=== PATIENT | male | born 1945 | race Caucasian/White ===

== ENCOUNTER → 2016-07-23 | Outpatient (CLI) | payer MEDICARE, OTHER ==
[~2016-07-23] MED LIST: ALLO100T PO; ASPI81TA85 PO; BIMA1SOL OP; LOSA25TA8 PO; MAGN64TASA PO; PRED10PA2 PO; SPIR25TA2 PO; TORS5TAB2 PO
[2016-07-23 13:20] LABS: ALBUMIN 3.8 GM/DL (3.2-5.2); ALBUMIN/GLOBULIN RATIO 1.23 (1.00-1.93); BILIRUBIN,TOTAL 1.1 MG/DL (0.2-1.0); CALCIUM LEVEL 8.4 MG/DL (8.8-10.2); CREATININE FOR GFR 1.42 MG/DL (0.70-1.30); GLOMERULAR FILTRATION RATE 52.2 (>42); POTASSIUM SERUM 4.2 MEQ/L (3.5-5.1); TOTAL PROTEIN 6.9 GM/DL (6.4-8.2); URIC ACID 7.8 MG/DL (3.5-7.2)
== END ==
LOC: M SMT 10:52
PROVIDERS: ATTEND Family Medicine
DX: M10.9 Gout, unspecified (principal); R73.01 Impaired fasting glucose

== ENCOUNTER → 2016-09-23 | Outpatient (CLI) | payer MEDICARE, OTHER ==
[2016-09-23 14:21] LABS: BASO % 0.4 % (0.0-1.0); EOS % 0.6 % (0.0-3.0); LARGE UNSTAINED CELL # 0.1 K/mm3 (0.0-0.4); LARGE UNSTAINED CELL % 2.9 % (0.0-4.0); LYMPH # 0.9 K/mm3 (1.5-4.5); LYMPH % 18.4 % (24.0-44.0); MEAN CORPUSCULAR HEMOGLOBIN 34.9 pg (27.0-33.0); MEAN CORPUSCULAR HGB CONC 32.7 g/dl (32.0-36.5); MEAN CORPUSCULAR VOLUME 106.7 fl (80.0-96.0); MONO # 0.4 K/mm3 (0.0-0.8); MONO % 8.2 % (0.0-5.0); NEUTROPHILS # 3.3 K/mm3 (1.8-7.7); NEUTROPHILS % 69.4 % (36.0-66.0); PLATELET COUNT, AUTOMATED 129 k/mm3 (150-450); WHITE BLOOD COUNT 4.7 K/mm3 (4.0-10.0)
[2016-09-23 14:37] LABS: ALBUMIN 3.8 GM/DL (3.2-5.2); ALBUMIN/GLOBULIN RATIO 1.23 (1.00-1.93); ALKALINE PHOSPHATASE 83 U/L (45-117); ALT/SGPT 26 U/L (12-78); ANION GAP 11 MEQ/L (8-16); AST/SGOT 35 U/L (15-37); BILIRUBIN,TOTAL 0.9 MG/DL (0.2-1.0); BLOOD UREA NITROGEN 20 MG/DL (7-18); CARBON DIOXIDE LEVEL 24 MEQ/L (21-32); CHLORIDE LEVEL 107 MEQ/L (98-107); CREATININE FOR GFR 1.46 MG/DL (0.70-1.30); GLOMERULAR FILTRATION RATE 50.4 (>42); GLUCOSE, FASTING 112 MG/DL (83-110); SODIUM LEVEL 142 MEQ/L (136-145); TOTAL PROTEIN 6.9 GM/DL (6.4-8.2); URIC ACID 6.4 MG/DL (3.5-7.2)
[2016-09-23 14:52] LABS: ERYTHROCYTE SEDIMENTATION RATE 21 mm/hr (0-20)
== END ==
LOC: M SMT 10:04
PROVIDERS: ATTEND Internal Medicine Rheumatology
DX: R76.8 Other specified abnormal immunological findings in serum (principal); M19.90 Unspecified osteoarthritis, unspecified site; I10 Essential (primary) hypertension

== ENCOUNTER → 2016-09-23 | Outpatient (CLI) | payer MEDICARE, OTHER ==
[2016-09-23 14:03] LABS: CALCIUM LEVEL 8.9 MG/DL (8.8-10.2); CREATININE FOR GFR 1.45 MG/DL (0.70-1.30); GLOMERULAR FILTRATION RATE 50.8 (>42); POTASSIUM SERUM 3.9 MEQ/L (3.5-5.1)
== END ==
LOC: M SMT 10:01
PROVIDERS: ATTEND Family Medicine
DX: I10 Essential (primary) hypertension (principal)

== ENCOUNTER → 2016-12-21 | Outpatient (REF) | payer MEDICARE, OTHER ==
[2016-12-21 13:39] LABS: CALCIUM LEVEL 8.7 MG/DL (8.8-10.2); CREATININE FOR GFR 1.52 MG/DL (0.70-1.30); GLOMERULAR FILTRATION RATE 48.1 (>42); MAGNESIUM LEVEL 1.4 MG/DL (1.8-2.4); POTASSIUM SERUM 3.7 MEQ/L (3.5-5.1)
== END ==
LOC: M LABDRWAD 12:13
PROVIDERS: ATTEND Nurse Practitioner Family
DX: I50.32 Chronic diastolic (congestive) heart failure (principal)

== ENCOUNTER → 2017-01-21 | Outpatient (REF) | payer MEDICARE, OTHER ==
[2017-01-21 14:34] LABS: CALCIUM LEVEL 9.1 MG/DL (8.8-10.2); CREATININE FOR GFR 2.02 MG/DL (0.70-1.30); GLOMERULAR FILTRATION RATE 34.6 (>42); PHOSPHORUS LEVEL 3.6 MG/DL (2.5-4.9); POTASSIUM SERUM 3.6 MEQ/L (3.5-5.1)
== END ==
LOC: M LABDRWAD 13:59
PROVIDERS: ATTEND Nurse Practitioner Family
DX: I11.0 Hypertensive heart disease with heart failure (principal)

== ENCOUNTER → 2017-01-24 | Outpatient (REF) | payer MEDICARE, OTHER ==
[2017-01-24 13:43] LABS: ALT/SGPT 30 U/L (12-78); AST/SGOT 27 U/L (15-37)
== END ==
LOC: M LAB REF 12:50
PROVIDERS: ATTEND Internal Medicine Nephrology
DX: M10.9 Gout, unspecified (principal)

== ENCOUNTER → 2017-01-28 | Outpatient (REF) | payer MEDICARE, OTHER | LOC: M LABDRWAD 13:24 | PROVIDERS: ATTEND Nurse Practitioner Adult Health | DX: Z85.46 Personal history of malignant neoplasm of prostate (principal) ==

== ENCOUNTER → 2017-01-31 | Outpatient (CLI) | payer MEDICARE, OTHER ==
--- NOTE | 2017-01-31 11:26 | REP ---
RENAL AND BLADDER ULTRASOUND: Real-time sonographic evaluation of kidneys and bladder performed. Kidneys are normal in size and echotexture, right kidney measuring 12.3 x 6.5 x 5.7 cm and left kidney 11.9 x 6.4 x 6.6 cm. There is no hydronephrosis or renal mass. Vascular calcifications are seen bilaterally. Cyst in the lower pole of the left kidney measures 8 x 7 x 9 mm. Urinary bladder is mildly distended with no definite mass or calculus. IMPRESSION: No hydronephrosis. Small left renal cyst. Signed by Dick Avery MD 02/01/2017 08:38 A
== END ==
LOC: M RAD 09:42
PROVIDERS: ATTEND Internal Medicine Nephrology
DX: N18.3 Chronic kidney disease, stage 3 (moderate) (principal); M10.9 Gout, unspecified; N28.1 Cyst of kidney, acquired

== ENCOUNTER → 2017-03-01 | Outpatient (REF) | payer MEDICARE, OTHER ==
[2017-03-01 13:57] LABS: ALBUMIN 3.5 GM/DL (3.2-5.2); CALCIUM LEVEL 8.6 MG/DL (8.8-10.2); CREATININE FOR GFR 1.58 MG/DL (0.70-1.30); PHOSPHORUS LEVEL 3.5 MG/DL (2.5-4.9); POTASSIUM SERUM 3.9 MEQ/L (3.5-5.1)
== END ==
LOC: M LABDRWAD 13:31
PROVIDERS: ATTEND Nurse Practitioner Family
DX: I11.9 Hypertensive heart disease without heart failure (principal)

== ENCOUNTER → 2017-04-12 | Outpatient (REF) | payer MEDICARE, OTHER ==
[2017-04-12 14:21] LABS: FOLATE 3.3 NG/ML
== END ==
LOC: M LAB REF 13:43
PROVIDERS: ATTEND Internal Medicine Nephrology
DX: N18.3 Chronic kidney disease, stage 3 (moderate) (principal); D53.9 Nutritional anemia, unspecified; M10.9 Gout, unspecified

== ENCOUNTER → 2017-11-04 | Outpatient (CLI) | payer MEDICARE, OTHER ==
[2017-11-04 13:41] LABS: PROSTATIC SPECIFIC AG MONITOR < 0.01 NG/ML (< 4.0)
== END ==
LOC: M ADAMS 10:08
DX: Z85.46 Personal history of malignant neoplasm of prostate (principal)
CPT/HCPCS: 84153

== ENCOUNTER → 2017-11-29 | Outpatient (REF) | payer MEDICARE, OTHER ==
[2017-11-29 15:37] LABS: FERRITIN 112 NG/ML (26-388); IRON (FE) 58 UG/DL (65-175); PERCENT SATURATION 21.7 % (19.7-50.0); TOTAL IRON BINDING CAPACITY 267 UG/DL (250-450)
== END ==
LOC: M LAB REF 15:05
DX: N18.3 Chronic kidney disease, stage 3 (moderate) (principal); D53.9 Nutritional anemia, unspecified
CPT/HCPCS: 83550

== ENCOUNTER → 2018-01-05 | Outpatient (CLI) | payer MEDICARE, OTHER | LOC: M RAD 12:13 | DX: N63.11 Unspecified lump in the right breast, upper outer quadrant (principal) | CPT/HCPCS: 77066 ==

== ENCOUNTER → 2018-01-24 | Outpatient (REF) | payer MEDICARE, OTHER | LOC: M LAB REF 18:32 | DX: C50.421 Malignant neoplasm of upper-outer quadrant of right male breast (principal) | CPT/HCPCS: 88305 ==

== ENCOUNTER → 2018-02-02 | Outpatient (CLI) | payer MEDICARE, OTHER | LOC: M RAD 10:00 | DX: N60.32 Fibrosclerosis of left breast (principal) | CPT/HCPCS: 76642 ==

== ENCOUNTER → 2018-02-13 | Outpatient (CLI) | payer MEDICARE, OTHER ==
[2018-02-13 11:57] LABS: ESTIMATED AVERAGE GLUCOSE 97 MG/DL (60-110)
[2018-02-13 12:11] LABS: ANION GAP 14 MEQ/L (8-16); BLOOD UREA NITROGEN 45 MG/DL (7-18); CALCIUM LEVEL 9.2 MG/DL (8.8-10.2); CARBON DIOXIDE LEVEL 25 MEQ/L (21-32); CHLORIDE LEVEL 102 MEQ/L (98-107); CREATININE FOR GFR 2.34 MG/DL (0.70-1.30); GLOMERULAR FILTRATION RATE 29.2 (>42); GLUCOSE, FASTING 128 MG/DL (70-100); POTASSIUM SERUM 3.8 MEQ/L (3.5-5.1); SODIUM LEVEL 141 MEQ/L (136-145)
== END ==
LOC: M LAB 10:51
DX: E11.9 Type 2 diabetes mellitus without complications (principal)

== ENCOUNTER 2018-02-15 07:53 | Inpatient (IN) | payer MEDICARE, OTHER ==
[~2018-02-15 07:53] MED LIST changes: -ALLO100T PO; -ASPI81TA85 PO; -BIMA1SOL OP; +LIDOCAINE 1% MDV 20ML VIAL SQ; -LOSA25TA8 PO; -MAGN64TASA PO; -PRED10PA2 PO; -SPIR25TA2 PO; -TORS5TAB2 PO
[2018-02-15] MEDS: LIDOCAINE 5% (LIDODERM) PATCH TD (08:20)
[2018-02-15] MEDS: LR 1,000 ML IV (08:49)
[2018-02-15] MEDS: LevoFLOXacin IV 500 MG in APPROPRIATE DILUENT 1 EA IV (09:30)
[2018-02-15] MEDS ORDERED: LIDOCAINE 2% INJ 100 MG/5 ML SDV (FOR ANES.) As Ordered (12:34)
[2018-02-15] MEDS ORDERED: SUCCINYLCHOLINE 100 MG/5 ML SYRINGE (J0330) As Ordered (12:34)
[2018-02-15] MEDS ORDERED: PROPOFOL 200 MG/20 ML VIAL As Ordered (12:34)
[2018-02-15] MEDS ORDERED: ONDANSETRON 4MG/2ML VIAL (J2405) As Ordered (12:34)
[2018-02-15] MEDS ORDERED: fentaNYL 100 MCG/2 ML INJECTION (J3010) As Ordered (12:34)
[2018-02-15] MEDS ORDERED: MIDAZOLAM INJ 2 MG/2 ML VIAL (J2250) As Ordered (12:34)
[2018-02-15] MEDS ORDERED: ROCURONIUM BROMIDE 50 MG/5 ML VIAL As Ordered (12:34)
[2018-02-15] MEDS: METHYLENE BLUE 0.5% (5MG/ML) 10 ML AMP (PROVAYBLUE)(Q9968 PER 1MG) As Ordered (12:44)
[2018-02-15] MEDS ORDERED: ePHEDrine SULFATE 25 MG/5 ML(5MG/ML) SYRINGE As Ordered (13:04)
[2018-02-15] MEDS ORDERED: PHENYLephrine HCL 500 MCG/5 ML (100MCG/ML) SYRINGE (J2370) As Ordered (13:04)
[2018-02-15] MEDS ORDERED: SUGAMMADEX SODIUM 500 MG/5 ML VIAL (BRIDION) As Ordered (13:38)
[2018-02-15] MEDS ORDERED: BUPIVACAINE HCL 0.25% 30 ML VIAL As Ordered (13:54)
[2018-02-15] MEDS ORDERED: HYDROmorphone HCL 2 MG/ML 1ML VIAL (J1170) As Ordered (14:11)
[2018-02-15] MEDS: BUPIVACAINE HCL 0.25% 30 ML VIAL As Ordered (16:15)
[2018-02-15] MEDS: LIDOCAINE 1% SDV INJ 30 ML VIAL As Ordered ×2 (16:16→16:55)
[2018-02-15] MEDS: BUPIVACAINE LIPOSOME/PF 1.3% 20ML VIAL (13.3MG/ML)(EXPAREL)(C9290 PER1MG) As Ordered (16:16)
[2018-02-15] MEDS ORDERED: MORPHINE 4 MG/ML 1ML VIAL/SYRINGE (J2270) IV ×2 (17:00)
[2018-02-15] MEDS ORDERED: ONDANSETRON 4MG/2ML VIAL (J2405) IV ×2 (17:00→17:15)
[2018-02-15] MEDS ORDERED: PERCOCET 5MG/325MG TAB PO ×2 (17:00→17:15)
[2018-02-15] MEDS ORDERED: fentaNYL 100 MCG/2 ML INJECTION (J3010) IV (17:15)
[2018-02-15] MEDS ORDERED: LR 1,000 ML IV (17:15)
[2018-02-15] MEDS ORDERED: METOCLOPRAMIDE INJ 10MG/2ML VIAL (J2765) IV (17:15)
[2018-02-15] MEDS: PERCOCET 5MG/325MG TAB PO ×2 (17:40→23:23)
[2018-02-15] MEDS: KCL 20MEQ IN D5/0.45NS 1000ML 1,000 ML IV ×2 (18:16→23:22)
[2018-02-15] MEDS: SYMBICORT 160/4.5MCG INHALER 6GM INH (20:30)
[2018-02-15] MEDS: SENOKOT S TAB PO (20:42)
[2018-02-15] MEDS: OCUVITE 1 TAB PO (20:42)
[2018-02-15] MEDS: ALLOPURINOL 100 MG TAB PO (20:42)
[2018-02-15] MEDS: TORSEMIDE 10 MG TABLET PO (22:57)
[2018-02-16 06:39] LABS: BASO % 0.4 % (0.0-1.0); EOS % 0.2 % (0.0-3.0); HEMATOCRIT 29.7 % (42.0-52.0); HEMOGLOBIN 10.1 g/dl (13.5-17.5); IMMATURE GRANULOCYTE % 0.4 % (0-3.0); LYMPH # 0.8 10^3/uL (1.5-4.5); LYMPH % 15.1 % (24.0-44.0); MEAN CORPUSCULAR HEMOGLOBIN 35.1 pg (27.0-33.0); MEAN CORPUSCULAR VOLUME 103.1 fl (80.0-96.0); MONO # 0.6 10^3/uL (0.0-0.8); NEUTROPHILS # 4.1 10^3/uL (1.8-7.7); NEUTROPHILS % 72.9 % (36.0-66.0); RED BLOOD COUNT 2.88 10^6/uL (4.30-6.10); RED CELL DISTRIBUTION WIDTH 13.7 % (11.5-14.5); WHITE BLOOD COUNT 5.6 10^3/uL (4.0-10.0)
[2018-02-16 06:55] LABS: ALBUMIN 2.5 GM/DL (3.2-5.2); ALBUMIN/GLOBULIN RATIO 0.83 (1.00-1.93); ALKALINE PHOSPHATASE 73 U/L (45-117); ALT/SGPT 17 U/L (12-78); ANION GAP 9 MEQ/L (8-16); AST/SGOT 15 U/L (7-37); BILIRUBIN,TOTAL 0.9 MG/DL (0.2-1.0); BLOOD UREA NITROGEN 47 MG/DL (7-18); CARBON DIOXIDE LEVEL 25 MEQ/L (21-32); CHLORIDE LEVEL 107 MEQ/L (98-107); CREATININE FOR GFR 2.32 MG/DL (0.70-1.30); GLOMERULAR FILTRATION RATE 29.4 (>42); GLUCOSE, FASTING 160 MG/DL (70-100); POTASSIUM SERUM 3.8 MEQ/L (3.5-5.1); SODIUM LEVEL 141 MEQ/L (136-145); TOTAL PROTEIN 5.5 GM/DL (6.4-8.2)
[2018-02-16 06:58] LABS: PLATELET COUNT, AUTOMATED 95 10^3/uL (150-450)
[2018-02-16 06:59] LABS: IMMATURE PLATELET FRACTION % 5.2 % (0.0-10.9)
[2018-02-16 07:04] LABS: CALCIUM LEVEL 7.7 MG/DL (8.8-10.2)
[2018-02-16] MEDS: SYMBICORT 160/4.5MCG INHALER 6GM INH ×2 (07:57→20:12)
[2018-02-16] MEDS ORDERED: PILL CRUSHER/CUTTER 1 EACH XX (09:00)
[2018-02-16] MEDS: LOSARTAN 25 MG TAB PO (09:01)
[2018-02-16] MEDS: OCUVITE 1 TAB PO ×2 (09:01→20:11)
[2018-02-16] MEDS: SENOKOT S TAB PO ×2 (09:01→20:11)
[2018-02-16] MEDS: ALLOPURINOL 100 MG TAB PO ×2 (09:01→20:11)
[2018-02-16] MEDS: FOLIC ACID 1 MG TAB PO (09:01)
[2018-02-16] MEDS: TORSEMIDE 10 MG TABLET PO ×2 (09:01→20:13)
[2018-02-16] MEDS: SODIUM CHLORIDE 0.9% 1000ML IV (09:01)
[2018-02-16] MEDS: SPIRONOLACTONE 25 MG TAB PO (09:02)
[2018-02-16] MEDS: ENOXAPARIN 40 MG/0.4 ML SYRINGE (J1650) SC (09:02)
[2018-02-16] MEDS: KCL 20MEQ IN D5/0.45NS 1000ML 1,000 ML IV ×2 (11:14→18:38)
[2018-02-16] MEDS: NEBIVOLOL 5 MG TAB (BYSTOLIC) PO (13:50)
[2018-02-16] MEDS: predniSONE 1 MG TAB PO (13:50)
[2018-02-16] MEDS: MAGNESIUM CHLORIDE 64 MG TABCR (SLO MAG) PO (13:51)
[2018-02-16] MEDS: THIAMINE 100 MG TAB PO ×2 (15:10→20:11)
[2018-02-16] MEDS: zolPIDEM TARTRATE 5 MG TAB PO (22:50)
[2018-02-16] MEDS: LORazepam 2 MG TAB PO (22:59)
[2018-02-17] MEDS: KCL 20MEQ IN D5/0.45NS 1000ML 1,000 ML IV (01:44)
[2018-02-17] MEDS: SYMBICORT 160/4.5MCG INHALER 6GM INH ×2 (07:46→19:54)
[2018-02-17 08:57] LABS: BASO % 0.5 % (0.0-1.0); EOS # 0.1 10^3/uL (0.0-0.50); HEMATOCRIT 31.3 % (42.0-52.0); HEMOGLOBIN 10.6 g/dl (13.5-17.5); IMMATURE GRANULOCYTE % 0.5 % (0-3.0); LYMPH # 1.2 10^3/uL (1.5-4.5); MEAN CORPUSCULAR HEMOGLOBIN 35.3 pg (27.0-33.0); MEAN CORPUSCULAR HGB CONC 33.9 g/dl (32.0-36.5); MEAN CORPUSCULAR VOLUME 104.3 fl (80.0-96.0); MONO # 0.7 10^3/uL (0.0-0.8); MONO % 11.1 % (0.0-5.0); NEUTROPHILS # 4.1 10^3/uL (1.8-7.7); NEUTROPHILS % 66.9 % (36.0-66.0); PLATELET COUNT, AUTOMATED 113 10^3/uL (150-450); RED CELL DISTRIBUTION WIDTH 13.8 % (11.5-14.5); WHITE BLOOD COUNT 6.1 10^3/uL (4.0-10.0)
[2018-02-17 09:17] LABS: ANION GAP 12 MEQ/L (8-16); BLOOD UREA NITROGEN 35 MG/DL (7-18); CALCIUM LEVEL 7.8 MG/DL (8.8-10.2); CARBON DIOXIDE LEVEL 21 MEQ/L (21-32); CHLORIDE LEVEL 107 MEQ/L (98-107); GLOMERULAR FILTRATION RATE 37.1 (>42); GLUCOSE, FASTING 110 MG/DL (70-100); POTASSIUM SERUM 4.1 MEQ/L (3.5-5.1); SODIUM LEVEL 140 MEQ/L (136-145)
[2018-02-17] MEDS: MAGNESIUM CHLORIDE 64 MG TABCR (SLO MAG) PO (09:21)
[2018-02-17] MEDS: NEBIVOLOL 5 MG TAB (BYSTOLIC) PO (09:21)
[2018-02-17] MEDS: THIAMINE 100 MG TAB PO ×2 (09:22→20:22)
[2018-02-17] MEDS: TORSEMIDE 10 MG TABLET PO ×2 (09:22→20:22)
[2018-02-17] MEDS: FOLIC ACID 1 MG TAB PO (09:22)
[2018-02-17] MEDS: predniSONE 1 MG TAB PO (09:22)
[2018-02-17] MEDS: OCUVITE 1 TAB PO ×2 (09:22→20:22)
[2018-02-17] MEDS: ENOXAPARIN 40 MG/0.4 ML SYRINGE (J1650) SC (09:22)
[2018-02-17] MEDS: ALLOPURINOL 100 MG TAB PO ×2 (09:23→20:22)
[2018-02-17] MEDS: LOSARTAN 25 MG TAB PO (09:23)
[2018-02-17] MEDS: SENOKOT S TAB PO ×2 (09:23→20:22)
[2018-02-17] MEDS: SPIRONOLACTONE 25 MG TAB PO (09:23)
[2018-02-17] MEDS: LORazepam 2 MG TAB PO ×2 (17:27→22:15)
[2018-02-17] MEDS: zolPIDEM TARTRATE 5 MG TAB PO (20:30)
[2018-02-18] MEDS: LORazepam 2 MG TAB PO ×3 (03:43→14:18)
[2018-02-18 08:13] LABS: ANION GAP 9 MEQ/L (8-16); BLOOD UREA NITROGEN 26 MG/DL (7-18); CALCIUM LEVEL 7.8 MG/DL (8.8-10.2); CARBON DIOXIDE LEVEL 25 MEQ/L (21-32); CHLORIDE LEVEL 108 MEQ/L (98-107); GLOMERULAR FILTRATION RATE 45.2 (>42); GLUCOSE, FASTING 94 MG/DL (70-100); POTASSIUM SERUM 3.9 MEQ/L (3.5-5.1); SODIUM LEVEL 142 MEQ/L (136-145)
[2018-02-18] MEDS: SYMBICORT 160/4.5MCG INHALER 6GM INH ×2 (08:14→19:44)
[2018-02-18] MEDS: LOSARTAN 25 MG TAB PO (11:07)
[2018-02-18] MEDS: NEBIVOLOL 5 MG TAB (BYSTOLIC) PO (11:07)
[2018-02-18] MEDS: OCUVITE 1 TAB PO ×2 (11:08→22:06)
[2018-02-18] MEDS: TORSEMIDE 10 MG TABLET PO ×2 (11:09→22:05)
[2018-02-18] MEDS: THIAMINE 100 MG TAB PO ×2 (11:09→22:06)
[2018-02-18] MEDS: FOLIC ACID 1 MG TAB PO (11:09)
[2018-02-18] MEDS: SENOKOT S TAB PO ×2 (11:10→22:06)
[2018-02-18] MEDS: ALLOPURINOL 100 MG TAB PO ×2 (11:10→22:06)
[2018-02-18] MEDS: SPIRONOLACTONE 25 MG TAB PO (11:10)
[2018-02-18] MEDS: ENOXAPARIN 30 MG/0.3 ML SYR (J1650) SC (11:12)
[2018-02-18] MEDS: MAGNESIUM CHLORIDE 64 MG TABCR (SLO MAG) PO (11:13)
[2018-02-18] MEDS: predniSONE 1 MG TAB PO (11:29)
[2018-02-18] MEDS: NEOSPORIN TOP OINT 15GM TOP ×2 (14:18→22:07)
[2018-02-18] MEDS: zolPIDEM TARTRATE 5 MG TAB PO (22:06)
[2018-02-19] MEDS: SYMBICORT 160/4.5MCG INHALER 6GM INH ×2 (07:50→22:03)
[2018-02-19] MEDS: TORSEMIDE 10 MG TABLET PO ×2 (09:39→20:47)
[2018-02-19] MEDS: OCUVITE 1 TAB PO ×2 (09:39→20:15)
[2018-02-19] MEDS: LOSARTAN 25 MG TAB PO (09:40)
[2018-02-19] MEDS: FOLIC ACID 1 MG TAB PO (09:40)
[2018-02-19] MEDS: NEBIVOLOL 5 MG TAB (BYSTOLIC) PO (09:40)
[2018-02-19] MEDS: SPIRONOLACTONE 25 MG TAB PO (09:41)
[2018-02-19] MEDS: ALLOPURINOL 100 MG TAB PO ×2 (09:41→20:15)
[2018-02-19] MEDS: SENOKOT S TAB PO ×2 (09:41→20:15)
[2018-02-19] MEDS: predniSONE 1 MG TAB PO (09:41)
[2018-02-19] MEDS: MAGNESIUM CHLORIDE 64 MG TABCR (SLO MAG) PO (09:41)
[2018-02-19] MEDS: ENOXAPARIN 30 MG/0.3 ML SYR (J1650) SC (09:42)
[2018-02-19] MEDS: NEOSPORIN TOP OINT 15GM TOP ×2 (09:42→20:15)
[2018-02-19] MEDS: zolPIDEM TARTRATE 5 MG TAB PO (20:15)
[2018-02-20 05:58] LABS: BASO % 0.5 % (0.0-1.0); EOS # 0.1 10^3/uL (0.0-0.50); EOS % 1.4 % (0.0-3.0); HEMATOCRIT 29.8 % (42.0-52.0); HEMOGLOBIN 10.1 g/dl (13.5-17.5); IMMATURE GRANULOCYTE % 0.4 % (0-3.0); LYMPH # 1.4 10^3/uL (1.5-4.5); LYMPH % 24.9 % (24.0-44.0); MEAN CORPUSCULAR HEMOGLOBIN 35.3 pg (27.0-33.0); MEAN CORPUSCULAR HGB CONC 33.9 g/dl (32.0-36.5); MEAN CORPUSCULAR VOLUME 104.2 fl (80.0-96.0); MONO # 0.9 10^3/uL (0.0-0.8); MONO % 15.4 % (0.0-5.0); NEUTROPHILS # 3.3 10^3/uL (1.8-7.7); NEUTROPHILS % 57.4 % (36.0-66.0); PLATELET COUNT, AUTOMATED 107 10^3/uL (150-450); RED BLOOD COUNT 2.86 10^6/uL (4.30-6.10); RED CELL DISTRIBUTION WIDTH 13.4 % (11.5-14.5); WHITE BLOOD COUNT 5.7 10^3/uL (4.0-10.0)
[2018-02-20 06:22] LABS: ALBUMIN 2.6 GM/DL (3.2-5.2); ALBUMIN/GLOBULIN RATIO 0.74 (1.00-1.93); ALKALINE PHOSPHATASE 95 U/L (45-117); ALT/SGPT 17 U/L (12-78); ANION GAP 9 MEQ/L (8-16); AST/SGOT 16 U/L (7-37); BILIRUBIN,TOTAL 0.6 MG/DL (0.2-1.0); BLOOD UREA NITROGEN 27 MG/DL (7-18); CARBON DIOXIDE LEVEL 28 MEQ/L (21-32); CHLORIDE LEVEL 104 MEQ/L (98-107); CREATININE FOR GFR 1.61 MG/DL (0.70-1.30); GLOMERULAR FILTRATION RATE 44.9 (>42); GLUCOSE, FASTING 118 MG/DL (70-100); POTASSIUM SERUM 3.8 MEQ/L (3.5-5.1); SODIUM LEVEL 141 MEQ/L (136-145); TOTAL PROTEIN 6.1 GM/DL (6.4-8.2)
[2018-02-20] MEDS: SYMBICORT 160/4.5MCG INHALER 6GM INH ×2 (08:29→21:08)
[2018-02-20] MEDS: predniSONE 1 MG TAB PO (09:36)
[2018-02-20] MEDS: LOSARTAN 25 MG TAB PO (09:39)
[2018-02-20] MEDS: SPIRONOLACTONE 25 MG TAB PO (09:39)
[2018-02-20] MEDS: FOLIC ACID 1 MG TAB PO (09:39)
[2018-02-20] MEDS: SENOKOT S TAB PO ×2 (09:39→20:31)
[2018-02-20] MEDS: OCUVITE 1 TAB PO ×2 (09:40→20:31)
[2018-02-20] MEDS: NEBIVOLOL 5 MG TAB (BYSTOLIC) PO (09:40)
[2018-02-20] MEDS: ALLOPURINOL 100 MG TAB PO ×2 (09:41→20:35)
[2018-02-20] MEDS: MAGNESIUM CHLORIDE 64 MG TABCR (SLO MAG) PO (09:41)
[2018-02-20] MEDS: ENOXAPARIN 30 MG/0.3 ML SYR (J1650) SC (09:41)
[2018-02-20] MEDS: NEOSPORIN TOP OINT 15GM TOP ×2 (09:42→20:32)
[2018-02-20] MEDS: TORSEMIDE 10 MG TABLET PO ×2 (09:42→20:35)
[2018-02-20] MEDS: LORazepam 2 MG TAB PO (11:57)
[2018-02-20] MEDS: zolPIDEM TARTRATE 5 MG TAB PO (20:32)
[2018-02-21 08:26] LABS: BEDSIDE GLUCOSE 91 MG/DL (83-110)
[2018-02-21] MEDS: SYMBICORT 160/4.5MCG INHALER 6GM INH ×2 (08:36→20:13)
[2018-02-21] MEDS: MAGNESIUM CHLORIDE 64 MG TABCR (SLO MAG) PO (09:54)
[2018-02-21] MEDS: ENOXAPARIN 30 MG/0.3 ML SYR (J1650) SC (09:54)
[2018-02-21] MEDS: TORSEMIDE 10 MG TABLET PO ×2 (09:55→20:22)
[2018-02-21] MEDS: SPIRONOLACTONE 25 MG TAB PO (09:55)
[2018-02-21] MEDS: FOLIC ACID 1 MG TAB PO (09:55)
[2018-02-21] MEDS: SENOKOT S TAB PO ×2 (09:55→20:21)
[2018-02-21] MEDS: predniSONE 1 MG TAB PO (09:55)
[2018-02-21] MEDS: OCUVITE 1 TAB PO ×2 (09:55→20:21)
[2018-02-21] MEDS: ALLOPURINOL 100 MG TAB PO ×2 (09:56→20:22)
[2018-02-21] MEDS: LOSARTAN 25 MG TAB PO (09:57)
[2018-02-21] MEDS: NEBIVOLOL 5 MG TAB (BYSTOLIC) PO (09:58)
[2018-02-21] MEDS: NEOSPORIN TOP OINT 15GM TOP ×2 (09:59→20:22)
[2018-02-21] MEDS: zolPIDEM TARTRATE 5 MG TAB PO (20:22)
[2018-02-21] MEDS: LORazepam 1 MG TAB PO ×2 (21:50→23:48)
[2018-02-21 22:18] LABS: ABG BASE EXCESS -0.3 (-2.0-2.0); ABG HCO3 16.5 MEQ/L (22.0-26.0); ABG O2 SATURATION 99.3 % (95.0-99.0); ABG PARTIAL PRESSURE O2 145.1 mmHg (75.0-100.0); ABG STANDARD HCO3 24.3 MEQ/L (22.0-26.0); ABG TOTAL CO2 16.9 MEQ/L (23.0-31.0)
[2018-02-21 22:21] LABS: ABG PARTIAL PRESSURE CO2 12.4 mmHg (35.0-45.0); ABG pH (ARTERIAL) 7.742 UNITS (7.350-7.450)
[2018-02-22] MEDS: THIAMINE 100 MG TAB PO ×3 (00:44→21:45)
[2018-02-22] MEDS: HALOPERIDOL 5 MG/ML VIAL (J1630) IV ×2 (01:31→08:48)
[2018-02-22] MEDS: LORazepam 2 MG/ML VIAL (J2060) IV ×2 (05:59→20:12)
[2018-02-22] MEDS: ENOXAPARIN 30 MG/0.3 ML SYR (J1650) SC (08:36)
[2018-02-22] MEDS: TORSEMIDE 10 MG TABLET PO ×2 (08:36→20:12)
[2018-02-22] MEDS: SENOKOT S TAB PO ×2 (08:37→20:12)
[2018-02-22] MEDS: ALLOPURINOL 100 MG TAB PO ×2 (08:37→20:12)
[2018-02-22] MEDS: MAGNESIUM CHLORIDE 64 MG TABCR (SLO MAG) PO (08:45)
[2018-02-22] MEDS: predniSONE 1 MG TAB PO (08:45)
[2018-02-22] MEDS: NEOSPORIN TOP OINT 15GM TOP ×2 (08:45→20:13)
[2018-02-22] MEDS: OCUVITE 1 TAB PO ×2 (08:45→20:12)
[2018-02-22] MEDS: SPIRONOLACTONE 25 MG TAB PO (08:46)
[2018-02-22] MEDS: LOSARTAN 25 MG TAB PO (08:47)
[2018-02-22] MEDS: NEBIVOLOL 5 MG TAB (BYSTOLIC) PO (08:47)
[2018-02-22] MEDS: SYMBICORT 160/4.5MCG INHALER 6GM INH ×2 (08:59→20:00)
[2018-02-22] MEDS: MULTIVITAMIN -ADULT INJECTION 10 ML, THIAMINE INJection 100 MG, FOLIC ACID 1 MG in NS 1... IV (09:56)
[2018-02-22] MEDS: HALOPERIDOL 5 MG/ML VIAL (J1630) IM (13:20)
[2018-02-22] MEDS: diphenhydrAMINE INJ 50MG/ML VIAL (J1200) IM (15:40)
[2018-02-22 16:32] LABS: BEDSIDE GLUCOSE 138 MG/DL (83-110)
[2018-02-22] MEDS: OXAZEPAM 15 MG CAP PO (17:54)
[2018-02-23] MEDS: OXAZEPAM 15 MG CAP PO ×4 (00:21→17:52)
[2018-02-23] MEDS: LORazepam 2 MG/ML VIAL (J2060) IV ×3 (01:21→21:54)
[2018-02-23] MEDS: MOM 30ML SUSPENSION UDC PO (05:06)
[2018-02-23 06:26] LABS: HEMATOCRIT 27.6 % (42.0-52.0); MEAN CORPUSCULAR HEMOGLOBIN 33.8 pg (27.0-33.0); MEAN CORPUSCULAR HGB CONC 32.6 g/dl (32.0-36.5); MEAN CORPUSCULAR VOLUME 103.8 fl (80.0-96.0); PLATELET COUNT, AUTOMATED 110 10^3/uL (150-450); RED BLOOD COUNT 2.66 10^6/uL (4.30-6.10); RED CELL DISTRIBUTION WIDTH 13.5 % (11.5-14.5); WHITE BLOOD COUNT 6.4 10^3/uL (4.0-10.0)
[2018-02-23 06:40] LABS: ALBUMIN 2.6 GM/DL (3.2-5.2); ALBUMIN/GLOBULIN RATIO 0.79 (1.00-1.93); ALKALINE PHOSPHATASE 91 U/L (45-117); ALT/SGPT 19 U/L (12-78); ANION GAP 11 MEQ/L (8-16); AST/SGOT 20 U/L (7-37); BILIRUBIN,TOTAL 0.9 MG/DL (0.2-1.0); BLOOD UREA NITROGEN 35 MG/DL (7-18); CALCIUM LEVEL 8.7 MG/DL (8.8-10.2); CARBON DIOXIDE LEVEL 28 MEQ/L (21-32); CHLORIDE LEVEL 109 MEQ/L (98-107); CREATININE FOR GFR 2.07 MG/DL (0.70-1.30); GLOMERULAR FILTRATION RATE 33.6 (>42); GLUCOSE, FASTING 100 MG/DL (70-100); POTASSIUM SERUM 3.1 MEQ/L (3.5-5.1); SODIUM LEVEL 148 MEQ/L (136-145); TOTAL PROTEIN 5.9 GM/DL (6.4-8.2)
[2018-02-23 06:50] LABS: MAGNESIUM LEVEL 1.8 MG/DL (1.8-2.4)
[2018-02-23 06:50] LABS: FERRITIN 192 NG/ML (26-388); IRON (FE) 64 UG/DL (65-175); PERCENT SATURATION 23.8 % (19.7-50.0); TOTAL IRON BINDING CAPACITY 269 UG/DL (250-450)
[2018-02-23] MEDS: SYMBICORT 160/4.5MCG INHALER 6GM INH ×3 (08:02→20:00)
[2018-02-23] MEDS: OCUVITE 1 TAB PO ×2 (08:38→20:29)
[2018-02-23] MEDS: SPIRONOLACTONE 25 MG TAB PO (08:39)
[2018-02-23] MEDS: ALLOPURINOL 100 MG TAB PO ×2 (08:39→20:29)
[2018-02-23] MEDS: TORSEMIDE 10 MG TABLET PO ×2 (08:39→20:29)
[2018-02-23] MEDS: LOSARTAN 25 MG TAB PO (08:40)
[2018-02-23] MEDS: THIAMINE 100 MG TAB PO ×2 (08:41→20:29)
[2018-02-23] MEDS: MAGNESIUM CHLORIDE 64 MG TABCR (SLO MAG) PO (08:41)
[2018-02-23] MEDS: SENOKOT S TAB PO ×2 (08:41→20:29)
[2018-02-23] MEDS: NEBIVOLOL 5 MG TAB (BYSTOLIC) PO (08:41)
[2018-02-23] MEDS: ENOXAPARIN 30 MG/0.3 ML SYR (J1650) SC (08:42)
[2018-02-23] MEDS: NEOSPORIN TOP OINT 15GM TOP ×2 (08:42→20:30)
[2018-02-23] MEDS: MULTIVITAMINS/MINERALS THERAP 1 TAB PO (08:42)
[2018-02-23] MEDS: predniSONE 1 MG TAB PO (08:45)
[2018-02-23] MEDS: FOLIC ACID 1 MG TAB PO (13:00)
[2018-02-23 17:24] LABS: FOLATE 15.7 NG/ML (>5.4); VITAMIN B12 LEVEL 1684 PG/ML (247-911)
[2018-02-23] MEDS: diphenhydrAMINE INJ 50MG/ML VIAL (J1200) IM (22:09)
[2018-02-24] MEDS: OXAZEPAM 15 MG CAP PO ×5 (00:08→18:43)
[2018-02-24] MEDS: LORazepam 2 MG/ML VIAL (J2060) IV (02:32)
[2018-02-24] MEDS: diphenhydrAMINE INJ 50MG/ML VIAL (J1200) IM ×2 (04:11→18:53)
[2018-02-24] MEDS: OXAZEPAM 10 MG CAP PO (04:11)
[2018-02-24] MEDS: SYMBICORT 160/4.5MCG INHALER 6GM INH ×2 (08:05→20:00)
[2018-02-24] MEDS: MAGNESIUM CHLORIDE 64 MG TABCR (SLO MAG) PO (08:54)
[2018-02-24] MEDS: ENOXAPARIN 30 MG/0.3 ML SYR (J1650) SC (08:54)
[2018-02-24] MEDS: THIAMINE 100 MG TAB PO ×2 (08:54→20:51)
[2018-02-24] MEDS: ALLOPURINOL 100 MG TAB PO ×2 (08:55→20:51)
[2018-02-24] MEDS: OCUVITE 1 TAB PO ×2 (08:55→20:52)
[2018-02-24] MEDS: SPIRONOLACTONE 25 MG TAB PO (08:55)
[2018-02-24] MEDS: predniSONE 1 MG TAB PO (08:55)
[2018-02-24] MEDS: MULTIVITAMINS/MINERALS THERAP 1 TAB PO (08:55)
[2018-02-24] MEDS: FOLIC ACID 1 MG TAB PO (08:55)
[2018-02-24] MEDS: SENOKOT S TAB PO ×2 (08:55→20:51)
[2018-02-24] MEDS: TORSEMIDE 10 MG TABLET PO (08:55)
[2018-02-24] MEDS: LOSARTAN 25 MG TAB PO (08:56)
[2018-02-24] MEDS: NEBIVOLOL 5 MG TAB (BYSTOLIC) PO (08:56)
[2018-02-24] MEDS: NEOSPORIN TOP OINT 15GM TOP ×2 (08:57→20:52)
[2018-02-24 10:53] LABS: HEMATOCRIT 28.2 % (42.0-52.0); HEMOGLOBIN 9.4 g/dl (13.5-17.5); MEAN CORPUSCULAR HEMOGLOBIN 34.7 pg (27.0-33.0); MEAN CORPUSCULAR HGB CONC 33.3 g/dl (32.0-36.5); MEAN CORPUSCULAR VOLUME 104.1 fl (80.0-96.0); PLATELET COUNT, AUTOMATED 144 10^3/uL (150-450); RED BLOOD COUNT 2.71 10^6/uL (4.30-6.10); RED CELL DISTRIBUTION WIDTH 13.7 % (11.5-14.5); WHITE BLOOD COUNT 6.6 10^3/uL (4.0-10.0)
[2018-02-24 11:38] LABS: ANION GAP 10 MEQ/L (8-16); BLOOD UREA NITROGEN 38 MG/DL (7-18); CALCIUM LEVEL 9.1 MG/DL (8.8-10.2); CARBON DIOXIDE LEVEL 29 MEQ/L (21-32); CHLORIDE LEVEL 109 MEQ/L (98-107); CREATININE FOR GFR 1.99 MG/DL (0.70-1.30); GLOMERULAR FILTRATION RATE 35.1 (>42); GLUCOSE, FASTING 121 MG/DL (70-100); POTASSIUM SERUM 3.2 MEQ/L (3.5-5.1); SODIUM LEVEL 148 MEQ/L (136-145)
[2018-02-24] MEDS: POTASSIUM CHLORIDE 10 MEQ SR TABLET PO (12:47)
[2018-02-25] MEDS: OXAZEPAM 15 MG CAP PO ×7 (01:00→23:37)
[2018-02-25 06:22] LABS: HEMATOCRIT 29.4 % (42.0-52.0); HEMOGLOBIN 9.8 g/dl (13.5-17.5); MEAN CORPUSCULAR HEMOGLOBIN 35.3 pg (27.0-33.0); MEAN CORPUSCULAR HGB CONC 33.3 g/dl (32.0-36.5); MEAN CORPUSCULAR VOLUME 105.8 fl (80.0-96.0); PLATELET COUNT, AUTOMATED 141 10^3/uL (150-450); RED BLOOD COUNT 2.78 10^6/uL (4.30-6.10); RED CELL DISTRIBUTION WIDTH 13.6 % (11.5-14.5); WHITE BLOOD COUNT 6.7 10^3/uL (4.0-10.0)
[2018-02-25 06:48] LABS: ANION GAP 10 MEQ/L (8-16); BLOOD UREA NITROGEN 42 MG/DL (7-18); CALCIUM LEVEL 8.8 MG/DL (8.8-10.2); CARBON DIOXIDE LEVEL 28 MEQ/L (21-32); CHLORIDE LEVEL 112 MEQ/L (98-107); CREATININE FOR GFR 2.35 MG/DL (0.70-1.30); GLUCOSE, FASTING 94 MG/DL (70-100); POTASSIUM SERUM 3.5 MEQ/L (3.5-5.1); SODIUM LEVEL 150 MEQ/L (136-145)
[2018-02-25] MEDS: SYMBICORT 160/4.5MCG INHALER 6GM INH ×2 (07:51→20:00)
[2018-02-25] MEDS: D5W 1,000 ML IV (08:49)
[2018-02-25] MEDS: ENOXAPARIN 30 MG/0.3 ML SYR (J1650) SC (08:54)
[2018-02-25] MEDS: THIAMINE 100 MG TAB PO (08:55)
[2018-02-25] MEDS: POTASSIUM CHLORIDE 10 MEQ SR TABLET PO (08:55)
[2018-02-25] MEDS: predniSONE 1 MG TAB PO (08:56)
[2018-02-25] MEDS: MULTIVITAMINS/MINERALS THERAP 1 TAB PO (08:56)
[2018-02-25] MEDS: SENOKOT S TAB PO ×2 (08:56→20:32)
[2018-02-25] MEDS: ALLOPURINOL 100 MG TAB PO ×2 (08:56→20:32)
[2018-02-25] MEDS: FOLIC ACID 1 MG TAB PO (08:56)
[2018-02-25] MEDS: NEBIVOLOL 5 MG TAB (BYSTOLIC) PO (08:59)
[2018-02-25] MEDS: MAGNESIUM CHLORIDE 64 MG TABCR (SLO MAG) PO (09:01)
[2018-02-25] MEDS: NEOSPORIN TOP OINT 15GM TOP ×2 (09:02→20:32)
[2018-02-25] MEDS: OCUVITE 1 TAB PO ×2 (09:31→20:32)
[2018-02-25] MEDS: LORazepam 2 MG/ML VIAL (J2060) IV ×2 (12:45→20:21)
[2018-02-25] MEDS: diphenhydrAMINE INJ 50MG/ML VIAL (J1200) IM ×2 (13:01→20:34)
[2018-02-26] MEDS: LORazepam 2 MG/ML VIAL (J2060) IV (00:34)
[2018-02-26] MEDS: D5W 1,000 ML IV ×2 (00:35→16:38)
[2018-02-26] MEDS: OXAZEPAM 15 MG CAP PO (05:59)
[2018-02-26 06:39] LABS: HEMATOCRIT 30.1 % (42.0-52.0); HEMOGLOBIN 9.9 g/dl (13.5-17.5); MEAN CORPUSCULAR HEMOGLOBIN 34.9 pg (27.0-33.0); MEAN CORPUSCULAR HGB CONC 32.9 g/dl (32.0-36.5); PLATELET COUNT, AUTOMATED 144 10^3/uL (150-450); RED BLOOD COUNT 2.84 10^6/uL (4.30-6.10); RED CELL DISTRIBUTION WIDTH 13.5 % (11.5-14.5); WHITE BLOOD COUNT 6.4 10^3/uL (4.0-10.0)
[2018-02-26 07:07] LABS: ANION GAP 9 MEQ/L (8-16); BLOOD UREA NITROGEN 38 MG/DL (7-18); CARBON DIOXIDE LEVEL 26 MEQ/L (21-32); CHLORIDE LEVEL 113 MEQ/L (98-107); CREATININE FOR GFR 2.05 MG/DL (0.70-1.30); GLUCOSE, FASTING 144 MG/DL (70-100); POTASSIUM SERUM 3.4 MEQ/L (3.5-5.1); SODIUM LEVEL 148 MEQ/L (136-145)
[2018-02-26] MEDS: SYMBICORT 160/4.5MCG INHALER 6GM INH ×2 (07:31→19:57)
[2018-02-26 09:23] LABS: BEDSIDE GLUCOSE 130 MG/DL (83-110)
[2018-02-26] MEDS: LR 1,000 ML IV (09:30)
[2018-02-26 09:34] LABS: ABG HCO3 24.1 MEQ/L (22.0-26.0); ABG O2 SATURATION 57.4 % (95.0-99.0); ABG PARTIAL PRESSURE CO2 41.7 mmHg (35.0-45.0); ABG STANDARD HCO3 22.9 MEQ/L (22.0-26.0); ABG TOTAL CO2 25.3 MEQ/L (23.0-31.0); ABG pH (ARTERIAL) 7.379 UNITS (7.350-7.450)
[2018-02-26 09:41] LABS: ABG PARTIAL PRESSURE O2 33.8 mmHg (75.0-100.0)
[2018-02-26] MEDS: NEBIVOLOL 5 MG TAB (BYSTOLIC) PO (10:17)
[2018-02-26] MEDS: SENOKOT S TAB PO ×2 (10:18→20:59)
[2018-02-26] MEDS: OCUVITE 1 TAB PO ×2 (10:18→20:59)
[2018-02-26] MEDS: BISACODYL 5 MG TAB PO (10:19)
[2018-02-26] MEDS: ALLOPURINOL 100 MG TAB PO ×2 (10:19→20:59)
[2018-02-26] MEDS: MULTIVITAMINS/MINERALS THERAP 1 TAB PO (10:19)
[2018-02-26] MEDS: THIAMINE 100 MG TAB PO (10:19)
[2018-02-26] MEDS: predniSONE 1 MG TAB PO (10:19)
[2018-02-26] MEDS: ENOXAPARIN 30 MG/0.3 ML SYR (J1650) SC (10:20)
[2018-02-26] MEDS: POTASSIUM CHLORIDE 10 MEQ SR TABLET PO (10:20)
[2018-02-26] MEDS: FOLIC ACID 1 MG TAB PO (10:20)
[2018-02-26] MEDS: NEOSPORIN TOP OINT 15GM TOP ×2 (10:21→21:00)
[2018-02-26] MEDS: MAGNESIUM CHLORIDE 64 MG TABCR (SLO MAG) PO (10:21)
[2018-02-26] MEDS ORDERED: OXAZEPAM 15 MG CAP PO (14:00)
[2018-02-26] MEDS ORDERED: OXAZEPAM 10 MG CAP PO (16:00)
[2018-02-26 16:12] LABS: CK-MB VALUE MASS 2.5 NG/ML (<3.6); CPK CREATINE PHOSPHOKINASE 199 U/L (39-308); MB/CK RELATIVE INDEX 1.25 (< OR =4); TROPONIN I < 0.02 NG/ML (< 0.10)
[2018-02-26] MEDS: MOM 30ML SUSPENSION UDC PO (16:42)
[2018-02-26] MEDS: ACETAMINOPHEN TAB 650MG DOSE (2X325MG) PO (16:42)
[2018-02-26] MEDS: OXAZEPAM 10 MG CAP PO ×2 (16:42→20:59)
[2018-02-26 21:30] LABS: CPK CREATINE PHOSPHOKINASE 180 U/L (39-308); MB/CK RELATIVE INDEX 1.11 (< OR =4); TROPONIN I < 0.02 NG/ML (< 0.10)
[2018-02-27] MEDS: D5W 1,000 ML IV ×2 (00:44→17:25)
[2018-02-27] MEDS: OXAZEPAM 10 MG CAP PO ×4 (01:03→20:02)
[2018-02-27] MEDS ORDERED: LORazepam 2 MG/ML VIAL (J2060) As Ordered (01:33)
[2018-02-27] MEDS: LORazepam 2 MG/ML VIAL (J2060) IV ×2 (01:37→03:45)
[2018-02-27] MEDS: HALOPERIDOL 5 MG/ML VIAL (J1630) IM (02:06)
[2018-02-27] MEDS ORDERED: HALOPERIDOL 5 MG/ML VIAL (J1630) IM (03:30)
[2018-02-27 07:03] LABS: HEMATOCRIT 25.9 % (42.0-52.0); HEMOGLOBIN 8.7 g/dl (13.5-17.5); MEAN CORPUSCULAR HEMOGLOBIN 34.4 pg (27.0-33.0); MEAN CORPUSCULAR HGB CONC 33.6 g/dl (32.0-36.5); MEAN CORPUSCULAR VOLUME 102.4 fl (80.0-96.0); PLATELET COUNT, AUTOMATED 145 10^3/uL (150-450); RED BLOOD COUNT 2.53 10^6/uL (4.30-6.10); RED CELL DISTRIBUTION WIDTH 13.2 % (11.5-14.5); WHITE BLOOD COUNT 8.1 10^3/uL (4.0-10.0)
[2018-02-27 07:20] LABS: ANION GAP 6 MEQ/L (8-16); BLOOD UREA NITROGEN 30 MG/DL (7-18); CARBON DIOXIDE LEVEL 27 MEQ/L (21-32); CHLORIDE LEVEL 112 MEQ/L (98-107); CREATININE FOR GFR 1.64 MG/DL (0.70-1.30); GLOMERULAR FILTRATION RATE 43.9 (>42); GLUCOSE, FASTING 116 MG/DL (70-100); POTASSIUM SERUM 3.5 MEQ/L (3.5-5.1); SODIUM LEVEL 145 MEQ/L (136-145)
[2018-02-27] MEDS: SYMBICORT 160/4.5MCG INHALER 6GM INH ×2 (07:21→20:00)
[2018-02-27] MEDS: NEBIVOLOL 5 MG TAB (BYSTOLIC) PO (09:50)
[2018-02-27] MEDS: THIAMINE 100 MG TAB PO (09:50)
[2018-02-27] MEDS: predniSONE 1 MG TAB PO (09:50)
[2018-02-27] MEDS: POTASSIUM CHLORIDE 10 MEQ SR TABLET PO (09:50)
[2018-02-27] MEDS: FOLIC ACID 1 MG TAB PO (09:51)
[2018-02-27] MEDS: MULTIVITAMINS/MINERALS THERAP 1 TAB PO (09:51)
[2018-02-27] MEDS: MAGNESIUM CHLORIDE 64 MG TABCR (SLO MAG) PO (09:51)
[2018-02-27] MEDS: OCUVITE 1 TAB PO ×2 (09:51→20:02)
[2018-02-27] MEDS: ALLOPURINOL 100 MG TAB PO ×2 (09:51→20:02)
[2018-02-27] MEDS: SENOKOT S TAB PO ×2 (09:51→20:02)
[2018-02-27] MEDS: NEOSPORIN TOP OINT 15GM TOP ×2 (09:52→20:03)
[2018-02-27] MEDS: ENOXAPARIN 30 MG/0.3 ML SYR (J1650) SC (09:52)
[2018-02-27] MEDS: BISACODYL 5 MG TAB PO (10:12)
[2018-02-27 10:47] LABS: AMMONIA 33 uMOL/L (<32)
[2018-02-27] MEDS: risperiDONE 0.25 MG TAB PO ×2 (15:13→20:02)
[2018-02-28] MEDS: OXAZEPAM 10 MG CAP PO (00:10)
[2018-02-28] MEDS: diphenhydrAMINE INJ 50MG/ML VIAL (J1200) IV (01:45)
[2018-02-28] MEDS: D5W 1,000 ML IV ×2 (04:51→20:40)
[2018-02-28 06:45] LABS: HEMATOCRIT 24.6 % (42.0-52.0); MEAN CORPUSCULAR HEMOGLOBIN 34.2 pg (27.0-33.0); MEAN CORPUSCULAR HGB CONC 32.5 g/dl (32.0-36.5); MEAN CORPUSCULAR VOLUME 105.1 fl (80.0-96.0); PLATELET COUNT, AUTOMATED 127 10^3/uL (150-450); RED BLOOD COUNT 2.34 10^6/uL (4.30-6.10); RED CELL DISTRIBUTION WIDTH 13.6 % (11.5-14.5); WHITE BLOOD COUNT 5.7 10^3/uL (4.0-10.0)
[2018-02-28 07:02] LABS: ANION GAP 12 MEQ/L (8-16); BLOOD UREA NITROGEN 20 MG/DL (7-18); CALCIUM LEVEL 7.7 MG/DL (8.8-10.2); CARBON DIOXIDE LEVEL 20 MEQ/L (21-32); CHLORIDE LEVEL 95 MEQ/L (98-107); CREATININE FOR GFR 1.43 MG/DL (0.70-1.30); GLOMERULAR FILTRATION RATE 51.5 (>42); POTASSIUM SERUM 3.4 MEQ/L (3.5-5.1)
[2018-02-28 07:10] LABS: GLUCOSE, FASTING 723 MG/DL (70-100)
[2018-02-28 07:11] LABS: SODIUM LEVEL 127 MEQ/L (136-145)
[2018-02-28 07:19] LABS: BEDSIDE GLUCOSE 137 MG/DL (83-110)
[2018-02-28] MEDS: SYMBICORT 160/4.5MCG INHALER 6GM INH ×2 (07:49→20:42)
[2018-02-28 08:45] LABS: HEMOGLOBIN 9.4 g/dl (13.5-17.5); MEAN CORPUSCULAR HEMOGLOBIN 34.6 pg (27.0-33.0); MEAN CORPUSCULAR HGB CONC 32.4 g/dl (32.0-36.5); MEAN CORPUSCULAR VOLUME 106.6 fl (80.0-96.0); PLATELET COUNT, AUTOMATED 144 10^3/uL (150-450); RED BLOOD COUNT 2.72 10^6/uL (4.30-6.10); RED CELL DISTRIBUTION WIDTH 13.7 % (11.5-14.5); WHITE BLOOD COUNT 5.8 10^3/uL (4.0-10.0)
[2018-02-28 09:04] LABS: ANION GAP 8 MEQ/L (8-16); BLOOD UREA NITROGEN 22 MG/DL (7-18); CALCIUM LEVEL 8.9 MG/DL (8.8-10.2); CARBON DIOXIDE LEVEL 24 MEQ/L (21-32); CHLORIDE LEVEL 113 MEQ/L (98-107); CREATININE FOR GFR 1.41 MG/DL (0.70-1.30); GLOMERULAR FILTRATION RATE 52.3 (>42); GLUCOSE, FASTING 114 MG/DL (70-100); POTASSIUM SERUM 4.1 MEQ/L (3.5-5.1); SODIUM LEVEL 145 MEQ/L (136-145)
[2018-02-28] MEDS: predniSONE 1 MG TAB PO (09:45)
[2018-02-28] MEDS: BISACODYL 5 MG TAB PO (09:45)
[2018-02-28] MEDS: POTASSIUM CHLORIDE 10 MEQ SR TABLET PO (09:45)
[2018-02-28] MEDS: OCUVITE 1 TAB PO ×2 (09:46→21:01)
[2018-02-28] MEDS: risperiDONE 0.25 MG TAB PO ×2 (09:46→21:01)
[2018-02-28] MEDS: THIAMINE 100 MG TAB PO (09:46)
[2018-02-28] MEDS: MULTIVITAMINS/MINERALS THERAP 1 TAB PO (09:46)
[2018-02-28] MEDS: NEBIVOLOL 5 MG TAB (BYSTOLIC) PO (09:46)
[2018-02-28] MEDS: SENOKOT S TAB PO ×2 (09:46→21:05)
[2018-02-28] MEDS: ALLOPURINOL 100 MG TAB PO ×2 (09:46→21:01)
[2018-02-28] MEDS: FOLIC ACID 1 MG TAB PO (09:46)
[2018-02-28] MEDS: MAGNESIUM CHLORIDE 64 MG TABCR (SLO MAG) PO (09:47)
[2018-02-28] MEDS: NEOSPORIN TOP OINT 15GM TOP ×2 (09:47→21:06)
[2018-02-28] MEDS: ENOXAPARIN 30 MG/0.3 ML SYR (J1650) SC (09:47)
[2018-03-01] MEDS: diphenhydrAMINE INJ 50MG/ML VIAL (J1200) IV (02:48)
[2018-03-01 06:07] LABS: HEMATOCRIT 27.5 % (42.0-52.0); HEMOGLOBIN 9.3 g/dl (13.5-17.5); MEAN CORPUSCULAR HEMOGLOBIN 35.1 pg (27.0-33.0); MEAN CORPUSCULAR HGB CONC 33.8 g/dl (32.0-36.5); MEAN CORPUSCULAR VOLUME 103.8 fl (80.0-96.0); PLATELET COUNT, AUTOMATED 130 10^3/uL (150-450); RED BLOOD COUNT 2.65 10^6/uL (4.30-6.10); RED CELL DISTRIBUTION WIDTH 13.3 % (11.5-14.5); WHITE BLOOD COUNT 6.9 10^3/uL (4.0-10.0)
[2018-03-01 06:28] LABS: ANION GAP 5 MEQ/L (8-16); BLOOD UREA NITROGEN 19 MG/DL (7-18); CARBON DIOXIDE LEVEL 25 MEQ/L (21-32); CHLORIDE LEVEL 110 MEQ/L (98-107); CREATININE FOR GFR 1.13 MG/DL (0.70-1.30); GLOMERULAR FILTRATION RATE > 60.0 (>42); GLUCOSE, FASTING 106 MG/DL (70-100); POTASSIUM SERUM 4.2 MEQ/L (3.5-5.1); SODIUM LEVEL 140 MEQ/L (136-145)
[2018-03-01] MEDS: OXAZEPAM 10 MG CAP PO (07:08)
[2018-03-01] MEDS: SYMBICORT 160/4.5MCG INHALER 6GM INH ×2 (08:26→18:57)
[2018-03-01] MEDS: FOLIC ACID 1 MG TAB PO (09:44)
[2018-03-01] MEDS: predniSONE 1 MG TAB PO (09:44)
[2018-03-01] MEDS: MAGNESIUM CHLORIDE 64 MG TABCR (SLO MAG) PO (09:44)
[2018-03-01] MEDS: BISACODYL 5 MG TAB PO (09:44)
[2018-03-01] MEDS: SENOKOT S TAB PO ×2 (09:45→21:12)
[2018-03-01] MEDS: risperiDONE 0.25 MG TAB PO (09:45)
[2018-03-01] MEDS: ALLOPURINOL 100 MG TAB PO ×2 (09:45→21:12)
[2018-03-01] MEDS: POTASSIUM CHLORIDE 10 MEQ SR TABLET PO (09:45)
[2018-03-01] MEDS: OCUVITE 1 TAB PO ×2 (09:45→21:11)
[2018-03-01] MEDS: NEBIVOLOL 5 MG TAB (BYSTOLIC) PO (09:46)
[2018-03-01] MEDS: MULTIVITAMINS/MINERALS THERAP 1 TAB PO (09:46)
[2018-03-01] MEDS: ENOXAPARIN 30 MG/0.3 ML SYR (J1650) SC (09:46)
[2018-03-01] MEDS: NEOSPORIN TOP OINT 15GM TOP ×2 (09:47→21:12)
[2018-03-01] MEDS: THIAMINE 100 MG TAB PO (09:52)
[2018-03-01] MEDS: risperiDONE 0.5 MG TAB PO ×2 (12:50→21:12)
[2018-03-02] MEDS: diphenhydrAMINE INJ 50MG/ML VIAL (J1200) IV (01:14)
[2018-03-02 06:54] LABS: HEMATOCRIT 28.1 % (42.0-52.0); HEMOGLOBIN 9.3 g/dl (13.5-17.5); MEAN CORPUSCULAR HEMOGLOBIN 34.6 pg (27.0-33.0); MEAN CORPUSCULAR HGB CONC 33.1 g/dl (32.0-36.5); MEAN CORPUSCULAR VOLUME 104.5 fl (80.0-96.0); PLATELET COUNT, AUTOMATED 156 10^3/uL (150-450); RED BLOOD COUNT 2.69 10^6/uL (4.30-6.10); RED CELL DISTRIBUTION WIDTH 13.6 % (11.5-14.5); WHITE BLOOD COUNT 6.5 10^3/uL (4.0-10.0)
[2018-03-02 07:11] LABS: ANION GAP 14 MEQ/L (8-16); BLOOD UREA NITROGEN 26 MG/DL (7-18); CALCIUM LEVEL 9.7 MG/DL (8.8-10.2); CARBON DIOXIDE LEVEL 20 MEQ/L (21-32); CHLORIDE LEVEL 107 MEQ/L (98-107); CREATININE FOR GFR 1.76 MG/DL (0.70-1.30); GLOMERULAR FILTRATION RATE 40.5 (>42); GLUCOSE, FASTING 104 MG/DL (70-100); POTASSIUM SERUM 4.2 MEQ/L (3.5-5.1); SODIUM LEVEL 141 MEQ/L (136-145)
[2018-03-02] MEDS: predniSONE 1 MG TAB PO (08:15)
[2018-03-02] MEDS: MAGNESIUM CHLORIDE 64 MG TABCR (SLO MAG) PO (08:15)
[2018-03-02] MEDS: NEBIVOLOL 5 MG TAB (BYSTOLIC) PO (08:16)
[2018-03-02] MEDS: MULTIVITAMINS/MINERALS THERAP 1 TAB PO (08:16)
[2018-03-02] MEDS: ALLOPURINOL 100 MG TAB PO ×2 (08:17→20:16)
[2018-03-02] MEDS: THIAMINE 100 MG TAB PO (08:17)
[2018-03-02] MEDS: OXAZEPAM 10 MG CAP PO (08:17)
[2018-03-02] MEDS: OCUVITE 1 TAB PO ×2 (08:17→20:16)
[2018-03-02] MEDS: BISACODYL 5 MG TAB PO (08:17)
[2018-03-02] MEDS: POTASSIUM CHLORIDE 10 MEQ SR TABLET PO (08:17)
[2018-03-02] MEDS: SENOKOT S TAB PO ×2 (08:17→20:16)
[2018-03-02] MEDS: FOLIC ACID 1 MG TAB PO (08:17)
[2018-03-02] MEDS: NEOSPORIN TOP OINT 15GM TOP ×2 (08:18→20:16)
[2018-03-02] MEDS: risperiDONE 0.5 MG TAB PO ×2 (08:18→20:16)
[2018-03-02] MEDS: ENOXAPARIN 30 MG/0.3 ML SYR (J1650) SC (08:18)
[2018-03-02] MEDS: SYMBICORT 160/4.5MCG INHALER 6GM INH ×2 (08:45→20:29)
[2018-03-02] MEDS: NS 1,000 ML IV (10:38)
[2018-03-02 12:47] LABS: SODIUM,RANDOM URINE 17 MEQ/L
[2018-03-02 14:29] LABS: APPEARANCE, URINE CLEAR (CLEAR); BACTERIA, URINE AUTO NEGATIVE (NEGATIVE); BILIRUBIN, URINE AUTO NEGATIVE (NEGATIVE); BLOOD, URINE BLOOD NEGATIVE (NEGATIVE); COLOR, URINE AMBER (YELLOW); GLUCOSE, URINE (UA) AUTO NEGATIVE (NEGATIVE); KETONE, URINE AUTO TRACE mg/dL (NEGATIVE); LEUKOCYTE ESTERASE, URINE AUTO NEGATIVE (NEGATIVE); NITRITE, URINE AUTO NEGATIVE (NEGATIVE); PROTEIN, URINE AUTO NEGATIVE (NEGATIVE); RBC, URINE AUTO 0 /HPF (0-3); SPECIFIC GRAVITY URINE AUTO 1.016 (1.002-1.035); SQUAMOUS EPITHELIAL CELL UR AU 0 /HPF (0-6); UROBILINOGEN, URINE AUTO 0.2 mg/dL (0.0-2.0); WBC, URINE AUTO 0 /HPF (0-3)
[2018-03-03] MEDS: diphenhydrAMINE INJ 50MG/ML VIAL (J1200) IV (01:31)
[2018-03-03] MEDS: OXAZEPAM 10 MG CAP PO ×4 (02:07→20:51)
[2018-03-03 05:48] LABS: HEMATOCRIT 27.7 % (42.0-52.0); HEMOGLOBIN 9.1 g/dl (13.5-17.5); MEAN CORPUSCULAR HEMOGLOBIN 34.1 pg (27.0-33.0); MEAN CORPUSCULAR HGB CONC 32.9 g/dl (32.0-36.5); MEAN CORPUSCULAR VOLUME 103.7 fl (80.0-96.0); PLATELET COUNT, AUTOMATED 175 10^3/uL (150-450); RED BLOOD COUNT 2.67 10^6/uL (4.30-6.10); RED CELL DISTRIBUTION WIDTH 13.4 % (11.5-14.5); WHITE BLOOD COUNT 5.7 10^3/uL (4.0-10.0)
[2018-03-03 06:04] LABS: ANION GAP 12 MEQ/L (8-16); BLOOD UREA NITROGEN 27 MG/DL (7-18); CARBON DIOXIDE LEVEL 20 MEQ/L (21-32); CHLORIDE LEVEL 106 MEQ/L (98-107); GLOMERULAR FILTRATION RATE 39.5 (>42); GLUCOSE, FASTING 100 MG/DL (70-100); POTASSIUM SERUM 3.8 MEQ/L (3.5-5.1); SODIUM LEVEL 138 MEQ/L (136-145)
[2018-03-03] MEDS: SYMBICORT 160/4.5MCG INHALER 6GM INH ×2 (07:32→20:59)
[2018-03-03] MEDS: ENOXAPARIN 30 MG/0.3 ML SYR (J1650) SC (07:52)
[2018-03-03] MEDS: OCUVITE 1 TAB PO ×2 (07:52→20:51)
[2018-03-03] MEDS: BISACODYL 5 MG TAB PO (07:53)
[2018-03-03] MEDS: predniSONE 1 MG TAB PO (07:53)
[2018-03-03] MEDS: POTASSIUM CHLORIDE 10 MEQ SR TABLET PO (07:53)
[2018-03-03] MEDS: risperiDONE 0.5 MG TAB PO ×2 (07:53→20:51)
[2018-03-03] MEDS: SENOKOT S TAB PO ×2 (07:53→20:51)
[2018-03-03] MEDS: MAGNESIUM CHLORIDE 64 MG TABCR (SLO MAG) PO (07:54)
[2018-03-03] MEDS: FOLIC ACID 1 MG TAB PO (07:54)
[2018-03-03] MEDS: ALLOPURINOL 100 MG TAB PO ×2 (07:54→20:51)
[2018-03-03] MEDS: MULTIVITAMINS/MINERALS THERAP 1 TAB PO (07:54)
[2018-03-03] MEDS: THIAMINE 100 MG TAB PO (07:54)
[2018-03-03] MEDS: NEBIVOLOL 5 MG TAB (BYSTOLIC) PO (07:54)
[2018-03-03] MEDS: NEOSPORIN TOP OINT 15GM TOP ×2 (08:21→20:52)
[2018-03-03] MEDS: NS 1,000 ML IV ×2 (10:28→21:48)
[2018-03-04] MEDS: diphenhydrAMINE INJ 50MG/ML VIAL (J1200) IV (02:33)
[2018-03-04] MEDS: OXAZEPAM 10 MG CAP PO (06:15)
[2018-03-04] MEDS: SYMBICORT 160/4.5MCG INHALER 6GM INH ×2 (07:33→20:28)
[2018-03-04] MEDS: FOLIC ACID 1 MG TAB PO (08:52)
[2018-03-04] MEDS: ENOXAPARIN 30 MG/0.3 ML SYR (J1650) SC (08:52)
[2018-03-04] MEDS: OCUVITE 1 TAB PO ×2 (08:52→20:30)
[2018-03-04] MEDS: POTASSIUM CHLORIDE 10 MEQ SR TABLET PO (08:52)
[2018-03-04] MEDS: predniSONE 1 MG TAB PO (08:52)
[2018-03-04] MEDS: ALLOPURINOL 100 MG TAB PO ×2 (08:53→20:30)
[2018-03-04] MEDS: MAGNESIUM CHLORIDE 64 MG TABCR (SLO MAG) PO (08:53)
[2018-03-04] MEDS: THIAMINE 100 MG TAB PO (08:53)
[2018-03-04] MEDS: MULTIVITAMINS/MINERALS THERAP 1 TAB PO (08:53)
[2018-03-04] MEDS: risperiDONE 0.5 MG TAB PO ×2 (08:54→20:30)
[2018-03-04 08:55] LABS: HEMATOCRIT 29.5 % (42.0-52.0); HEMOGLOBIN 9.5 g/dl (13.5-17.5); MEAN CORPUSCULAR HEMOGLOBIN 34.9 pg (27.0-33.0); MEAN CORPUSCULAR HGB CONC 32.2 g/dl (32.0-36.5); MEAN CORPUSCULAR VOLUME 108.5 fl (80.0-96.0); PLATELET COUNT, AUTOMATED 159 10^3/uL (150-450); RED BLOOD COUNT 2.72 10^6/uL (4.30-6.10); RED CELL DISTRIBUTION WIDTH 13.5 % (11.5-14.5); WHITE BLOOD COUNT 4.5 10^3/uL (4.0-10.0)
[2018-03-04] MEDS: NEBIVOLOL 5 MG TAB (BYSTOLIC) PO ×2 (08:56→08:57)
[2018-03-04] MEDS: NEOSPORIN TOP OINT 15GM TOP ×2 (08:57→20:30)
[2018-03-04] MEDS: SENOKOT S TAB PO ×2 (09:00→20:30)
[2018-03-04] MEDS: BISACODYL 5 MG TAB PO (09:00)
[2018-03-04 09:19] LABS: ALBUMIN 2.9 GM/DL (3.2-5.2); ALKALINE PHOSPHATASE 92 U/L (45-117); ALT/SGPT 27 U/L (12-78); AST/SGOT 29 U/L (7-37); BILIRUBIN,TOTAL 0.5 MG/DL (0.2-1.0); CALCIUM LEVEL 8.6 MG/DL (8.8-10.2); CHLORIDE LEVEL 117 MEQ/L (98-107); CREATININE FOR GFR 1.38 MG/DL (0.70-1.30); GLUCOSE, FASTING 106 MG/DL (70-100); POTASSIUM SERUM 4.1 MEQ/L (3.5-5.1); SODIUM LEVEL 144 MEQ/L (136-145); TOTAL PROTEIN 5.9 GM/DL (6.4-8.2)
[2018-03-04 09:37] LABS: ANION GAP 16 MEQ/L (8-16); BLOOD UREA NITROGEN 24 MG/DL (7-18); CARBON DIOXIDE LEVEL 11 MEQ/L (21-32); MAGNESIUM LEVEL 2.2 MG/DL (1.8-2.4)
[2018-03-04 09:39] LABS: ALBUMIN/GLOBULIN RATIO 0.96 (1.00-1.93)
[2018-03-05] MEDS: OXAZEPAM 10 MG CAP PO (04:29)
[2018-03-05] MEDS: HALOPERIDOL 5 MG/ML VIAL (J1630) IM (05:03)
[2018-03-05] MEDS: SYMBICORT 160/4.5MCG INHALER 6GM INH ×2 (07:33→20:00)
[2018-03-05] MEDS: ENOXAPARIN 30 MG/0.3 ML SYR (J1650) SC (09:37)
[2018-03-05] MEDS: SENOKOT S TAB PO ×2 (09:37→20:25)
[2018-03-05] MEDS: risperiDONE 0.5 MG TAB PO ×2 (09:38→20:24)
[2018-03-05] MEDS: POTASSIUM CHLORIDE 10 MEQ SR TABLET PO (09:38)
[2018-03-05] MEDS: predniSONE 1 MG TAB PO (09:38)
[2018-03-05] MEDS: OCUVITE 1 TAB PO ×2 (09:38→20:24)
[2018-03-05] MEDS: MULTIVITAMINS/MINERALS THERAP 1 TAB PO (09:39)
[2018-03-05] MEDS: MAGNESIUM CHLORIDE 64 MG TABCR (SLO MAG) PO (09:39)
[2018-03-05] MEDS: FOLIC ACID 1 MG TAB PO (09:39)
[2018-03-05] MEDS: NEBIVOLOL 5 MG TAB (BYSTOLIC) PO (09:39)
[2018-03-05] MEDS: THIAMINE 100 MG TAB PO (09:39)
[2018-03-05] MEDS: ALLOPURINOL 100 MG TAB PO ×2 (09:39→20:24)
[2018-03-05] MEDS: BISACODYL 5 MG TAB PO (09:39)
[2018-03-05] MEDS: NEOSPORIN TOP OINT 15GM TOP ×2 (09:40→20:25)
[2018-03-05 09:52] LABS: BASO % 0.7 % (0.0-1.0); EOS # 0.1 10^3/uL (0.0-0.50); EOS % 1.9 % (0.0-3.0); HEMATOCRIT 26.1 % (42.0-52.0); HEMOGLOBIN 8.8 g/dl (13.5-17.5); IMMATURE GRANULOCYTE % 0.2 % (0-3.0); LYMPH # 1.1 10^3/uL (1.5-4.5); LYMPH % 26.4 % (24.0-44.0); MEAN CORPUSCULAR HEMOGLOBIN 35.1 pg (27.0-33.0); MEAN CORPUSCULAR HGB CONC 33.7 g/dl (32.0-36.5); MONO # 0.5 10^3/uL (0.0-0.8); MONO % 11.1 % (0.0-5.0); NEUTROPHILS # 2.5 10^3/uL (1.8-7.7); NEUTROPHILS % 59.7 % (36.0-66.0); PLATELET COUNT, AUTOMATED 160 10^3/uL (150-450); RED BLOOD COUNT 2.51 10^6/uL (4.30-6.10); RED CELL DISTRIBUTION WIDTH 13.6 % (11.5-14.5); WHITE BLOOD COUNT 4.2 10^3/uL (4.0-10.0)
[2018-03-05 10:17] LABS: ANION GAP 10 MEQ/L (8-16); BLOOD UREA NITROGEN 20 MG/DL (7-18); CALCIUM LEVEL 8.5 MG/DL (8.8-10.2); CARBON DIOXIDE LEVEL 17 MEQ/L (21-32); CHLORIDE LEVEL 118 MEQ/L (98-107); CREATININE FOR GFR 1.16 MG/DL (0.70-1.30); GLOMERULAR FILTRATION RATE > 60.0 (>42); GLUCOSE, FASTING 87 MG/DL (70-100); POTASSIUM SERUM 4.1 MEQ/L (3.5-5.1); SODIUM LEVEL 145 MEQ/L (136-145)
[2018-03-05] MEDS: GASTROGRAFIN SOLUTION 30ML PO ×2 (13:05→13:33)
[2018-03-05] MEDS: QUEtiapine FUMARATE 12.5 MG HALF-TAB PO ×2 (13:33→20:24)
[2018-03-05] MEDS ORDERED: ISOVUE-370 76% 100ML VIAL (Q9967) As Ordered (14:35)
[2018-03-06 06:26] LABS: BASO % 0.9 % (0.0-1.0); EOS # 0.1 10^3/uL (0.0-0.50); EOS % 3.1 % (0.0-3.0); HEMATOCRIT 23.9 % (42.0-52.0); HEMOGLOBIN 8.1 g/dl (13.5-17.5); IMMATURE GRANULOCYTE % 0.3 % (0-3.0); LYMPH % 29.8 % (24.0-44.0); MEAN CORPUSCULAR HEMOGLOBIN 34.9 pg (27.0-33.0); MEAN CORPUSCULAR HGB CONC 33.9 g/dl (32.0-36.5); MONO # 0.5 10^3/uL (0.0-0.8); MONO % 16.1 % (0.0-5.0); NEUTROPHILS # 1.6 10^3/uL (1.8-7.7); NEUTROPHILS % 49.8 % (36.0-66.0); PLATELET COUNT, AUTOMATED 131 10^3/uL (150-450); RED BLOOD COUNT 2.32 10^6/uL (4.30-6.10); RED CELL DISTRIBUTION WIDTH 13.5 % (11.5-14.5); WHITE BLOOD COUNT 3.2 10^3/uL (4.0-10.0)
[2018-03-06 06:45] LABS: ANION GAP 8 MEQ/L (8-16); BLOOD UREA NITROGEN 20 MG/DL (7-18); CALCIUM LEVEL 8.3 MG/DL (8.8-10.2); CARBON DIOXIDE LEVEL 19 MEQ/L (21-32); CHLORIDE LEVEL 119 MEQ/L (98-107); CREATININE FOR GFR 1.08 MG/DL (0.70-1.30); GLOMERULAR FILTRATION RATE > 60.0 (>42); GLUCOSE, FASTING 76 MG/DL (70-100); POTASSIUM SERUM 4.3 MEQ/L (3.5-5.1); SODIUM LEVEL 146 MEQ/L (136-145)
[2018-03-06] MEDS: SYMBICORT 160/4.5MCG INHALER 6GM INH ×2 (08:00→20:00)
[2018-03-06] MEDS: D5W 1,000 ML IV ×2 (08:49→08:50)
[2018-03-06] MEDS: MAGNESIUM CHLORIDE 64 MG TABCR (SLO MAG) PO (10:13)
[2018-03-06] MEDS: predniSONE 1 MG TAB PO (10:13)
[2018-03-06] MEDS: SENOKOT S TAB PO ×2 (10:14→21:43)
[2018-03-06] MEDS: QUEtiapine FUMARATE 12.5 MG HALF-TAB PO ×2 (10:14→21:44)
[2018-03-06] MEDS: FOLIC ACID 1 MG TAB PO (10:14)
[2018-03-06] MEDS: risperiDONE 0.5 MG TAB PO ×2 (10:14→21:43)
[2018-03-06] MEDS: BISACODYL 5 MG TAB PO (10:14)
[2018-03-06] MEDS: MULTIVITAMINS/MINERALS THERAP 1 TAB PO (10:14)
[2018-03-06] MEDS: TAMOXIFEN CITRATE 10 MG TAB PO (10:14)
[2018-03-06] MEDS: THIAMINE 100 MG TAB PO (10:14)
[2018-03-06] MEDS: ALLOPURINOL 100 MG TAB PO ×2 (10:14→21:46)
[2018-03-06] MEDS: NEOSPORIN TOP OINT 15GM TOP ×3 (10:15→21:44)
[2018-03-06] MEDS: OCUVITE 1 TAB PO ×2 (10:16→21:43)
[2018-03-06] MEDS: NEBIVOLOL 5 MG TAB (BYSTOLIC) PO (10:16)
[2018-03-06] MEDS: POTASSIUM CHLORIDE 10 MEQ SR TABLET PO (10:16)
[2018-03-06] MEDS ORDERED: LIDOCAINE 1% MDV 20ML VIAL As Ordered (14:10)
[2018-03-07 07:02] LABS: BASO % 0.6 % (0.0-1.0); EOS # 0.1 10^3/uL (0.0-0.50); EOS % 1.9 % (0.0-3.0); HEMATOCRIT 25.2 % (42.0-52.0); HEMOGLOBIN 8.2 g/dl (13.5-17.5); IMMATURE GRANULOCYTE % 0.6 % (0-3.0); LYMPH % 20.8 % (24.0-44.0); MEAN CORPUSCULAR HEMOGLOBIN 34.5 pg (27.0-33.0); MEAN CORPUSCULAR HGB CONC 32.5 g/dl (32.0-36.5); MEAN CORPUSCULAR VOLUME 105.9 fl (80.0-96.0); MONO # 0.7 10^3/uL (0.0-0.8); MONO % 14.1 % (0.0-5.0); NEUTROPHILS # 2.9 10^3/uL (1.8-7.7); PLATELET COUNT, AUTOMATED 128 10^3/uL (150-450); RED BLOOD COUNT 2.38 10^6/uL (4.30-6.10); RED CELL DISTRIBUTION WIDTH 13.5 % (11.5-14.5); WHITE BLOOD COUNT 4.8 10^3/uL (4.0-10.0)
[2018-03-07 07:19] LABS: ANION GAP 7 MEQ/L (8-16); BLOOD UREA NITROGEN 18 MG/DL (7-18); CALCIUM LEVEL 8.6 MG/DL (8.8-10.2); CARBON DIOXIDE LEVEL 20 MEQ/L (21-32); CHLORIDE LEVEL 115 MEQ/L (98-107); CREATININE FOR GFR 1.11 MG/DL (0.70-1.30); GLOMERULAR FILTRATION RATE > 60.0 (>42); GLUCOSE, FASTING 81 MG/DL (70-100); POTASSIUM SERUM 3.9 MEQ/L (3.5-5.1); SODIUM LEVEL 142 MEQ/L (136-145)
[2018-03-07] MEDS: SYMBICORT 160/4.5MCG INHALER 6GM INH ×2 (08:00→21:08)
[2018-03-07] MEDS: TAMOXIFEN CITRATE 10 MG TAB PO (09:19)
[2018-03-07] MEDS: ALLOPURINOL 100 MG TAB PO ×2 (09:20→20:27)
[2018-03-07] MEDS: FOLIC ACID 1 MG TAB PO (09:20)
[2018-03-07] MEDS: THIAMINE 100 MG TAB PO (09:20)
[2018-03-07] MEDS: MULTIVITAMINS/MINERALS THERAP 1 TAB PO (09:20)
[2018-03-07] MEDS: POTASSIUM CHLORIDE 10 MEQ SR TABLET PO (09:20)
[2018-03-07] MEDS: NEBIVOLOL 5 MG TAB (BYSTOLIC) PO (09:22)
[2018-03-07] MEDS: risperiDONE 0.5 MG TAB PO ×2 (09:22→20:27)
[2018-03-07] MEDS: QUEtiapine FUMARATE 12.5 MG HALF-TAB PO (09:22)
[2018-03-07] MEDS: BISACODYL 5 MG TAB PO (09:22)
[2018-03-07] MEDS: SENOKOT S TAB PO (09:23)
[2018-03-07] MEDS: OCUVITE 1 TAB PO ×2 (09:23→20:26)
[2018-03-07] MEDS: predniSONE 1 MG TAB PO (09:23)
[2018-03-07] MEDS: NEOSPORIN TOP OINT 15GM TOP ×2 (09:23→20:34)
[2018-03-07] MEDS: MAGNESIUM CHLORIDE 64 MG TABCR (SLO MAG) PO (10:23)
[2018-03-07 13:20] LABS: C REACTIVE PROTEIN QUANTITATIV 0.58 MG/DL (0.00-0.30); FREE T4 1.02 NG/DL (0.76-1.46)
[2018-03-07] MEDS: QUEtiapine FUMARATE 25 MG TAB PO (20:27)
[2018-03-08] MEDS: HALOPERIDOL 5 MG/ML VIAL (J1630) IM ×2 (03:02→03:46)
[2018-03-08] MEDS: diphenhydrAMINE INJ 50MG/ML VIAL (J1200) IV (03:46)
[2018-03-08 07:01] LABS: BASO % 0.6 % (0.0-1.0); EOS # 0.1 10^3/uL (0.0-0.50); EOS % 3.4 % (0.0-3.0); HEMATOCRIT 25.8 % (42.0-52.0); HEMOGLOBIN 8.6 g/dl (13.5-17.5); IMMATURE GRANULOCYTE % 0.3 % (0-3.0); LYMPH % 29.3 % (24.0-44.0); MEAN CORPUSCULAR HGB CONC 33.3 g/dl (32.0-36.5); MEAN CORPUSCULAR VOLUME 104.9 fl (80.0-96.0); MONO # 0.5 10^3/uL (0.0-0.8); MONO % 13.9 % (0.0-5.0); NEUTROPHILS # 1.9 10^3/uL (1.8-7.7); NEUTROPHILS % 52.5 % (36.0-66.0); PLATELET COUNT, AUTOMATED 128 10^3/uL (150-450); RED BLOOD COUNT 2.46 10^6/uL (4.30-6.10); RED CELL DISTRIBUTION WIDTH 13.4 % (11.5-14.5); WHITE BLOOD COUNT 3.5 10^3/uL (4.0-10.0)
[2018-03-08 07:26] LABS: ANION GAP 8 MEQ/L (8-16); BLOOD UREA NITROGEN 18 MG/DL (7-18); CALCIUM LEVEL 8.6 MG/DL (8.8-10.2); CARBON DIOXIDE LEVEL 19 MEQ/L (21-32); CHLORIDE LEVEL 117 MEQ/L (98-107); CREATININE FOR GFR 1.07 MG/DL (0.70-1.30); GLOMERULAR FILTRATION RATE > 60.0 (>42); GLUCOSE, FASTING 84 MG/DL (70-100); POTASSIUM SERUM 4.1 MEQ/L (3.5-5.1); SODIUM LEVEL 144 MEQ/L (136-145)
[2018-03-08] MEDS: SYMBICORT 160/4.5MCG INHALER 6GM INH ×2 (08:00→20:00)
[2018-03-08] MEDS: FOLIC ACID 1 MG TAB PO (08:34)
[2018-03-08] MEDS: OCUVITE 1 TAB PO ×2 (08:34→21:45)
[2018-03-08] MEDS: NEBIVOLOL 5 MG TAB (BYSTOLIC) PO (08:34)
[2018-03-08] MEDS: TAMOXIFEN CITRATE 10 MG TAB PO (08:34)
[2018-03-08] MEDS: POTASSIUM CHLORIDE 10 MEQ SR TABLET PO (08:35)
[2018-03-08] MEDS: MAGNESIUM CHLORIDE 64 MG TABCR (SLO MAG) PO (08:35)
[2018-03-08] MEDS: predniSONE 1 MG TAB PO (08:35)
[2018-03-08] MEDS: THIAMINE 100 MG TAB PO (08:35)
[2018-03-08] MEDS: risperiDONE 0.5 MG TAB PO (08:35)
[2018-03-08] MEDS: MULTIVITAMINS/MINERALS THERAP 1 TAB PO (08:35)
[2018-03-08] MEDS: ALLOPURINOL 100 MG TAB PO ×2 (08:35→21:45)
[2018-03-08] MEDS: QUEtiapine FUMARATE 25 MG TAB PO (08:35)
[2018-03-08] MEDS: BISACODYL 5 MG TAB PO (08:36)
[2018-03-08] MEDS: SENOKOT S TAB PO (08:36)
[2018-03-08] MEDS: NEOSPORIN TOP OINT 15GM TOP ×2 (09:16→21:55)
[2018-03-08] MEDS: LORazepam 2 MG/ML VIAL (J2060) IM ×2 (11:02→18:05)
[2018-03-08] MEDS ORDERED: LORazepam 2 MG/ML VIAL (J2060) IM (22:15)
[2018-03-09] MEDS: HALOPERIDOL 5 MG/ML VIAL (J1630) IM (05:26)
[2018-03-09] MEDS: SYMBICORT 160/4.5MCG INHALER 6GM INH ×2 (07:58→20:00)
[2018-03-09] MEDS: predniSONE 1 MG TAB PO (08:56)
[2018-03-09] MEDS: ALLOPURINOL 100 MG TAB PO ×2 (08:56→21:00)
[2018-03-09] MEDS: OCUVITE 1 TAB PO ×2 (08:56→21:00)
[2018-03-09] MEDS: FOLIC ACID 1 MG TAB PO (08:56)
[2018-03-09] MEDS: TAMOXIFEN CITRATE 10 MG TAB PO (08:56)
[2018-03-09] MEDS: POTASSIUM CHLORIDE 10 MEQ SR TABLET PO (08:56)
[2018-03-09] MEDS: THIAMINE 100 MG TAB PO (08:56)
[2018-03-09] MEDS: BISACODYL 5 MG TAB PO (08:57)
[2018-03-09] MEDS: NEBIVOLOL 5 MG TAB (BYSTOLIC) PO (08:57)
[2018-03-09] MEDS: NEOSPORIN TOP OINT 15GM TOP ×2 (08:57→22:07)
[2018-03-09] MEDS: MULTIVITAMINS/MINERALS THERAP 1 TAB PO (08:57)
[2018-03-09] MEDS: MAGNESIUM CHLORIDE 64 MG TABCR (SLO MAG) PO (08:57)
[2018-03-09] MEDS: HALOPERIDOL 1 MG TAB PO ×2 (08:57→21:00)
[2018-03-09] MEDS: SENOKOT S TAB PO (08:58)
[2018-03-09] MEDS: LORazepam 2 MG/ML VIAL (J2060) IV (14:06)
[2018-03-09] MEDS: QUEtiapine FUMARATE 25 MG TAB PO (21:00)
[2018-03-10] MEDS: LORazepam 2 MG/ML VIAL (J2060) IV ×3 (02:09→18:41)
[2018-03-10] MEDS: HALOPERIDOL 5 MG/ML VIAL (J1630) IM (02:23)
[2018-03-10 06:59] LABS: BASO # 0.1 10^3/uL (0.0-0.2); EOS # 0.1 10^3/uL (0.0-0.50); EOS % 1.9 % (0.0-3.0); HEMATOCRIT 26.2 % (42.0-52.0); HEMOGLOBIN 8.6 g/dl (13.5-17.5); IMMATURE GRANULOCYTE % 0.2 % (0-3.0); LYMPH # 1.3 10^3/uL (1.5-4.5); LYMPH % 21.8 % (24.0-44.0); MEAN CORPUSCULAR HEMOGLOBIN 34.3 pg (27.0-33.0); MEAN CORPUSCULAR HGB CONC 32.8 g/dl (32.0-36.5); MEAN CORPUSCULAR VOLUME 104.4 fl (80.0-96.0); MONO # 0.9 10^3/uL (0.0-0.8); MONO % 15.4 % (0.0-5.0); NEUTROPHILS # 3.5 10^3/uL (1.8-7.7); NEUTROPHILS % 59.7 % (36.0-66.0); PLATELET COUNT, AUTOMATED 139 10^3/uL (150-450); RED BLOOD COUNT 2.51 10^6/uL (4.30-6.10); RED CELL DISTRIBUTION WIDTH 13.6 % (11.5-14.5); WHITE BLOOD COUNT 5.9 10^3/uL (4.0-10.0)
[2018-03-10 07:26] LABS: ANION GAP 6 MEQ/L (8-16); BLOOD UREA NITROGEN 16 MG/DL (7-18); CALCIUM LEVEL 9.2 MG/DL (8.8-10.2); CARBON DIOXIDE LEVEL 20 MEQ/L (21-32); CHLORIDE LEVEL 124 MEQ/L (98-107); CREATININE FOR GFR 1.14 MG/DL (0.70-1.30); GLOMERULAR FILTRATION RATE > 60.0 (>42); GLUCOSE, FASTING 69 MG/DL (70-100); SODIUM LEVEL 150 MEQ/L (136-145)
[2018-03-10] MEDS: SYMBICORT 160/4.5MCG INHALER 6GM INH ×2 (08:00→20:00)
[2018-03-10] MEDS ORDERED: LORazepam 2 MG/ML VIAL (J2060) IM (08:15)
[2018-03-10] MEDS: D5W 1,000 ML IV (09:02)
[2018-03-10] MEDS: SOD POLYSTYRENE SULFONATE SUSP 30 GM/120 ML ENEMA PR (10:37)
[2018-03-10] MEDS: NEBIVOLOL 5 MG TAB (BYSTOLIC) PO (10:37)
[2018-03-10] MEDS: predniSONE 1 MG TAB PO (10:38)
[2018-03-10] MEDS: BISACODYL 5 MG TAB PO (11:19)
[2018-03-10] MEDS: TAMOXIFEN CITRATE 10 MG TAB PO (11:20)
[2018-03-10] MEDS: HALOPERIDOL 1 MG TAB PO ×3 (11:20→23:39)
[2018-03-10] MEDS: OCUVITE 1 TAB PO ×2 (11:20→21:00)
[2018-03-10] MEDS: POTASSIUM CHLORIDE 10 MEQ SR TABLET PO (11:20)
[2018-03-10] MEDS: FOLIC ACID 1 MG TAB PO (11:20)
[2018-03-10] MEDS: MULTIVITAMINS/MINERALS THERAP 1 TAB PO (11:21)
[2018-03-10] MEDS: THIAMINE 100 MG TAB PO (11:21)
[2018-03-10] MEDS: ALLOPURINOL 100 MG TAB PO ×2 (11:21→21:00)
[2018-03-10] MEDS: MAGNESIUM CHLORIDE 64 MG TABCR (SLO MAG) PO (11:21)
[2018-03-10] MEDS: SENOKOT S TAB PO (11:21)
[2018-03-10] MEDS: NEOSPORIN TOP OINT 15GM TOP ×2 (11:21→21:00)
[2018-03-10 12:54] LABS: ANION GAP 11 MEQ/L (8-16); BLOOD UREA NITROGEN 16 MG/DL (7-18); CARBON DIOXIDE LEVEL 17 MEQ/L (21-32); CHLORIDE LEVEL 120 MEQ/L (98-107); CREATININE FOR GFR 1.03 MG/DL (0.70-1.30); GLOMERULAR FILTRATION RATE > 60.0 (>42); GLUCOSE, FASTING 88 MG/DL (70-100); POTASSIUM SERUM 4.8 MEQ/L (3.5-5.1); SODIUM LEVEL 148 MEQ/L (136-145)
[2018-03-10 18:41] LABS: ANION GAP 9 MEQ/L (8-16); BLOOD UREA NITROGEN 14 MG/DL (7-18); CALCIUM LEVEL 9.4 MG/DL (8.8-10.2); CARBON DIOXIDE LEVEL 18 MEQ/L (21-32); CHLORIDE LEVEL 118 MEQ/L (98-107); CREATININE FOR GFR 1.09 MG/DL (0.70-1.30); GLOMERULAR FILTRATION RATE > 60.0 (>42); GLUCOSE, FASTING 108 MG/DL (70-100); POTASSIUM SERUM 4.4 MEQ/L (3.5-5.1); SODIUM LEVEL 145 MEQ/L (136-145)
[2018-03-10] MEDS: QUEtiapine FUMARATE 12.5 MG HALF-TAB PO ×2 (21:00→23:39)
[2018-03-11 06:11] LABS: BASO % 0.6 % (0.0-1.0); EOS # 0.2 10^3/uL (0.0-0.50); EOS % 2.9 % (0.0-3.0); HEMOGLOBIN 8.8 g/dl (13.5-17.5); IMMATURE GRANULOCYTE % 0.4 % (0-3.0); LYMPH # 1.3 10^3/uL (1.5-4.5); LYMPH % 23.9 % (24.0-44.0); MEAN CORPUSCULAR HEMOGLOBIN 34.4 pg (27.0-33.0); MEAN CORPUSCULAR HGB CONC 32.6 g/dl (32.0-36.5); MEAN CORPUSCULAR VOLUME 105.5 fl (80.0-96.0); MONO # 0.9 10^3/uL (0.0-0.8); MONO % 16.9 % (0.0-5.0); NEUTROPHILS # 2.9 10^3/uL (1.8-7.7); NEUTROPHILS % 55.3 % (36.0-66.0); PLATELET COUNT, AUTOMATED 120 10^3/uL (150-450); RED BLOOD COUNT 2.56 10^6/uL (4.30-6.10); RED CELL DISTRIBUTION WIDTH 13.8 % (11.5-14.5); WHITE BLOOD COUNT 5.2 10^3/uL (4.0-10.0)
[2018-03-11 06:47] LABS: ANION GAP 7 MEQ/L (8-16); BLOOD UREA NITROGEN 12 MG/DL (7-18); CALCIUM LEVEL 9.1 MG/DL (8.8-10.2); CARBON DIOXIDE LEVEL 22 MEQ/L (21-32); CHLORIDE LEVEL 120 MEQ/L (98-107); CREATININE FOR GFR 1.01 MG/DL (0.70-1.30); GLOMERULAR FILTRATION RATE > 60.0 (>42); GLUCOSE, FASTING 90 MG/DL (70-100); SODIUM LEVEL 149 MEQ/L (136-145)
[2018-03-11] MEDS: SYMBICORT 160/4.5MCG INHALER 6GM INH ×2 (07:52→21:30)
[2018-03-11] MEDS: MULTIVITAMINS/MINERALS THERAP 1 TAB PO ×2 (09:00→09:48)
[2018-03-11] MEDS: NEOSPORIN TOP OINT 15GM TOP ×2 (09:00→22:34)
[2018-03-11] MEDS: predniSONE 1 MG TAB PO (09:00)
[2018-03-11] MEDS: THIAMINE 100 MG TAB PO ×2 (09:00→09:48)
[2018-03-11] MEDS: ALLOPURINOL 100 MG TAB PO ×4 (09:00→23:54)
[2018-03-11] MEDS: MAGNESIUM CHLORIDE 64 MG TABCR (SLO MAG) PO ×2 (09:00→09:48)
[2018-03-11] MEDS: BISACODYL 5 MG TAB PO ×2 (09:00→09:47)
[2018-03-11] MEDS: OCUVITE 1 TAB PO ×3 (09:00→23:54)
[2018-03-11] MEDS: SENOKOT S TAB PO ×2 (09:00→09:48)
[2018-03-11] MEDS: FOLIC ACID 1 MG TAB PO ×2 (09:00→09:48)
[2018-03-11] MEDS: TAMOXIFEN CITRATE 10 MG TAB PO ×2 (09:00→09:48)
[2018-03-11] MEDS: HALOPERIDOL 1 MG TAB PO ×3 (09:00→23:54)
[2018-03-11] MEDS: NEBIVOLOL 5 MG TAB (BYSTOLIC) PO (09:00)
[2018-03-11] MEDS: D5W 1,000 ML IV (09:09)
[2018-03-11 18:46] LABS: ANION GAP 6 MEQ/L (8-16); BLOOD UREA NITROGEN 10 MG/DL (7-18); CALCIUM LEVEL 8.8 MG/DL (8.8-10.2); CARBON DIOXIDE LEVEL 23 MEQ/L (21-32); CHLORIDE LEVEL 117 MEQ/L (98-107); CREATININE FOR GFR 0.87 MG/DL (0.70-1.30); GLOMERULAR FILTRATION RATE > 60.0 (>42); GLUCOSE, FASTING 111 MG/DL (70-100); SODIUM LEVEL 146 MEQ/L (136-145)
[2018-03-12] MEDS: D5W 1,000 ML IV (01:54)
[2018-03-12] MEDS: SYMBICORT 160/4.5MCG INHALER 6GM INH ×2 (08:07→20:00)
[2018-03-12 08:16] LABS: BASO % 0.5 % (0.0-1.0); EOS # 0.1 10^3/uL (0.0-0.50); EOS % 1.9 % (0.0-3.0); HEMATOCRIT 27.2 % (42.0-52.0); IMMATURE GRANULOCYTE % 0.2 % (0-3.0); LYMPH # 1.1 10^3/uL (1.5-4.5); LYMPH % 19.1 % (24.0-44.0); MEAN CORPUSCULAR HEMOGLOBIN 34.4 pg (27.0-33.0); MEAN CORPUSCULAR HGB CONC 33.1 g/dl (32.0-36.5); MEAN CORPUSCULAR VOLUME 103.8 fl (80.0-96.0); MONO % 16.3 % (0.0-5.0); NEUTROPHILS # 3.6 10^3/uL (1.8-7.7); PLATELET COUNT, AUTOMATED 124 10^3/uL (150-450); RED BLOOD COUNT 2.62 10^6/uL (4.30-6.10); RED CELL DISTRIBUTION WIDTH 13.8 % (11.5-14.5); WHITE BLOOD COUNT 5.8 10^3/uL (4.0-10.0)
[2018-03-12] MEDS: HALOPERIDOL 1 MG TAB PO ×2 (08:40→21:01)
[2018-03-12 08:46] LABS: ALBUMIN 2.6 GM/DL (3.2-5.2); ALBUMIN/GLOBULIN RATIO 0.93 (1.00-1.93); ALKALINE PHOSPHATASE 102 U/L (45-117); ALT/SGPT 24 U/L (12-78); ANION GAP 9 MEQ/L (8-16); AST/SGOT 24 U/L (7-37); BILIRUBIN,TOTAL 0.5 MG/DL (0.2-1.0); BLOOD UREA NITROGEN 13 MG/DL (7-18); CALCIUM LEVEL 8.6 MG/DL (8.8-10.2); CARBON DIOXIDE LEVEL 20 MEQ/L (21-32); CHLORIDE LEVEL 115 MEQ/L (98-107); CREATININE FOR GFR 1.07 MG/DL (0.70-1.30); GLOMERULAR FILTRATION RATE > 60.0 (>42); GLUCOSE, FASTING 101 MG/DL (70-100); MAGNESIUM LEVEL 1.5 MG/DL (1.8-2.4); POTASSIUM SERUM 4.1 MEQ/L (3.5-5.1); SODIUM LEVEL 144 MEQ/L (136-145); TOTAL PROTEIN 5.4 GM/DL (6.4-8.2)
[2018-03-12] MEDS: MAGNESIUM CHLORIDE 64 MG TABCR (SLO MAG) PO (10:10)
[2018-03-12] MEDS: BISACODYL 5 MG TAB PO (10:11)
[2018-03-12] MEDS: predniSONE 1 MG TAB PO (10:11)
[2018-03-12] MEDS: TAMOXIFEN CITRATE 10 MG TAB PO (10:11)
[2018-03-12] MEDS: ALLOPURINOL 100 MG TAB PO ×2 (10:11→21:01)
[2018-03-12] MEDS: OCUVITE 1 TAB PO ×2 (10:11→21:01)
[2018-03-12] MEDS: FOLIC ACID 1 MG TAB PO (10:11)
[2018-03-12] MEDS: NEBIVOLOL 5 MG TAB (BYSTOLIC) PO (10:12)
[2018-03-12] MEDS: MULTIVITAMINS/MINERALS THERAP 1 TAB PO (10:12)
[2018-03-12] MEDS: THIAMINE 100 MG TAB PO (10:12)
[2018-03-12] MEDS: SENOKOT S TAB PO (10:12)
[2018-03-12] MEDS: MAG SULF 1GM/100ML (MAG RUN) 1 GM in APPROPRIATE DILUENT 1 EA IV (10:13)
[2018-03-12] MEDS: NEOSPORIN TOP OINT 15GM TOP ×2 (10:14→21:03)
[2018-03-12] MEDS: LORazepam 2 MG/ML VIAL (J2060) IV (18:09)
[2018-03-13] MEDS: LORazepam 2 MG/ML VIAL (J2060) IV (01:42)
[2018-03-13 05:50] LABS: BASO % 0.3 % (0.0-1.0); EOS # 0.1 10^3/uL (0.0-0.50); EOS % 1.7 % (0.0-3.0); HEMATOCRIT 26.6 % (42.0-52.0); HEMOGLOBIN 8.9 g/dl (13.5-17.5); IMMATURE GRANULOCYTE % 0.4 % (0-3.0); LYMPH # 0.9 10^3/uL (1.5-4.5); LYMPH % 10.9 % (24.0-44.0); MEAN CORPUSCULAR HEMOGLOBIN 34.2 pg (27.0-33.0); MEAN CORPUSCULAR HGB CONC 33.5 g/dl (32.0-36.5); MEAN CORPUSCULAR VOLUME 102.3 fl (80.0-96.0); MONO % 12.6 % (0.0-5.0); NEUTROPHILS # 5.8 10^3/uL (1.8-7.7); NEUTROPHILS % 74.1 % (36.0-66.0); PLATELET COUNT, AUTOMATED 115 10^3/uL (150-450); RED CELL DISTRIBUTION WIDTH 13.5 % (11.5-14.5); WHITE BLOOD COUNT 7.8 10^3/uL (4.0-10.0)
[2018-03-13 06:20] LABS: ALBUMIN 2.4 GM/DL (3.2-5.2); ALBUMIN/GLOBULIN RATIO 0.71 (1.00-1.93); ALKALINE PHOSPHATASE 108 U/L (45-117); ALT/SGPT 27 U/L (12-78); ANION GAP 11 MEQ/L (8-16); AST/SGOT 31 U/L (7-37); BILIRUBIN,TOTAL 0.4 MG/DL (0.2-1.0); BLOOD UREA NITROGEN 12 MG/DL (7-18); CALCIUM LEVEL 8.9 MG/DL (8.8-10.2); CARBON DIOXIDE LEVEL 20 MEQ/L (21-32); CHLORIDE LEVEL 113 MEQ/L (98-107); CREATININE FOR GFR 0.97 MG/DL (0.70-1.30); GLOMERULAR FILTRATION RATE > 60.0 (>42); GLUCOSE, FASTING 94 MG/DL (70-100); MAGNESIUM LEVEL 1.7 MG/DL (1.8-2.4); POTASSIUM SERUM 3.7 MEQ/L (3.5-5.1); SODIUM LEVEL 144 MEQ/L (136-145); TOTAL PROTEIN 5.8 GM/DL (6.4-8.2)
[2018-03-13] MEDS: SYMBICORT 160/4.5MCG INHALER 6GM INH ×2 (08:00→20:00)
[2018-03-13] MEDS: HALOPERIDOL 1 MG TAB PO ×2 (08:34→21:50)
[2018-03-13] MEDS: MAG SULF 1GM/100ML (MAG RUN) 1 GM in APPROPRIATE DILUENT 1 EA IV (08:34)
[2018-03-13] MEDS: predniSONE 1 MG TAB PO (11:32)
[2018-03-13] MEDS: OCUVITE 1 TAB PO ×2 (11:32→21:50)
[2018-03-13] MEDS: THIAMINE 100 MG TAB PO (11:32)
[2018-03-13] MEDS: FOLIC ACID 1 MG TAB PO (11:33)
[2018-03-13] MEDS: SENOKOT S TAB PO (11:33)
[2018-03-13] MEDS: ALLOPURINOL 100 MG TAB PO ×2 (11:33→21:50)
[2018-03-13] MEDS: BISACODYL 5 MG TAB PO (11:33)
[2018-03-13] MEDS: TAMOXIFEN CITRATE 10 MG TAB PO (11:33)
[2018-03-13] MEDS: MULTIVITAMINS/MINERALS THERAP 1 TAB PO (11:33)
[2018-03-13] MEDS: NEBIVOLOL 5 MG TAB (BYSTOLIC) PO (11:36)
[2018-03-13] MEDS: NEOSPORIN TOP OINT 15GM TOP ×2 (11:38→21:50)
[2018-03-13] MEDS: MAGNESIUM CHLORIDE 64 MG TABCR (SLO MAG) PO (11:38)
[2018-03-14 06:08] LABS: BASO % 0.3 % (0.0-1.0); EOS # 0.1 10^3/uL (0.0-0.50); EOS % 1.3 % (0.0-3.0); HEMATOCRIT 25.9 % (42.0-52.0); HEMOGLOBIN 8.7 g/dl (13.5-17.5); IMMATURE GRANULOCYTE % 0.3 % (0-3.0); LYMPH # 1.4 10^3/uL (1.5-4.5); LYMPH % 19.6 % (24.0-44.0); MEAN CORPUSCULAR HEMOGLOBIN 33.7 pg (27.0-33.0); MEAN CORPUSCULAR HGB CONC 33.6 g/dl (32.0-36.5); MEAN CORPUSCULAR VOLUME 100.4 fl (80.0-96.0); MONO # 1.3 10^3/uL (0.0-0.8); MONO % 18.9 % (0.0-5.0); NEUTROPHILS # 4.1 10^3/uL (1.8-7.7); NEUTROPHILS % 59.6 % (36.0-66.0); PLATELET COUNT, AUTOMATED 107 10^3/uL (150-450); RED BLOOD COUNT 2.58 10^6/uL (4.30-6.10); RED CELL DISTRIBUTION WIDTH 13.2 % (11.5-14.5); WHITE BLOOD COUNT 6.9 10^3/uL (4.0-10.0)
[2018-03-14 06:57] LABS: ALBUMIN 2.3 GM/DL (3.2-5.2); ALBUMIN/GLOBULIN RATIO 0.82 (1.00-1.93); ALKALINE PHOSPHATASE 109 U/L (45-117); ALT/SGPT 25 U/L (12-78); ANION GAP 10 MEQ/L (8-16); AST/SGOT 31 U/L (7-37); BILIRUBIN,TOTAL 0.6 MG/DL (0.2-1.0); BLOOD UREA NITROGEN 14 MG/DL (7-18); CALCIUM LEVEL 8.6 MG/DL (8.8-10.2); CARBON DIOXIDE LEVEL 20 MEQ/L (21-32); CHLORIDE LEVEL 113 MEQ/L (98-107); CREATININE FOR GFR 0.92 MG/DL (0.70-1.30); GLOMERULAR FILTRATION RATE > 60.0 (>42); GLUCOSE, FASTING 82 MG/DL (70-100); MAGNESIUM LEVEL 1.7 MG/DL (1.8-2.4); POTASSIUM SERUM 4.2 MEQ/L (3.5-5.1); SODIUM LEVEL 143 MEQ/L (136-145); TOTAL PROTEIN 5.1 GM/DL (6.4-8.2)
[2018-03-14] MEDS: SYMBICORT 160/4.5MCG INHALER 6GM INH ×2 (07:45→20:00)
[2018-03-14] MEDS: predniSONE 1 MG TAB PO (09:30)
[2018-03-14] MEDS: NEOSPORIN TOP OINT 15GM TOP ×2 (09:30→19:43)
[2018-03-14] MEDS: ALLOPURINOL 100 MG TAB PO ×2 (09:31→19:41)
[2018-03-14] MEDS: FOLIC ACID 1 MG TAB PO (09:31)
[2018-03-14] MEDS: OCUVITE 1 TAB PO ×2 (09:31→19:41)
[2018-03-14] MEDS: NEBIVOLOL 5 MG TAB (BYSTOLIC) PO (09:31)
[2018-03-14] MEDS: THIAMINE 100 MG TAB PO (09:31)
[2018-03-14] MEDS: MULTIVITAMINS/MINERALS THERAP 1 TAB PO (09:31)
[2018-03-14] MEDS: SENOKOT S TAB PO (09:31)
[2018-03-14] MEDS: HALOPERIDOL 1 MG TAB PO ×2 (09:31→19:41)
[2018-03-14] MEDS: TAMOXIFEN CITRATE 10 MG TAB PO (09:37)
[2018-03-14] MEDS: BISACODYL 5 MG TAB PO (09:41)
[2018-03-14] MEDS: MAGNESIUM CHLORIDE 64 MG TABCR (SLO MAG) PO (09:42)
[2018-03-14] MEDS: MAG SULF 1GM/100ML (MAG RUN) 1 GM in APPROPRIATE DILUENT 1 EA IV (10:18)
[2018-03-15 06:48] LABS: BASO % 0.2 % (0.0-1.0); EOS # 0.1 10^3/uL (0.0-0.50); EOS % 0.8 % (0.0-3.0); HEMATOCRIT 26.4 % (42.0-52.0); HEMOGLOBIN 8.6 g/dl (13.5-17.5); IMMATURE GRANULOCYTE % 0.2 % (0-3.0); LYMPH # 1.3 10^3/uL (1.5-4.5); LYMPH % 15.2 % (24.0-44.0); MEAN CORPUSCULAR HEMOGLOBIN 34.4 pg (27.0-33.0); MEAN CORPUSCULAR HGB CONC 32.6 g/dl (32.0-36.5); MEAN CORPUSCULAR VOLUME 105.6 fl (80.0-96.0); MONO # 1.5 10^3/uL (0.0-0.8); MONO % 17.1 % (0.0-5.0); NEUTROPHILS # 5.7 10^3/uL (1.8-7.7); NEUTROPHILS % 66.5 % (36.0-66.0); RED CELL DISTRIBUTION WIDTH 13.4 % (11.5-14.5); WHITE BLOOD COUNT 8.5 10^3/uL (4.0-10.0)
[2018-03-15 07:05] LABS: ALBUMIN 2.2 GM/DL (3.2-5.2); ALBUMIN/GLOBULIN RATIO 0.71 (1.00-1.93); ALKALINE PHOSPHATASE 105 U/L (45-117); ALT/SGPT 22 U/L (12-78); ANION GAP 10 MEQ/L (8-16); AST/SGOT 20 U/L (7-37); BILIRUBIN,TOTAL 0.6 MG/DL (0.2-1.0); BLOOD UREA NITROGEN 19 MG/DL (7-18); CALCIUM LEVEL 8.6 MG/DL (8.8-10.2); CARBON DIOXIDE LEVEL 20 MEQ/L (21-32); CHLORIDE LEVEL 111 MEQ/L (98-107); CREATININE FOR GFR 0.99 MG/DL (0.70-1.30); GLOMERULAR FILTRATION RATE > 60.0 (>42); GLUCOSE, FASTING 98 MG/DL (70-100); MAGNESIUM LEVEL 1.8 MG/DL (1.8-2.4); POTASSIUM SERUM 3.8 MEQ/L (3.5-5.1); SODIUM LEVEL 141 MEQ/L (136-145); TOTAL PROTEIN 5.3 GM/DL (6.4-8.2)
[2018-03-15 07:44] LABS: PLATELET COUNT, AUTOMATED 98 10^3/uL (150-450)
[2018-03-15] MEDS: SYMBICORT 160/4.5MCG INHALER 6GM INH ×2 (08:00→21:42)
[2018-03-15 08:36] LABS: IMMATURE PLATELET FRACTION % 6.9 % (0.0-10.9)
[2018-03-15] MEDS: NEBIVOLOL 5 MG TAB (BYSTOLIC) PO (09:38)
[2018-03-15] MEDS: SENOKOT S TAB PO (09:38)
[2018-03-15] MEDS: THIAMINE 100 MG TAB PO (09:38)
[2018-03-15] MEDS: HALOPERIDOL 1 MG TAB PO ×2 (09:38→20:46)
[2018-03-15] MEDS: MAGNESIUM CHLORIDE 64 MG TABCR (SLO MAG) PO (09:38)
[2018-03-15] MEDS: MULTIVITAMINS/MINERALS THERAP 1 TAB PO (09:38)
[2018-03-15] MEDS: BISACODYL 5 MG TAB PO (09:38)
[2018-03-15] MEDS: predniSONE 1 MG TAB PO (09:38)
[2018-03-15] MEDS: OCUVITE 1 TAB PO ×2 (09:38→20:45)
[2018-03-15] MEDS: FOLIC ACID 1 MG TAB PO (09:38)
[2018-03-15] MEDS: TAMOXIFEN CITRATE 10 MG TAB PO (09:38)
[2018-03-15] MEDS: NEOSPORIN TOP OINT 15GM TOP ×2 (09:39→20:46)
[2018-03-15] MEDS: ALLOPURINOL 100 MG TAB PO ×2 (09:42→20:45)
[2018-03-15] MEDS: HALOPERIDOL 5 MG/ML VIAL (J1630) IM (16:44)
[2018-03-16 06:18] LABS: BASO % 0.2 % (0.0-1.0); EOS # 0.1 10^3/uL (0.0-0.50); EOS % 0.7 % (0.0-3.0); HEMATOCRIT 26.6 % (42.0-52.0); HEMOGLOBIN 8.9 g/dl (13.5-17.5); IMMATURE GRANULOCYTE % 0.5 % (0-3.0); LYMPH # 1.5 10^3/uL (1.5-4.5); LYMPH % 17.4 % (24.0-44.0); MEAN CORPUSCULAR HEMOGLOBIN 34.4 pg (27.0-33.0); MEAN CORPUSCULAR HGB CONC 33.5 g/dl (32.0-36.5); MEAN CORPUSCULAR VOLUME 102.7 fl (80.0-96.0); MONO # 1.3 10^3/uL (0.0-0.8); MONO % 14.1 % (0.0-5.0); NEUTROPHILS % 67.1 % (36.0-66.0); PLATELET COUNT, AUTOMATED 112 10^3/uL (150-450); RED BLOOD COUNT 2.59 10^6/uL (4.30-6.10); RED CELL DISTRIBUTION WIDTH 13.4 % (11.5-14.5); WHITE BLOOD COUNT 8.9 10^3/uL (4.0-10.0)
[2018-03-16 06:55] LABS: ALBUMIN 2.3 GM/DL (3.2-5.2); ALBUMIN/GLOBULIN RATIO 0.77 (1.00-1.93); ALKALINE PHOSPHATASE 125 U/L (45-117); ALT/SGPT 21 U/L (12-78); ANION GAP 12 MEQ/L (8-16); AST/SGOT 20 U/L (7-37); BILIRUBIN,TOTAL 0.7 MG/DL (0.2-1.0); BLOOD UREA NITROGEN 23 MG/DL (7-18); CALCIUM LEVEL 8.8 MG/DL (8.8-10.2); CARBON DIOXIDE LEVEL 18 MEQ/L (21-32); CHLORIDE LEVEL 110 MEQ/L (98-107); GLOMERULAR FILTRATION RATE > 60.0 (>42); GLUCOSE, FASTING 91 MG/DL (70-100); MAGNESIUM LEVEL 1.8 MG/DL (1.8-2.4); POTASSIUM SERUM 3.7 MEQ/L (3.5-5.1); SODIUM LEVEL 140 MEQ/L (136-145); TOTAL PROTEIN 5.3 GM/DL (6.4-8.2)
[2018-03-16] MEDS: SYMBICORT 160/4.5MCG INHALER 6GM INH ×2 (08:00→21:16)
[2018-03-16] MEDS: SENOKOT S TAB PO (09:00)
[2018-03-16] MEDS: BISACODYL 5 MG TAB PO (09:00)
[2018-03-16] MEDS: NEOSPORIN TOP OINT 15GM TOP ×2 (09:00→20:36)
[2018-03-16] MEDS: OCUVITE 1 TAB PO ×2 (10:18→20:36)
[2018-03-16] MEDS: NEBIVOLOL 5 MG TAB (BYSTOLIC) PO (10:19)
[2018-03-16] MEDS: FOLIC ACID 1 MG TAB PO (10:19)
[2018-03-16] MEDS: THIAMINE 100 MG TAB PO (10:19)
[2018-03-16] MEDS: MULTIVITAMINS/MINERALS THERAP 1 TAB PO (10:19)
[2018-03-16] MEDS: TAMOXIFEN CITRATE 10 MG TAB PO (10:19)
[2018-03-16] MEDS: ALLOPURINOL 100 MG TAB PO ×2 (10:19→20:36)
[2018-03-16] MEDS: MAGNESIUM CHLORIDE 64 MG TABCR (SLO MAG) PO (10:19)
[2018-03-16] MEDS: HALOPERIDOL 1 MG TAB PO ×2 (10:19→20:36)
[2018-03-16] MEDS: predniSONE 1 MG TAB PO (10:19)
[2018-03-16] MEDS ORDERED: LIDOCAINE 1% MDV 20ML VIAL As Ordered (13:27)
[2018-03-17] MEDS: LORazepam 2 MG/ML VIAL (J2060) IV (05:39)
[2018-03-17 06:42] LABS: BASO % 0.3 % (0.0-1.0); EOS # 0.1 10^3/uL (0.0-0.50); EOS % 0.7 % (0.0-3.0); HEMATOCRIT 26.4 % (42.0-52.0); HEMOGLOBIN 8.8 g/dl (13.5-17.5); IMMATURE GRANULOCYTE % 0.3 % (0-3.0); LYMPH # 1.8 10^3/uL (1.5-4.5); LYMPH % 18.6 % (24.0-44.0); MEAN CORPUSCULAR HEMOGLOBIN 34.1 pg (27.0-33.0); MEAN CORPUSCULAR HGB CONC 33.3 g/dl (32.0-36.5); MEAN CORPUSCULAR VOLUME 102.3 fl (80.0-96.0); MONO # 1.4 10^3/uL (0.0-0.8); MONO % 14.7 % (0.0-5.0); NEUTROPHILS # 6.2 10^3/uL (1.8-7.7); NEUTROPHILS % 65.4 % (36.0-66.0); PLATELET COUNT, AUTOMATED 149 10^3/uL (150-450); RED BLOOD COUNT 2.58 10^6/uL (4.30-6.10); RED CELL DISTRIBUTION WIDTH 13.3 % (11.5-14.5); WHITE BLOOD COUNT 9.5 10^3/uL (4.0-10.0)
[2018-03-17 07:07] LABS: ALBUMIN 2.3 GM/DL (3.2-5.2); ALBUMIN/GLOBULIN RATIO 0.59 (1.00-1.93); ALKALINE PHOSPHATASE 160 U/L (45-117); ALT/SGPT 27 U/L (12-78); ANION GAP 10 MEQ/L (8-16); AST/SGOT 25 U/L (7-37); BILIRUBIN,TOTAL 0.8 MG/DL (0.2-1.0); BLOOD UREA NITROGEN 21 MG/DL (7-18); CALCIUM LEVEL 8.8 MG/DL (8.8-10.2); CARBON DIOXIDE LEVEL 21 MEQ/L (21-32); CHLORIDE LEVEL 105 MEQ/L (98-107); CREATININE FOR GFR 1.18 MG/DL (0.70-1.30); GLOMERULAR FILTRATION RATE > 60.0 (>42); GLUCOSE, FASTING 93 MG/DL (70-100); MAGNESIUM LEVEL 1.7 MG/DL (1.8-2.4); SODIUM LEVEL 136 MEQ/L (136-145); TOTAL PROTEIN 6.2 GM/DL (6.4-8.2)
[2018-03-17] MEDS: SYMBICORT 160/4.5MCG INHALER 6GM INH ×2 (08:01→20:17)
[2018-03-17] MEDS: FOLIC ACID 1 MG TAB PO (08:38)
[2018-03-17] MEDS: HALOPERIDOL 1 MG TAB PO ×2 (08:38→20:59)
[2018-03-17] MEDS: OCUVITE 1 TAB PO ×2 (08:38→20:59)
[2018-03-17] MEDS: MAGNESIUM CHLORIDE 64 MG TABCR (SLO MAG) PO (08:38)
[2018-03-17] MEDS: TAMOXIFEN CITRATE 10 MG TAB PO (08:39)
[2018-03-17] MEDS: SENOKOT S TAB PO (08:39)
[2018-03-17] MEDS: predniSONE 1 MG TAB PO (08:39)
[2018-03-17] MEDS: ALLOPURINOL 100 MG TAB PO ×2 (08:39→20:59)
[2018-03-17] MEDS: MULTIVITAMINS/MINERALS THERAP 1 TAB PO (08:39)
[2018-03-17] MEDS: THIAMINE 100 MG TAB PO (08:39)
[2018-03-17] MEDS: BISACODYL 5 MG TAB PO (08:40)
[2018-03-17] MEDS: NEBIVOLOL 5 MG TAB (BYSTOLIC) PO (08:41)
[2018-03-17] MEDS: NEOSPORIN TOP OINT 15GM TOP ×2 (08:42→20:59)
[2018-03-17] MEDS: MAG SULF 1GM/100ML (MAG RUN) 1 GM in APPROPRIATE DILUENT 1 EA IV ×2 (08:42→10:07)
[2018-03-18] MEDS: LORazepam 2 MG/ML VIAL (J2060) IV (00:48)
[2018-03-18] MEDS: HALOPERIDOL 5 MG/ML VIAL (J1630) IM (01:20)
[2018-03-18 06:06] LABS: BASO % 0.2 % (0.0-1.0); EOS # 0.1 10^3/uL (0.0-0.50); HEMATOCRIT 26.6 % (42.0-52.0); IMMATURE GRANULOCYTE % 0.5 % (0-3.0); LYMPH # 1.7 10^3/uL (1.5-4.5); LYMPH % 20.6 % (24.0-44.0); MEAN CORPUSCULAR HGB CONC 33.8 g/dl (32.0-36.5); MEAN CORPUSCULAR VOLUME 100.4 fl (80.0-96.0); MONO # 1.1 10^3/uL (0.0-0.8); MONO % 13.1 % (0.0-5.0); NEUTROPHILS # 5.4 10^3/uL (1.8-7.7); NEUTROPHILS % 64.6 % (36.0-66.0); PLATELET COUNT, AUTOMATED 158 10^3/uL (150-450); RED BLOOD COUNT 2.65 10^6/uL (4.30-6.10); WHITE BLOOD COUNT 8.4 10^3/uL (4.0-10.0)
[2018-03-18 06:31] LABS: ALBUMIN 2.3 GM/DL (3.2-5.2); ALBUMIN/GLOBULIN RATIO 0.56 (1.00-1.93); ALKALINE PHOSPHATASE 178 U/L (45-117); ALT/SGPT 32 U/L (12-78); ANION GAP 12 MEQ/L (8-16); AST/SGOT 30 U/L (7-37); BILIRUBIN,TOTAL 0.7 MG/DL (0.2-1.0); BLOOD UREA NITROGEN 19 MG/DL (7-18); CALCIUM LEVEL 8.6 MG/DL (8.8-10.2); CARBON DIOXIDE LEVEL 17 MEQ/L (21-32); CHLORIDE LEVEL 105 MEQ/L (98-107); CREATININE FOR GFR 1.08 MG/DL (0.70-1.30); GLOMERULAR FILTRATION RATE > 60.0 (>42); GLUCOSE, FASTING 85 MG/DL (70-100); SODIUM LEVEL 134 MEQ/L (136-145); TOTAL PROTEIN 6.4 GM/DL (6.4-8.2)
[2018-03-18] MEDS: SYMBICORT 160/4.5MCG INHALER 6GM INH ×2 (07:29→20:46)
[2018-03-18] MEDS: ALLOPURINOL 100 MG TAB PO ×2 (08:10→20:52)
[2018-03-18] MEDS: BISACODYL 5 MG TAB PO (08:10)
[2018-03-18] MEDS: MULTIVITAMINS/MINERALS THERAP 1 TAB PO (08:10)
[2018-03-18] MEDS: predniSONE 1 MG TAB PO (08:10)
[2018-03-18] MEDS: HALOPERIDOL 1 MG TAB PO ×2 (08:10→20:52)
[2018-03-18] MEDS: FOLIC ACID 1 MG TAB PO (08:10)
[2018-03-18] MEDS: SENOKOT S TAB PO (08:10)
[2018-03-18] MEDS: THIAMINE 100 MG TAB PO (08:10)
[2018-03-18] MEDS: NEBIVOLOL 5 MG TAB (BYSTOLIC) PO (08:10)
[2018-03-18] MEDS: OCUVITE 1 TAB PO ×2 (08:10→20:52)
[2018-03-18] MEDS: TAMOXIFEN CITRATE 10 MG TAB PO (08:10)
[2018-03-18] MEDS: NEOSPORIN TOP OINT 15GM TOP ×2 (08:11→20:53)
[2018-03-18] MEDS: MAGNESIUM CHLORIDE 64 MG TABCR (SLO MAG) PO (08:11)
[2018-03-18] MEDS: MOM 30ML SUSPENSION UDC PO (10:58)
[2018-03-19] MEDS: LORazepam 2 MG/ML VIAL (J2060) IV (03:59)
[2018-03-19 06:16] LABS: BASO % 0.3 % (0.0-1.0); EOS # 0.1 10^3/uL (0.0-0.50); EOS % 1.1 % (0.0-3.0); HEMATOCRIT 21.8 % (42.0-52.0); HEMOGLOBIN 7.3 g/dl (13.5-17.5); IMMATURE GRANULOCYTE % 0.3 % (0-3.0); LYMPH # 1.3 10^3/uL (1.5-4.5); LYMPH % 21.2 % (24.0-44.0); MEAN CORPUSCULAR HGB CONC 33.5 g/dl (32.0-36.5); MEAN CORPUSCULAR VOLUME 101.4 fl (80.0-96.0); MONO % 16.1 % (0.0-5.0); NEUTROPHILS # 3.9 10^3/uL (1.8-7.7); PLATELET COUNT, AUTOMATED 107 10^3/uL (150-450); RED BLOOD COUNT 2.15 10^6/uL (4.30-6.10); RED CELL DISTRIBUTION WIDTH 13.1 % (11.5-14.5); WHITE BLOOD COUNT 6.3 10^3/uL (4.0-10.0)
[2018-03-19 06:36] LABS: ALBUMIN 2.1 GM/DL (3.2-5.2); ALBUMIN/GLOBULIN RATIO 0.64 (1.00-1.93); ALKALINE PHOSPHATASE 151 U/L (45-117); ALT/SGPT 24 U/L (12-78); ANION GAP 7 MEQ/L (8-16); AST/SGOT 20 U/L (7-37); BILIRUBIN,TOTAL 0.3 MG/DL (0.2-1.0); BLOOD UREA NITROGEN 24 MG/DL (7-18); CALCIUM LEVEL 8.3 MG/DL (8.8-10.2); CARBON DIOXIDE LEVEL 24 MEQ/L (21-32); CHLORIDE LEVEL 108 MEQ/L (98-107); CREATININE FOR GFR 1.07 MG/DL (0.70-1.30); GLOMERULAR FILTRATION RATE > 60.0 (>42); GLUCOSE, FASTING 93 MG/DL (70-100); MAGNESIUM LEVEL 1.9 MG/DL (1.8-2.4); POTASSIUM SERUM 4.2 MEQ/L (3.5-5.1); SODIUM LEVEL 139 MEQ/L (136-145); TOTAL PROTEIN 5.4 GM/DL (6.4-8.2)
[2018-03-19] MEDS: SYMBICORT 160/4.5MCG INHALER 6GM INH ×2 (07:32→20:00)
[2018-03-19] MEDS: MAGNESIUM CHLORIDE 64 MG TABCR (SLO MAG) PO (08:54)
[2018-03-19] MEDS: THIAMINE 100 MG TAB PO (08:54)
[2018-03-19] MEDS: MULTIVITAMINS/MINERALS THERAP 1 TAB PO (08:54)
[2018-03-19] MEDS: predniSONE 1 MG TAB PO (08:54)
[2018-03-19] MEDS: OCUVITE 1 TAB PO ×2 (08:55→20:56)
[2018-03-19] MEDS: HALOPERIDOL 1 MG TAB PO ×2 (08:55→20:57)
[2018-03-19] MEDS: BISACODYL 5 MG TAB PO (08:55)
[2018-03-19] MEDS: FOLIC ACID 1 MG TAB PO (08:55)
[2018-03-19] MEDS: NEOSPORIN TOP OINT 15GM TOP ×2 (08:55→20:57)
[2018-03-19] MEDS: TAMOXIFEN CITRATE 10 MG TAB PO (08:55)
[2018-03-19] MEDS: SENOKOT S TAB PO (08:55)
[2018-03-19] MEDS: ALLOPURINOL 100 MG TAB PO ×2 (08:55→20:56)
[2018-03-19] MEDS: NEBIVOLOL 5 MG TAB (BYSTOLIC) PO (08:57)
[2018-03-20] MEDS: LORazepam 2 MG/ML VIAL (J2060) IV (04:41)
[2018-03-20 06:40] LABS: BASO % 0.4 % (0.0-1.0); EOS # 0.1 10^3/uL (0.0-0.50); EOS % 1.1 % (0.0-3.0); HEMATOCRIT 24.6 % (42.0-52.0); HEMOGLOBIN 8.2 g/dl (13.5-17.5); IMMATURE GRANULOCYTE % 0.4 % (0-3.0); LYMPH # 1.6 10^3/uL (1.5-4.5); LYMPH % 19.1 % (24.0-44.0); MEAN CORPUSCULAR HEMOGLOBIN 33.6 pg (27.0-33.0); MEAN CORPUSCULAR HGB CONC 33.3 g/dl (32.0-36.5); MEAN CORPUSCULAR VOLUME 100.8 fl (80.0-96.0); MONO # 1.2 10^3/uL (0.0-0.8); MONO % 14.1 % (0.0-5.0); NEUTROPHILS # 5.4 10^3/uL (1.8-7.7); NEUTROPHILS % 64.9 % (36.0-66.0); PLATELET COUNT, AUTOMATED 142 10^3/uL (150-450); RED BLOOD COUNT 2.44 10^6/uL (4.30-6.10); RED CELL DISTRIBUTION WIDTH 13.1 % (11.5-14.5); WHITE BLOOD COUNT 8.3 10^3/uL (4.0-10.0)
[2018-03-20 07:03] LABS: ANION GAP 8 MEQ/L (8-16); BLOOD UREA NITROGEN 24 MG/DL (7-18); CALCIUM LEVEL 8.7 MG/DL (8.8-10.2); CARBON DIOXIDE LEVEL 22 MEQ/L (21-32); CHLORIDE LEVEL 108 MEQ/L (98-107); CREATININE FOR GFR 1.06 MG/DL (0.70-1.30); GLOMERULAR FILTRATION RATE > 60.0 (>42); GLUCOSE, FASTING 86 MG/DL (70-100); POTASSIUM SERUM 4.3 MEQ/L (3.5-5.1); SODIUM LEVEL 138 MEQ/L (136-145)
[2018-03-20] MEDS: SYMBICORT 160/4.5MCG INHALER 6GM INH ×2 (08:08→20:00)
[2018-03-20] MEDS: HALOPERIDOL 1 MG TAB PO ×2 (10:46→21:01)
[2018-03-20] MEDS: OCUVITE 1 TAB PO ×2 (10:46→21:01)
[2018-03-20] MEDS: BISACODYL 5 MG TAB PO (10:47)
[2018-03-20] MEDS: predniSONE 1 MG TAB PO (10:47)
[2018-03-20] MEDS: FOLIC ACID 1 MG TAB PO (10:47)
[2018-03-20] MEDS: MAGNESIUM CHLORIDE 64 MG TABCR (SLO MAG) PO (10:48)
[2018-03-20] MEDS: TAMOXIFEN CITRATE 10 MG TAB PO (10:49)
[2018-03-20] MEDS: SENOKOT S TAB PO (10:49)
[2018-03-20] MEDS: THIAMINE 100 MG TAB PO (10:49)
[2018-03-20] MEDS: ALLOPURINOL 100 MG TAB PO ×2 (10:49→21:00)
[2018-03-20] MEDS: MULTIVITAMINS/MINERALS THERAP 1 TAB PO (10:49)
[2018-03-20] MEDS: NEBIVOLOL 5 MG TAB (BYSTOLIC) PO (10:54)
[2018-03-21] MEDS: ACETAMINOPHEN TAB 650MG DOSE (2X325MG) PO (00:42)
[2018-03-21 06:39] LABS: BASO % 0.3 % (0.0-1.0); EOS # 0.1 10^3/uL (0.0-0.50); EOS % 1.5 % (0.0-3.0); HEMATOCRIT 22.6 % (42.0-52.0); HEMOGLOBIN 7.6 g/dl (13.5-17.5); IMMATURE GRANULOCYTE % 0.4 % (0-3.0); LYMPH # 1.5 10^3/uL (1.5-4.5); LYMPH % 21.5 % (24.0-44.0); MEAN CORPUSCULAR HEMOGLOBIN 34.1 pg (27.0-33.0); MEAN CORPUSCULAR HGB CONC 33.6 g/dl (32.0-36.5); MEAN CORPUSCULAR VOLUME 101.3 fl (80.0-96.0); MONO # 0.9 10^3/uL (0.0-0.8); MONO % 12.8 % (0.0-5.0); NEUTROPHILS # 4.4 10^3/uL (1.8-7.7); NEUTROPHILS % 63.5 % (36.0-66.0); PLATELET COUNT, AUTOMATED 120 10^3/uL (150-450); RED BLOOD COUNT 2.23 10^6/uL (4.30-6.10); RED CELL DISTRIBUTION WIDTH 13.2 % (11.5-14.5); WHITE BLOOD COUNT 6.9 10^3/uL (4.0-10.0)
[2018-03-21 06:59] LABS: ANION GAP 9 MEQ/L (8-16); BLOOD UREA NITROGEN 25 MG/DL (7-18); CALCIUM LEVEL 8.6 MG/DL (8.8-10.2); CARBON DIOXIDE LEVEL 21 MEQ/L (21-32); CHLORIDE LEVEL 107 MEQ/L (98-107); CREATININE FOR GFR 0.97 MG/DL (0.70-1.30); GLOMERULAR FILTRATION RATE > 60.0 (>42); GLUCOSE, FASTING 82 MG/DL (70-100); MAGNESIUM LEVEL 1.8 MG/DL (1.8-2.4); POTASSIUM SERUM 4.1 MEQ/L (3.5-5.1); SODIUM LEVEL 137 MEQ/L (136-145)
[2018-03-21] MEDS: NEBIVOLOL 5 MG TAB (BYSTOLIC) PO (08:32)
[2018-03-21] MEDS: SENOKOT S TAB PO (08:33)
[2018-03-21] MEDS: OCUVITE 1 TAB PO ×2 (08:33→21:30)
[2018-03-21] MEDS: MULTIVITAMINS/MINERALS THERAP 1 TAB PO (08:33)
[2018-03-21] MEDS: ALLOPURINOL 100 MG TAB PO ×2 (08:33→21:30)
[2018-03-21] MEDS: THIAMINE 100 MG TAB PO (08:33)
[2018-03-21] MEDS: TAMOXIFEN CITRATE 10 MG TAB PO (08:34)
[2018-03-21] MEDS: HALOPERIDOL 1 MG TAB PO ×2 (08:34→21:30)
[2018-03-21] MEDS: MAGNESIUM CHLORIDE 64 MG TABCR (SLO MAG) PO (08:34)
[2018-03-21] MEDS: predniSONE 1 MG TAB PO (08:34)
[2018-03-21] MEDS: BISACODYL 5 MG TAB PO (08:34)
[2018-03-21] MEDS: FOLIC ACID 1 MG TAB PO (08:34)
[2018-03-21] MEDS: SYMBICORT 160/4.5MCG INHALER 6GM INH ×2 (08:53→22:29)
[2018-03-21 23:51] LABS: BEDSIDE GLUCOSE 131 MG/DL (83-110)
[2018-03-22] MEDS: IPRATROPIUM 0.5MG/ALBUTEROL 2.5MG INH SOL UD 3ML (DUONEB)(J7620) NEB (00:08)
[2018-03-22 06:28] LABS: BASO % 0.2 % (0.0-1.0); EOS % 0.4 % (0.0-3.0); HEMATOCRIT 22.1 % (42.0-52.0); HEMOGLOBIN 7.4 g/dl (13.5-17.5); IMMATURE GRANULOCYTE % 0.3 % (0-3.0); LYMPH # 1.2 10^3/uL (1.5-4.5); LYMPH % 13.6 % (24.0-44.0); MEAN CORPUSCULAR HEMOGLOBIN 34.1 pg (27.0-33.0); MEAN CORPUSCULAR HGB CONC 33.5 g/dl (32.0-36.5); MEAN CORPUSCULAR VOLUME 101.8 fl (80.0-96.0); MONO # 1.1 10^3/uL (0.0-0.8); NEUTROPHILS # 6.7 10^3/uL (1.8-7.7); NEUTROPHILS % 73.5 % (36.0-66.0); PLATELET COUNT, AUTOMATED 131 10^3/uL (150-450); RED BLOOD COUNT 2.17 10^6/uL (4.30-6.10); RED CELL DISTRIBUTION WIDTH 13.3 % (11.5-14.5); WHITE BLOOD COUNT 9.1 10^3/uL (4.0-10.0)
[2018-03-22 06:43] LABS: ANION GAP 10 MEQ/L (8-16); BLOOD UREA NITROGEN 24 MG/DL (7-18); CALCIUM LEVEL 8.5 MG/DL (8.8-10.2); CARBON DIOXIDE LEVEL 22 MEQ/L (21-32); CHLORIDE LEVEL 106 MEQ/L (98-107); CREATININE FOR GFR 1.05 MG/DL (0.70-1.30); GLOMERULAR FILTRATION RATE > 60.0 (>42); GLUCOSE, FASTING 96 MG/DL (70-100); MAGNESIUM LEVEL 1.9 MG/DL (1.8-2.4); POTASSIUM SERUM 4.1 MEQ/L (3.5-5.1); SODIUM LEVEL 138 MEQ/L (136-145)
[2018-03-22] MEDS: SYMBICORT 160/4.5MCG INHALER 6GM INH ×2 (08:08→21:57)
[2018-03-22] MEDS: predniSONE 1 MG TAB PO (09:15)
[2018-03-22] MEDS: MAGNESIUM CHLORIDE 64 MG TABCR (SLO MAG) PO (09:15)
[2018-03-22] MEDS: HALOPERIDOL 1 MG TAB PO ×2 (09:15→21:17)
[2018-03-22] MEDS: OCUVITE 1 TAB PO ×2 (09:15→21:16)
[2018-03-22] MEDS: TAMOXIFEN CITRATE 10 MG TAB PO (09:16)
[2018-03-22] MEDS: MULTIVITAMINS/MINERALS THERAP 1 TAB PO (09:16)
[2018-03-22] MEDS: BISACODYL 5 MG TAB PO (09:16)
[2018-03-22] MEDS: THIAMINE 100 MG TAB PO (09:16)
[2018-03-22] MEDS: ALLOPURINOL 100 MG TAB PO ×2 (09:16→21:16)
[2018-03-22] MEDS: FOLIC ACID 1 MG TAB PO (09:16)
[2018-03-22] MEDS: SENOKOT S TAB PO (09:16)
[2018-03-22] MEDS: NEBIVOLOL 5 MG TAB (BYSTOLIC) PO (09:20)
[2018-03-22] MEDS: FUROSEMIDE 40 MG/4 ML VIAL (J1940) IV (11:45)
[2018-03-22 15:48] LABS: HEMATOCRIT 22.3 % (42.0-52.0); HEMOGLOBIN 7.5 g/dl (13.5-17.5)
[2018-03-22 15:52] LABS: BASO % 0.2 % (0.0-1.0); EOS % 0.1 % (0.0-3.0); HEMATOCRIT 22.2 % (42.0-52.0); HEMOGLOBIN 7.4 g/dl (13.5-17.5); IMMATURE GRANULOCYTE % 0.4 % (0-3.0); LYMPH # 0.8 10^3/uL (1.5-4.5); LYMPH % 8.3 % (24.0-44.0); MEAN CORPUSCULAR HEMOGLOBIN 34.1 pg (27.0-33.0); MEAN CORPUSCULAR HGB CONC 33.3 g/dl (32.0-36.5); MEAN CORPUSCULAR VOLUME 102.3 fl (80.0-96.0); MONO # 0.8 10^3/uL (0.0-0.8); MONO % 8.8 % (0.0-5.0); NEUTROPHILS # 7.6 10^3/uL (1.8-7.7); NEUTROPHILS % 82.2 % (36.0-66.0); PLATELET COUNT, AUTOMATED 136 10^3/uL (150-450); RED BLOOD COUNT 2.17 10^6/uL (4.30-6.10); RED CELL DISTRIBUTION WIDTH 13.4 % (11.5-14.5); WHITE BLOOD COUNT 9.2 10^3/uL (4.0-10.0)
[2018-03-23 06:32] LABS: BASO % 0.3 % (0.0-1.0); EOS # 0.1 10^3/uL (0.0-0.50); HEMATOCRIT 21.4 % (42.0-52.0); HEMOGLOBIN 7.4 g/dl (13.5-17.5); IMMATURE GRANULOCYTE % 0.4 % (0-3.0); LYMPH # 1.4 10^3/uL (1.5-4.5); LYMPH % 17.3 % (24.0-44.0); MEAN CORPUSCULAR HEMOGLOBIN 33.9 pg (27.0-33.0); MEAN CORPUSCULAR HGB CONC 34.6 g/dl (32.0-36.5); MEAN CORPUSCULAR VOLUME 98.2 fl (80.0-96.0); MONO # 0.9 10^3/uL (0.0-0.8); MONO % 11.6 % (0.0-5.0); NEUTROPHILS # 5.4 10^3/uL (1.8-7.7); NEUTROPHILS % 69.4 % (36.0-66.0); PLATELET COUNT, AUTOMATED 128 10^3/uL (150-450); RED BLOOD COUNT 2.18 10^6/uL (4.30-6.10); RED CELL DISTRIBUTION WIDTH 13.2 % (11.5-14.5); WHITE BLOOD COUNT 7.8 10^3/uL (4.0-10.0)
[2018-03-23 06:54] LABS: ANION GAP 8 MEQ/L (8-16); BLOOD UREA NITROGEN 23 MG/DL (7-18); CALCIUM LEVEL 8.2 MG/DL (8.8-10.2); CARBON DIOXIDE LEVEL 23 MEQ/L (21-32); CHLORIDE LEVEL 105 MEQ/L (98-107); CREATININE FOR GFR 1.04 MG/DL (0.70-1.30); GLOMERULAR FILTRATION RATE > 60.0 (>42); GLUCOSE, FASTING 86 MG/DL (70-100); MAGNESIUM LEVEL 1.7 MG/DL (1.8-2.4); POTASSIUM SERUM 3.9 MEQ/L (3.5-5.1); SODIUM LEVEL 136 MEQ/L (136-145)
[2018-03-23] MEDS: SYMBICORT 160/4.5MCG INHALER 6GM INH ×2 (08:00→20:35)
[2018-03-23] MEDS: MAGNESIUM CHLORIDE 64 MG TABCR (SLO MAG) PO (08:26)
[2018-03-23] MEDS: OCUVITE 1 TAB PO ×2 (08:26→20:13)
[2018-03-23] MEDS: HALOPERIDOL 1 MG TAB PO ×2 (08:27→20:13)
[2018-03-23] MEDS: MAG SULF 1GM/100ML (MAG RUN) 1 GM in APPROPRIATE DILUENT 1 EA IV (08:27)
[2018-03-23] MEDS: ALLOPURINOL 100 MG TAB PO ×2 (08:27→20:13)
[2018-03-23] MEDS: predniSONE 1 MG TAB PO (08:27)
[2018-03-23] MEDS: SENOKOT S TAB PO (08:27)
[2018-03-23] MEDS: MULTIVITAMINS/MINERALS THERAP 1 TAB PO (08:27)
[2018-03-23] MEDS: TAMOXIFEN CITRATE 10 MG TAB PO (08:27)
[2018-03-23] MEDS: THIAMINE 100 MG TAB PO (08:28)
[2018-03-23] MEDS: BISACODYL 5 MG TAB PO (08:28)
[2018-03-23] MEDS: FOLIC ACID 1 MG TAB PO (08:28)
[2018-03-23] MEDS: NEBIVOLOL 5 MG TAB (BYSTOLIC) PO (08:30)
[2018-03-23] MEDS: FUROSEMIDE 40 MG/4 ML VIAL (J1940) IV ×2 (12:08→17:30)
[2018-03-23 15:03] LABS: HEMATOCRIT 22.4 % (42.0-52.0); HEMOGLOBIN 7.6 g/dl (13.5-17.5)
[2018-03-23] MEDS: ONDANSETRON 4 MG TAB (S0181) PO (20:13)
[2018-03-23 21:18] LABS: ANION GAP 11 MEQ/L (8-16); BLOOD UREA NITROGEN 30 MG/DL (7-18); CALCIUM LEVEL 8.6 MG/DL (8.8-10.2); CARBON DIOXIDE LEVEL 23 MEQ/L (21-32); CHLORIDE LEVEL 104 MEQ/L (98-107); CREATININE FOR GFR 1.42 MG/DL (0.70-1.30); GLOMERULAR FILTRATION RATE 51.9 (>42); GLUCOSE, FASTING 112 MG/DL (70-100); POTASSIUM SERUM 4.3 MEQ/L (3.5-5.1); SODIUM LEVEL 138 MEQ/L (136-145)
[2018-03-24 06:44] LABS: BASO % 0.4 % (0.0-1.0); EOS # 0.1 10^3/uL (0.0-0.50); EOS % 1.2 % (0.0-3.0); HEMATOCRIT 19.8 % (42.0-52.0); IMMATURE GRANULOCYTE % 0.3 % (0-3.0); LYMPH # 1.3 10^3/uL (1.5-4.5); MEAN CORPUSCULAR HEMOGLOBIN 34.3 pg (27.0-33.0); MEAN CORPUSCULAR HGB CONC 34.8 g/dl (32.0-36.5); MEAN CORPUSCULAR VOLUME 98.5 fl (80.0-96.0); MONO # 1.1 10^3/uL (0.0-0.8); MONO % 13.9 % (0.0-5.0); NEUTROPHILS # 5.2 10^3/uL (1.8-7.7); NEUTROPHILS % 67.2 % (36.0-66.0); PLATELET COUNT, AUTOMATED 126 10^3/uL (150-450); RED BLOOD COUNT 2.01 10^6/uL (4.30-6.10); RED CELL DISTRIBUTION WIDTH 13.2 % (11.5-14.5); WHITE BLOOD COUNT 7.8 10^3/uL (4.0-10.0)
[2018-03-24 06:49] LABS: HEMOGLOBIN 6.9 g/dl (13.5-17.5)
[2018-03-24 07:14] LABS: ANION GAP 9 MEQ/L (8-16); BLOOD UREA NITROGEN 26 MG/DL (7-18); CARBON DIOXIDE LEVEL 23 MEQ/L (21-32); CHLORIDE LEVEL 106 MEQ/L (98-107); CREATININE FOR GFR 1.29 MG/DL (0.70-1.30); GLUCOSE, FASTING 99 MG/DL (70-100); MAGNESIUM LEVEL 1.5 MG/DL (1.8-2.4); POTASSIUM SERUM 3.7 MEQ/L (3.5-5.1); SODIUM LEVEL 138 MEQ/L (136-145)
[2018-03-24] MEDS: SYMBICORT 160/4.5MCG INHALER 6GM INH ×2 (07:45→21:27)
[2018-03-24] MEDS: MAG SULF 1GM/100ML (MAG RUN) 1 GM in APPROPRIATE DILUENT 1 EA IV ×2 (08:40→10:23)
[2018-03-24] MEDS: HALOPERIDOL 1 MG TAB PO ×2 (08:41→20:50)
[2018-03-24] MEDS: BISACODYL 5 MG TAB PO (08:41)
[2018-03-24] MEDS: THIAMINE 100 MG TAB PO (08:41)
[2018-03-24] MEDS: SENOKOT S TAB PO (08:41)
[2018-03-24] MEDS: MULTIVITAMINS/MINERALS THERAP 1 TAB PO (08:41)
[2018-03-24] MEDS: predniSONE 1 MG TAB PO (08:41)
[2018-03-24] MEDS: MAGNESIUM CHLORIDE 64 MG TABCR (SLO MAG) PO (08:41)
[2018-03-24] MEDS: NEBIVOLOL 5 MG TAB (BYSTOLIC) PO (08:44)
[2018-03-24] MEDS: OCUVITE 1 TAB PO ×2 (08:44→20:50)
[2018-03-24] MEDS: FOLIC ACID 1 MG TAB PO (08:45)
[2018-03-24] MEDS: ALLOPURINOL 100 MG TAB PO ×2 (08:45→20:50)
[2018-03-24] MEDS: TAMOXIFEN CITRATE 10 MG TAB PO (08:45)
[2018-03-24] MEDS ORDERED: LIDOCAINE 1% MDV 20ML VIAL As Ordered (09:00)
[2018-03-24] MEDS: FUROSEMIDE 40 MG TAB PO (13:07)
[2018-03-24 16:05] LABS: IMMEDIATE SPIN CROSSMATCH 1 2
[2018-03-25 05:49] LABS: BASO % 0.4 % (0.0-1.0); EOS # 0.1 10^3/uL (0.0-0.50); EOS % 1.7 % (0.0-3.0); HEMATOCRIT 24.6 % (42.0-52.0); HEMOGLOBIN 8.4 g/dl (13.5-17.5); IMMATURE GRANULOCYTE % 0.3 % (0-3.0); LYMPH # 1.3 10^3/uL (1.5-4.5); LYMPH % 18.3 % (24.0-44.0); MEAN CORPUSCULAR HEMOGLOBIN 32.9 pg (27.0-33.0); MEAN CORPUSCULAR HGB CONC 34.1 g/dl (32.0-36.5); MEAN CORPUSCULAR VOLUME 96.5 fl (80.0-96.0); MONO # 0.9 10^3/uL (0.0-0.8); MONO % 12.8 % (0.0-5.0); NEUTROPHILS # 4.8 10^3/uL (1.8-7.7); NEUTROPHILS % 66.5 % (36.0-66.0); PLATELET COUNT, AUTOMATED 134 10^3/uL (150-450); RED BLOOD COUNT 2.55 10^6/uL (4.30-6.10); RED CELL DISTRIBUTION WIDTH 13.9 % (11.5-14.5); WHITE BLOOD COUNT 7.3 10^3/uL (4.0-10.0)
[2018-03-25 06:04] LABS: ANION GAP 10 MEQ/L (8-16); BLOOD UREA NITROGEN 32 MG/DL (7-18); CALCIUM LEVEL 8.6 MG/DL (8.8-10.2); CARBON DIOXIDE LEVEL 21 MEQ/L (21-32); CHLORIDE LEVEL 109 MEQ/L (98-107); CREATININE FOR GFR 1.12 MG/DL (0.70-1.30); GLOMERULAR FILTRATION RATE > 60.0 (>42); GLUCOSE, FASTING 106 MG/DL (70-100); SODIUM LEVEL 140 MEQ/L (136-145)
[2018-03-25] MEDS: SYMBICORT 160/4.5MCG INHALER 6GM INH ×2 (07:46→20:00)
[2018-03-25] MEDS: THIAMINE 100 MG TAB PO (10:41)
[2018-03-25] MEDS: MULTIVITAMINS/MINERALS THERAP 1 TAB PO (10:42)
[2018-03-25] MEDS: BISACODYL 5 MG TAB PO (10:42)
[2018-03-25] MEDS: SENOKOT S TAB PO (10:44)
[2018-03-25] MEDS: OCUVITE 1 TAB PO ×2 (10:44→20:45)
[2018-03-25] MEDS: TAMOXIFEN CITRATE 10 MG TAB PO (10:45)
[2018-03-25] MEDS: FOLIC ACID 1 MG TAB PO (10:45)
[2018-03-25] MEDS: predniSONE 1 MG TAB PO (10:45)
[2018-03-25] MEDS: ALLOPURINOL 100 MG TAB PO ×2 (10:45→20:45)
[2018-03-25] MEDS: HALOPERIDOL 1 MG TAB PO ×2 (10:45→20:45)
[2018-03-25] MEDS: NEBIVOLOL 5 MG TAB (BYSTOLIC) PO (10:46)
[2018-03-25] MEDS: MAGNESIUM CHLORIDE 64 MG TABCR (SLO MAG) PO (10:49)
[2018-03-25] MEDS: FUROSEMIDE 40 MG TAB PO ×2 (10:52→20:45)
[2018-03-25 11:43] LABS: BEDSIDE GLUCOSE 133 MG/DL (83-110)
[2018-03-26 06:16] LABS: BASO % 0.5 % (0.0-1.0); EOS # 0.1 10^3/uL (0.0-0.50); EOS % 2.2 % (0.0-3.0); HEMATOCRIT 24.2 % (42.0-52.0); HEMOGLOBIN 8.1 g/dl (13.5-17.5); IMMATURE GRANULOCYTE % 0.3 % (0-3.0); LYMPH # 1.4 10^3/uL (1.5-4.5); LYMPH % 22.6 % (24.0-44.0); MEAN CORPUSCULAR HEMOGLOBIN 33.2 pg (27.0-33.0); MEAN CORPUSCULAR HGB CONC 33.5 g/dl (32.0-36.5); MEAN CORPUSCULAR VOLUME 99.2 fl (80.0-96.0); MONO # 0.8 10^3/uL (0.0-0.8); MONO % 12.5 % (0.0-5.0); NEUTROPHILS % 61.9 % (36.0-66.0); PLATELET COUNT, AUTOMATED 149 10^3/uL (150-450); RED BLOOD COUNT 2.44 10^6/uL (4.30-6.10); WHITE BLOOD COUNT 6.4 10^3/uL (4.0-10.0)
[2018-03-26 06:31] LABS: ANION GAP 9 MEQ/L (8-16); BLOOD UREA NITROGEN 32 MG/DL (7-18); CALCIUM LEVEL 8.7 MG/DL (8.8-10.2); CARBON DIOXIDE LEVEL 24 MEQ/L (21-32); CHLORIDE LEVEL 109 MEQ/L (98-107); CREATININE FOR GFR 1.12 MG/DL (0.70-1.30); GLOMERULAR FILTRATION RATE > 60.0 (>42); GLUCOSE, FASTING 111 MG/DL (70-100); MAGNESIUM LEVEL 1.7 MG/DL (1.8-2.4); POTASSIUM SERUM 3.6 MEQ/L (3.5-5.1); SODIUM LEVEL 142 MEQ/L (136-145)
[2018-03-26] MEDS: MAG SULF 1GM/100ML (MAG RUN) 1 GM in APPROPRIATE DILUENT 1 EA IV (09:04)
[2018-03-26] MEDS: MAGNESIUM CHLORIDE 64 MG TABCR (SLO MAG) PO (09:05)
[2018-03-26] MEDS: HALOPERIDOL 1 MG TAB PO ×2 (09:06→21:13)
[2018-03-26] MEDS: predniSONE 1 MG TAB PO (09:06)
[2018-03-26] MEDS: POTASSIUM CHLORIDE 10 MEQ SR TABLET PO (09:06)
[2018-03-26] MEDS: BISACODYL 5 MG TAB PO (09:07)
[2018-03-26] MEDS: FOLIC ACID 1 MG TAB PO (09:07)
[2018-03-26] MEDS: TAMOXIFEN CITRATE 10 MG TAB PO (09:07)
[2018-03-26] MEDS: THIAMINE 100 MG TAB PO (09:07)
[2018-03-26] MEDS: MULTIVITAMINS/MINERALS THERAP 1 TAB PO (09:07)
[2018-03-26] MEDS: OCUVITE 1 TAB PO ×2 (09:07→21:13)
[2018-03-26] MEDS: SENOKOT S TAB PO (09:08)
[2018-03-26] MEDS: ALLOPURINOL 100 MG TAB PO ×2 (09:08→21:14)
[2018-03-26] MEDS: FUROSEMIDE 40 MG TAB PO ×2 (09:08→21:14)
[2018-03-26] MEDS: NEBIVOLOL 5 MG TAB (BYSTOLIC) PO (09:12)
[2018-03-26] MEDS: SYMBICORT 160/4.5MCG INHALER 6GM INH ×2 (11:25→20:31)
[2018-03-26] MEDS: ERYTHROMYCIN OPHTH OINT OU ×3 (12:14→21:14)
[2018-03-27] MEDS: MAGNESIUM CHLORIDE 64 MG TABCR (SLO MAG) PO (09:13)
[2018-03-27] MEDS: THIAMINE 100 MG TAB PO (09:13)
[2018-03-27] MEDS: TAMOXIFEN CITRATE 10 MG TAB PO (09:13)
[2018-03-27] MEDS: predniSONE 1 MG TAB PO (09:13)
[2018-03-27] MEDS: OCUVITE 1 TAB PO ×2 (09:13→20:50)
[2018-03-27] MEDS: FOLIC ACID 1 MG TAB PO (09:13)
[2018-03-27] MEDS: NEBIVOLOL 5 MG TAB (BYSTOLIC) PO (09:17)
[2018-03-27] MEDS: HALOPERIDOL 1 MG TAB PO ×2 (09:18→20:50)
[2018-03-27] MEDS: BISACODYL 5 MG TAB PO (09:18)
[2018-03-27] MEDS: FUROSEMIDE 40 MG TAB PO ×2 (09:18→20:50)
[2018-03-27] MEDS: SENOKOT S TAB PO (09:18)
[2018-03-27] MEDS: ALLOPURINOL 100 MG TAB PO ×2 (09:18→20:50)
[2018-03-27] MEDS: MULTIVITAMINS/MINERALS THERAP 1 TAB PO (09:18)
[2018-03-27] MEDS: ERYTHROMYCIN OPHTH OINT OU ×3 (09:19→20:50)
[2018-03-27] MEDS: MAG SULF 1GM/100ML (MAG RUN) 1 GM in APPROPRIATE DILUENT 1 EA IV (09:21)
[2018-03-27 09:30] LABS: BASO % 0.4 % (0.0-1.0); EOS # 0.2 10^3/uL (0.0-0.50); EOS % 2.6 % (0.0-3.0); HEMATOCRIT 26.3 % (42.0-52.0); IMMATURE GRANULOCYTE % 0.3 % (0-3.0); LYMPH # 1.5 10^3/uL (1.5-4.5); LYMPH % 18.7 % (24.0-44.0); MEAN CORPUSCULAR HEMOGLOBIN 33.7 pg (27.0-33.0); MEAN CORPUSCULAR HGB CONC 34.2 g/dl (32.0-36.5); MEAN CORPUSCULAR VOLUME 98.5 fl (80.0-96.0); MONO # 0.9 10^3/uL (0.0-0.8); NEUTROPHILS # 5.3 10^3/uL (1.8-7.7); PLATELET COUNT, AUTOMATED 202 10^3/uL (150-450); RED BLOOD COUNT 2.67 10^6/uL (4.30-6.10); RED CELL DISTRIBUTION WIDTH 14.1 % (11.5-14.5); WHITE BLOOD COUNT 7.8 10^3/uL (4.0-10.0)
[2018-03-27 09:58] LABS: ANION GAP 9 MEQ/L (8-16); BLOOD UREA NITROGEN 27 MG/DL (7-18); CALCIUM LEVEL 8.6 MG/DL (8.8-10.2); CARBON DIOXIDE LEVEL 25 MEQ/L (21-32); CHLORIDE LEVEL 108 MEQ/L (98-107); CREATININE FOR GFR 1.13 MG/DL (0.70-1.30); GLOMERULAR FILTRATION RATE > 60.0 (>42); GLUCOSE, FASTING 89 MG/DL (70-100); MAGNESIUM LEVEL 1.8 MG/DL (1.8-2.4); POTASSIUM SERUM 3.9 MEQ/L (3.5-5.1); SODIUM LEVEL 142 MEQ/L (136-145)
[2018-03-27] MEDS: SYMBICORT 160/4.5MCG INHALER 6GM INH ×2 (12:05→20:54)
[2018-03-28 06:46] LABS: BASO % 0.4 % (0.0-1.0); EOS # 0.1 10^3/uL (0.0-0.50); EOS % 2.3 % (0.0-3.0); HEMATOCRIT 24.5 % (42.0-52.0); HEMOGLOBIN 8.2 g/dl (13.5-17.5); IMMATURE GRANULOCYTE % 0.4 % (0-3.0); LYMPH # 1.3 10^3/uL (1.5-4.5); LYMPH % 23.6 % (24.0-44.0); MEAN CORPUSCULAR HEMOGLOBIN 33.3 pg (27.0-33.0); MEAN CORPUSCULAR HGB CONC 33.5 g/dl (32.0-36.5); MEAN CORPUSCULAR VOLUME 99.6 fl (80.0-96.0); MONO # 0.8 10^3/uL (0.0-0.8); MONO % 13.6 % (0.0-5.0); NEUTROPHILS # 3.4 10^3/uL (1.8-7.7); NEUTROPHILS % 59.7 % (36.0-66.0); PLATELET COUNT, AUTOMATED 160 10^3/uL (150-450); RED BLOOD COUNT 2.46 10^6/uL (4.30-6.10); WHITE BLOOD COUNT 5.7 10^3/uL (4.0-10.0)
[2018-03-28 07:05] LABS: ANION GAP 9 MEQ/L (8-16); BLOOD UREA NITROGEN 28 MG/DL (7-18); CALCIUM LEVEL 8.8 MG/DL (8.8-10.2); CARBON DIOXIDE LEVEL 26 MEQ/L (21-32); CHLORIDE LEVEL 107 MEQ/L (98-107); CREATININE FOR GFR 1.12 MG/DL (0.70-1.30); GLOMERULAR FILTRATION RATE > 60.0 (>42); GLUCOSE, FASTING 91 MG/DL (70-100); MAGNESIUM LEVEL 1.8 MG/DL (1.8-2.4); POTASSIUM SERUM 3.8 MEQ/L (3.5-5.1); SODIUM LEVEL 142 MEQ/L (136-145)
[2018-03-28] MEDS: SYMBICORT 160/4.5MCG INHALER 6GM INH ×2 (08:35→20:53)
[2018-03-28] MEDS: ALLOPURINOL 100 MG TAB PO ×2 (08:41→20:08)
[2018-03-28] MEDS: MULTIVITAMINS/MINERALS THERAP 1 TAB PO (08:41)
[2018-03-28] MEDS: BISACODYL 5 MG TAB PO (08:42)
[2018-03-28] MEDS: THIAMINE 100 MG TAB PO (08:42)
[2018-03-28] MEDS: TAMOXIFEN CITRATE 10 MG TAB PO (08:42)
[2018-03-28] MEDS: FUROSEMIDE 40 MG TAB PO ×2 (08:42→20:08)
[2018-03-28] MEDS: FOLIC ACID 1 MG TAB PO (08:42)
[2018-03-28] MEDS: predniSONE 1 MG TAB PO (08:42)
[2018-03-28] MEDS: HALOPERIDOL 1 MG TAB PO ×2 (08:42→20:08)
[2018-03-28] MEDS: SENOKOT S TAB PO (08:42)
[2018-03-28] MEDS: OCUVITE 1 TAB PO ×2 (08:43→20:08)
[2018-03-28] MEDS: MAGNESIUM CHLORIDE 64 MG TABCR (SLO MAG) PO (08:43)
[2018-03-28] MEDS: ERYTHROMYCIN OPHTH OINT OU ×3 (08:43→20:08)
[2018-03-28] MEDS: NEBIVOLOL 5 MG TAB (BYSTOLIC) PO (08:52)
[2018-03-29 06:16] LABS: BASO % 0.7 % (0.0-1.0); EOS # 0.1 10^3/uL (0.0-0.50); HEMATOCRIT 24.6 % (42.0-52.0); HEMOGLOBIN 8.3 g/dl (13.5-17.5); IMMATURE GRANULOCYTE % 0.3 % (0-3.0); LYMPH # 1.3 10^3/uL (1.5-4.5); LYMPH % 21.6 % (24.0-44.0); MEAN CORPUSCULAR HEMOGLOBIN 33.5 pg (27.0-33.0); MEAN CORPUSCULAR HGB CONC 33.7 g/dl (32.0-36.5); MEAN CORPUSCULAR VOLUME 99.2 fl (80.0-96.0); MONO # 0.8 10^3/uL (0.0-0.8); MONO % 12.9 % (0.0-5.0); NEUTROPHILS # 3.7 10^3/uL (1.8-7.7); NEUTROPHILS % 62.5 % (36.0-66.0); PLATELET COUNT, AUTOMATED 170 10^3/uL (150-450); RED BLOOD COUNT 2.48 10^6/uL (4.30-6.10); RED CELL DISTRIBUTION WIDTH 13.8 % (11.5-14.5)
[2018-03-29 06:28] LABS: ANION GAP 7 MEQ/L (8-16); BLOOD UREA NITROGEN 27 MG/DL (7-18); CALCIUM LEVEL 8.1 MG/DL (8.8-10.2); CARBON DIOXIDE LEVEL 28 MEQ/L (21-32); CHLORIDE LEVEL 104 MEQ/L (98-107); GLOMERULAR FILTRATION RATE > 60.0 (>42); GLUCOSE, FASTING 93 MG/DL (70-100); MAGNESIUM LEVEL 1.6 MG/DL (1.8-2.4); POTASSIUM SERUM 3.4 MEQ/L (3.5-5.1); SODIUM LEVEL 139 MEQ/L (136-145)
[2018-03-29] MEDS: SYMBICORT 160/4.5MCG INHALER 6GM INH ×2 (08:18→21:55)
[2018-03-29] MEDS: FOLIC ACID 1 MG TAB PO (09:02)
[2018-03-29] MEDS: SENOKOT S TAB PO (09:02)
[2018-03-29] MEDS: predniSONE 1 MG TAB PO (09:02)
[2018-03-29] MEDS: HALOPERIDOL 1 MG TAB PO ×2 (09:02→20:56)
[2018-03-29] MEDS: POTASSIUM CHLORIDE 10 MEQ SR TABLET PO (09:02)
[2018-03-29] MEDS: THIAMINE 100 MG TAB PO (09:02)
[2018-03-29] MEDS: BISACODYL 5 MG TAB PO (09:03)
[2018-03-29] MEDS: OCUVITE 1 TAB PO ×2 (09:03→20:56)
[2018-03-29] MEDS: MAGNESIUM CHLORIDE 64 MG TABCR (SLO MAG) PO (09:03)
[2018-03-29] MEDS: FUROSEMIDE 40 MG TAB PO ×2 (09:03→20:57)
[2018-03-29] MEDS: TAMOXIFEN CITRATE 10 MG TAB PO (09:03)
[2018-03-29] MEDS: ERYTHROMYCIN OPHTH OINT OU ×3 (09:03→20:57)
[2018-03-29] MEDS: ALLOPURINOL 100 MG TAB PO ×2 (09:03→20:57)
[2018-03-29] MEDS: MULTIVITAMINS/MINERALS THERAP 1 TAB PO (09:03)
[2018-03-29] MEDS: NEBIVOLOL 5 MG TAB (BYSTOLIC) PO (09:08)
[2018-03-30] MEDS: SYMBICORT 160/4.5MCG INHALER 6GM INH ×2 (07:47→20:00)
[2018-03-30 08:11] LABS: BASO # 0.1 10^3/uL (0.0-0.2); BASO % 0.8 % (0.0-1.0); EOS # 0.1 10^3/uL (0.0-0.50); EOS % 2.1 % (0.0-3.0); HEMATOCRIT 26.4 % (42.0-52.0); HEMOGLOBIN 8.7 g/dl (13.5-17.5); IMMATURE GRANULOCYTE % 0.3 % (0-3.0); LYMPH # 1.3 10^3/uL (1.5-4.5); LYMPH % 20.5 % (24.0-44.0); MEAN CORPUSCULAR HEMOGLOBIN 32.8 pg (27.0-33.0); MEAN CORPUSCULAR VOLUME 99.6 fl (80.0-96.0); MONO # 0.8 10^3/uL (0.0-0.8); MONO % 12.7 % (0.0-5.0); NEUTROPHILS % 63.6 % (36.0-66.0); PLATELET COUNT, AUTOMATED 210 10^3/uL (150-450); RED BLOOD COUNT 2.65 10^6/uL (4.30-6.10); WHITE BLOOD COUNT 6.2 10^3/uL (4.0-10.0)
[2018-03-30 08:51] LABS: ANION GAP 9 MEQ/L (8-16); BLOOD UREA NITROGEN 27 MG/DL (7-18); CALCIUM LEVEL 8.4 MG/DL (8.8-10.2); CARBON DIOXIDE LEVEL 26 MEQ/L (21-32); CHLORIDE LEVEL 106 MEQ/L (98-107); CREATININE FOR GFR 1.24 MG/DL (0.70-1.30); GLOMERULAR FILTRATION RATE > 60.0 (>42); GLUCOSE, FASTING 114 MG/DL (70-100); MAGNESIUM LEVEL 1.6 MG/DL (1.8-2.4); POTASSIUM SERUM 3.4 MEQ/L (3.5-5.1); SODIUM LEVEL 141 MEQ/L (136-145)
[2018-03-30] MEDS: predniSONE 1 MG TAB PO (10:12)
[2018-03-30] MEDS: MULTIVITAMINS/MINERALS THERAP 1 TAB PO (10:12)
[2018-03-30] MEDS: SENOKOT S TAB PO (10:12)
[2018-03-30] MEDS: HALOPERIDOL 1 MG TAB PO ×2 (10:12→21:57)
[2018-03-30] MEDS: OCUVITE 1 TAB PO ×2 (10:12→21:57)
[2018-03-30] MEDS: THIAMINE 100 MG TAB PO (10:13)
[2018-03-30] MEDS: ALLOPURINOL 100 MG TAB PO ×2 (10:13→21:57)
[2018-03-30] MEDS: FOLIC ACID 1 MG TAB PO (10:13)
[2018-03-30] MEDS: TAMOXIFEN CITRATE 10 MG TAB PO (10:13)
[2018-03-30] MEDS: FUROSEMIDE 40 MG TAB PO ×2 (10:13→21:57)
[2018-03-30] MEDS: ERYTHROMYCIN OPHTH OINT OU ×3 (10:14→21:57)
[2018-03-30] MEDS: NEBIVOLOL 5 MG TAB (BYSTOLIC) PO (10:14)
[2018-03-30] MEDS: MAGNESIUM CHLORIDE 64 MG TABCR (SLO MAG) PO (10:14)
[2018-03-30] MEDS: BISACODYL 5 MG TAB PO (10:16)
[2018-03-30] MEDS: POTASSIUM CHLORIDE 10 MEQ SR TABLET PO (12:18)
[2018-03-30] MEDS: MAGNESIUM OXIDE 400 MG TAB (MAG-OX) PO (12:18)
[2018-03-31] MEDS: IPRATROPIUM 0.5MG/ALBUTEROL 2.5MG INH SOL UD 3ML (DUONEB)(J7620) NEB (00:58)
[2018-03-31 06:48] LABS: BASO # 0.1 10^3/uL (0.0-0.2); BASO % 0.9 % (0.0-1.0); EOS # 0.1 10^3/uL (0.0-0.50); EOS % 1.4 % (0.0-3.0); HEMATOCRIT 24.8 % (42.0-52.0); HEMOGLOBIN 8.1 g/dl (13.5-17.5); IMMATURE GRANULOCYTE % 0.2 % (0-3.0); LYMPH # 1.3 10^3/uL (1.5-4.5); LYMPH % 19.5 % (24.0-44.0); MEAN CORPUSCULAR HEMOGLOBIN 32.4 pg (27.0-33.0); MEAN CORPUSCULAR HGB CONC 32.7 g/dl (32.0-36.5); MEAN CORPUSCULAR VOLUME 99.2 fl (80.0-96.0); MONO # 0.9 10^3/uL (0.0-0.8); NEUTROPHILS # 4.2 10^3/uL (1.8-7.7); PLATELET COUNT, AUTOMATED 196 10^3/uL (150-450); RED CELL DISTRIBUTION WIDTH 13.7 % (11.5-14.5); WHITE BLOOD COUNT 6.5 10^3/uL (4.0-10.0)
[2018-03-31 07:05] LABS: ANION GAP 8 MEQ/L (8-16); BLOOD UREA NITROGEN 30 MG/DL (7-18); CALCIUM LEVEL 8.5 MG/DL (8.8-10.2); CARBON DIOXIDE LEVEL 27 MEQ/L (21-32); CHLORIDE LEVEL 107 MEQ/L (98-107); CREATININE FOR GFR 1.28 MG/DL (0.70-1.30); GLOMERULAR FILTRATION RATE 58.5 (>42); GLUCOSE, FASTING 105 MG/DL (70-100); MAGNESIUM LEVEL 1.9 MG/DL (1.8-2.4); POTASSIUM SERUM 3.8 MEQ/L (3.5-5.1); SODIUM LEVEL 142 MEQ/L (136-145)
[2018-03-31] MEDS: SYMBICORT 160/4.5MCG INHALER 6GM INH ×2 (08:17→20:30)
[2018-03-31] MEDS: HALOPERIDOL 1 MG TAB PO ×2 (10:06→21:38)
[2018-03-31] MEDS: MAGNESIUM CHLORIDE 64 MG TABCR (SLO MAG) PO (10:06)
[2018-03-31] MEDS: MULTIVITAMINS/MINERALS THERAP 1 TAB PO (10:06)
[2018-03-31] MEDS: SENOKOT S TAB PO (10:06)
[2018-03-31] MEDS: predniSONE 1 MG TAB PO (10:06)
[2018-03-31] MEDS: THIAMINE 100 MG TAB PO (10:06)
[2018-03-31] MEDS: OCUVITE 1 TAB PO ×2 (10:07→21:37)
[2018-03-31] MEDS: BISACODYL 5 MG TAB PO (10:07)
[2018-03-31] MEDS: ALLOPURINOL 100 MG TAB PO ×2 (10:07→21:37)
[2018-03-31] MEDS: TAMOXIFEN CITRATE 10 MG TAB PO (10:07)
[2018-03-31] MEDS: FOLIC ACID 1 MG TAB PO (10:07)
[2018-03-31] MEDS: NEBIVOLOL 5 MG TAB (BYSTOLIC) PO (10:07)
[2018-03-31] MEDS: ERYTHROMYCIN OPHTH OINT OU (10:08)
[2018-03-31] MEDS: FUROSEMIDE 40 MG TAB PO ×2 (10:08→21:38)
[2018-04-01 07:15] LABS: BASO # 0.1 10^3/uL (0.0-0.2); BASO % 0.8 % (0.0-1.0); EOS # 0.2 10^3/uL (0.0-0.50); EOS % 2.3 % (0.0-3.0); HEMATOCRIT 24.5 % (42.0-52.0); IMMATURE GRANULOCYTE % 0.3 % (0-3.0); LYMPH # 1.2 10^3/uL (1.5-4.5); LYMPH % 18.6 % (24.0-44.0); MEAN CORPUSCULAR HEMOGLOBIN 32.8 pg (27.0-33.0); MEAN CORPUSCULAR HGB CONC 32.7 g/dl (32.0-36.5); MEAN CORPUSCULAR VOLUME 100.4 fl (80.0-96.0); MONO # 0.9 10^3/uL (0.0-0.8); MONO % 13.6 % (0.0-5.0); NEUTROPHILS # 4.3 10^3/uL (1.8-7.7); NEUTROPHILS % 64.4 % (36.0-66.0); PLATELET COUNT, AUTOMATED 195 10^3/uL (150-450); RED BLOOD COUNT 2.44 10^6/uL (4.30-6.10); RED CELL DISTRIBUTION WIDTH 13.9 % (11.5-14.5); WHITE BLOOD COUNT 6.6 10^3/uL (4.0-10.0)
[2018-04-01 07:43] LABS: ANION GAP 10 MEQ/L (8-16); BLOOD UREA NITROGEN 33 MG/DL (7-18); CALCIUM LEVEL 8.5 MG/DL (8.8-10.2); CARBON DIOXIDE LEVEL 25 MEQ/L (21-32); CHLORIDE LEVEL 109 MEQ/L (98-107); CREATININE FOR GFR 1.18 MG/DL (0.70-1.30); GLOMERULAR FILTRATION RATE > 60.0 (>42); GLUCOSE, FASTING 93 MG/DL (70-100); MAGNESIUM LEVEL 1.9 MG/DL (1.8-2.4); POTASSIUM SERUM 3.7 MEQ/L (3.5-5.1); SODIUM LEVEL 144 MEQ/L (136-145)
[2018-04-01] MEDS: SYMBICORT 160/4.5MCG INHALER 6GM INH ×2 (07:54→20:17)
[2018-04-01] MEDS: predniSONE 1 MG TAB PO (09:44)
[2018-04-01] MEDS: BISACODYL 5 MG TAB PO (09:45)
[2018-04-01] MEDS: MAGNESIUM CHLORIDE 64 MG TABCR (SLO MAG) PO (09:45)
[2018-04-01] MEDS: HALOPERIDOL 1 MG TAB PO ×2 (09:45→20:31)
[2018-04-01] MEDS: FOLIC ACID 1 MG TAB PO (09:45)
[2018-04-01] MEDS: OCUVITE 1 TAB PO ×2 (09:45→20:30)
[2018-04-01] MEDS: SENOKOT S TAB PO (09:45)
[2018-04-01] MEDS: THIAMINE 100 MG TAB PO (09:46)
[2018-04-01] MEDS: ALLOPURINOL 100 MG TAB PO ×2 (09:46→20:30)
[2018-04-01] MEDS: MULTIVITAMINS/MINERALS THERAP 1 TAB PO (09:46)
[2018-04-01] MEDS: TAMOXIFEN CITRATE 10 MG TAB PO (09:46)
[2018-04-01] MEDS: NEBIVOLOL 5 MG TAB (BYSTOLIC) PO (09:46)
[2018-04-01] MEDS: FUROSEMIDE 40 MG TAB PO ×2 (09:46→20:30)
[2018-04-01] MEDS: IPRATROPIUM 0.5MG/ALBUTEROL 2.5MG INH SOL UD 3ML (DUONEB)(J7620) NEB (12:02)
[2018-04-02 06:13] LABS: BASO % 0.6 % (0.0-1.0); EOS # 0.2 10^3/uL (0.0-0.50); EOS % 2.6 % (0.0-3.0); HEMATOCRIT 23.6 % (42.0-52.0); HEMOGLOBIN 7.7 g/dl (13.5-17.5); IMMATURE GRANULOCYTE % 0.3 % (0-3.0); LYMPH # 1.2 10^3/uL (1.5-4.5); MEAN CORPUSCULAR HEMOGLOBIN 32.5 pg (27.0-33.0); MEAN CORPUSCULAR HGB CONC 32.6 g/dl (32.0-36.5); MEAN CORPUSCULAR VOLUME 99.6 fl (80.0-96.0); MONO # 0.8 10^3/uL (0.0-0.8); MONO % 12.3 % (0.0-5.0); NEUTROPHILS # 4.4 10^3/uL (1.8-7.7); NEUTROPHILS % 66.2 % (36.0-66.0); PLATELET COUNT, AUTOMATED 187 10^3/uL (150-450); RED BLOOD COUNT 2.37 10^6/uL (4.30-6.10); RED CELL DISTRIBUTION WIDTH 13.8 % (11.5-14.5); WHITE BLOOD COUNT 6.7 10^3/uL (4.0-10.0)
[2018-04-02 06:36] LABS: ANION GAP 10 MEQ/L (8-16); BLOOD UREA NITROGEN 33 MG/DL (7-18); CALCIUM LEVEL 8.2 MG/DL (8.8-10.2); CARBON DIOXIDE LEVEL 25 MEQ/L (21-32); CHLORIDE LEVEL 108 MEQ/L (98-107); CREATININE FOR GFR 1.34 MG/DL (0.70-1.30); GLOMERULAR FILTRATION RATE 55.5 (>42); GLUCOSE, FASTING 114 MG/DL (70-100); MAGNESIUM LEVEL 1.8 MG/DL (1.8-2.4); POTASSIUM SERUM 3.4 MEQ/L (3.5-5.1); SODIUM LEVEL 143 MEQ/L (136-145)
[2018-04-02] MEDS: SYMBICORT 160/4.5MCG INHALER 6GM INH ×2 (07:46→20:24)
[2018-04-02] MEDS: predniSONE 1 MG TAB PO (10:03)
[2018-04-02] MEDS: TAMOXIFEN CITRATE 10 MG TAB PO (10:03)
[2018-04-02] MEDS: THIAMINE 100 MG TAB PO (10:03)
[2018-04-02] MEDS: MAGNESIUM CHLORIDE 64 MG TABCR (SLO MAG) PO (10:03)
[2018-04-02] MEDS: FUROSEMIDE 40 MG TAB PO ×2 (10:04→20:29)
[2018-04-02] MEDS: ALLOPURINOL 100 MG TAB PO ×2 (10:04→20:29)
[2018-04-02] MEDS: HALOPERIDOL 1 MG TAB PO ×2 (10:04→20:30)
[2018-04-02] MEDS: FOLIC ACID 1 MG TAB PO (10:04)
[2018-04-02] MEDS: NEBIVOLOL 5 MG TAB (BYSTOLIC) PO (10:07)
[2018-04-02] MEDS: BISACODYL 5 MG TAB PO (10:07)
[2018-04-02] MEDS: SENOKOT S TAB PO (10:07)
[2018-04-02] MEDS: POTASSIUM CHLORIDE 10 MEQ SR TABLET PO (10:07)
[2018-04-02] MEDS: MULTIVITAMINS/MINERALS THERAP 1 TAB PO (10:08)
[2018-04-02] MEDS: OCUVITE 1 TAB PO ×2 (10:08→20:29)
[2018-04-03 06:29] LABS: BASO # 0.1 10^3/uL (0.0-0.2); BASO % 0.9 % (0.0-1.0); EOS # 0.2 10^3/uL (0.0-0.50); EOS % 2.8 % (0.0-3.0); HEMATOCRIT 24.6 % (42.0-52.0); HEMOGLOBIN 8.1 g/dl (13.5-17.5); IMMATURE GRANULOCYTE % 0.4 % (0-3.0); LYMPH # 1.5 10^3/uL (1.5-4.5); LYMPH % 22.6 % (24.0-44.0); MEAN CORPUSCULAR HEMOGLOBIN 32.8 pg (27.0-33.0); MEAN CORPUSCULAR HGB CONC 32.9 g/dl (32.0-36.5); MEAN CORPUSCULAR VOLUME 99.6 fl (80.0-96.0); MONO # 0.8 10^3/uL (0.0-0.8); MONO % 12.2 % (0.0-5.0); NEUTROPHILS # 4.2 10^3/uL (1.8-7.7); NEUTROPHILS % 61.1 % (36.0-66.0); PLATELET COUNT, AUTOMATED 208 10^3/uL (150-450); RED BLOOD COUNT 2.47 10^6/uL (4.30-6.10); RED CELL DISTRIBUTION WIDTH 13.8 % (11.5-14.5); WHITE BLOOD COUNT 6.8 10^3/uL (4.0-10.0)
[2018-04-03 07:00] LABS: ANION GAP 9 MEQ/L (8-16); BLOOD UREA NITROGEN 33 MG/DL (7-18); CALCIUM LEVEL 8.4 MG/DL (8.8-10.2); CARBON DIOXIDE LEVEL 26 MEQ/L (21-32); CHLORIDE LEVEL 110 MEQ/L (98-107); CREATININE FOR GFR 1.29 MG/DL (0.70-1.30); GLUCOSE, FASTING 93 MG/DL (70-100); MAGNESIUM LEVEL 1.7 MG/DL (1.8-2.4); POTASSIUM SERUM 3.6 MEQ/L (3.5-5.1); SODIUM LEVEL 145 MEQ/L (136-145)
[2018-04-03] MEDS: SYMBICORT 160/4.5MCG INHALER 6GM INH ×2 (08:07→20:14)
[2018-04-03] MEDS: OCUVITE 1 TAB PO ×2 (10:09→20:20)
[2018-04-03] MEDS: SENOKOT S TAB PO (10:09)
[2018-04-03] MEDS: MULTIVITAMINS/MINERALS THERAP 1 TAB PO (10:09)
[2018-04-03] MEDS: MAGNESIUM CHLORIDE 64 MG TABCR (SLO MAG) PO (10:10)
[2018-04-03] MEDS: NEBIVOLOL 5 MG TAB (BYSTOLIC) PO (10:10)
[2018-04-03] MEDS: ALLOPURINOL 100 MG TAB PO ×2 (10:10→20:19)
[2018-04-03] MEDS: THIAMINE 100 MG TAB PO (10:10)
[2018-04-03] MEDS: FOLIC ACID 1 MG TAB PO (10:10)
[2018-04-03] MEDS: HALOPERIDOL 1 MG TAB PO ×2 (10:11→20:19)
[2018-04-03] MEDS: predniSONE 1 MG TAB PO (10:11)
[2018-04-03] MEDS: POTASSIUM CHLORIDE 10 MEQ SR TABLET PO (10:11)
[2018-04-03] MEDS: FUROSEMIDE 40 MG TAB PO ×2 (10:11→20:19)
[2018-04-03] MEDS: TAMOXIFEN CITRATE 10 MG TAB PO (10:11)
[2018-04-03] MEDS: BISACODYL 5 MG TAB PO (10:12)
[2018-04-03] MEDS: MAGNESIUM OXIDE 400 MG TAB (MAG-OX) PO (10:12)
[2018-04-04 08:11] LABS: BASO # 0.1 10^3/uL (0.0-0.2); BASO % 0.7 % (0.0-1.0); EOS # 0.2 10^3/uL (0.0-0.50); EOS % 2.6 % (0.0-3.0); HEMATOCRIT 25.7 % (42.0-52.0); HEMOGLOBIN 8.4 g/dl (13.5-17.5); IMMATURE GRANULOCYTE % 0.6 % (0-3.0); LYMPH # 1.4 10^3/uL (1.5-4.5); LYMPH % 19.8 % (24.0-44.0); MEAN CORPUSCULAR HEMOGLOBIN 33.3 pg (27.0-33.0); MEAN CORPUSCULAR HGB CONC 32.7 g/dl (32.0-36.5); MONO # 0.8 10^3/uL (0.0-0.8); MONO % 11.6 % (0.0-5.0); NEUTROPHILS # 4.7 10^3/uL (1.8-7.7); NEUTROPHILS % 64.7 % (36.0-66.0); PLATELET COUNT, AUTOMATED 195 10^3/uL (150-450); RED BLOOD COUNT 2.52 10^6/uL (4.30-6.10); RED CELL DISTRIBUTION WIDTH 14.1 % (11.5-14.5); WHITE BLOOD COUNT 7.2 10^3/uL (4.0-10.0)
[2018-04-04] MEDS: SYMBICORT 160/4.5MCG INHALER 6GM INH ×2 (08:32→19:50)
[2018-04-04 08:33] LABS: ANION GAP 8 MEQ/L (8-16); BLOOD UREA NITROGEN 33 MG/DL (7-18); CALCIUM LEVEL 8.9 MG/DL (8.8-10.2); CARBON DIOXIDE LEVEL 26 MEQ/L (21-32); CHLORIDE LEVEL 110 MEQ/L (98-107); CREATININE FOR GFR 1.48 MG/DL (0.70-1.30); GLOMERULAR FILTRATION RATE 49.5 (>42); GLUCOSE, FASTING 146 MG/DL (70-100); MAGNESIUM LEVEL 1.9 MG/DL (1.8-2.4); POTASSIUM SERUM 3.9 MEQ/L (3.5-5.1); SODIUM LEVEL 144 MEQ/L (136-145)
[2018-04-04] MEDS: HALOPERIDOL 1 MG TAB PO ×2 (10:37→20:54)
[2018-04-04] MEDS: SENOKOT S TAB PO (10:37)
[2018-04-04] MEDS: BISACODYL 5 MG TAB PO (10:37)
[2018-04-04] MEDS: MULTIVITAMINS/MINERALS THERAP 1 TAB PO (10:38)
[2018-04-04] MEDS: predniSONE 1 MG TAB PO (10:38)
[2018-04-04] MEDS: THIAMINE 100 MG TAB PO (10:38)
[2018-04-04] MEDS: TAMOXIFEN CITRATE 10 MG TAB PO (10:38)
[2018-04-04] MEDS: OCUVITE 1 TAB PO ×2 (10:38→20:54)
[2018-04-04] MEDS: ALLOPURINOL 100 MG TAB PO ×2 (10:38→20:53)
[2018-04-04] MEDS: FUROSEMIDE 40 MG TAB PO ×2 (10:39→20:54)
[2018-04-04] MEDS: MAGNESIUM CHLORIDE 64 MG TABCR (SLO MAG) PO (10:39)
[2018-04-04] MEDS: FOLIC ACID 1 MG TAB PO (10:39)
[2018-04-04] MEDS: NEBIVOLOL 5 MG TAB (BYSTOLIC) PO (10:44)
[2018-04-05 06:40] LABS: BASO # 0.1 10^3/uL (0.0-0.2); BASO % 0.9 % (0.0-1.0); EOS # 0.2 10^3/uL (0.0-0.50); EOS % 2.6 % (0.0-3.0); HEMOGLOBIN 7.8 g/dl (13.5-17.5); IMMATURE GRANULOCYTE % 0.3 % (0-3.0); LYMPH # 1.2 10^3/uL (1.5-4.5); LYMPH % 20.3 % (24.0-44.0); MEAN CORPUSCULAR HEMOGLOBIN 33.1 pg (27.0-33.0); MEAN CORPUSCULAR HGB CONC 32.5 g/dl (32.0-36.5); MEAN CORPUSCULAR VOLUME 101.7 fl (80.0-96.0); MONO # 0.7 10^3/uL (0.0-0.8); MONO % 12.2 % (0.0-5.0); NEUTROPHILS # 3.7 10^3/uL (1.8-7.7); NEUTROPHILS % 63.7 % (36.0-66.0); PLATELET COUNT, AUTOMATED 170 10^3/uL (150-450); RED BLOOD COUNT 2.36 10^6/uL (4.30-6.10); RED CELL DISTRIBUTION WIDTH 14.1 % (11.5-14.5); WHITE BLOOD COUNT 5.8 10^3/uL (4.0-10.0)
[2018-04-05 06:59] LABS: ANION GAP 8 MEQ/L (8-16); BLOOD UREA NITROGEN 34 MG/DL (7-18); CARBON DIOXIDE LEVEL 27 MEQ/L (21-32); CHLORIDE LEVEL 111 MEQ/L (98-107); CREATININE FOR GFR 1.36 MG/DL (0.70-1.30); GLOMERULAR FILTRATION RATE 54.5 (>42); GLUCOSE, FASTING 101 MG/DL (70-100); MAGNESIUM LEVEL 1.8 MG/DL (1.8-2.4); POTASSIUM SERUM 3.7 MEQ/L (3.5-5.1); SODIUM LEVEL 146 MEQ/L (136-145)
[2018-04-05] MEDS: TAMOXIFEN CITRATE 10 MG TAB PO (09:53)
[2018-04-05] MEDS: FUROSEMIDE 40 MG TAB PO ×2 (09:53→20:07)
[2018-04-05] MEDS: ALLOPURINOL 100 MG TAB PO ×2 (09:53→20:07)
[2018-04-05] MEDS: MAGNESIUM CHLORIDE 64 MG TABCR (SLO MAG) PO (09:53)
[2018-04-05] MEDS: FOLIC ACID 1 MG TAB PO (09:53)
[2018-04-05] MEDS: MULTIVITAMINS/MINERALS THERAP 1 TAB PO (09:54)
[2018-04-05] MEDS: BISACODYL 5 MG TAB PO (09:54)
[2018-04-05] MEDS: OCUVITE 1 TAB PO ×2 (09:54→20:07)
[2018-04-05] MEDS: THIAMINE 100 MG TAB PO (09:54)
[2018-04-05] MEDS: predniSONE 1 MG TAB PO (09:54)
[2018-04-05] MEDS: SENOKOT S TAB PO (09:54)
[2018-04-05] MEDS: NEBIVOLOL 5 MG TAB (BYSTOLIC) PO (09:55)
[2018-04-05] MEDS: HALOPERIDOL 1 MG TAB PO ×2 (09:57→20:07)
[2018-04-05] MEDS: SYMBICORT 160/4.5MCG INHALER 6GM INH ×2 (10:03→20:00)
[2018-04-06 06:36] LABS: BASO # 0.1 10^3/uL (0.0-0.2); BASO % 0.9 % (0.0-1.0); EOS # 0.2 10^3/uL (0.0-0.50); EOS % 3.4 % (0.0-3.0); HEMATOCRIT 23.6 % (42.0-52.0); HEMOGLOBIN 7.7 g/dl (13.5-17.5); IMMATURE GRANULOCYTE % 0.5 % (0-3.0); LYMPH # 1.3 10^3/uL (1.5-4.5); LYMPH % 22.5 % (24.0-44.0); MEAN CORPUSCULAR HEMOGLOBIN 32.9 pg (27.0-33.0); MEAN CORPUSCULAR HGB CONC 32.6 g/dl (32.0-36.5); MEAN CORPUSCULAR VOLUME 100.9 fl (80.0-96.0); MONO # 0.8 10^3/uL (0.0-0.8); MONO % 13.7 % (0.0-5.0); NEUTROPHILS # 3.3 10^3/uL (1.8-7.7); PLATELET COUNT, AUTOMATED 158 10^3/uL (150-450); RED BLOOD COUNT 2.34 10^6/uL (4.30-6.10); RED CELL DISTRIBUTION WIDTH 14.1 % (11.5-14.5); WHITE BLOOD COUNT 5.6 10^3/uL (4.0-10.0)
[2018-04-06 06:54] LABS: ANION GAP 9 MEQ/L (8-16); BLOOD UREA NITROGEN 30 MG/DL (7-18); CALCIUM LEVEL 8.4 MG/DL (8.8-10.2); CARBON DIOXIDE LEVEL 25 MEQ/L (21-32); CHLORIDE LEVEL 110 MEQ/L (98-107); CREATININE FOR GFR 1.46 MG/DL (0.70-1.30); GLOMERULAR FILTRATION RATE 50.2 (>42); GLUCOSE, FASTING 93 MG/DL (70-100); MAGNESIUM LEVEL 1.8 MG/DL (1.8-2.4); POTASSIUM SERUM 3.6 MEQ/L (3.5-5.1); SODIUM LEVEL 144 MEQ/L (136-145)
[2018-04-06] MEDS: SYMBICORT 160/4.5MCG INHALER 6GM INH ×2 (09:03→20:22)
[2018-04-06] MEDS: MAGNESIUM CHLORIDE 64 MG TABCR (SLO MAG) PO (09:18)
[2018-04-06] MEDS: FOLIC ACID 1 MG TAB PO (09:19)
[2018-04-06] MEDS: THIAMINE 100 MG TAB PO (09:19)
[2018-04-06] MEDS: HALOPERIDOL 1 MG TAB PO ×2 (09:19→21:11)
[2018-04-06] MEDS: MULTIVITAMINS/MINERALS THERAP 1 TAB PO (09:19)
[2018-04-06] MEDS: ALLOPURINOL 100 MG TAB PO ×2 (09:19→21:11)
[2018-04-06] MEDS: SENOKOT S TAB PO (09:19)
[2018-04-06] MEDS: predniSONE 1 MG TAB PO (09:20)
[2018-04-06] MEDS: BISACODYL 5 MG TAB PO (09:20)
[2018-04-06] MEDS: TAMOXIFEN CITRATE 10 MG TAB PO (09:20)
[2018-04-06] MEDS: OCUVITE 1 TAB PO ×2 (09:20→21:11)
[2018-04-06] MEDS: NEBIVOLOL 5 MG TAB (BYSTOLIC) PO (09:21)
[2018-04-07 06:36] LABS: BASO % 0.6 % (0.0-1.0); EOS # 0.2 10^3/uL (0.0-0.50); EOS % 2.9 % (0.0-3.0); HEMATOCRIT 23.4 % (42.0-52.0); HEMOGLOBIN 7.6 g/dl (13.5-17.5); IMMATURE GRANULOCYTE % 0.3 % (0-3.0); LYMPH # 1.2 10^3/uL (1.5-4.5); LYMPH % 19.8 % (24.0-44.0); MEAN CORPUSCULAR HEMOGLOBIN 32.8 pg (27.0-33.0); MEAN CORPUSCULAR HGB CONC 32.5 g/dl (32.0-36.5); MEAN CORPUSCULAR VOLUME 100.9 fl (80.0-96.0); MONO # 0.9 10^3/uL (0.0-0.8); MONO % 14.1 % (0.0-5.0); NEUTROPHILS # 3.9 10^3/uL (1.8-7.7); NEUTROPHILS % 62.3 % (36.0-66.0); PLATELET COUNT, AUTOMATED 150 10^3/uL (150-450); RED BLOOD COUNT 2.32 10^6/uL (4.30-6.10); RED CELL DISTRIBUTION WIDTH 14.1 % (11.5-14.5); WHITE BLOOD COUNT 6.3 10^3/uL (4.0-10.0)
[2018-04-07 07:05] LABS: ANION GAP 8 MEQ/L (8-16); BLOOD UREA NITROGEN 35 MG/DL (7-18); CALCIUM LEVEL 8.5 MG/DL (8.8-10.2); CARBON DIOXIDE LEVEL 25 MEQ/L (21-32); CHLORIDE LEVEL 112 MEQ/L (98-107); CREATININE FOR GFR 1.46 MG/DL (0.70-1.30); GLOMERULAR FILTRATION RATE 50.2 (>42); GLUCOSE, FASTING 98 MG/DL (70-100); POTASSIUM SERUM 3.7 MEQ/L (3.5-5.1); SODIUM LEVEL 145 MEQ/L (136-145)
[2018-04-07] MEDS: ALLOPURINOL 100 MG TAB PO ×2 (08:07→21:07)
[2018-04-07] MEDS: NEBIVOLOL 5 MG TAB (BYSTOLIC) PO (08:07)
[2018-04-07] MEDS: SENOKOT S TAB PO (08:08)
[2018-04-07] MEDS: OCUVITE 1 TAB PO ×2 (08:08→21:06)
[2018-04-07] MEDS: TAMOXIFEN CITRATE 10 MG TAB PO (08:08)
[2018-04-07] MEDS: MULTIVITAMINS/MINERALS THERAP 1 TAB PO (08:08)
[2018-04-07] MEDS: THIAMINE 100 MG TAB PO (08:08)
[2018-04-07] MEDS: FOLIC ACID 1 MG TAB PO (08:08)
[2018-04-07] MEDS: FUROSEMIDE 40 MG TAB PO ×2 (08:08→21:07)
[2018-04-07] MEDS: HALOPERIDOL 1 MG TAB PO ×2 (08:08→21:07)
[2018-04-07] MEDS: predniSONE 1 MG TAB PO (08:08)
[2018-04-07] MEDS: BISACODYL 5 MG TAB PO (08:09)
[2018-04-07] MEDS: MAGNESIUM CHLORIDE 64 MG TABCR (SLO MAG) PO (08:09)
[2018-04-07] MEDS: SYMBICORT 160/4.5MCG INHALER 6GM INH ×2 (08:34→21:13)
[2018-04-08 06:44] LABS: BASO % 0.5 % (0.0-1.0); EOS # 0.2 10^3/uL (0.0-0.50); EOS % 3.4 % (0.0-3.0); HEMATOCRIT 23.6 % (42.0-52.0); HEMOGLOBIN 7.7 g/dl (13.5-17.5); IMMATURE GRANULOCYTE % 0.3 % (0-3.0); LYMPH # 0.9 10^3/uL (1.5-4.5); LYMPH % 14.1 % (24.0-44.0); MEAN CORPUSCULAR HGB CONC 32.6 g/dl (32.0-36.5); MEAN CORPUSCULAR VOLUME 101.3 fl (80.0-96.0); MONO # 0.7 10^3/uL (0.0-0.8); MONO % 11.1 % (0.0-5.0); NEUTROPHILS # 4.5 10^3/uL (1.8-7.7); NEUTROPHILS % 70.6 % (36.0-66.0); PLATELET COUNT, AUTOMATED 150 10^3/uL (150-450); RED BLOOD COUNT 2.33 10^6/uL (4.30-6.10); WHITE BLOOD COUNT 6.4 10^3/uL (4.0-10.0)
[2018-04-08 07:04] LABS: ANION GAP 9 MEQ/L (8-16); BLOOD UREA NITROGEN 31 MG/DL (7-18); CARBON DIOXIDE LEVEL 23 MEQ/L (21-32); CHLORIDE LEVEL 110 MEQ/L (98-107); CREATININE FOR GFR 1.31 MG/DL (0.70-1.30); GLOMERULAR FILTRATION RATE 56.9 (>42); GLUCOSE, FASTING 108 MG/DL (70-100); MAGNESIUM LEVEL 1.8 MG/DL (1.8-2.4); POTASSIUM SERUM 3.6 MEQ/L (3.5-5.1); SODIUM LEVEL 142 MEQ/L (136-145)
[2018-04-08] MEDS: MAGNESIUM CHLORIDE 64 MG TABCR (SLO MAG) PO (09:53)
[2018-04-08] MEDS: MULTIVITAMINS/MINERALS THERAP 1 TAB PO (09:53)
[2018-04-08] MEDS: SENOKOT S TAB PO (09:53)
[2018-04-08] MEDS: NEBIVOLOL 5 MG TAB (BYSTOLIC) PO (09:54)
[2018-04-08] MEDS: predniSONE 1 MG TAB PO (09:54)
[2018-04-08] MEDS: THIAMINE 100 MG TAB PO (09:54)
[2018-04-08] MEDS: OCUVITE 1 TAB PO ×2 (09:54→20:36)
[2018-04-08] MEDS: BISACODYL 5 MG TAB PO (09:54)
[2018-04-08] MEDS: TAMOXIFEN CITRATE 10 MG TAB PO (09:54)
[2018-04-08] MEDS: ALLOPURINOL 100 MG TAB PO ×2 (09:54→20:36)
[2018-04-08] MEDS: HALOPERIDOL 1 MG TAB PO ×2 (09:54→20:36)
[2018-04-08] MEDS: FUROSEMIDE 40 MG TAB PO ×2 (09:55→20:35)
[2018-04-08] MEDS: FOLIC ACID 1 MG TAB PO (09:55)
[2018-04-08] MEDS: SYMBICORT 160/4.5MCG INHALER 6GM INH ×2 (11:10→20:00)
[2018-04-09] MEDS: SYMBICORT 160/4.5MCG INHALER 6GM INH ×2 (06:44→20:00)
[2018-04-09 06:51] LABS: BASO # 0.1 10^3/uL (0.0-0.2); BASO % 0.8 % (0.0-1.0); EOS # 0.3 10^3/uL (0.0-0.50); EOS % 4.2 % (0.0-3.0); HEMATOCRIT 24.6 % (42.0-52.0); HEMOGLOBIN 8.1 g/dl (13.5-17.5); IMMATURE GRANULOCYTE % 0.3 % (0-3.0); LYMPH # 1.4 10^3/uL (1.5-4.5); LYMPH % 18.9 % (24.0-44.0); MEAN CORPUSCULAR HEMOGLOBIN 32.5 pg (27.0-33.0); MEAN CORPUSCULAR HGB CONC 32.9 g/dl (32.0-36.5); MEAN CORPUSCULAR VOLUME 98.8 fl (80.0-96.0); MONO # 0.9 10^3/uL (0.0-0.8); MONO % 12.5 % (0.0-5.0); NEUTROPHILS # 4.5 10^3/uL (1.8-7.7); NEUTROPHILS % 63.3 % (36.0-66.0); PLATELET COUNT, AUTOMATED 168 10^3/uL (150-450); RED BLOOD COUNT 2.49 10^6/uL (4.30-6.10); RED CELL DISTRIBUTION WIDTH 13.7 % (11.5-14.5); WHITE BLOOD COUNT 7.1 10^3/uL (4.0-10.0)
[2018-04-09 07:25] LABS: ANION GAP 9 MEQ/L (8-16); BLOOD UREA NITROGEN 31 MG/DL (7-18); CALCIUM LEVEL 8.1 MG/DL (8.8-10.2); CARBON DIOXIDE LEVEL 24 MEQ/L (21-32); CHLORIDE LEVEL 110 MEQ/L (98-107); CREATININE FOR GFR 1.25 MG/DL (0.70-1.30); GLOMERULAR FILTRATION RATE > 60.0 (>42); GLUCOSE, FASTING 94 MG/DL (70-100); MAGNESIUM LEVEL 1.6 MG/DL (1.8-2.4); POTASSIUM SERUM 3.3 MEQ/L (3.5-5.1); SODIUM LEVEL 143 MEQ/L (136-145)
[2018-04-09] MEDS: TAMOXIFEN CITRATE 10 MG TAB PO (08:28)
[2018-04-09] MEDS: MULTIVITAMINS/MINERALS THERAP 1 TAB PO (08:28)
[2018-04-09] MEDS: MAGNESIUM CHLORIDE 64 MG TABCR (SLO MAG) PO (08:28)
[2018-04-09] MEDS: OCUVITE 1 TAB PO ×2 (08:28→20:36)
[2018-04-09] MEDS: predniSONE 1 MG TAB PO (08:28)
[2018-04-09] MEDS: SENOKOT S TAB PO (08:28)
[2018-04-09] MEDS: BISACODYL 5 MG TAB PO (08:28)
[2018-04-09] MEDS: HALOPERIDOL 1 MG TAB PO ×2 (08:29→20:37)
[2018-04-09] MEDS: ALLOPURINOL 100 MG TAB PO ×2 (08:29→20:36)
[2018-04-09] MEDS: FUROSEMIDE 40 MG TAB PO (08:29)
[2018-04-09] MEDS: NEBIVOLOL 5 MG TAB (BYSTOLIC) PO (08:29)
[2018-04-09] MEDS: FOLIC ACID 1 MG TAB PO (08:29)
[2018-04-09] MEDS: THIAMINE 100 MG TAB PO (08:29)
[2018-04-09] MEDS: MAG SULF 1GM/100ML (MAG RUN) 1 GM in APPROPRIATE DILUENT 1 EA IV (10:30)
[2018-04-09] MEDS: POTASSIUM CHLORIDE 10 MEQ SR TABLET PO (10:30)
[2018-04-09] MEDS: FUROSEMIDE 40 MG/4 ML VIAL (J1940) IV (17:00)
[2018-04-09] MEDS: ACETAMINOPHEN TAB 650MG DOSE (2X325MG) PO (20:37)
[2018-04-10] MEDS: FUROSEMIDE 40 MG/4 ML VIAL (J1940) IV ×3 (01:08→17:10)
[2018-04-10 05:59] LABS: BASO % 0.6 % (0.0-1.0); EOS # 0.3 10^3/uL (0.0-0.50); EOS % 4.3 % (0.0-3.0); HEMATOCRIT 24.7 % (42.0-52.0); IMMATURE GRANULOCYTE % 0.3 % (0-3.0); LYMPH # 1.1 10^3/uL (1.5-4.5); MEAN CORPUSCULAR HEMOGLOBIN 32.7 pg (27.0-33.0); MEAN CORPUSCULAR HGB CONC 32.4 g/dl (32.0-36.5); MEAN CORPUSCULAR VOLUME 100.8 fl (80.0-96.0); MONO # 0.7 10^3/uL (0.0-0.8); MONO % 11.6 % (0.0-5.0); NEUTROPHILS # 4.1 10^3/uL (1.8-7.7); NEUTROPHILS % 65.2 % (36.0-66.0); PLATELET COUNT, AUTOMATED 158 10^3/uL (150-450); RED BLOOD COUNT 2.45 10^6/uL (4.30-6.10); RED CELL DISTRIBUTION WIDTH 13.8 % (11.5-14.5); WHITE BLOOD COUNT 6.3 10^3/uL (4.0-10.0)
[2018-04-10 06:31] LABS: ANION GAP 9 MEQ/L (8-16); BLOOD UREA NITROGEN 28 MG/DL (7-18); CALCIUM LEVEL 8.1 MG/DL (8.8-10.2); CARBON DIOXIDE LEVEL 23 MEQ/L (21-32); CHLORIDE LEVEL 110 MEQ/L (98-107); CREATININE FOR GFR 1.24 MG/DL (0.70-1.30); GLOMERULAR FILTRATION RATE > 60.0 (>42); GLUCOSE, FASTING 95 MG/DL (70-100); MAGNESIUM LEVEL 1.6 MG/DL (1.8-2.4); POTASSIUM SERUM 3.4 MEQ/L (3.5-5.1); SODIUM LEVEL 142 MEQ/L (136-145)
[2018-04-10] MEDS: SYMBICORT 160/4.5MCG INHALER 6GM INH ×2 (07:43→19:59)
[2018-04-10] MEDS: MAG SULF 1GM/100ML (MAG RUN) 1 GM in APPROPRIATE DILUENT 1 EA IV ×2 (07:58→09:14)
[2018-04-10] MEDS: POTASSIUM CHLORIDE 10 MEQ SR TABLET PO ×3 (07:59→20:08)
[2018-04-10] MEDS: HALOPERIDOL 1 MG TAB PO ×2 (08:00→20:08)
[2018-04-10] MEDS: BISACODYL 5 MG TAB PO (08:00)
[2018-04-10] MEDS: predniSONE 1 MG TAB PO (08:00)
[2018-04-10] MEDS: THIAMINE 100 MG TAB PO (08:00)
[2018-04-10] MEDS: NEBIVOLOL 5 MG TAB (BYSTOLIC) PO (08:00)
[2018-04-10] MEDS: TAMOXIFEN CITRATE 10 MG TAB PO (08:00)
[2018-04-10] MEDS: MULTIVITAMINS/MINERALS THERAP 1 TAB PO (08:00)
[2018-04-10] MEDS: FOLIC ACID 1 MG TAB PO (08:00)
[2018-04-10] MEDS: SENOKOT S TAB PO (08:00)
[2018-04-10] MEDS: ALLOPURINOL 100 MG TAB PO ×2 (08:00→20:08)
[2018-04-10] MEDS: OCUVITE 1 TAB PO ×2 (08:01→20:08)
[2018-04-10] MEDS: MAGNESIUM CHLORIDE 64 MG TABCR (SLO MAG) PO (08:01)
[2018-04-11] MEDS: FUROSEMIDE 40 MG/4 ML VIAL (J1940) IV ×3 (01:12→17:00)
[2018-04-11 06:31] LABS: BASO % 0.6 % (0.0-1.0); EOS # 0.3 10^3/uL (0.0-0.50); EOS % 4.3 % (0.0-3.0); HEMATOCRIT 24.1 % (42.0-52.0); HEMOGLOBIN 7.9 g/dl (13.5-17.5); IMMATURE GRANULOCYTE % 0.3 % (0-3.0); LYMPH # 1.2 10^3/uL (1.5-4.5); LYMPH % 18.5 % (24.0-44.0); MEAN CORPUSCULAR HEMOGLOBIN 33.1 pg (27.0-33.0); MEAN CORPUSCULAR HGB CONC 32.8 g/dl (32.0-36.5); MEAN CORPUSCULAR VOLUME 100.8 fl (80.0-96.0); MONO # 0.8 10^3/uL (0.0-0.8); MONO % 12.6 % (0.0-5.0); NEUTROPHILS # 4.1 10^3/uL (1.8-7.7); NEUTROPHILS % 63.7 % (36.0-66.0); PLATELET COUNT, AUTOMATED 152 10^3/uL (150-450); RED BLOOD COUNT 2.39 10^6/uL (4.30-6.10); RED CELL DISTRIBUTION WIDTH 13.9 % (11.5-14.5); WHITE BLOOD COUNT 6.5 10^3/uL (4.0-10.0)
[2018-04-11 07:03] LABS: ANION GAP 8 MEQ/L (8-16); BLOOD UREA NITROGEN 27 MG/DL (7-18); CALCIUM LEVEL 8.2 MG/DL (8.8-10.2); CARBON DIOXIDE LEVEL 25 MEQ/L (21-32); CHLORIDE LEVEL 110 MEQ/L (98-107); GLOMERULAR FILTRATION RATE 52.7 (>42); GLUCOSE, FASTING 94 MG/DL (70-100); MAGNESIUM LEVEL 1.8 MG/DL (1.8-2.4); POTASSIUM SERUM 3.8 MEQ/L (3.5-5.1); SODIUM LEVEL 143 MEQ/L (136-145)
[2018-04-11] MEDS: SYMBICORT 160/4.5MCG INHALER 6GM INH ×2 (07:10→20:25)
[2018-04-11] MEDS: HALOPERIDOL 1 MG TAB PO ×2 (09:48→20:12)
[2018-04-11] MEDS: MAGNESIUM CHLORIDE 64 MG TABCR (SLO MAG) PO (09:48)
[2018-04-11] MEDS: BISACODYL 5 MG TAB PO (09:48)
[2018-04-11] MEDS: OCUVITE 1 TAB PO ×2 (09:49→20:12)
[2018-04-11] MEDS: SENOKOT S TAB PO (09:49)
[2018-04-11] MEDS: FOLIC ACID 1 MG TAB PO (09:49)
[2018-04-11] MEDS: predniSONE 1 MG TAB PO (09:49)
[2018-04-11] MEDS: MULTIVITAMINS/MINERALS THERAP 1 TAB PO (09:49)
[2018-04-11] MEDS: TAMOXIFEN CITRATE 10 MG TAB PO (09:49)
[2018-04-11] MEDS: POTASSIUM CHLORIDE 10 MEQ SR TABLET PO ×2 (09:49→20:13)
[2018-04-11] MEDS: NEBIVOLOL 5 MG TAB (BYSTOLIC) PO (09:50)
[2018-04-11] MEDS: ALLOPURINOL 100 MG TAB PO ×2 (09:50→20:13)
[2018-04-11] MEDS: THIAMINE 100 MG TAB PO (09:50)
[2018-04-12] MEDS: FUROSEMIDE 40 MG/4 ML VIAL (J1940) IV ×3 (00:39→16:46)
[2018-04-12] MEDS: SYMBICORT 160/4.5MCG INHALER 6GM INH ×2 (07:43→19:47)
[2018-04-12 08:09] LABS: HEMOGLOBIN 8.2 g/dl (13.5-17.5); MEAN CORPUSCULAR HEMOGLOBIN 32.7 pg (27.0-33.0); MEAN CORPUSCULAR HGB CONC 32.8 g/dl (32.0-36.5); MEAN CORPUSCULAR VOLUME 99.6 fl (80.0-96.0); PLATELET COUNT, AUTOMATED 171 10^3/uL (150-450); RED BLOOD COUNT 2.51 10^6/uL (4.30-6.10); RED CELL DISTRIBUTION WIDTH 13.9 % (11.5-14.5)
[2018-04-12 08:19] LABS: ANION GAP 8 MEQ/L (8-16); BLOOD UREA NITROGEN 32 MG/DL (7-18); CALCIUM LEVEL 8.8 MG/DL (8.8-10.2); CARBON DIOXIDE LEVEL 25 MEQ/L (21-32); CHLORIDE LEVEL 109 MEQ/L (98-107); CREATININE FOR GFR 1.46 MG/DL (0.70-1.30); GLOMERULAR FILTRATION RATE 50.2 (>42); GLUCOSE, FASTING 125 MG/DL (70-100); MAGNESIUM LEVEL 1.7 MG/DL (1.8-2.4); POTASSIUM SERUM 3.8 MEQ/L (3.5-5.1); SODIUM LEVEL 142 MEQ/L (136-145)
[2018-04-12] MEDS: MAGNESIUM CHLORIDE 64 MG TABCR (SLO MAG) PO (08:27)
[2018-04-12] MEDS: HALOPERIDOL 1 MG TAB PO ×2 (08:28→20:04)
[2018-04-12] MEDS: POTASSIUM CHLORIDE 10 MEQ SR TABLET PO ×2 (08:28→20:04)
[2018-04-12] MEDS: predniSONE 1 MG TAB PO (08:28)
[2018-04-12] MEDS: NEBIVOLOL 5 MG TAB (BYSTOLIC) PO (08:28)
[2018-04-12] MEDS: OCUVITE 1 TAB PO ×2 (08:28→20:04)
[2018-04-12] MEDS: MULTIVITAMINS/MINERALS THERAP 1 TAB PO (08:29)
[2018-04-12] MEDS: SENOKOT S TAB PO (08:29)
[2018-04-12] MEDS: TAMOXIFEN CITRATE 10 MG TAB PO (08:29)
[2018-04-12] MEDS: THIAMINE 100 MG TAB PO (08:29)
[2018-04-12] MEDS: FOLIC ACID 1 MG TAB PO (08:29)
[2018-04-12] MEDS: ALLOPURINOL 100 MG TAB PO ×2 (08:29→20:04)
[2018-04-12] MEDS: BISACODYL 5 MG TAB PO (08:29)
[2018-04-12] MEDS: MAG SULF 1GM/100ML (MAG RUN) 1 GM in APPROPRIATE DILUENT 1 EA IV ×2 (13:53→14:39)
[2018-04-13] MEDS: FUROSEMIDE 40 MG/4 ML VIAL (J1940) IV ×3 (01:28→16:19)
[2018-04-13 06:29] LABS: HEMATOCRIT 23.7 % (42.0-52.0); HEMOGLOBIN 7.9 g/dl (13.5-17.5); MEAN CORPUSCULAR HEMOGLOBIN 32.8 pg (27.0-33.0); MEAN CORPUSCULAR HGB CONC 33.3 g/dl (32.0-36.5); MEAN CORPUSCULAR VOLUME 98.3 fl (80.0-96.0); PLATELET COUNT, AUTOMATED 150 10^3/uL (150-450); RED BLOOD COUNT 2.41 10^6/uL (4.30-6.10); RED CELL DISTRIBUTION WIDTH 13.8 % (11.5-14.5); WHITE BLOOD COUNT 6.3 10^3/uL (4.0-10.0)
[2018-04-13 06:55] LABS: ANION GAP 6 MEQ/L (8-16); BLOOD UREA NITROGEN 32 MG/DL (7-18); CALCIUM LEVEL 8.5 MG/DL (8.8-10.2); CARBON DIOXIDE LEVEL 27 MEQ/L (21-32); CHLORIDE LEVEL 111 MEQ/L (98-107); CREATININE FOR GFR 1.46 MG/DL (0.70-1.30); GLOMERULAR FILTRATION RATE 50.2 (>42); GLUCOSE, FASTING 98 MG/DL (70-100); MAGNESIUM LEVEL 2.1 MG/DL (1.8-2.4); POTASSIUM SERUM 3.8 MEQ/L (3.5-5.1); SODIUM LEVEL 144 MEQ/L (136-145)
[2018-04-13] MEDS: SYMBICORT 160/4.5MCG INHALER 6GM INH ×3 (07:18→20:00)
[2018-04-13] MEDS: MULTIVITAMINS/MINERALS THERAP 1 TAB PO (08:42)
[2018-04-13] MEDS: TAMOXIFEN CITRATE 10 MG TAB PO (08:42)
[2018-04-13] MEDS: POTASSIUM CHLORIDE 10 MEQ SR TABLET PO ×2 (08:42→20:13)
[2018-04-13] MEDS: predniSONE 1 MG TAB PO (08:43)
[2018-04-13] MEDS: THIAMINE 100 MG TAB PO (08:43)
[2018-04-13] MEDS: HALOPERIDOL 1 MG TAB PO ×2 (08:43→20:12)
[2018-04-13] MEDS: SENOKOT S TAB PO (08:43)
[2018-04-13] MEDS: ALLOPURINOL 100 MG TAB PO ×2 (08:43→20:13)
[2018-04-13] MEDS: OCUVITE 1 TAB PO ×2 (08:43→20:13)
[2018-04-13] MEDS: FOLIC ACID 1 MG TAB PO (08:43)
[2018-04-13] MEDS: BISACODYL 5 MG TAB PO (08:43)
[2018-04-13] MEDS: NEBIVOLOL 5 MG TAB (BYSTOLIC) PO (08:44)
[2018-04-13] MEDS: MAGNESIUM CHLORIDE 64 MG TABCR (SLO MAG) PO (08:44)
[2018-04-14] MEDS: FUROSEMIDE 40 MG/4 ML VIAL (J1940) IV ×3 (01:11→16:49)
[2018-04-14 06:38] LABS: HEMATOCRIT 23.4 % (42.0-52.0); HEMOGLOBIN 7.8 g/dl (13.5-17.5); MEAN CORPUSCULAR HEMOGLOBIN 32.9 pg (27.0-33.0); MEAN CORPUSCULAR HGB CONC 33.3 g/dl (32.0-36.5); MEAN CORPUSCULAR VOLUME 98.7 fl (80.0-96.0); PLATELET COUNT, AUTOMATED 141 10^3/uL (150-450); RED BLOOD COUNT 2.37 10^6/uL (4.30-6.10); RED CELL DISTRIBUTION WIDTH 13.8 % (11.5-14.5)
[2018-04-14 07:00] LABS: ANION GAP 9 MEQ/L (8-16); BLOOD UREA NITROGEN 38 MG/DL (7-18); CALCIUM LEVEL 8.1 MG/DL (8.8-10.2); CARBON DIOXIDE LEVEL 25 MEQ/L (21-32); CHLORIDE LEVEL 108 MEQ/L (98-107); CREATININE FOR GFR 1.48 MG/DL (0.70-1.30); GLOMERULAR FILTRATION RATE 49.5 (>42); GLUCOSE, FASTING 99 MG/DL (70-100); MAGNESIUM LEVEL 1.8 MG/DL (1.8-2.4); POTASSIUM SERUM 3.7 MEQ/L (3.5-5.1); SODIUM LEVEL 142 MEQ/L (136-145)
[2018-04-14] MEDS: SYMBICORT 160/4.5MCG INHALER 6GM INH ×2 (07:46→20:00)
[2018-04-14] MEDS: predniSONE 1 MG TAB PO (09:10)
[2018-04-14] MEDS: MAGNESIUM CHLORIDE 64 MG TABCR (SLO MAG) PO (09:10)
[2018-04-14] MEDS: MULTIVITAMINS/MINERALS THERAP 1 TAB PO (09:11)
[2018-04-14] MEDS: HALOPERIDOL 1 MG TAB PO ×2 (09:11→21:50)
[2018-04-14] MEDS: FOLIC ACID 1 MG TAB PO (09:11)
[2018-04-14] MEDS: NEBIVOLOL 5 MG TAB (BYSTOLIC) PO (09:11)
[2018-04-14] MEDS: TAMOXIFEN CITRATE 10 MG TAB PO (09:11)
[2018-04-14] MEDS: POTASSIUM CHLORIDE 10 MEQ SR TABLET PO ×2 (09:11→21:50)
[2018-04-14] MEDS: BISACODYL 5 MG TAB PO (09:11)
[2018-04-14] MEDS: SENOKOT S TAB PO (09:12)
[2018-04-14] MEDS: ALLOPURINOL 100 MG TAB PO ×2 (09:12→21:50)
[2018-04-14] MEDS: THIAMINE 100 MG TAB PO (09:13)
[2018-04-14] MEDS: OCUVITE 1 TAB PO ×2 (09:13→21:50)
[2018-04-15] MEDS: FUROSEMIDE 40 MG/4 ML VIAL (J1940) IV ×3 (00:52→16:43)
[2018-04-15 06:03] LABS: HEMATOCRIT 25.2 % (42.0-52.0); HEMOGLOBIN 8.3 g/dl (13.5-17.5); MEAN CORPUSCULAR HGB CONC 32.9 g/dl (32.0-36.5); MEAN CORPUSCULAR VOLUME 97.3 fl (80.0-96.0); PLATELET COUNT, AUTOMATED 145 10^3/uL (150-450); RED BLOOD COUNT 2.59 10^6/uL (4.30-6.10); RED CELL DISTRIBUTION WIDTH 13.8 % (11.5-14.5)
[2018-04-15 06:34] LABS: ANION GAP 9 MEQ/L (8-16); BLOOD UREA NITROGEN 35 MG/DL (7-18); CALCIUM LEVEL 8.7 MG/DL (8.8-10.2); CARBON DIOXIDE LEVEL 26 MEQ/L (21-32); CHLORIDE LEVEL 108 MEQ/L (98-107); CREATININE FOR GFR 1.43 MG/DL (0.70-1.30); GLOMERULAR FILTRATION RATE 51.5 (>42); GLUCOSE, FASTING 99 MG/DL (70-100); MAGNESIUM LEVEL 1.8 MG/DL (1.8-2.4); POTASSIUM SERUM 3.6 MEQ/L (3.5-5.1); SODIUM LEVEL 143 MEQ/L (136-145)
[2018-04-15] MEDS: SYMBICORT 160/4.5MCG INHALER 6GM INH ×2 (07:52→20:00)
[2018-04-15] MEDS: ALLOPURINOL 100 MG TAB PO ×2 (08:18→20:57)
[2018-04-15] MEDS: FOLIC ACID 1 MG TAB PO (08:18)
[2018-04-15] MEDS: HALOPERIDOL 1 MG TAB PO ×2 (08:18→20:57)
[2018-04-15] MEDS: OCUVITE 1 TAB PO ×2 (08:18→20:57)
[2018-04-15] MEDS: TAMOXIFEN CITRATE 10 MG TAB PO (08:18)
[2018-04-15] MEDS: MAGNESIUM CHLORIDE 64 MG TABCR (SLO MAG) PO (08:18)
[2018-04-15] MEDS: POTASSIUM CHLORIDE 10 MEQ SR TABLET PO ×2 (08:19→20:57)
[2018-04-15] MEDS: SENOKOT S TAB PO (08:19)
[2018-04-15] MEDS: THIAMINE 100 MG TAB PO (08:19)
[2018-04-15] MEDS: BISACODYL 5 MG TAB PO (08:19)
[2018-04-15] MEDS: predniSONE 1 MG TAB PO (08:19)
[2018-04-15] MEDS: MULTIVITAMINS/MINERALS THERAP 1 TAB PO (08:19)
[2018-04-15] MEDS: NEBIVOLOL 5 MG TAB (BYSTOLIC) PO (08:19)
[2018-04-15] MEDS: ACETAMINOPHEN TAB 650MG DOSE (2X325MG) PO (16:43)
[2018-04-16] MEDS: FUROSEMIDE 40 MG/4 ML VIAL (J1940) IV ×3 (01:18→17:32)
[2018-04-16 06:26] LABS: HEMATOCRIT 23.9 % (42.0-52.0); HEMOGLOBIN 7.9 g/dl (13.5-17.5); MEAN CORPUSCULAR HEMOGLOBIN 32.1 pg (27.0-33.0); MEAN CORPUSCULAR HGB CONC 33.1 g/dl (32.0-36.5); MEAN CORPUSCULAR VOLUME 97.2 fl (80.0-96.0); PLATELET COUNT, AUTOMATED 116 10^3/uL (150-450); RED BLOOD COUNT 2.46 10^6/uL (4.30-6.10); RED CELL DISTRIBUTION WIDTH 13.6 % (11.5-14.5); WHITE BLOOD COUNT 7.4 10^3/uL (4.0-10.0)
[2018-04-16 06:35] LABS: ANION GAP 9 MEQ/L (8-16); BLOOD UREA NITROGEN 31 MG/DL (7-18); CARBON DIOXIDE LEVEL 27 MEQ/L (21-32); CHLORIDE LEVEL 105 MEQ/L (98-107); CREATININE FOR GFR 1.41 MG/DL (0.70-1.30); GLOMERULAR FILTRATION RATE 52.3 (>42); GLUCOSE, FASTING 106 MG/DL (70-100); MAGNESIUM LEVEL 1.5 MG/DL (1.8-2.4); POTASSIUM SERUM 3.5 MEQ/L (3.5-5.1); SODIUM LEVEL 141 MEQ/L (136-145)
[2018-04-16] MEDS: SYMBICORT 160/4.5MCG INHALER 6GM INH ×2 (08:10→20:00)
[2018-04-16] MEDS: FOLIC ACID 1 MG TAB PO (10:36)
[2018-04-16] MEDS: MULTIVITAMINS/MINERALS THERAP 1 TAB PO (10:36)
[2018-04-16] MEDS: OCUVITE 1 TAB PO ×2 (10:37→20:28)
[2018-04-16] MEDS: HALOPERIDOL 1 MG TAB PO ×2 (10:37→20:29)
[2018-04-16] MEDS: THIAMINE 100 MG TAB PO (10:37)
[2018-04-16] MEDS: TAMOXIFEN CITRATE 10 MG TAB PO (10:37)
[2018-04-16] MEDS: BISACODYL 5 MG TAB PO (10:38)
[2018-04-16] MEDS: ALLOPURINOL 100 MG TAB PO ×2 (10:38→20:29)
[2018-04-16] MEDS: SENOKOT S TAB PO (10:38)
[2018-04-16] MEDS: predniSONE 1 MG TAB PO (10:40)
[2018-04-16] MEDS: NEBIVOLOL 5 MG TAB (BYSTOLIC) PO (10:40)
[2018-04-16] MEDS: POTASSIUM CHLORIDE 10 MEQ SR TABLET PO ×2 (10:40→20:29)
[2018-04-16] MEDS: MAGNESIUM CHLORIDE 64 MG TABCR (SLO MAG) PO (10:41)
[2018-04-16] MEDS: MAG SULF 1GM/100ML (MAG RUN) 1 GM in APPROPRIATE DILUENT 1 EA IV ×2 (13:20→14:54)
[2018-04-17] MEDS: FUROSEMIDE 40 MG/4 ML VIAL (J1940) IV ×3 (00:59→15:56)
[2018-04-17 06:28] LABS: HEMATOCRIT 23.4 % (42.0-52.0); HEMOGLOBIN 7.7 g/dl (13.5-17.5); MEAN CORPUSCULAR HGB CONC 32.9 g/dl (32.0-36.5); MEAN CORPUSCULAR VOLUME 97.1 fl (80.0-96.0); PLATELET COUNT, AUTOMATED 115 10^3/uL (150-450); RED BLOOD COUNT 2.41 10^6/uL (4.30-6.10); RED CELL DISTRIBUTION WIDTH 13.5 % (11.5-14.5)
[2018-04-17 06:48] LABS: ANION GAP 8 MEQ/L (8-16); BLOOD UREA NITROGEN 31 MG/DL (7-18); CALCIUM LEVEL 8.2 MG/DL (8.8-10.2); CARBON DIOXIDE LEVEL 26 MEQ/L (21-32); CHLORIDE LEVEL 108 MEQ/L (98-107); GLOMERULAR FILTRATION RATE 52.7 (>42); GLUCOSE, FASTING 118 MG/DL (70-100); MAGNESIUM LEVEL 1.7 MG/DL (1.8-2.4); POTASSIUM SERUM 3.5 MEQ/L (3.5-5.1); SODIUM LEVEL 142 MEQ/L (136-145)
[2018-04-17] MEDS: SYMBICORT 160/4.5MCG INHALER 6GM INH ×2 (07:33→19:24)
[2018-04-17] MEDS: MAGNESIUM CHLORIDE 64 MG TABCR (SLO MAG) PO (08:24)
[2018-04-17] MEDS: MAG SULF 1GM/100ML (MAG RUN) 1 GM in APPROPRIATE DILUENT 1 EA IV ×2 (08:25→09:58)
[2018-04-17] MEDS: POTASSIUM CHLORIDE 10 MEQ SR TABLET PO ×2 (08:25→22:27)
[2018-04-17] MEDS: SENOKOT S TAB PO (08:25)
[2018-04-17] MEDS: TAMOXIFEN CITRATE 10 MG TAB PO (08:25)
[2018-04-17] MEDS: MULTIVITAMINS/MINERALS THERAP 1 TAB PO (08:26)
[2018-04-17] MEDS: BISACODYL 5 MG TAB PO (08:26)
[2018-04-17] MEDS: predniSONE 1 MG TAB PO (08:26)
[2018-04-17] MEDS: HALOPERIDOL 1 MG TAB PO ×2 (08:26→22:26)
[2018-04-17] MEDS: NEBIVOLOL 5 MG TAB (BYSTOLIC) PO (08:26)
[2018-04-17] MEDS: FOLIC ACID 1 MG TAB PO (08:26)
[2018-04-17] MEDS: OCUVITE 1 TAB PO ×2 (08:26→22:27)
[2018-04-17] MEDS: ALLOPURINOL 100 MG TAB PO ×2 (08:27→22:27)
[2018-04-17] MEDS: THIAMINE 100 MG TAB PO (08:27)
[2018-04-17 15:14] LABS: REASON FOR REVIEW RBC MORPHOLOGY; SLIDE REVIEW Report; SOURCE PERIPHERAL SMEAR
[2018-04-17] MEDS: FERROUS SULFATE 325MG TAB PO (15:56)
[2018-04-18] MEDS: FUROSEMIDE 40 MG/4 ML VIAL (J1940) IV ×3 (00:45→17:17)
[2018-04-18 01:42] LABS: IMMEDIATE SPIN CROSSMATCH 1 2
[2018-04-18 06:40] LABS: HEMATOCRIT 27.6 % (42.0-52.0); HEMOGLOBIN 9.3 g/dl (13.5-17.5); MEAN CORPUSCULAR HEMOGLOBIN 31.3 pg (27.0-33.0); MEAN CORPUSCULAR HGB CONC 33.7 g/dl (32.0-36.5); MEAN CORPUSCULAR VOLUME 92.9 fl (80.0-96.0); PLATELET COUNT, AUTOMATED 106 10^3/uL (150-450); RED BLOOD COUNT 2.97 10^6/uL (4.30-6.10); RED CELL DISTRIBUTION WIDTH 15.9 % (11.5-14.5)
[2018-04-18 06:55] LABS: MAGNESIUM LEVEL 2.1 MG/DL (1.8-2.4)
[2018-04-18 06:59] LABS: ANION GAP 9 MEQ/L (8-16); BLOOD UREA NITROGEN 34 MG/DL (7-18); CALCIUM LEVEL 8.2 MG/DL (8.8-10.2); CARBON DIOXIDE LEVEL 26 MEQ/L (21-32); CHLORIDE LEVEL 104 MEQ/L (98-107); CREATININE FOR GFR 1.34 MG/DL (0.70-1.30); GLOMERULAR FILTRATION RATE 55.5 (>42); GLUCOSE, FASTING 97 MG/DL (70-100); POTASSIUM SERUM 3.7 MEQ/L (3.5-5.1); SODIUM LEVEL 139 MEQ/L (136-145)
[2018-04-18] MEDS: SYMBICORT 160/4.5MCG INHALER 6GM INH ×2 (08:00→21:00)
[2018-04-18] MEDS: MAGNESIUM CHLORIDE 64 MG TABCR (SLO MAG) PO (09:17)
[2018-04-18] MEDS: HALOPERIDOL 1 MG TAB PO ×2 (09:18→21:28)
[2018-04-18] MEDS: TAMOXIFEN CITRATE 10 MG TAB PO (09:18)
[2018-04-18] MEDS: MULTIVITAMINS/MINERALS THERAP 1 TAB PO (09:18)
[2018-04-18] MEDS: predniSONE 1 MG TAB PO (09:18)
[2018-04-18] MEDS: OCUVITE 1 TAB PO ×2 (09:18→21:28)
[2018-04-18] MEDS: ALLOPURINOL 100 MG TAB PO ×2 (09:18→21:28)
[2018-04-18] MEDS: FOLIC ACID 1 MG TAB PO (09:18)
[2018-04-18] MEDS: SENOKOT S TAB PO (09:19)
[2018-04-18] MEDS: FERROUS SULFATE 325MG TAB PO (09:19)
[2018-04-18] MEDS: POTASSIUM CHLORIDE 10 MEQ SR TABLET PO ×2 (09:19→21:28)
[2018-04-18] MEDS: THIAMINE 100 MG TAB PO (09:19)
[2018-04-18] MEDS: BISACODYL 5 MG TAB PO (09:19)
[2018-04-18] MEDS: NEBIVOLOL 5 MG TAB (BYSTOLIC) PO (09:23)
[2018-04-19] MEDS: FUROSEMIDE 40 MG/4 ML VIAL (J1940) IV ×2 (00:55→09:26)
[2018-04-19 06:24] LABS: HEMOGLOBIN 9.2 g/dl (13.5-17.5); MEAN CORPUSCULAR HEMOGLOBIN 31.8 pg (27.0-33.0); MEAN CORPUSCULAR HGB CONC 34.1 g/dl (32.0-36.5); MEAN CORPUSCULAR VOLUME 93.4 fl (80.0-96.0); PLATELET COUNT, AUTOMATED 119 10^3/uL (150-450); RED BLOOD COUNT 2.89 10^6/uL (4.30-6.10); RED CELL DISTRIBUTION WIDTH 15.7 % (11.5-14.5)
[2018-04-19 06:48] LABS: ANION GAP 9 MEQ/L (8-16); BLOOD UREA NITROGEN 33 MG/DL (7-18); CALCIUM LEVEL 8.3 MG/DL (8.8-10.2); CARBON DIOXIDE LEVEL 25 MEQ/L (21-32); CHLORIDE LEVEL 104 MEQ/L (98-107); CREATININE FOR GFR 1.31 MG/DL (0.70-1.30); GLOMERULAR FILTRATION RATE 56.9 (>42); GLUCOSE, FASTING 123 MG/DL (70-100); MAGNESIUM LEVEL 1.9 MG/DL (1.8-2.4); POTASSIUM SERUM 3.7 MEQ/L (3.5-5.1); SODIUM LEVEL 138 MEQ/L (136-145)
[2018-04-19] MEDS: SYMBICORT 160/4.5MCG INHALER 6GM INH ×2 (08:00→20:00)
[2018-04-19] MEDS: POTASSIUM CHLORIDE 10 MEQ SR TABLET PO ×2 (09:25→21:31)
[2018-04-19] MEDS: FOLIC ACID 1 MG TAB PO (09:26)
[2018-04-19] MEDS: SENOKOT S TAB PO (09:26)
[2018-04-19] MEDS: FERROUS SULFATE 325MG TAB PO (09:26)
[2018-04-19] MEDS: THIAMINE 100 MG TAB PO (09:26)
[2018-04-19] MEDS: OCUVITE 1 TAB PO ×2 (09:26→21:31)
[2018-04-19] MEDS: MULTIVITAMINS/MINERALS THERAP 1 TAB PO (09:26)
[2018-04-19] MEDS: HALOPERIDOL 1 MG TAB PO ×2 (09:26→21:31)
[2018-04-19] MEDS: predniSONE 1 MG TAB PO (09:26)
[2018-04-19] MEDS: TAMOXIFEN CITRATE 10 MG TAB PO (09:26)
[2018-04-19] MEDS: NEBIVOLOL 5 MG TAB (BYSTOLIC) PO (09:26)
[2018-04-19] MEDS: ALLOPURINOL 100 MG TAB PO ×2 (09:26→21:31)
[2018-04-19] MEDS: BISACODYL 5 MG TAB PO (09:26)
[2018-04-19] MEDS: MAGNESIUM CHLORIDE 64 MG TABCR (SLO MAG) PO (09:27)
[2018-04-19] MEDS: SPIRONOLACTONE 25 MG TAB PO (11:44)
[2018-04-19] MEDS: TORSEMIDE 10 MG TABLET PO (17:39)
[2018-04-20] MEDS: SYMBICORT 160/4.5MCG INHALER 6GM INH ×2 (07:52→20:00)
[2018-04-20 09:15] LABS: HEMATOCRIT 28.9 % (42.0-52.0); HEMOGLOBIN 9.6 g/dl (13.5-17.5); MEAN CORPUSCULAR HEMOGLOBIN 31.3 pg (27.0-33.0); MEAN CORPUSCULAR HGB CONC 33.2 g/dl (32.0-36.5); MEAN CORPUSCULAR VOLUME 94.1 fl (80.0-96.0); PLATELET COUNT, AUTOMATED 143 10^3/uL (150-450); RED BLOOD COUNT 3.07 10^6/uL (4.30-6.10); RED CELL DISTRIBUTION WIDTH 15.6 % (11.5-14.5); WHITE BLOOD COUNT 7.7 10^3/uL (4.0-10.0)
[2018-04-20 09:18] LABS: ANION GAP 8 MEQ/L (8-16); BLOOD UREA NITROGEN 29 MG/DL (7-18); CALCIUM LEVEL 8.7 MG/DL (8.8-10.2); CARBON DIOXIDE LEVEL 26 MEQ/L (21-32); CHLORIDE LEVEL 104 MEQ/L (98-107); CREATININE FOR GFR 1.27 MG/DL (0.70-1.30); GLUCOSE, FASTING 147 MG/DL (70-100); MAGNESIUM LEVEL 1.9 MG/DL (1.8-2.4); POTASSIUM SERUM 3.9 MEQ/L (3.5-5.1); SODIUM LEVEL 138 MEQ/L (136-145)
[2018-04-20] MEDS: MAGNESIUM CHLORIDE 64 MG TABCR (SLO MAG) PO (09:57)
[2018-04-20] MEDS: ALLOPURINOL 100 MG TAB PO ×2 (09:58→20:26)
[2018-04-20] MEDS: POTASSIUM CHLORIDE 10 MEQ SR TABLET PO ×2 (09:58→20:26)
[2018-04-20] MEDS: SENOKOT S TAB PO (09:58)
[2018-04-20] MEDS: MULTIVITAMINS/MINERALS THERAP 1 TAB PO (09:58)
[2018-04-20] MEDS: THIAMINE 100 MG TAB PO (09:58)
[2018-04-20] MEDS: TAMOXIFEN CITRATE 10 MG TAB PO (09:58)
[2018-04-20] MEDS: BISACODYL 5 MG TAB PO (09:58)
[2018-04-20] MEDS: predniSONE 1 MG TAB PO (09:58)
[2018-04-20] MEDS: FERROUS SULFATE 325MG TAB PO (09:59)
[2018-04-20] MEDS: SPIRONOLACTONE 25 MG TAB PO (09:59)
[2018-04-20] MEDS: TORSEMIDE 10 MG TABLET PO ×2 (09:59→18:32)
[2018-04-20] MEDS: OCUVITE 1 TAB PO ×2 (09:59→20:26)
[2018-04-20] MEDS: FOLIC ACID 1 MG TAB PO (09:59)
[2018-04-20] MEDS: HALOPERIDOL 1 MG TAB PO ×2 (09:59→20:26)
[2018-04-20] MEDS: NEBIVOLOL 5 MG TAB (BYSTOLIC) PO (10:03)
[2018-04-21] MEDS: THIAMINE 100 MG TAB PO (09:00)
[2018-04-21] MEDS: MAGNESIUM CHLORIDE 64 MG TABCR (SLO MAG) PO (09:00)
[2018-04-21 09:13] LABS: HEMOGLOBIN 9.4 g/dl (13.5-17.5); MEAN CORPUSCULAR HEMOGLOBIN 31.4 pg (27.0-33.0); MEAN CORPUSCULAR HGB CONC 33.6 g/dl (32.0-36.5); MEAN CORPUSCULAR VOLUME 93.6 fl (80.0-96.0); PLATELET COUNT, AUTOMATED 144 10^3/uL (150-450); RED BLOOD COUNT 2.99 10^6/uL (4.30-6.10); RED CELL DISTRIBUTION WIDTH 15.2 % (11.5-14.5); WHITE BLOOD COUNT 7.3 10^3/uL (4.0-10.0)
[2018-04-21] MEDS: SYMBICORT 160/4.5MCG INHALER 6GM INH ×2 (09:14→21:35)
[2018-04-21] MEDS: FOLIC ACID 1 MG TAB PO (09:17)
[2018-04-21] MEDS: ALLOPURINOL 100 MG TAB PO ×2 (09:17→20:34)
[2018-04-21] MEDS: HALOPERIDOL 1 MG TAB PO ×2 (09:18→20:34)
[2018-04-21] MEDS: SENOKOT S TAB PO (09:18)
[2018-04-21] MEDS: MULTIVITAMINS/MINERALS THERAP 1 TAB PO (09:18)
[2018-04-21] MEDS: OCUVITE 1 TAB PO ×2 (09:18→20:34)
[2018-04-21] MEDS: TORSEMIDE 10 MG TABLET PO ×2 (09:19→17:56)
[2018-04-21] MEDS: FERROUS SULFATE 325MG TAB PO (09:19)
[2018-04-21] MEDS: TAMOXIFEN CITRATE 10 MG TAB PO (09:19)
[2018-04-21] MEDS: predniSONE 1 MG TAB PO (09:19)
[2018-04-21] MEDS: SPIRONOLACTONE 25 MG TAB PO (09:19)
[2018-04-21] MEDS: NEBIVOLOL 5 MG TAB (BYSTOLIC) PO (09:19)
[2018-04-21] MEDS: POTASSIUM CHLORIDE 10 MEQ SR TABLET PO ×2 (09:19→20:34)
[2018-04-21] MEDS: BISACODYL 5 MG TAB PO (09:19)
[2018-04-21 09:41] LABS: ANION GAP 10 MEQ/L (8-16); BLOOD UREA NITROGEN 28 MG/DL (7-18); CALCIUM LEVEL 8.5 MG/DL (8.8-10.2); CARBON DIOXIDE LEVEL 24 MEQ/L (21-32); CHLORIDE LEVEL 103 MEQ/L (98-107); CREATININE FOR GFR 1.17 MG/DL (0.70-1.30); GLOMERULAR FILTRATION RATE > 60.0 (>42); GLUCOSE, FASTING 118 MG/DL (70-100); POTASSIUM SERUM 3.8 MEQ/L (3.5-5.1); SODIUM LEVEL 137 MEQ/L (136-145)
[2018-04-22] MEDS: SYMBICORT 160/4.5MCG INHALER 6GM INH ×2 (08:00→20:00)
[2018-04-22] MEDS: FERROUS SULFATE 325MG TAB PO (08:51)
[2018-04-22] MEDS: FOLIC ACID 1 MG TAB PO (08:51)
[2018-04-22] MEDS: MULTIVITAMINS/MINERALS THERAP 1 TAB PO (08:51)
[2018-04-22] MEDS: POTASSIUM CHLORIDE 10 MEQ SR TABLET PO ×2 (08:51→20:42)
[2018-04-22] MEDS: ALLOPURINOL 100 MG TAB PO ×2 (08:51→20:42)
[2018-04-22] MEDS: OCUVITE 1 TAB PO ×2 (08:51→20:42)
[2018-04-22] MEDS: HALOPERIDOL 1 MG TAB PO ×2 (08:51→20:42)
[2018-04-22] MEDS: BISACODYL 5 MG TAB PO (08:52)
[2018-04-22] MEDS: SPIRONOLACTONE 25 MG TAB PO (08:52)
[2018-04-22] MEDS: SENOKOT S TAB PO (08:52)
[2018-04-22] MEDS: THIAMINE 100 MG TAB PO (08:52)
[2018-04-22] MEDS: predniSONE 1 MG TAB PO (08:56)
[2018-04-22] MEDS: TAMOXIFEN CITRATE 10 MG TAB PO (08:56)
[2018-04-22] MEDS: TORSEMIDE 10 MG TABLET PO ×2 (08:57→16:35)
[2018-04-22] MEDS: NEBIVOLOL 5 MG TAB (BYSTOLIC) PO (08:58)
[2018-04-22] MEDS: MAGNESIUM CHLORIDE 64 MG TABCR (SLO MAG) PO (08:58)
[2018-04-23] MEDS: TAMOXIFEN CITRATE 10 MG TAB PO (09:00)
[2018-04-23] MEDS: TORSEMIDE 10 MG TABLET PO ×2 (09:00→17:10)
[2018-04-23] MEDS: MAGNESIUM CHLORIDE 64 MG TABCR (SLO MAG) PO (10:15)
[2018-04-23] MEDS: SPIRONOLACTONE 25 MG TAB PO (10:15)
[2018-04-23] MEDS: predniSONE 1 MG TAB PO (10:15)
[2018-04-23] MEDS: HALOPERIDOL 1 MG TAB PO ×2 (10:16→21:48)
[2018-04-23] MEDS: SENOKOT S TAB PO (10:16)
[2018-04-23] MEDS: BISACODYL 5 MG TAB PO (10:16)
[2018-04-23] MEDS: FERROUS SULFATE 325MG TAB PO (10:17)
[2018-04-23] MEDS: POTASSIUM CHLORIDE 10 MEQ SR TABLET PO ×2 (10:17→21:48)
[2018-04-23] MEDS: OCUVITE 1 TAB PO ×2 (10:17→21:48)
[2018-04-23] MEDS: ALLOPURINOL 100 MG TAB PO ×2 (10:18→21:48)
[2018-04-23] MEDS: THIAMINE 100 MG TAB PO (10:18)
[2018-04-23] MEDS: MULTIVITAMINS/MINERALS THERAP 1 TAB PO (10:18)
[2018-04-23] MEDS: FOLIC ACID 1 MG TAB PO (10:19)
[2018-04-23] MEDS: NEBIVOLOL 5 MG TAB (BYSTOLIC) PO (10:19)
[2018-04-23] MEDS: SYMBICORT 160/4.5MCG INHALER 6GM INH ×2 (14:23→20:09)
[2018-04-24] MEDS: SENOKOT S TAB PO (07:39)
[2018-04-24] MEDS: BISACODYL 5 MG TAB PO (07:39)
[2018-04-24] MEDS: SYMBICORT 160/4.5MCG INHALER 6GM INH ×2 (07:42→19:59)
[2018-04-24] MEDS: MAGNESIUM CHLORIDE 64 MG TABCR (SLO MAG) PO (08:14)
[2018-04-24] MEDS: TORSEMIDE 10 MG TABLET PO ×2 (08:15→17:16)
[2018-04-24] MEDS: predniSONE 1 MG TAB PO (08:15)
[2018-04-24] MEDS: OCUVITE 1 TAB PO ×2 (08:15→20:12)
[2018-04-24] MEDS: MULTIVITAMINS/MINERALS THERAP 1 TAB PO (08:15)
[2018-04-24] MEDS: FERROUS SULFATE 325MG TAB PO (08:15)
[2018-04-24] MEDS: TAMOXIFEN CITRATE 10 MG TAB PO (08:15)
[2018-04-24] MEDS: NEBIVOLOL 5 MG TAB (BYSTOLIC) PO (08:16)
[2018-04-24] MEDS: FOLIC ACID 1 MG TAB PO (08:16)
[2018-04-24] MEDS: ALLOPURINOL 100 MG TAB PO ×2 (08:16→20:12)
[2018-04-24] MEDS: POTASSIUM CHLORIDE 10 MEQ SR TABLET PO ×2 (08:16→20:12)
[2018-04-24] MEDS: THIAMINE 100 MG TAB PO (08:16)
[2018-04-24] MEDS: HALOPERIDOL 1 MG TAB PO ×2 (08:16→20:12)
[2018-04-24] MEDS: SPIRONOLACTONE 25 MG TAB PO (08:17)
[2018-04-25] MEDS: SYMBICORT 160/4.5MCG INHALER 6GM INH ×2 (07:15→19:13)
[2018-04-25] MEDS: predniSONE 1 MG TAB PO (11:16)
[2018-04-25] MEDS: TAMOXIFEN CITRATE 10 MG TAB PO (11:16)
[2018-04-25] MEDS: BISACODYL 5 MG TAB PO (11:17)
[2018-04-25] MEDS: NEBIVOLOL 5 MG TAB (BYSTOLIC) PO (11:17)
[2018-04-25] MEDS: HALOPERIDOL 1 MG TAB PO ×2 (11:17→21:12)
[2018-04-25] MEDS: FOLIC ACID 1 MG TAB PO (11:18)
[2018-04-25] MEDS: THIAMINE 100 MG TAB PO (11:18)
[2018-04-25] MEDS: MULTIVITAMINS/MINERALS THERAP 1 TAB PO (11:18)
[2018-04-25] MEDS: FERROUS SULFATE 325MG TAB PO (11:18)
[2018-04-25] MEDS: POTASSIUM CHLORIDE 10 MEQ SR TABLET PO ×2 (11:18→21:12)
[2018-04-25] MEDS: OCUVITE 1 TAB PO ×2 (11:18→21:12)
[2018-04-25] MEDS: SPIRONOLACTONE 25 MG TAB PO (11:19)
[2018-04-25] MEDS: ALLOPURINOL 100 MG TAB PO ×2 (11:19→21:12)
[2018-04-25] MEDS: TORSEMIDE 10 MG TABLET PO (11:19)
[2018-04-25] MEDS: SENOKOT S TAB PO (11:19)
[2018-04-25] MEDS: MAGNESIUM CHLORIDE 64 MG TABCR (SLO MAG) PO (11:19)
[2018-04-25] MEDS: TORSEMIDE 20 MG TAB PO (17:53)
[2018-04-26] MEDS: SYMBICORT 160/4.5MCG INHALER 6GM INH ×2 (08:00→19:32)
[2018-04-26] MEDS: MAGNESIUM CHLORIDE 64 MG TABCR (SLO MAG) PO (09:00)
[2018-04-26] MEDS: BISACODYL 5 MG TAB PO (10:34)
[2018-04-26] MEDS: MULTIVITAMINS/MINERALS THERAP 1 TAB PO (10:34)
[2018-04-26] MEDS: POTASSIUM CHLORIDE 10 MEQ SR TABLET PO ×2 (10:35→20:30)
[2018-04-26] MEDS: NEBIVOLOL 5 MG TAB (BYSTOLIC) PO (10:35)
[2018-04-26] MEDS: OCUVITE 1 TAB PO ×2 (10:36→20:30)
[2018-04-26] MEDS: SENOKOT S TAB PO (10:36)
[2018-04-26] MEDS: TAMOXIFEN CITRATE 10 MG TAB PO (10:36)
[2018-04-26] MEDS: ALLOPURINOL 100 MG TAB PO ×2 (10:36→20:30)
[2018-04-26] MEDS: THIAMINE 100 MG TAB PO (10:36)
[2018-04-26] MEDS: FERROUS SULFATE 325MG TAB PO (10:37)
[2018-04-26] MEDS: TORSEMIDE 20 MG TAB PO ×2 (10:37→17:56)
[2018-04-26] MEDS: HALOPERIDOL 1 MG TAB PO ×2 (10:37→20:30)
[2018-04-26] MEDS: SPIRONOLACTONE 25 MG TAB PO (10:37)
[2018-04-26] MEDS: predniSONE 1 MG TAB PO (10:37)
[2018-04-26] MEDS: FOLIC ACID 1 MG TAB PO (10:37)
[2018-04-27] MEDS: SYMBICORT 160/4.5MCG INHALER 6GM INH ×2 (09:16→21:54)
[2018-04-27] MEDS: SENOKOT S TAB PO (10:01)
[2018-04-27] MEDS: MAGNESIUM CHLORIDE 64 MG TABCR (SLO MAG) PO (10:01)
[2018-04-27] MEDS: TORSEMIDE 20 MG TAB PO ×2 (10:02→17:03)
[2018-04-27] MEDS: BISACODYL 5 MG TAB PO (10:02)
[2018-04-27] MEDS: POTASSIUM CHLORIDE 10 MEQ SR TABLET PO ×2 (10:02→20:38)
[2018-04-27] MEDS: HALOPERIDOL 1 MG TAB PO ×2 (10:02→20:38)
[2018-04-27] MEDS: MULTIVITAMINS/MINERALS THERAP 1 TAB PO (10:03)
[2018-04-27] MEDS: THIAMINE 100 MG TAB PO (10:03)
[2018-04-27] MEDS: NEBIVOLOL 5 MG TAB (BYSTOLIC) PO (10:03)
[2018-04-27] MEDS: predniSONE 1 MG TAB PO (10:03)
[2018-04-27] MEDS: TAMOXIFEN CITRATE 10 MG TAB PO (10:03)
[2018-04-27] MEDS: ALLOPURINOL 100 MG TAB PO ×2 (10:03→20:38)
[2018-04-27] MEDS: OCUVITE 1 TAB PO ×2 (10:04→20:38)
[2018-04-27] MEDS: FOLIC ACID 1 MG TAB PO (10:04)
[2018-04-27] MEDS: SPIRONOLACTONE 25 MG TAB PO (10:04)
[2018-04-27] MEDS: FERROUS SULFATE 325MG TAB PO (10:04)
[2018-04-28 06:42] LABS: HEMATOCRIT 29.8 % (42.0-52.0); HEMOGLOBIN 9.9 g/dl (13.5-17.5); MEAN CORPUSCULAR HEMOGLOBIN 30.6 pg (27.0-33.0); MEAN CORPUSCULAR HGB CONC 33.2 g/dl (32.0-36.5); PLATELET COUNT, AUTOMATED 166 10^3/uL (150-450); RED BLOOD COUNT 3.24 10^6/uL (4.30-6.10); RED CELL DISTRIBUTION WIDTH 14.6 % (11.5-14.5); WHITE BLOOD COUNT 7.9 10^3/uL (4.0-10.0)
[2018-04-28 07:07] LABS: ANION GAP 8 MEQ/L (8-16); BLOOD UREA NITROGEN 38 MG/DL (7-18); CALCIUM LEVEL 9.1 MG/DL (8.8-10.2); CARBON DIOXIDE LEVEL 31 MEQ/L (21-32); CHLORIDE LEVEL 101 MEQ/L (98-107); CREATININE FOR GFR 1.44 MG/DL (0.70-1.30); GLOMERULAR FILTRATION RATE 51.1 (>42); GLUCOSE, FASTING 142 MG/DL (70-100); POTASSIUM SERUM 3.8 MEQ/L (3.5-5.1); SODIUM LEVEL 140 MEQ/L (136-145)
[2018-04-28] MEDS: SYMBICORT 160/4.5MCG INHALER 6GM INH ×2 (08:08→20:00)
[2018-04-28] MEDS: MULTIVITAMINS/MINERALS THERAP 1 TAB PO (08:20)
[2018-04-28] MEDS: FERROUS SULFATE 325MG TAB PO (08:20)
[2018-04-28] MEDS: SENOKOT S TAB PO (08:20)
[2018-04-28] MEDS: OCUVITE 1 TAB PO ×2 (08:20→19:52)
[2018-04-28] MEDS: TAMOXIFEN CITRATE 10 MG TAB PO (08:20)
[2018-04-28] MEDS: MAGNESIUM CHLORIDE 64 MG TABCR (SLO MAG) PO (08:20)
[2018-04-28] MEDS: HALOPERIDOL 1 MG TAB PO ×2 (08:21→19:53)
[2018-04-28] MEDS: BISACODYL 5 MG TAB PO (08:21)
[2018-04-28] MEDS: FOLIC ACID 1 MG TAB PO (08:21)
[2018-04-28] MEDS: SPIRONOLACTONE 25 MG TAB PO (08:21)
[2018-04-28] MEDS: POTASSIUM CHLORIDE 10 MEQ SR TABLET PO ×2 (08:21→19:53)
[2018-04-28] MEDS: THIAMINE 100 MG TAB PO (08:21)
[2018-04-28] MEDS: ALLOPURINOL 100 MG TAB PO ×2 (08:21→19:53)
[2018-04-28] MEDS: predniSONE 1 MG TAB PO (08:21)
[2018-04-28] MEDS: NEBIVOLOL 5 MG TAB (BYSTOLIC) PO (08:21)
[2018-04-28] MEDS: TORSEMIDE 20 MG TAB PO ×2 (08:21→17:00)
[2018-04-29] MEDS: SYMBICORT 160/4.5MCG INHALER 6GM INH ×2 (07:35→19:35)
[2018-04-29] MEDS: TAMOXIFEN CITRATE 10 MG TAB PO (09:28)
[2018-04-29] MEDS: MAGNESIUM CHLORIDE 64 MG TABCR (SLO MAG) PO (09:28)
[2018-04-29] MEDS: FERROUS SULFATE 325MG TAB PO (09:28)
[2018-04-29] MEDS: SPIRONOLACTONE 25 MG TAB PO (09:28)
[2018-04-29] MEDS: POTASSIUM CHLORIDE 10 MEQ SR TABLET PO ×2 (09:28→20:00)
[2018-04-29] MEDS: SENOKOT S TAB PO (09:28)
[2018-04-29] MEDS: OCUVITE 1 TAB PO ×2 (09:28→20:00)
[2018-04-29] MEDS: THIAMINE 100 MG TAB PO (09:28)
[2018-04-29] MEDS: NEBIVOLOL 5 MG TAB (BYSTOLIC) PO (09:29)
[2018-04-29] MEDS: BISACODYL 5 MG TAB PO (09:29)
[2018-04-29] MEDS: MULTIVITAMINS/MINERALS THERAP 1 TAB PO (09:29)
[2018-04-29] MEDS: ALLOPURINOL 100 MG TAB PO ×2 (09:29→20:00)
[2018-04-29] MEDS: predniSONE 1 MG TAB PO (09:29)
[2018-04-29] MEDS: TORSEMIDE 20 MG TAB PO ×2 (09:29→17:19)
[2018-04-29] MEDS: FOLIC ACID 1 MG TAB PO (09:29)
[2018-04-29] MEDS: HALOPERIDOL 1 MG TAB PO ×2 (09:29→20:00)
[2018-04-30 08:16] LABS: ANION GAP 9 MEQ/L (8-16); BLOOD UREA NITROGEN 41 MG/DL (7-18); CALCIUM LEVEL 9.4 MG/DL (8.8-10.2); CARBON DIOXIDE LEVEL 30 MEQ/L (21-32); CHLORIDE LEVEL 100 MEQ/L (98-107); CREATININE FOR GFR 1.52 MG/DL (0.70-1.30); GLUCOSE, FASTING 148 MG/DL (70-100); POTASSIUM SERUM 3.8 MEQ/L (3.5-5.1); SODIUM LEVEL 139 MEQ/L (136-145)
[2018-04-30] MEDS: MAGNESIUM CHLORIDE 64 MG TABCR (SLO MAG) PO (09:26)
[2018-04-30] MEDS: SPIRONOLACTONE 25 MG TAB PO (09:27)
[2018-04-30] MEDS: TAMOXIFEN CITRATE 10 MG TAB PO (09:27)
[2018-04-30] MEDS: MULTIVITAMINS/MINERALS THERAP 1 TAB PO (09:27)
[2018-04-30] MEDS: FERROUS SULFATE 325MG TAB PO (09:27)
[2018-04-30] MEDS: POTASSIUM CHLORIDE 10 MEQ SR TABLET PO ×2 (09:27→20:05)
[2018-04-30] MEDS: BISACODYL 5 MG TAB PO (09:27)
[2018-04-30] MEDS: TORSEMIDE 20 MG TAB PO ×2 (09:28→16:19)
[2018-04-30] MEDS: NEBIVOLOL 5 MG TAB (BYSTOLIC) PO (09:28)
[2018-04-30] MEDS: FOLIC ACID 1 MG TAB PO (09:28)
[2018-04-30] MEDS: SENOKOT S TAB PO (09:28)
[2018-04-30] MEDS: ALLOPURINOL 100 MG TAB PO ×2 (09:28→20:05)
[2018-04-30] MEDS: predniSONE 1 MG TAB PO (09:29)
[2018-04-30] MEDS: OCUVITE 1 TAB PO ×2 (09:29→20:06)
[2018-04-30] MEDS: HALOPERIDOL 1 MG TAB PO ×2 (09:29→20:05)
[2018-04-30] MEDS: THIAMINE 100 MG TAB PO (09:29)
[2018-04-30] MEDS: SYMBICORT 160/4.5MCG INHALER 6GM INH ×2 (09:30→20:00)
[2018-04-30] MEDS ORDERED: BISACODYL 5 MG TAB PO (15:30)
[2018-04-30] MEDS ORDERED: SENOKOT S TAB PO (15:30)
[2018-05-01] MEDS: predniSONE 1 MG TAB PO (08:25)
[2018-05-01] MEDS: TORSEMIDE 20 MG TAB PO (08:25)
[2018-05-01] MEDS: HALOPERIDOL 1 MG TAB PO ×2 (08:25→20:25)
[2018-05-01] MEDS: FOLIC ACID 1 MG TAB PO (08:25)
[2018-05-01] MEDS: OCUVITE 1 TAB PO ×2 (08:25→20:25)
[2018-05-01] MEDS: TAMOXIFEN CITRATE 10 MG TAB PO (08:25)
[2018-05-01] MEDS: MULTIVITAMINS/MINERALS THERAP 1 TAB PO (08:25)
[2018-05-01] MEDS: SPIRONOLACTONE 25 MG TAB PO (08:25)
[2018-05-01] MEDS: ALLOPURINOL 100 MG TAB PO ×2 (08:25→20:25)
[2018-05-01] MEDS: MAGNESIUM CHLORIDE 64 MG TABCR (SLO MAG) PO (08:25)
[2018-05-01] MEDS: FERROUS SULFATE 325MG TAB PO (08:26)
[2018-05-01] MEDS: NEBIVOLOL 5 MG TAB (BYSTOLIC) PO (08:26)
[2018-05-01] MEDS: THIAMINE 100 MG TAB PO (08:26)
[2018-05-01] MEDS: POTASSIUM CHLORIDE 10 MEQ SR TABLET PO ×2 (08:26→20:25)
[2018-05-01] MEDS: SYMBICORT 160/4.5MCG INHALER 6GM INH ×2 (08:36→20:00)
[2018-05-01] MEDS: TORSEMIDE 10 MG TABLET PO (17:02)
[2018-05-02] MEDS: SYMBICORT 160/4.5MCG INHALER 6GM INH ×2 (08:00→20:00)
[2018-05-02] MEDS: MULTIVITAMINS/MINERALS THERAP 1 TAB PO (08:19)
[2018-05-02] MEDS: predniSONE 1 MG TAB PO (08:19)
[2018-05-02] MEDS: FOLIC ACID 1 MG TAB PO (08:19)
[2018-05-02] MEDS: OCUVITE 1 TAB PO ×2 (08:19→20:23)
[2018-05-02] MEDS: POTASSIUM CHLORIDE 10 MEQ SR TABLET PO ×2 (08:19→20:23)
[2018-05-02] MEDS: NEBIVOLOL 5 MG TAB (BYSTOLIC) PO (08:19)
[2018-05-02] MEDS: FERROUS SULFATE 325MG TAB PO (08:19)
[2018-05-02] MEDS: TAMOXIFEN CITRATE 10 MG TAB PO (08:19)
[2018-05-02] MEDS: ALLOPURINOL 100 MG TAB PO ×2 (08:19→20:23)
[2018-05-02] MEDS: MAGNESIUM CHLORIDE 64 MG TABCR (SLO MAG) PO (08:20)
[2018-05-02] MEDS: HALOPERIDOL 1 MG TAB PO ×2 (08:20→20:23)
[2018-05-02] MEDS: THIAMINE 100 MG TAB PO (08:20)
[2018-05-02] MEDS: TORSEMIDE 10 MG TABLET PO ×2 (08:20→16:36)
[2018-05-02] MEDS: SPIRONOLACTONE 25 MG TAB PO (08:20)
[2018-05-03] MEDS: SYMBICORT 160/4.5MCG INHALER 6GM INH ×2 (07:53→20:00)
[2018-05-03] MEDS: FERROUS SULFATE 325MG TAB PO (09:32)
[2018-05-03] MEDS: TORSEMIDE 10 MG TABLET PO ×2 (09:32→17:25)
[2018-05-03] MEDS: THIAMINE 100 MG TAB PO (09:32)
[2018-05-03] MEDS: OCUVITE 1 TAB PO ×2 (09:32→20:44)
[2018-05-03] MEDS: TAMOXIFEN CITRATE 10 MG TAB PO (09:32)
[2018-05-03] MEDS: FOLIC ACID 1 MG TAB PO (09:32)
[2018-05-03] MEDS: SPIRONOLACTONE 25 MG TAB PO (09:32)
[2018-05-03] MEDS: MULTIVITAMINS/MINERALS THERAP 1 TAB PO (09:32)
[2018-05-03] MEDS: predniSONE 1 MG TAB PO (09:32)
[2018-05-03] MEDS: ALLOPURINOL 100 MG TAB PO ×2 (09:33→20:44)
[2018-05-03] MEDS: POTASSIUM CHLORIDE 10 MEQ SR TABLET PO ×2 (09:33→20:43)
[2018-05-03] MEDS: HALOPERIDOL 1 MG TAB PO ×2 (09:33→20:43)
[2018-05-03] MEDS: MAGNESIUM CHLORIDE 64 MG TABCR (SLO MAG) PO (09:35)
[2018-05-03] MEDS: NEBIVOLOL 5 MG TAB (BYSTOLIC) PO (09:35)
[2018-05-04] MEDS: SYMBICORT 160/4.5MCG INHALER 6GM INH ×2 (08:30→20:11)
[2018-05-04] MEDS: NEBIVOLOL 5 MG TAB (BYSTOLIC) PO (09:00)
[2018-05-04] MEDS: MAGNESIUM CHLORIDE 64 MG TABCR (SLO MAG) PO (09:13)
[2018-05-04] MEDS: HALOPERIDOL 1 MG TAB PO ×2 (09:14→20:55)
[2018-05-04] MEDS: ALLOPURINOL 100 MG TAB PO ×2 (09:14→20:55)
[2018-05-04] MEDS: OCUVITE 1 TAB PO ×2 (09:14→20:55)
[2018-05-04] MEDS: SPIRONOLACTONE 25 MG TAB PO (09:15)
[2018-05-04] MEDS: MULTIVITAMINS/MINERALS THERAP 1 TAB PO (09:15)
[2018-05-04] MEDS: POTASSIUM CHLORIDE 10 MEQ SR TABLET PO ×2 (09:15→20:55)
[2018-05-04] MEDS: THIAMINE 100 MG TAB PO (09:15)
[2018-05-04] MEDS: FOLIC ACID 1 MG TAB PO (09:15)
[2018-05-04] MEDS: FERROUS SULFATE 325MG TAB PO (09:15)
[2018-05-04] MEDS: predniSONE 1 MG TAB PO (09:16)
[2018-05-04] MEDS: TORSEMIDE 10 MG TABLET PO ×2 (09:17→17:06)
[2018-05-04] MEDS: TAMOXIFEN CITRATE 10 MG TAB PO (09:18)
[2018-05-05] MEDS: POTASSIUM CHLORIDE 10 MEQ SR TABLET PO ×2 (08:29→20:21)
[2018-05-05] MEDS: ALLOPURINOL 100 MG TAB PO ×2 (08:29→20:21)
[2018-05-05] MEDS: FERROUS SULFATE 325MG TAB PO (08:29)
[2018-05-05] MEDS: FOLIC ACID 1 MG TAB PO (08:30)
[2018-05-05] MEDS: OCUVITE 1 TAB PO ×2 (08:30→20:21)
[2018-05-05] MEDS: HALOPERIDOL 1 MG TAB PO ×2 (08:30→20:21)
[2018-05-05] MEDS: SPIRONOLACTONE 25 MG TAB PO (08:30)
[2018-05-05] MEDS: MULTIVITAMINS/MINERALS THERAP 1 TAB PO (08:30)
[2018-05-05] MEDS: NEBIVOLOL 5 MG TAB (BYSTOLIC) PO (08:31)
[2018-05-05] MEDS: MAGNESIUM CHLORIDE 64 MG TABCR (SLO MAG) PO (08:31)
[2018-05-05] MEDS: THIAMINE 100 MG TAB PO (08:31)
[2018-05-05] MEDS: predniSONE 1 MG TAB PO (08:32)
[2018-05-05] MEDS: TORSEMIDE 10 MG TABLET PO ×2 (08:32→17:21)
[2018-05-05] MEDS: TAMOXIFEN CITRATE 10 MG TAB PO (08:33)
[2018-05-05] MEDS: SYMBICORT 160/4.5MCG INHALER 6GM INH ×2 (08:38→20:19)
[2018-05-06] MEDS: HALOPERIDOL 1 MG TAB PO ×2 (08:53→20:08)
[2018-05-06] MEDS: OCUVITE 1 TAB PO ×2 (08:54→20:08)
[2018-05-06] MEDS: predniSONE 1 MG TAB PO (08:54)
[2018-05-06] MEDS: ALLOPURINOL 100 MG TAB PO ×2 (08:57→20:08)
[2018-05-06] MEDS: TORSEMIDE 10 MG TABLET PO ×2 (08:57→17:10)
[2018-05-06] MEDS: FERROUS SULFATE 325MG TAB PO (08:57)
[2018-05-06] MEDS: SPIRONOLACTONE 25 MG TAB PO (08:57)
[2018-05-06] MEDS: POTASSIUM CHLORIDE 10 MEQ SR TABLET PO ×2 (08:57→20:08)
[2018-05-06] MEDS: NEBIVOLOL 5 MG TAB (BYSTOLIC) PO (08:57)
[2018-05-06] MEDS: THIAMINE 100 MG TAB PO (08:57)
[2018-05-06] MEDS: TAMOXIFEN CITRATE 10 MG TAB PO (08:58)
[2018-05-06] MEDS: FOLIC ACID 1 MG TAB PO (08:58)
[2018-05-06] MEDS: MULTIVITAMINS/MINERALS THERAP 1 TAB PO (08:58)
[2018-05-06] MEDS: MAGNESIUM CHLORIDE 64 MG TABCR (SLO MAG) PO (08:58)
[2018-05-06] MEDS: SYMBICORT 160/4.5MCG INHALER 6GM INH ×2 (11:59→20:00)
[2018-05-07] MEDS: SPIRONOLACTONE 25 MG TAB PO (08:09)
[2018-05-07] MEDS: MULTIVITAMINS/MINERALS THERAP 1 TAB PO (08:09)
[2018-05-07] MEDS: THIAMINE 100 MG TAB PO (08:09)
[2018-05-07] MEDS: FOLIC ACID 1 MG TAB PO (08:09)
[2018-05-07] MEDS: HALOPERIDOL 1 MG TAB PO ×2 (08:09→20:07)
[2018-05-07] MEDS: ALLOPURINOL 100 MG TAB PO ×2 (08:09→20:07)
[2018-05-07] MEDS: predniSONE 1 MG TAB PO (08:10)
[2018-05-07] MEDS: TORSEMIDE 10 MG TABLET PO ×2 (08:10→17:12)
[2018-05-07] MEDS: POTASSIUM CHLORIDE 10 MEQ SR TABLET PO ×2 (08:10→20:07)
[2018-05-07] MEDS: OCUVITE 1 TAB PO ×2 (08:10→20:07)
[2018-05-07] MEDS: MAGNESIUM CHLORIDE 64 MG TABCR (SLO MAG) PO (08:10)
[2018-05-07] MEDS: FERROUS SULFATE 325MG TAB PO (08:10)
[2018-05-07] MEDS: TAMOXIFEN CITRATE 10 MG TAB PO (08:10)
[2018-05-07] MEDS: NEBIVOLOL 5 MG TAB (BYSTOLIC) PO (08:11)
[2018-05-07] MEDS: SYMBICORT 160/4.5MCG INHALER 6GM INH ×2 (08:21→20:00)
[2018-05-08 06:37] LABS: HEMATOCRIT 30.8 % (42.0-52.0); HEMOGLOBIN 10.2 g/dl (13.5-17.5); MEAN CORPUSCULAR HEMOGLOBIN 30.7 pg (27.0-33.0); MEAN CORPUSCULAR HGB CONC 33.1 g/dl (32.0-36.5); MEAN CORPUSCULAR VOLUME 92.8 fl (80.0-96.0); PLATELET COUNT, AUTOMATED 143 10^3/uL (150-450); RED BLOOD COUNT 3.32 10^6/uL (4.30-6.10); RED CELL DISTRIBUTION WIDTH 14.7 % (11.5-14.5)
[2018-05-08 06:58] LABS: ANION GAP 9 MEQ/L (8-16); BLOOD UREA NITROGEN 59 MG/DL (7-18); CARBON DIOXIDE LEVEL 29 MEQ/L (21-32); CHLORIDE LEVEL 102 MEQ/L (98-107); CREATININE FOR GFR 1.62 MG/DL (0.70-1.30); GLOMERULAR FILTRATION RATE 44.6 (>42); GLUCOSE, FASTING 109 MG/DL (70-100); POTASSIUM SERUM 3.8 MEQ/L (3.5-5.1); SODIUM LEVEL 140 MEQ/L (136-145)
[2018-05-08] MEDS: SYMBICORT 160/4.5MCG INHALER 6GM INH (07:40)
[2018-05-08] MEDS: predniSONE 1 MG TAB PO (08:54)
[2018-05-08] MEDS: POTASSIUM CHLORIDE 10 MEQ SR TABLET PO ×2 (08:54→20:09)
[2018-05-08] MEDS: MAGNESIUM CHLORIDE 64 MG TABCR (SLO MAG) PO (08:54)
[2018-05-08] MEDS: MULTIVITAMINS/MINERALS THERAP 1 TAB PO (08:55)
[2018-05-08] MEDS: SPIRONOLACTONE 25 MG TAB PO (08:55)
[2018-05-08] MEDS: NEBIVOLOL 5 MG TAB (BYSTOLIC) PO (08:55)
[2018-05-08] MEDS: FOLIC ACID 1 MG TAB PO (08:55)
[2018-05-08] MEDS: HALOPERIDOL 1 MG TAB PO ×2 (08:55→20:09)
[2018-05-08] MEDS: OCUVITE 1 TAB PO ×2 (08:55→20:09)
[2018-05-08] MEDS: TAMOXIFEN CITRATE 10 MG TAB PO (08:55)
[2018-05-08] MEDS: FERROUS SULFATE 325MG TAB PO (08:56)
[2018-05-08] MEDS: TORSEMIDE 10 MG TABLET PO ×2 (08:56→17:17)
[2018-05-08] MEDS: ALLOPURINOL 100 MG TAB PO ×2 (08:56→20:10)
[2018-05-08] MEDS: THIAMINE 100 MG TAB PO (08:56)
[2018-05-09] MEDS: SYMBICORT 160/4.5MCG INHALER 6GM INH ×3 (07:31→20:00)
[2018-05-09] MEDS: MAGNESIUM CHLORIDE 64 MG TABCR (SLO MAG) PO (09:51)
[2018-05-09] MEDS: HALOPERIDOL 1 MG TAB PO ×2 (09:51→20:31)
[2018-05-09] MEDS: TAMOXIFEN CITRATE 10 MG TAB PO (09:52)
[2018-05-09] MEDS: THIAMINE 100 MG TAB PO (09:52)
[2018-05-09] MEDS: predniSONE 1 MG TAB PO (09:52)
[2018-05-09] MEDS: FERROUS SULFATE 325MG TAB PO (09:52)
[2018-05-09] MEDS: OCUVITE 1 TAB PO ×2 (09:52→20:31)
[2018-05-09] MEDS: POTASSIUM CHLORIDE 10 MEQ SR TABLET PO ×2 (09:52→20:31)
[2018-05-09] MEDS: ALLOPURINOL 100 MG TAB PO ×2 (09:53→20:31)
[2018-05-09] MEDS: FOLIC ACID 1 MG TAB PO (09:53)
[2018-05-09] MEDS: SPIRONOLACTONE 25 MG TAB PO (09:53)
[2018-05-09] MEDS: NEBIVOLOL 5 MG TAB (BYSTOLIC) PO (09:55)
[2018-05-09] MEDS: MULTIVITAMINS/MINERALS THERAP 1 TAB PO (09:56)
[2018-05-09] MEDS: TORSEMIDE 10 MG TABLET PO ×2 (09:56→17:28)
[2018-05-09 21:46] LABS: KETONE, URINE AUTO RFX NEGATIVE (NEGATIVE); LEUKOCYTE ESTERASE UR AUTO RFX NEGATIVE (NEGATIVE); NITRITE, URINE AUTO RFX NEGATIVE (NEGATIVE); RBC, URINE AUTO RFX 1 /HPF (0-3); SPECIFIC GRAVITY UR AUTO RFX 1.006 (1.002-1.035); SQUAM EPITHELIAL CELL UR AURFX 0 /HPF (0-6); WBC, URINE AUTO RFX 0 /HPF (0-3)
[2018-05-10] MEDS: SYMBICORT 160/4.5MCG INHALER 6GM INH ×2 (07:56→20:00)
[2018-05-10 08:23] LABS: ANION GAP 9 MEQ/L (8-16); BLOOD UREA NITROGEN 58 MG/DL (7-18); CALCIUM LEVEL 9.4 MG/DL (8.8-10.2); CARBON DIOXIDE LEVEL 29 MEQ/L (21-32); CHLORIDE LEVEL 101 MEQ/L (98-107); CREATININE FOR GFR 1.79 MG/DL (0.70-1.30); GLOMERULAR FILTRATION RATE 39.7 (>42); GLUCOSE, FASTING 135 MG/DL (70-100); POTASSIUM SERUM 3.7 MEQ/L (3.5-5.1); SODIUM LEVEL 139 MEQ/L (136-145)
[2018-05-10] MEDS: POTASSIUM CHLORIDE 10 MEQ SR TABLET PO ×2 (10:49→20:10)
[2018-05-10] MEDS: TORSEMIDE 10 MG TABLET PO ×2 (10:49→17:46)
[2018-05-10] MEDS: TAMOXIFEN CITRATE 10 MG TAB PO (10:49)
[2018-05-10] MEDS: ALLOPURINOL 100 MG TAB PO ×2 (10:50→20:10)
[2018-05-10] MEDS: predniSONE 1 MG TAB PO (10:50)
[2018-05-10] MEDS: FOLIC ACID 1 MG TAB PO (10:50)
[2018-05-10] MEDS: NEBIVOLOL 5 MG TAB (BYSTOLIC) PO (10:53)
[2018-05-10] MEDS: MULTIVITAMINS/MINERALS THERAP 1 TAB PO (10:53)
[2018-05-10] MEDS: FERROUS SULFATE 325MG TAB PO (10:53)
[2018-05-10] MEDS: SPIRONOLACTONE 25 MG TAB PO (10:53)
[2018-05-10] MEDS: THIAMINE 100 MG TAB PO (10:53)
[2018-05-10] MEDS: OCUVITE 1 TAB PO ×2 (10:53→20:10)
[2018-05-10] MEDS: MAGNESIUM CHLORIDE 64 MG TABCR (SLO MAG) PO (10:54)
[2018-05-10] MEDS: HALOPERIDOL 1 MG TAB PO (14:06)
[2018-05-10] MEDS: HALOPERIDOL 2 MG TAB PO (20:11)
[2018-05-11] MEDS: SYMBICORT 160/4.5MCG INHALER 6GM INH ×2 (08:13→20:00)
[2018-05-11] MEDS: MAGNESIUM CHLORIDE 64 MG TABCR (SLO MAG) PO (09:56)
[2018-05-11] MEDS: POTASSIUM CHLORIDE 10 MEQ SR TABLET PO ×2 (09:56→21:00)
[2018-05-11 09:59] LABS: ANION GAP 10 MEQ/L (8-16); BLOOD UREA NITROGEN 60 MG/DL (7-18); CALCIUM LEVEL 9.7 MG/DL (8.8-10.2); CARBON DIOXIDE LEVEL 28 MEQ/L (21-32); CHLORIDE LEVEL 100 MEQ/L (98-107); CREATININE FOR GFR 2.08 MG/DL (0.70-1.30); GLOMERULAR FILTRATION RATE 33.4 (>42); GLUCOSE, FASTING 257 MG/DL (70-100); POTASSIUM SERUM 3.9 MEQ/L (3.5-5.1); SODIUM LEVEL 138 MEQ/L (136-145)
[2018-05-11] MEDS: NEBIVOLOL 5 MG TAB (BYSTOLIC) PO (10:00)
[2018-05-11] MEDS: MULTIVITAMINS/MINERALS THERAP 1 TAB PO (10:01)
[2018-05-11] MEDS: SPIRONOLACTONE 25 MG TAB PO (10:01)
[2018-05-11] MEDS: FOLIC ACID 1 MG TAB PO (10:01)
[2018-05-11] MEDS: TORSEMIDE 10 MG TABLET PO (10:01)
[2018-05-11] MEDS: ALLOPURINOL 100 MG TAB PO ×2 (10:02→20:59)
[2018-05-11] MEDS: HALOPERIDOL 1 MG TAB PO (10:02)
[2018-05-11] MEDS: TAMOXIFEN CITRATE 10 MG TAB PO (10:02)
[2018-05-11] MEDS: THIAMINE 100 MG TAB PO (10:02)
[2018-05-11] MEDS: OCUVITE 1 TAB PO ×2 (10:02→20:59)
[2018-05-11] MEDS: FERROUS SULFATE 325MG TAB PO (10:02)
[2018-05-11] MEDS: predniSONE 1 MG TAB PO (10:02)
[2018-05-11] MEDS: HALOPERIDOL 2 MG TAB PO (20:59)
[2018-05-12 07:00] LABS: ANION GAP 10 MEQ/L (8-16); BLOOD UREA NITROGEN 66 MG/DL (7-18); CARBON DIOXIDE LEVEL 28 MEQ/L (21-32); CHLORIDE LEVEL 102 MEQ/L (98-107); CREATININE FOR GFR 1.76 MG/DL (0.70-1.30); GLOMERULAR FILTRATION RATE 40.5 (>42); GLUCOSE, FASTING 105 MG/DL (70-100); POTASSIUM SERUM 3.6 MEQ/L (3.5-5.1); SODIUM LEVEL 140 MEQ/L (136-145)
[2018-05-12] MEDS: SYMBICORT 160/4.5MCG INHALER 6GM INH (08:00)
[2018-05-12] MEDS: predniSONE 1 MG TAB PO (08:26)
[2018-05-12] MEDS: OCUVITE 1 TAB PO (08:27)
[2018-05-12] MEDS: ALLOPURINOL 100 MG TAB PO (08:27)
[2018-05-12] MEDS: POTASSIUM CHLORIDE 10 MEQ SR TABLET PO (08:27)
[2018-05-12] MEDS: HALOPERIDOL 1 MG TAB PO (08:27)
[2018-05-12] MEDS: THIAMINE 100 MG TAB PO (08:27)
[2018-05-12] MEDS: MAGNESIUM CHLORIDE 64 MG TABCR (SLO MAG) PO (08:27)
[2018-05-12] MEDS: TAMOXIFEN CITRATE 10 MG TAB PO (08:27)
[2018-05-12] MEDS: FOLIC ACID 1 MG TAB PO (08:27)
[2018-05-12] MEDS: SPIRONOLACTONE 25 MG TAB PO (08:27)
[2018-05-12] MEDS: FERROUS SULFATE 325MG TAB PO (08:28)
[2018-05-12] MEDS: MULTIVITAMINS/MINERALS THERAP 1 TAB PO (08:28)
[2018-05-12] MEDS: NEBIVOLOL 5 MG TAB (BYSTOLIC) PO (08:28)
[2018-05-12] MEDS ORDERED: FLUBLOK(EGG FREE)(QUAD)INFLUENZA VACC 0.5ML SYRINGE (90682)18YRS&OLDER IM (14:00)
== END 2018-05-12 14:27 | disposition home or self-care (01) | DRG 579 ==
LOC: M OR 07:53 → M MSPAV 17:59
PROC: 07B50ZX Excision of Right Axillary Lymphatic, Open Approach, Diagnostic (ICD-10-PCS; principal; 2018-02-15 11:45)
PROC: 0HTT0ZZ Resection of Right Breast, Open Approach (ICD-10-PCS; 2018-02-15 11:45)
PROC: 0HBU0ZX Excision of Left Breast, Open Approach, Diagnostic (ICD-10-PCS; 2018-02-15 11:45)
PROC: 0H9T3ZZ Drainage of Right Breast, Percutaneous Approach (ICD-10-PCS; 2018-02-15 11:56)
PROC: 0W983ZZ Drainage of Chest Wall, Percutaneous Approach (ICD-10-PCS; 2018-02-15 11:56)
PROC: 0W9830Z Drainage of Chest Wall with Drainage Device, Percutaneous Approach (ICD-10-PCS; 2018-02-15 11:56)
PROC: 30233N1 Transfusion of Nonautologous Red Blood Cells into Peripheral Vein, Percutaneous Approach (ICD-10-PCS; 2018-02-15 11:56)
DX: C50.422 Malignant neoplasm of upper-outer quadrant of left male breast (principal); G93.41 Metabolic encephalopathy; I50.33 Acute on chronic diastolic (congestive) heart failure; C77.3 Secondary and unspecified malignant neoplasm of axilla and upper limb lymph nodes; I13.0 Hypertensive heart and chronic kidney disease with heart failure and stage 1 through stage 4 chronic kidney disease, or unspecified chronic kidney disease; N17.9 Acute kidney failure, unspecified; E87.0 Hyperosmolality and hypernatremia; M96.843 Postprocedural seroma of a musculoskeletal structure following other procedure; E11.9 Type 2 diabetes mellitus without complications; D53.9 Nutritional anemia, unspecified; D69.6 Thrombocytopenia, unspecified; F10.10 Alcohol abuse, uncomplicated; D47.2 Monoclonal gammopathy; E87.5 Hyperkalemia; E83.42 Hypomagnesemia; N18.3 Chronic kidney disease, stage 3 (moderate); M10.9 Gout, unspecified; F03.90 Unspecified dementia, unspecified severity, without behavioral disturbance, psychotic disturbance, mood disturbance, and anxiety; H40.9 Unspecified glaucoma; I50.810 Right heart failure, unspecified; J45.909 Unspecified asthma, uncomplicated; M51.36 Other intervertebral disc degeneration, lumbar region; I27.81 Cor pulmonale (chronic); E53.8 Deficiency of other specified B group vitamins; Z85.46 Personal history of malignant neoplasm of prostate; Z88.8 Allergy status to other drugs, medicaments and biological substances; Z88.1 Allergy status to other antibiotic agents; Z85.828 Personal history of other malignant neoplasm of skin; Z88.0 Allergy status to penicillin; Z79.52 Long term (current) use of systemic steroids; Y83.6 Removal of other organ (partial) (total) as the cause of abnormal reaction of the patient, or of later complication, without mention of misadventure at the time of the procedure

== ENCOUNTER → 2018-06-06 | Outpatient (REF) | payer MEDICARE, OTHER ==
[2018-06-06 21:04] LABS: BASO # 0.1 10^3/uL (0.0-0.2); BASO % 0.8 % (0.0-1.0); EOS # 0.2 10^3/uL (0.0-0.50); EOS % 2.5 % (0.0-3.0); HEMATOCRIT 30.5 % (42.0-52.0); HEMOGLOBIN 9.9 g/dl (13.5-17.5); IMMATURE GRANULOCYTE % 0.2 % (0-3.0); LYMPH # 1.3 10^3/uL (1.5-4.5); LYMPH % 21.9 % (24.0-44.0); MEAN CORPUSCULAR HEMOGLOBIN 30.2 pg (27.0-33.0); MEAN CORPUSCULAR HGB CONC 32.5 g/dl (32.0-36.5); MONO # 0.6 10^3/uL (0.0-0.8); MONO % 10.5 % (0.0-5.0); NEUTROPHILS # 3.8 10^3/uL (1.8-7.7); NEUTROPHILS % 64.1 % (36.0-66.0); PLATELET COUNT, AUTOMATED 165 10^3/uL (150-450); RED BLOOD COUNT 3.28 10^6/uL (4.30-6.10); RED CELL DISTRIBUTION WIDTH 14.7 % (11.5-14.5); WHITE BLOOD COUNT 5.9 10^3/uL (4.0-10.0)
[2018-06-06 21:15] LABS: ALBUMIN 3.1 GM/DL (3.2-5.2); ALBUMIN/GLOBULIN RATIO 0.94 (1.00-1.93); ALKALINE PHOSPHATASE 59 U/L (45-117); ALT/SGPT 9 U/L (12-78); ANION GAP 9 MEQ/L (8-16); AST/SGOT 11 U/L (7-37); BILIRUBIN,TOTAL 0.5 MG/DL (0.2-1.0); BLOOD UREA NITROGEN 18 MG/DL (7-18); CALCIUM LEVEL 9.3 MG/DL (8.8-10.2); CARBON DIOXIDE LEVEL 25 MEQ/L (21-32); CHLORIDE LEVEL 105 MEQ/L (98-107); GLOMERULAR FILTRATION RATE 52.7 (>42); GLUCOSE, FASTING 116 MG/DL (70-100); POTASSIUM SERUM 4.4 MEQ/L (3.5-5.1); SODIUM LEVEL 139 MEQ/L (136-145); TOTAL PROTEIN 6.4 GM/DL (6.4-8.2)
== END ==
LOC: M LABDRAWP 10:11
DX: D64.9 Anemia, unspecified (principal); I50.32 Chronic diastolic (congestive) heart failure
CPT/HCPCS: 80053

== ENCOUNTER → 2018-07-03 | Outpatient (REF) | payer MEDICARE, OTHER ==
[~2018-07-03] MED LIST changes: +ALLO100T PO; +ASPI81TA85 PO; +BIMA01SOL OU; +BIMA1SOL OP; +BISAC5TA PO; +BYST5TAB2 PO; +DOCU100C16 PO; +EYECAP PO; +FERR1TAB8 PO; +FOLI1TAB11 PO; +HALO1TA PO; -LIDOCAINE 1% MDV 20ML VIAL SQ; +LOSA25TA14 PO; +MAGN64TASA PO; +MULTCAP PO; +POTA10CA32 PO; +PRED10PA2 PO; +PRED5TA PO; +SPIR-10 PO; +SYMB16INH INH; +TAMO10TA PO; +THIA100TA PO; +TORS20TA2 PO; +TORS5TAB2 PO; +[UNRECOGNIZED DRUG - OTHER] OU
[2018-07-03 13:06] LABS: BASO # 0.1 10^3/uL (0.0-0.2); EOS # 1.3 10^3/uL (0.0-0.50); EOS % 18.6 % (0.0-3.0); HEMATOCRIT 32.6 % (42.0-52.0); HEMOGLOBIN 10.8 g/dl (13.5-17.5); LYMPH # 2.3 10^3/uL (1.5-4.5); LYMPH % 32.3 % (24.0-44.0); MEAN CORPUSCULAR HEMOGLOBIN 29.5 pg (27.0-33.0); MEAN CORPUSCULAR HGB CONC 33.1 g/dl (32.0-36.5); MEAN CORPUSCULAR VOLUME 89.1 fl (80.0-96.0); MONO # 0.7 10^3/uL (0.0-0.8); MONO % 9.6 % (0.0-5.0); NEUTROPHILS # 2.6 10^3/uL (1.8-7.7); NEUTROPHILS % 37.2 % (36.0-66.0); PLATELET COUNT, AUTOMATED 196 10^3/uL (150-450); RED BLOOD COUNT 3.66 10^6/uL (4.30-6.10)
== END ==
LOC: M LABDRWAD 12:08
PROVIDERS: ATTEND Family Medicine
DX: C50.921 Malignant neoplasm of unspecified site of right male breast (principal)

== ENCOUNTER → 2018-07-11 | Outpatient (REF) | payer MEDICARE, OTHER | LOC: M LAB REF 16:43 | PROVIDERS: ATTEND Surgery | DX: L72.3 Sebaceous cyst (principal) ==

== ENCOUNTER → 2018-08-19 | Outpatient (CLI) | payer MEDICARE, OTHER ==
--- NOTE | 2018-08-19 16:53 | REP ---
Left wrist four views: On the lateral view there is faintly visible density posterior to the carpus of uncertain significance. This may represent a triquetral fracture. Correlation with clinical point tenderness is recommended. No other fractures or dislocations are identified. There are no other calcifications or foreign bodies. Impression: Questionable triquetrum fracture. Correlate with clinical point tenderness. 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 Electronically Signed by Dick Patel MD 08/19/2018 04:44 P
== END ==
LOC: M ADAMS 14:53
PROVIDERS: ATTEND Physician Assistant Medical
DX: M25.532 Pain in left wrist (principal)

== ENCOUNTER → 2018-10-02 | Outpatient (REF) | payer MEDICARE, OTHER ==
[2018-10-02 13:16] LABS: BASO # 0.1 10^3/uL (0.0-0.2); BASO % 1.6 % (0.0-1.0); EOS # 0.6 10^3/uL (0.0-0.50); EOS % 9.8 % (0.0-3.0); HEMATOCRIT 36.2 % (42.0-52.0); LYMPH # 1.8 10^3/uL (1.5-4.5); LYMPH % 29.2 % (24.0-44.0); MEAN CORPUSCULAR HEMOGLOBIN 29.1 pg (27.0-33.0); MEAN CORPUSCULAR HGB CONC 33.1 g/dl (32.0-36.5); MEAN CORPUSCULAR VOLUME 87.9 fl (80.0-96.0); MONO # 0.4 10^3/uL (0.0-0.8); NEUTROPHILS # 3.3 10^3/uL (1.8-7.7); NEUTROPHILS % 53.2 % (36.0-66.0); PLATELET COUNT, AUTOMATED 183 10^3/uL (150-450); RED BLOOD COUNT 4.12 10^6/uL (4.30-6.10); WHITE BLOOD COUNT 6.1 10^3/uL (4.0-10.0)
[2018-10-02 13:41] LABS: ALBUMIN 3.8 GM/DL (3.2-5.2); BILIRUBIN,TOTAL 0.7 MG/DL (0.2-1.0); CALCIUM LEVEL 9.1 MG/DL (8.8-10.2); CREATININE FOR GFR 1.82 MG/DL (0.70-1.30); GLOMERULAR FILTRATION RATE 38.9 (>42); POTASSIUM SERUM 4.3 MEQ/L (3.5-5.1); TOTAL PROTEIN 6.9 GM/DL (6.4-8.2)
== END ==
LOC: M LABDRWAD 12:00
PROVIDERS: ATTEND Family Medicine
DX: I50.32 Chronic diastolic (congestive) heart failure (principal)

== ENCOUNTER → 2018-10-14 | Outpatient (CLI) | payer MEDICARE, OTHER ==
--- NOTE | 2018-10-15 09:13 | REP ---
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 There is osteoarthritis of the thumb CMC. There is joint space narrowing of the index finger PIP. There is no fracture or dislocation. No calcifications or foreign bodies. Electronically Signed by Dick Patel MD 10/14/2018 11:43 A
== END ==
LOC: M ADAMS 10:43
PROVIDERS: ATTEND Physician Assistant Medical
DX: M19.042 Primary osteoarthritis, left hand (principal)

== ENCOUNTER → 2018-11-03 | Outpatient (REF) | payer MEDICARE, OTHER ==
[2018-11-03 12:55] LABS: CREATININE FOR GFR 1.71 MG/DL (0.70-1.30); GLOMERULAR FILTRATION RATE 41.8 (>42); POTASSIUM SERUM 4.1 MEQ/L (3.5-5.1)
== END ==
LOC: M LABDRWAD 12:03
PROVIDERS: ATTEND Family Medicine
DX: I50.32 Chronic diastolic (congestive) heart failure (principal)

== ENCOUNTER → 2019-01-03 | Outpatient (REF) | payer MEDICARE, OTHER ==
[~2019-01-03] MED LIST changes: +TAMO20TA8 PO
[2019-01-03 12:32] LABS: HEMATOCRIT 34.2 % (42.0-52.0); HEMOGLOBIN 11.4 g/dl (13.5-17.5); MEAN CORPUSCULAR HEMOGLOBIN 29.3 pg (27.0-33.0); MEAN CORPUSCULAR HGB CONC 33.3 g/dl (32.0-36.5); MEAN CORPUSCULAR VOLUME 87.9 fl (80.0-96.0); PLATELET COUNT, AUTOMATED 161 10^3/uL (150-450); RED BLOOD COUNT 3.89 10^6/uL (4.30-6.10); WHITE BLOOD COUNT 6.1 10^3/uL (4.0-10.0)
[2019-01-03 12:58] LABS: CALCIUM LEVEL 9.3 MG/DL (8.8-10.2); CREATININE FOR GFR 1.87 MG/DL (0.70-1.30); GLOMERULAR FILTRATION RATE 37.7 (>42); POTASSIUM SERUM 4.5 MEQ/L (3.5-5.1)
== END ==
LOC: M LABDRWAD 12:05
PROVIDERS: ATTEND Physician Assistant
DX: I50.32 Chronic diastolic (congestive) heart failure (principal)

== ENCOUNTER → 2019-01-23 | Outpatient (CLI) | payer MEDICARE, OTHER ==
[~2019-01-23] MED LIST changes: +FURO20TA2 PO; +KLOR10TA76 PO; +SYMB80INH INH; +SYST1SOL OU; +THIA100T7 PO
[2019-01-23 15:44] LABS: ACETONE/KETONE 1.17 MG/DL (<2.81); ETHYL ALCOHOL (ETHANOL) < 0.003 % (0.000-0.010)
== END ==
LOC: M SMT 10:47
PROVIDERS: ATTEND Internal Medicine Nephrology
DX: R73.9 Hyperglycemia, unspecified (principal); E87.2 Acidosis

== ENCOUNTER 2019-01-24 09:59 | Inpatient (IN) | payer MEDICARE, OTHER ==
[~2019-01-24] VITALS: Ht 177.8 cm; Wt 95.8 kg
[~2019-01-24 09:59] MED LIST changes: -FURO20TA2 PO; -KLOR10TA76 PO; -SYMB80INH INH; -SYST1SOL OU; -THIA100T7 PO
[2019-01-24] MEDS ORDERED: BYST5TAB2 PO (10:17)
[2019-01-24] MEDS ORDERED: SYMB16INH INH (10:17)
[2019-01-24] MEDS ORDERED: KLOR10TA76 PO (10:17)
[2019-01-24] MEDS ORDERED: FURO20TA2 PO (10:17)
[2019-01-24] MEDS ORDERED: SYST1SOL OU (10:18)
--- NOTE | 2019-01-24 11:29 | REP ---
Clinical: Cough and dyspnea . Comparison: 02/21/2018 . Findings: The mediastinum and cardiac silhouette are stable and cardiomegaly is again suggested. The lung coles are clear without acute consolidation, effusion, or pneumothorax. Skeletal structures are intact. Surgical clips suggest prior right axillary node dissection and right breast clips. Impression: No acute cardiopulmonary process appreciated. Electronically Signed by Everton Ruiz MD 01/24/2019 11:21 A
[2019-01-24 11:31] LABS: BASO # 0.1 10^3/uL (0.0-0.2); BASO % 1.2 % (0.0-1.0); EOS # 0.1 10^3/uL (0.0-0.50); EOS % 1.9 % (0.0-3.0); HEMATOCRIT 34.9 % (42.0-52.0); LYMPH # 1.4 10^3/uL (1.5-4.5); LYMPH % 23.6 % (24.0-44.0); MEAN CORPUSCULAR HEMOGLOBIN 30.3 pg (27.0-33.0); MEAN CORPUSCULAR HGB CONC 34.4 g/dl (32.0-36.5); MEAN CORPUSCULAR VOLUME 88.1 fl (80.0-96.0); MONO # 0.4 10^3/uL (0.0-0.8); MONO % 7.5 % (0.0-5.0); NEUTROPHILS # 3.8 10^3/uL (1.8-7.7); NEUTROPHILS % 65.5 % (36.0-66.0); PLATELET COUNT, AUTOMATED 157 10^3/uL (150-450); RED BLOOD COUNT 3.96 10^6/uL (4.30-6.10); WHITE BLOOD COUNT 5.9 10^3/uL (4.0-10.0)
[2019-01-24] MEDS ORDERED: CEFEPIME HCL 2 GM in D5W MINI-BAG PLUS 50 ML IV ONE (12:00)
[2019-01-24] MEDS ORDERED: NS IV ONE (12:00)
[2019-01-24] MEDS ORDERED: DILUENT IV ONE (12:00)
[2019-01-24 12:05] LABS: CALCIUM LEVEL 9.6 MG/DL (8.8-10.2); CREATININE FOR GFR 2.57 MG/DL (0.70-1.30); GLOMERULAR FILTRATION RATE 26.1 (>42); POTASSIUM SERUM 4.4 MEQ/L (3.5-5.1); THYROID STIMULATING HORMONE 1.21 uIU/ML (0.358-3.740)
[2019-01-24] MEDS ORDERED: THIA100T7 PO (12:29)
[2019-01-24] MEDS ORDERED: TAMO10TA PO (12:29)
[2019-01-24] MEDS ORDERED: FERR1TAB8 PO (12:29)
[2019-01-24] MEDS ORDERED: ASPI81TA85 PO (12:29)
[2019-01-24] MEDS ORDERED: SYMB80INH INH (12:29)
[2019-01-24 12:32] LABS: ABG BASE EXCESS -1.6 (-2.0-2.0); ABG O2 SATURATION 99.4 % (95.0-99.0); ABG PARTIAL PRESSURE CO2 14.2 mmHg (35.0-45.0); ABG PARTIAL PRESSURE O2 154.3 mmHg (75.0-100.0); ABG STANDARD HCO3 23.2 MEQ/L (22.0-26.0); ABG TOTAL CO2 16.4 MEQ/L (23.0-31.0)
[2019-01-24 13:22] LABS: CPK CREATINE PHOSPHOKINASE 64 U/L (39-308); MB/CK RELATIVE INDEX 1.56 (< OR =4); TROPONIN I < 0.02 NG/ML (< 0.10)
[2019-01-24 14:05] LABS: APPEARANCE, URINE CLEAR (CLEAR); BACTERIA, URINE AUTO NEGATIVE (NEGATIVE); BILIRUBIN, URINE AUTO NEGATIVE (NEGATIVE); BLOOD, URINE BLOOD NEGATIVE (NEGATIVE); COLOR, URINE STRAW (YELLOW); GLUCOSE, URINE (UA) AUTO 1+ mg/dL (NEGATIVE); KETONE, URINE AUTO NEGATIVE (NEGATIVE); LEUKOCYTE ESTERASE, URINE AUTO NEGATIVE (NEGATIVE); NITRITE, URINE AUTO NEGATIVE (NEGATIVE); PROTEIN, URINE AUTO NEGATIVE (NEGATIVE); RBC, URINE AUTO 1 /HPF (0-3); SPECIFIC GRAVITY URINE AUTO 1.006 (1.002-1.035); SQUAMOUS EPITHELIAL CELL UR AU 0 /HPF (0-6); UROBILINOGEN, URINE AUTO 0.2 mg/dL (0.0-2.0); WBC, URINE AUTO 1 /HPF (0-3)
--- NOTE | 2019-01-24 14:13 | HPEPDOC ---
General Date of Admission Jan 24, 2019 at 13:53 Date of Service: Jan 24, 2019 Chief Complaint The patient is a 73-year-old male Who presented to the emergency room at the direction of nephrology because of an elevated lactic acid. History of Present Illness Patient is a 73-year-old male with a PMHx of Breast CA s/p surgery (on Tamoxifen), Hx of Prostate CA s/p surgery, HTn, Asthma / COPD, Gout and Hx of Alcoholism who presented to the emergency room at the direction of nephrology be cause of an elevated lactic acid level. Patient has reported that over the course of 2 years hes been experiencing shortness of breath and has been in the process of a workup with his primary care, pulmonary and cardiology. Patient was last seen by cardiology 2 weeks ago and was thought to have signs of fluid overload. He was started on a mild diuretic. Patient ultimately was sent to nephrology for further workup. Patient was found to have an elevated lactic acid on lab work and was subsequently advised to come to the emergency room for further evaluation. Patient was contacted yesterday, 01/23/2019 and advised to come to the emergency room. However, patient did not make it in until today. Currently, patient reports that he is not experiencing any nausea, vomiting, cough, chest pain, palpitations, abdominal pain, constipation, or discomfort with urination. Patient does report some loose bowel movements. Denies any fevers, denies any chills but does report feeling cold. Patient reports that his appetite is generally okay. Patient has reported a weight gain since his prior admission in January 2018. Patient has attested that he has remained abstinent from alcohol since his prior admission. Home Medications Scheduled Allopurinol (Allopurinol) 100 Mg Tab, 100 MG PO BID, (Reported) Aspirin (Aspir 81) 81 Mg Tablet.dr, 81 MG PO DAILY, (Reported) Budesonide/Formoterol (Symbicort 80-4.5 Mcg Inhaler) 6.9 Gm Hfa.aer.ad, 2 PUFF INH BID, (Reported) Ferrous Sulfate (Ferrous Sulfate) 325 Mg Tablet, 325 MG PO DAILY, (Reported) Furosemide (Furosemide) 20 Mg Tablet, 10 MG PO BID, (Reported) Nebivolol HCl (Bystolic) 5 Mg Tablet, 2.5 MG PO DAILY, (Reported) Potassium Chloride (Klor-Con M10) 10 Meq Tab.er.prt, 10 MEQ PO DAILY, (Reported) Propylene Glycol/Peg 400 (Systane 0.3-0.4% Eye Drops) 15 Ml Drops, 1 DROP OU DAILY, (Reported) Tamoxifen Citrate (Tamoxifen Citrate) 10 Mg Tablet, 20 MG PO DAILY, (Reported) Thiamine HCl (Thiamine HCl) 100 Mg Tablet, 100 MG PO DAILY, (Reported) Allergies Coded Allergies: amlodipine (Verified Allergy, Intermediate, RASH, 01/24/19) Past Medical History Medical History Breast CA s/p surgery (on Tamoxifen), Hx of Prostate CA s/p surgery, HTn, Asthma / COPD, Gout and Hx of Alcoholism Surgical History Prostate cancer resection Breast cancer resection Family History - Reviewed and currently noncontributory to current hospitalization Social History - Denies the use of tobacco or illicit drugs; she has extensive alcohol abuse history in the past, however, has remained abstinent of alcohol for one year - Denies recent travel or sick contacts - Lives with - 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; 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 Review of Systems Other systems 10 point review of systems complete, all negative otherwise stated in HPI Vital Signs - Vitals: BP 157/69, HR 58, RR 20, Sat 100%RA, Temp 97.6F - General: Lying in bed, No acute distress, Speaking in full sentences, AAOx3 - HEENT: NC, AT, PERRLA, EOMI - CVS: +S1S2 - Lungs: Fair air entry bilaterally, No appreciable wheezing / rales / rhonchi - Abdomen: Soft, Non-distended, Non-tender - Extremities: No lower extremity edema, No calf tenderness - Neuro: No focal motor or sensory deficit - Skin: No visible rashes Laboratory Data Labs 24H Laboratory Tests 2 01/24/19 10:50: Immature Granulocyte % (Auto) 0.3, White Blood Count 5.9, Red Blood Count 3.96L, Hemoglobin 12.0L, Hematocrit 34.9L, Mean Corpuscular Volume 88.1, Mean Corpuscular Hemoglobin 30.3, Mean Corpuscular Hemoglobin Concent 34.4, Red Cell Distribution Width 13.1, Platelet Count 157, Neutrophils (%) (Auto) 65.5, Lymphocytes (%) (Auto) 23.6L, Monocytes (%) (Auto) 7.5H, Eosinophils (%) (Auto) 1.9, Basophils (%) (Auto) 1.2H, Neutrophils # (Auto) 3.8, Lymphocytes # (Auto) 1.4L, Monocytes # (Auto) 0.4, Eosinophils # (Auto) 0.1, Basophils # (Auto) 0.1, Nucleated Red Blood Cells % (auto) 0.0, Anion Gap 11, Glomerular Filtration Rate 26.1L, Lactic Acid Level 4.4*H, Blood Urea Nitrogen 27H, Creatinine 2.57H, [place] um Level 139, Potassium Level 4.4, Chloride Level 108H, Carbon Dioxide Level 20L, Calcium Level 9.6, AU-Pkd-N-Type Natriuretic Peptide 1115H, Thyroid Stimulating Hormone (TSH) 1.210 01/24/19 12:17: Blood Gas Bicarbonate Standard 23.2, Arterial Blood pH 7.670*H, Arterial Blood Partial Pressure CO2 14.2*L, Arterial Blood Partial Pressure O2 154.3H, Arterial Blood Total CO2 16.4L, Arterial Blood HCO3 16.0L, Arterial Blood Base Excess - 1.6, Arterial Blood Oxygen Saturation 99.4H 01/24/19 12:45: Total Creatine Kinase 64, Creatine Kinase MB 1.0, Creatine Kinase MB Relative Index 1.56, Troponin I < 0.02 01/24/19 13:34: Urine Appearance CLEAR, Urine Color STRAW, Urine pH 5.0, Urine Specific [place] 1.006, Urine Protein NEGATIVE, Urine Glucose (UA) 1+H, Urine Ketones NEGATIVE, Urine Urobilinogen 0.2, Urine Bilirubin NEGATIVE, Urine Leukocyte Esterase NEGATIVE, Urine Blood NEGATIVE, Urine Nitrite NEGATIVE, Urine WBC (Auto) 1, Urine RBC (Auto) 1, Urine Hyaline Casts (Auto) 0, Urine Bacteria (Auto) NEGATIVE, Urine Squamous Epithelial Cells 0, Urine Sperm (Auto) , Urine Random Osmolality 334L CBC/BMP Laboratory Tests 01/24/19 10:50 Red Blood Count 3.96 L, Mean Corpuscular Volume 88.1, Mean Corpuscular Hemoglo bin 30.3, Mean Corpuscular Hemoglobin Concent 34.4, Red Cell Distribution Width 13.1, Neutrophils (%) (Auto) 65.5, Lymphocytes (%) (Auto) 23.6 L, Monocytes (%) (Auto) 7.5 H, Eosinophils (%) (Auto) 1.9, Basophils (%) (Auto) 1.2 H, Neutrophils # (Auto) 3.8, Lymphocytes # (Auto) 1.4 L, Monocytes # (Auto) 0.4, Eosinophils # (Auto) 0.1, Basophils # (Auto) 0.1, Calcium Level 9.6 Microbiology Microbiology 01/24/19 Blood Culture, Received Pending 01/24/19 Blood Culture, Received Pending 01/24/19 Urine Culture, Received Pending Plan / VTE VTE Prophylaxis Ordered?: Yes Plan Plan Lactic acidosis - Currently patient has no positives on review of systems - Patient remains afebrile and hemodynamically stable - ABG with respiratory alkalosis - Will check septic workup - Will check urine electrolytes, osmolality, urinalysis - Will start IV fluid hydration ARIA on CKD3 - Baseline Cr of 1.4-1.8 - Cr on admission of 2.57 - Will start IV fluid hydration Shortness of breath - CXR 01/24: No acute cardiopulmonary process appreciated. Breast CA - s/p surgery - c/w Tamoxifen Hx of Prostate CA - s/p surgery HTN - BP well controlled - c/w Nebivolol with holding parameters Asthma / COPD - No evidence of exacerbation - Patient reports that he seldom uses an inhaler Gout - Will hold allopurinol (re: Lactic acidosis) Hx of Alcoholism - Patient has reported abstinence of alcohol for about 1 year - c/w Thiamine DVT prophylaxis - Will start Heparin NIRANJAN MOSER MD Jan 24, 2019 14:13
[2019-01-24] MEDS ORDERED: PILL CUTTER 1 EACH XX PRN (14:15)
[2019-01-24 14:18] LABS: INR 1.1; PROTHROMBIN TIME 13.9 SECONDS (11.8-14.0)
[2019-01-24 14:19] LABS: PARTIAL THROMBOPLASTIN TIME 27.5 SECONDS (25.0-38.4)
[2019-01-24 14:24] LABS: POTASSIUM RANDOM URINE 30.9 MEQ/L
[2019-01-24] MEDS: HEPARIN SOD (PORCINE) 5000 UNITS/ML VIAL SC SCH ×2 (14:27→21:08)
[2019-01-24 14:28] LABS: ALBUMIN 3.5 GM/DL (3.2-5.2); ALT/SGPT 11 U/L (12-78); AMYLASE 70 U/L (25-115); BILIRUBIN,DIRECT 0.2 MG/DL (0.0-0.2); BILIRUBIN,TOTAL 0.5 MG/DL (0.2-1.0); C REACTIVE PROTEIN QUANTITATIV < 0.30 MG/DL (0.00-0.30); CK-MB VALUE MASS 1.1 NG/ML (<3.6); CPK CREATINE PHOSPHOKINASE 57 U/L (39-308); MB/CK RELATIVE INDEX 1.93 (< OR =4); TOTAL PROTEIN 6.6 GM/DL (6.4-8.2); TROPONIN I < 0.02 NG/ML (< 0.10)
--- NOTE | 2019-01-24 14:49 | ECHO ---
DATE OF PROCEDURE: 01/24/2019 HEIGHT: 70 inches WEIGHT 213 pounds. BODY SURFACE AREA: 2.15 meters squared Inpatient currently in the emergency room. REFERRING PHYSICIAN: Dr. Fuad Colindres INDICATIONS: Congestive heart failure (CHF) MEASUREMENTS: 2D Measurements: RV - 4.5 cm LV - 5.5 cm Septum -1.2 cm Posterior wall - 1.2 cm Aortic root - 3.4 cm LA - 4.0 cm LVEF - 65% Doppler Measurements: AV - 1.6 meters per second LVOT - 1.1 meters per second LVOT diameter - 1.9 cm MV - E 75, A - 45, E/A ratio - 1.7 Early mitral deceleration time - 297 milliseconds E prime - 6.38, A prime - 10, E/E prime ratio 11.9 PCWP - 16.5 mmHg PV - 0.8 meters per second Pulmonary artery acceleration time - inaccurate RVSP at least 54 mmHg IVC - could not be accurately visualized. COMMENTS: Sinus bradycardia with interventricular conduction disturbance. Episodic frequent isolated preventricular contractions (PVCs). Technically difficult study in light of the patient's chest configuration but some diagnostically useful information was still obtained. M-mode and two-dimensional echocardiography was performed with pulsed, continuous wave, color flow and tissue Doppler studies. Borderline concentric left ventricular hypertrophy with normal wall motion. Mildly dilated left atrium with impairment of left ventricular (LV) diastolic function with only mildly elevated current estimated mean left atrial pressure. Moderately dilated right heart chambers with degree of right ventricular free wall hypokinesis and estimated severe pulmonary hypertension. Mild aortic valvular sclerosis without functional abnormality. Normal aortic root size. Mild degenerative changes of his mitral valvular apparatus without apparent functional abnormality. Normal appearing tricuspid valve with at least moderate insufficiency. No apparent intracardiac mass or pericardial effusion.
[2019-01-24 15:20] VITALS: BP 107/89
[2019-01-24] MEDS: NS 1,000 ML IV SCH (16:24)
[2019-01-24] MEDS: SYMBICORT 80/4.5MCG INHALER 6GM INH SCH (19:54)
[2019-01-24] MEDS ORDERED: ALLOPURINOL 100 MG TAB PO SCH (21:00)
[2019-01-24 22:00] VITALS: BP 162/88
[2019-01-25] MEDS: NS 1,000 ML IV SCH ×2 (02:42→19:57)
[2019-01-25 05:20] VITALS: BP 156/69
[2019-01-25 06:04] LABS: BASO # 0.1 10^3/uL (0.0-0.2); BASO % 1.7 % (0.0-1.0); EOS # 0.2 10^3/uL (0.0-0.50); EOS % 4.7 % (0.0-3.0); HEMATOCRIT 31.5 % (42.0-52.0); HEMOGLOBIN 10.6 g/dl (13.5-17.5); LYMPH # 1.3 10^3/uL (1.5-4.5); LYMPH % 30.7 % (24.0-44.0); MEAN CORPUSCULAR HEMOGLOBIN 29.4 pg (27.0-33.0); MEAN CORPUSCULAR HGB CONC 33.7 g/dl (32.0-36.5); MEAN CORPUSCULAR VOLUME 87.5 fl (80.0-96.0); MONO # 0.5 10^3/uL (0.0-0.8); MONO % 11.6 % (0.0-5.0); NEUTROPHILS # 2.2 10^3/uL (1.8-7.7); NEUTROPHILS % 51.1 % (36.0-66.0); PLATELET COUNT, AUTOMATED 121 10^3/uL (150-450); WHITE BLOOD COUNT 4.2 10^3/uL (4.0-10.0)
[2019-01-25 06:27] LABS: CALCIUM LEVEL 8.5 MG/DL (8.8-10.2); CREATININE FOR GFR 2.09 MG/DL (0.70-1.30); GLOMERULAR FILTRATION RATE 33.1 (>42); MAGNESIUM LEVEL 1.6 MG/DL (1.8-2.4); POTASSIUM SERUM 3.8 MEQ/L (3.5-5.1)
[2019-01-25] MEDS: HEPARIN SOD (PORCINE) 5000 UNITS/ML VIAL SC SCH ×3 (06:40→21:49)
[2019-01-25 06:54] LABS: THYROID STIMULATING HORMONE 1.66 uIU/ML (0.358-3.740)
[2019-01-25] MEDS: SYMBICORT 80/4.5MCG INHALER 6GM INH SCH ×2 (07:26→20:45)
[2019-01-25] MEDS: ASPIRIN 81 MG ENTERIC TAB PO SCH (07:50)
[2019-01-25] MEDS: THIAMINE 100 MG TAB PO SCH (07:50)
[2019-01-25] MEDS: FERROUS SULFATE 325MG TAB PO SCH (07:50)
[2019-01-25] MEDS: MAG SULF 1GM/100ML (MAG RUN) 1 GM in APPROPRIATE DILUENT 1 EA IV SCH ×2 (07:51→08:59)
[2019-01-25] MEDS: TAMOXIFEN CITRATE 10 MG TAB PO SCH (07:51)
[2019-01-25] MEDS: NEBIVOLOL 5 MG TAB (BYSTOLIC) PO SCH (07:51)
--- NOTE | 2019-01-25 11:49 | IPNPDOC ---
Date Seen The patient was seen on 01/25/19. Progress Note SUBJECTIVE: Patient is a 73-year-old male with a PMHx of Breast CA s/p surgery (on Tamoxifen), Hx of Prostate CA s/p surgery, HTn, Asthma / COPD, Gout and Hx of Alcoholism who presented to the emergency room at the direction of nephrology because of an elevated lactic acid level. Sitting up on his chair eating breakfast. States that he continues to feel ok, and would really like to go home. He denies any infectious symptoms and slept well last night. He tolerated his breakfast with no problems. Denies abdominal pain, fever, chills, night sweat, trouble ambulating or trouble breathing. He would like to know when he can go home. OBJECTIVE PHYSICAL EXAMINATION: VITAL SIGNS: Please see below. GENERAL: Pleasent 73 male sitting up on the chair in No acute distress, Speaking in full sentences, AAOx3 HEENT: NC, AT, PERRLA, EOMI CARDIOVASCULAR: Positive S1 S2 Sounds, with no murmurs/rubs/gallops RESPIRATORY: Fair air entry bilaterally, No appreciable wheezing / rales / rhonchi ABDOMINAL:Soft, Non-distended, Non-tender EXTREMITIES:No lower extremity edema, No calf tenderness NEUROLOGICAL: No focal motor or sensory deficit LABORATORY DATA, IMAGING STUDIES, MICROBIOLOGY: Please see below. DVT prophylaxis ordered?: Yes heparin ASSESSMENT AND PLAN: This is a 73-year-old male admited for elevation for lactic acid level. PROBLEMS: Lactic acidosis (Resolved) - Continue to have no positives on review of systems - Patient remains afebrile and hemodynamically stable - ABG with respiratory alkalosis - Septic work up-negative. - urine electrolytes, osmolality, urinalysis - wNL - c/w 80 cc IV fluid hydration -recheck LA in the AM, if continues to be resolved possible secondary to allopurinol and can discharge in the AM. ARIA on CKD3 (improving) - Baseline Cr of 1.4-1.8 - c/w 80 cc IV fluid hydration Shortness of breath - ABG with respiratory alkalosis - CXR 01/24: No acute cardiopulmonary process appreciated. - Advised to try deep breathing teachiwue. lung exam within normal limits. Breast CA - s/p surgery - c/w Tamoxifen Hx of Prostate CA - s/p surgery HTN - BP well controlled - c/w Nebivolol with holding parameters Asthma / COPD - No evidence of exacerbation - stable Gout -continue to hold allopurinol possible in the sitting with kidney injury can contribute to elevated lactic acidosis. Hx of Alcoholism -reports abstinence of alcohol for about 1 year - c/w Thiamine DVT prophylaxis - c/w Heparin VS, I&O, 24H, Fishbone Vital Signs/I&O Vital Signs Date Time Temp Pulse Resp B/P (MAP) Pulse Ox O2 Delivery O2 Flow Rate FiO2 01/25/19 07:51 62 156/69 01/25/19 05:20 97.0 20 98 01/24/19 15:05 Room Air I&O- Last 24 Hours up to 6 AM0 01/25/19 05:59 Intake Total 2410 ml Output Total 0 ml Balance 2410 ml Laboratory Data 24H LABS Laboratory Tests 2 01/24/19 12:17: Blood Gas Bicarbonate Standard 23.2, Arterial Blood pH 7.670*H, Arterial Blood Partial Pressure CO2 14.2*L, Arterial Blood Partial Pressure O2 154.3H, Arterial Blood Total CO2 16.4L, Arterial Blood HCO3 16.0L, Arterial Blood Base Excess - 1.6, Arterial Blood Oxygen Saturation 99.4H 01/24/19 12:45: Total Creatine Kinase 64, Creatine Kinase MB 1.0, Creatine Kinase MB Relative Index 1.56, Troponin I < 0.02 01/24/19 13:34: Total Creatine Kinase 57, Creatine Kinase MB 1.1, Creatine Kinase MB Relative Index 1.93, Troponin I < 0.02, Prothrombin Time 13.9, Prothromb Time International Ratio 1.10, Activated Partial Thromboplast Time 27.5, Urine Appearance CLEAR, Urine Color STRAW, Urine pH 5.0, Urine Specific [place] 1.006, Urine Protein NEGATIVE, Urine Glucose (UA) 1+H, Urine Ketones NEGATIVE, Urine Urobilinogen 0.2, Urine Bilirubin NEGATIVE, Urine Leukocyte Esterase NEGATIVE, Urine Blood NEGATIVE, Urine Nitrite NEGATIVE, Urine WBC (Auto) 1, Urine RBC (Auto) 1, Urine Hyaline Casts (Auto) 0, Urine Bacteria (Auto) NEGATIVE, Urine Squamous Epithelial Cells 0, Urine Sperm (Auto) , Urine Random Osmolality 334L, Urine Random Creatinine 48.0, Urine Random Sodium 92, Urine Random Potassium 30.9, Urine Random Chloride 121, Osmolality 299, Aspartate Amino Transf (AST/SGOT) 9, Alanine Aminotransferase (ALT/SGPT) 11L, Alkaline Phosphatase 56, Total Bilirubin 0.5, Direct Bilirubin 0.2, C-Reactive Protein, Quantitative < 0.30, Total Protein 6.6, Albumin 3.5, Albumin/Globulin Ratio 1.13, Amylase Level 70 01/24/19 16:02: Lactic Acid Followup at 4 Hours 3.5*H 01/24/19 21:11: Lactic Acid Level 2.0 01/25/19 05:36: Immature Granulocyte % (Auto) 0.2, White Blood Count 4.2, Red Blood Count 3.60L, Hemoglobin 10.6L, Hematocrit 31.5L, Mean Corpuscular Volume 87.5, Mean Corpuscular Hemoglobin 29.4, Mean Corpuscular Hemoglobin Concent 33.7, Red Cell Distribution Width 13.2, Platelet Count 121L, Neutrophils (%) (Auto) 51.1, Lymphocytes (%) (Auto) 30.7, Monocytes (%) (Auto) 11.6H, Eosinophils (%) (Auto) 4.7H, Basophils (%) (Auto) 1.7H, Neutrophils # (Auto) 2.2, Lymphocytes # (Auto) 1.3L, Monocytes # (Auto) 0.5, Eosinophils # (Auto) 0.2, Basophils # (Auto) 0.1, Nucleated Red Blood Cells % (auto) 0.0, Anion Gap 8, Glomerular Filtration Rate 33.1L, Blood Urea Nitrogen 24H, Creatinine 2.09H, Sodium Level 142, Potassium Level 3.8, Chloride Level 114H, Carbon Dioxide Level 20L, Calcium Level 8.5L, Magnesium Level 1.6L, Thyroid Stimulating Hormone (TSH) 1.660 01/25/19 08:07: Lactic Acid Level 1.1 CBC/BMP Laboratory Tests 01/25/19 05:36 Red Blood Count 3.60 L, Mean Corpuscular Volume 87.5, Mean Corpuscular Hemoglobin 29.4, Mean Corpuscular Hemoglobin Concent 33.7, Red Cell Distribution Width 13.2, Neutrophils (%) (Auto) 51.1, Lymphocytes (%) (Auto) 30.7, Monocytes (%) (Auto) 11.6 H, Eosinophils (%) (Auto) 4.7 H, Basophils (%) (Auto) 1.7 H, Neutrophils # (Auto) 2.2, Lymphocytes # (Auto) 1.3 L, Monocytes # (Auto) 0.5, Eosinophils # (Auto) 0.2, Basophils # (Auto) 0.1, Calcium Level 8.5 L Microbiology Microbiology 01/24/19 Blood Culture - Preliminary, Resulted No growth after 24 hours . All specim... 01/24/19 Blood Culture - Preliminary, Resulted No growth after 24 hours . All specim... 01/24/19 Urine Culture, Received Pending GME ATTESTATION GME ATTESTATION My faculty preceptor for this patient encounter was physically present during the encounter and was fully available. All aspects of the patient interview, examination, medical decision making process, and medical care plan development were reviewed and approved by the faculty preceptor. The faculty preceptor is aware and concurs with the plan as stated in the body of this note and will attest to such by his/her cosignature. ATTENDING NOTE I, Traci Moser, have independently examined this patient and performed my own physical exam, as well as reviewed the documentation and edited where necessary. I have discussed in detail with the resident / student the findings and plan of treatment as documented by the resident / student and edited their note. I agree with their findings and treatment plan and have edited their documentation. I will continue to follow the patient during this hospital stay. JADA THOMAS DO Jan 25, 2019 11:49 TRACI MOSER MD Jan 25, 2019 16:06
--- NOTE | 2019-01-25 13:47 | CR ---
DATE OF CONSULTATION: 01/25/2019 CONSULTATION FOR: Dr. Traci Fernandez REASON FOR CONSULTATION: Acute renal failure and lactic acidosis. HISTORY OF PRESENT ILLNESS: Mr. Chamorro is a 72-year-old gentleman with history of alcoholism in the past which he quit last year. He also has history of breast cancer, status post surgery and currently on tamoxifen, history of prostate cancer status post transurethral resection of the prostate (TURP), history of hypertension, asthma and chronic obstructive pulmonary disease (COPD). He has history of congestive heart failure also and has been on diuretics by cardiology. He was recently seen in our office by Dr. Fontenot and was noticed to have known anion gap acidosis. Lactic acid level was checked and that came back high due to which the patient was advised to come to hospital for admission. He was admitted yesterday with a lactic acid level of 4.4. He was also noticed to have acute renal failure superimposed on chronic kidney disease as his serum creatinine had increased significantly from baseline. His diuretics have been stopped and he is being hydrated with IV fluid. He is feeling much better and the lactic acid level has improved. A nephrology consultation was requested yesterday and the patient is seen this morning. PAST MEDICAL HISTORY (Significant for): 1. History of chronic kidney disease. 2. History of gout. 3. History of COPD. 4. History of alcoholism in the past. 5. History of prostate cancer, status post TURP. 6. History of breast cancer, status post left mastectomy and currently on tamoxifen. 7. History of hypertension. PAST SURGICAL HISTORY (Significant for): 1. Prostate surgery. 2. Breast surgery. MEDICATIONS: His home medications include allopurinol 100 mg twice a day, aspirin 81 mg daily, Symbicort inhaler 80/4.5 mcg 2 puffs twice a day, ferrous sulfate 325 mg daily, furosemide 10 mg twice a day, spironolactone 25 mg daily, Bystolic 5 mg half a tablet daily, potassium chloride 10 mEq daily, tamoxifen 10 mg two tablets daily. and thiamine 100 mg daily. ALLERGIES: The patient reports allergy to AMLODIPINE. PERSONAL AND SOCIAL HISTORY: The patient has history of alcohol use in the past which he quit about a year ago. He denies any tobacco use. There is no history of recreational drug use. He lives with his . FAMILY HISTORY: Negative for end-stage renal disease. REVIEW OF SYSTEMS: The patient denies any fever or chills. He has no headache. Ears, nose and throat are unremarkable. Cardiovascular System: Significant for history of diastolic congestive heart failure. He denies any dyspnea, chest pain or leg edema. Respiratory System: Significant for asthma and COPD. At present he is asymptomatic. Gastrointestinal (GI) System: Negative for vomiting or diarrhea. Genitourinary () System: Significant for history of prostate cancer. He denies any dysuria or hematuria at present. Musculoskeletal System: Negative for any leg edema. He denies any arthritis or use of NSAID. Endocrine System: Negative for diabetes or thyroid problems. Hematological System: Significant for mild anemia. He denies any easy bruising or excessive bleeding. Psychosocial System: Negative for depression or anxiety. Skin: Negative for rash or ulcers. PHYSICAL EXAMINATION: The patient is awake and alert sitting in the chair at the time of my visit. His temperature is 97 degrees Fahrenheit, heart rate 62 per minute and blood pressure is 156/69 mmHg and oxygen saturation 98% on room air. His head is atraumatic. Neck is supple and without jugular venous distention (JVD) or thyroid enlargement. His heart sounds are regular and lungs sound clear to auscultation. Abdomen is soft and nontender and without any palpable organomegaly. Bowel sounds are normal. Extremities have no cyanosis or clubbing. Skin has no rash or ulcers. Neurologically, he is awake, alert and oriented times three. Yesterday, his hemoglobin was 12.0 and hematocrit 35. Today, his hemoglobin is down to 10.6 and hematocrit 31.5. Platelets are 121 and WBC 4.2. He had a blood gas yesterday which showed a pH of 7.67, pCO2 14.2 and pO2 154 with bicarb 23.2. INR was 1.10. Yesterday, his BUN was 27 and creatinine 2.57. Glucose 242, sodium 139 and potassium 4.4. CO2 was 20 and anion gap was 11. Lactic acid level initially 4.4 and calcium 9.4. A repeat lactic acid level was 3.5 yesterday afternoon and then came down to 2.0. This morning, his lactic acid level is 1.1. Sodium is 142, potassium 3.8, CO2 of 20, BUN 24 and creatinine 2.09. Glucose 109 and calcium 8.5. Urinalysis showed only 1 WBC and 1 RBC, without any proteinuria or blood. Chest x-ray was unremarkable. PROBLEMS: 1. Acute renal failure superimposed on chronic kidney disease. Most likely prerenal as the patient has been on diuretic and his oral intake has not been great. I did discuss with him at length about his oral intake and he hardly drinks about 1200 mL per day. I have advised him to increase his fluid intake to at least 64 ounces a day. We will hold his diuretics for now. 2. Lactic acidosis probably related to dehydration and hypovolemia. He does not have any signs of infection at present. His lactic acid improved only with IV fluid hydration. 3. Chronic kidney disease. The patient is known to have baseline chronic kidney disease and he will follow up in the office with Dr. Fontenot. 4. Anemia. As he is being hydrated, his anemia has become evident. We will have to monitor him closely. 5. Congestive heart failure. He does carry a diagnosis of diastolic congestive heart failure, but at present his volume status is very well compensated. We will hold his diuretics for now and follow up as an outpatient. Thank you for involving me in the care of Mr. Chamorro.
[2019-01-25 14:00] VITALS: BP 143/61
[2019-01-25 22:00] VITALS: BP 160/88
[2019-01-26] MEDS: NS 1,000 ML IV SCH (05:37)
[2019-01-26] MEDS: HEPARIN SOD (PORCINE) 5000 UNITS/ML VIAL SC SCH (05:37)
[2019-01-26 06:00] VITALS: BP 168/80
[2019-01-26 06:10] LABS: EOS # 0.2 10^3/uL (0.0-0.50); EOS % 4.6 % (0.0-3.0); HEMATOCRIT 30.9 % (42.0-52.0); HEMOGLOBIN 10.6 g/dl (13.5-17.5); LYMPH # 1.1 10^3/uL (1.5-4.5); LYMPH % 27.5 % (24.0-44.0); MEAN CORPUSCULAR HEMOGLOBIN 29.6 pg (27.0-33.0); MEAN CORPUSCULAR HGB CONC 34.3 g/dl (32.0-36.5); MEAN CORPUSCULAR VOLUME 86.3 fl (80.0-96.0); MONO # 0.4 10^3/uL (0.0-0.8); MONO % 9.9 % (0.0-5.0); NEUTROPHILS # 2.4 10^3/uL (1.8-7.7); NEUTROPHILS % 56.8 % (36.0-66.0); PLATELET COUNT, AUTOMATED 116 10^3/uL (150-450); RED BLOOD COUNT 3.58 10^6/uL (4.30-6.10); WHITE BLOOD COUNT 4.2 10^3/uL (4.0-10.0)
[2019-01-26 06:37] LABS: CALCIUM LEVEL 8.6 MG/DL (8.8-10.2); CREATININE FOR GFR 1.81 MG/DL (0.70-1.30); GLOMERULAR FILTRATION RATE 39.1 (>42); MAGNESIUM LEVEL 1.9 MG/DL (1.8-2.4); POTASSIUM SERUM 3.7 MEQ/L (3.5-5.1)
[2019-01-26] MEDS: SYMBICORT 80/4.5MCG INHALER 6GM INH SCH (07:27)
[2019-01-26 07:47] VITALS: BP 151/70
[2019-01-26] MEDS: FERROUS SULFATE 325MG TAB PO SCH (07:47)
[2019-01-26] MEDS: NEBIVOLOL 5 MG TAB (BYSTOLIC) PO SCH (07:47)
[2019-01-26] MEDS: THIAMINE 100 MG TAB PO SCH (07:47)
[2019-01-26] MEDS: ASPIRIN 81 MG ENTERIC TAB PO SCH (07:47)
[2019-01-26] MEDS: TAMOXIFEN CITRATE 10 MG TAB PO SCH (07:47)
--- NOTE | 2019-01-26 16:11 | DS.PDOC ---
Discharge Summary General Date of Admission Jan 25, 2019 at 16:07 Date of Discharge 01/26/19 Primary Care Physician: EMMY STORY MD [facility] Specialist/Consultants Involve: PILY KUNZ MD @ Discharge Summary PROCEDURES PERFORMED DURING STAY: None. ADMITTING/DISCHARGE DIAGNOSES: Lactic acidosis ARIA on CKD3 Shortness of breath Breast CA Hx of Prostate CA HTN Asthma / COPD Gout Hx of Alcoholism COMPLICATIONS/CHIEF COMPLAINT: Lactic Acid Acidosis. HISTORY OF PRESENT ILLNESS: Patient is a 73-year-old male with a PMHx of Breast CA s/p surgery (on Tamoxifen), Hx of Prostate CA s/p surgery, HTn, Asthma / COPD, Gout and Hx of Alcoholism who presented to the emergency room at the direction of nephrology because of an elevated lactic acid level. Patient has reported that over the course of 2 years hes been experiencing shortness of breath and has been in the process of a workup with his primary care, pulmonary and cardiology. Patient was last seen by cardiology 2 weeks ago and was thought to have signs of fluid overload. He was started on a mild diuretic. Patient ultimately was sent to nephrology for further workup. Patient was found to have an elevated lactic acid on lab work and was subsequently advised to come to the emergency room for further evaluation. Patient was contacted yesterday, 01/23/2019 and advised to come to the emergency room. However, patient did not make it in until today. Currently, patient reports that he is not experiencing any nausea, vomiting, cough, chest pain, palpitations, abdominal pain, constipation, or discomfort with urination. Patient does report some loose bowel movements. Denies any fevers, denies any chills but does report feeling cold. Patient reports that his appetite is generally okay. Patient has reported a weight gain since his prior admission in January 2018. Patient has attested that he has remained abstinent from alcohol since his prior admission. HOSPITAL COURSE: While the patient was admitted infectious workup was negative, urine electrolytes osmolarity and urinalysis was well were within normal limits prior starting him on IV fluids. We stopped his allopurinol which we believe was a contributing factor to his lactic acidemia in the setting of acute kidney injury. On the day of discharge his lactic acidemia and his ARIA resolved and patient was advised to follow-up with his primary care within a week and nephrology as scheduled. He had no complaints and no objections to the plan stated to him. Recheck of his lactic acid in the a.m. was within normal limits. DISCHARGE MEDICATIONS: Please see below. ALLERGIES: Please see below. PHYSICAL EXAMINATION ON DISCHARGE: VITAL SIGNS: Please see below. GENERAL: Pleasent 73 male sitting up on the chair in No acute distress, Speaking in full sentences, AAOx3 HEENT: Atraumatic normocephalic pupils are equal round and reactive extraocular movements are intact, neck is supple myocardial bruits appreciated. CARDIOVASCULAR: Positive S1 S2 Sounds, with no murmurs/rubs/gallops RESPIRATORY: Clear auscultate bilaterally No appreciable wheezing / rales / rhonchi ABDOMINAL: Positive bowel sounds in all 4 quadrants Soft, Non-distended, Non- tender EXTREMITIES: No lower extremity edema or calf tenderness NEUROLOGICAL: No focal motor or sensory deficit LABORATORY DATA: Please see below. IMAGING: Chest X-RAY Impression: No acute cardiopulmonary process appreciated. ACTIVITY: As tolerated. DIET: 2 gram sodium diet DISPOSITION: 01 Home, Self-Care. DISCHARGE INSTRUCTIONS: 1. f.u with pcp in 7-10 days. 2. f.u with nephrology within 14 days. 3. Hold furesmide till you follow up with you pcp, if systolic bp >160 take furesmide as scheduled. 4. stop allopurinol, possible contribution to elevated Lactic acid. 5. Continue to keep adequate hydration when discharged. 6. if symptoms return or worsen please call your pcp or return to the ER. DISCHARGE CONDITION: Stable. TIME SPENT ON DISCHARGE: Greater than 35 minutes. Vital Signs/I&Os Vital Signs Date Time Temp Pulse Resp B/P (MAP) Pulse Ox O2 Delivery O2 Flow Rate FiO2 01/26/19 07:47 66 151/70 01/26/19 06:00 97.4 20 99 01/24/19 15:05 Room Air I&O- Last 24 Hours up to 6 AM 01/26/19 05:59 Intake Total 600 ml Output Total 0 ml Balance 600 ml Laboratory Data Labs 24H Laboratory Tests 2 01/26/19 05:54: Immature Granulocyte % (Auto) 0.2, White Blood Count 4.2, Red Blood Count 3.58L, Hemoglobin 10.6L, Hematocrit 30.9L, Mean Corpuscular Volume 86.3, Mean Corpuscular Hemoglobin 29.6, Mean Corpuscular Hemoglobin Concent 34.3, Red Cell Distribution Width 13.3, Platelet Count 116L, Neutrophils (%) (Auto) 56.8, Lymphocytes (%) (Auto) 27.5, Monocytes (%) (Auto) 9.9H, Eosinophils (%) (Auto) 4.6H, Basophils (%) (Auto) 1.0, Neutrophils # (Auto) 2.4, Lymphocytes # (Auto) 1.1L, Monocytes # (Auto) 0.4, Eosinophils # (Auto) 0.2, Basophils # (Auto) 0.0, Nucleated Red Blood Cells % (auto) 0.0, Anion Gap 11, Glomerular Filtration Rate 39.1L, Blood Urea Nitrogen 22H, Creatinine 1.81H, Sodium Level 144, Potassium Level 3.7, Chloride Level 112H, Carbon Dioxide Level 21, Calcium Level 8.6L, Magnesium Level 1.9 CBC/BMP Laboratory Tests 01/26/19 05:54 Red Blood Count 3.58 L, Mean Corpuscular Volume 86.3, Mean Corpuscular Hemoglobin 29.6, Mean Corpuscular Hemoglobin Concent 34.3, Red Cell Distribution Width 13.3, Neutrophils (%) (Auto) 56.8, Lymphocytes (%) (Auto) 27.5, Monocytes (%) (Auto) 9.9 H, Eosinophils (%) (Auto) 4.6 H, Basophils (%) (Auto) 1.0, Neutrophils # (Auto) 2.4, Lymphocytes # (Auto) 1.1 L, Monocytes # (Auto) 0.4, Eosinophils # (Auto) 0.2, Basophils # (Auto) 0.0, Calcium Level 8.6 L Microbiology Microbiology 01/25/19 Blood Culture, Received Pending 01/25/19 Blood Culture, Received Pending 01/24/19 Blood Culture - Preliminary, Resulted 01/24/19 Blood Culture - Preliminary, Resulted No Growth after 48 hours. All Specime... 01/24/19 Urine Culture, Received Pending Discharge Medications Scheduled Aspirin (Aspir 81) 81 Mg Tablet.dr, 81 MG PO DAILY, (Reported) Budesonide/Formoterol (Symbicort 80-4.5 Mcg Inhaler) 6.9 Gm Hfa.aer.ad, 2 PUFF INH BID, (Reported) Ferrous Sulfate (Ferrous Sulfate) 325 Mg Tablet, 325 MG PO DAILY, (Reported) Nebivolol HCl (Bystolic) 5 Mg Tablet, 2.5 MG PO DAILY, (Reported) Potassium Chloride (Klor-Con M10) 10 Meq Tab.er.prt, 10 MEQ PO DAILY, (Reported) Propylene Glycol/Peg 400 (Systane 0.3-0.4% Eye Drops) 15 Ml Drops, 1 DROP OU DAILY, (Reported) Tamoxifen Citrate (Tamoxifen Citrate) 10 Mg Tablet, 20 MG PO DAILY, (Reported) Thiamine HCl (Thiamine HCl) 100 Mg Tablet, 100 MG PO DAILY, (Reported) Allergies Coded Allergies: amlodipine (Verified Allergy, Intermediate, RASH, 01/24/19) JADA THOMAS DO Jan 26, 2019 16:11
--- NOTE | 2019-01-26 17:54 | IPN ---
DATE: 01/26/2019 Mr. Chamorro is seen this morning on his bedside. He is sitting in the chair at the time of my visit. He is feeling much better and denies any nausea, vomiting, dyspnea, or chest pain. He feels that he is always a heavy breather, and that is his baseline. He is receiving intravenous (IV) fluid 80 per hour. PHYSICAL EXAMINATION: Temperature 97.4 degrees Fahrenheit, heart rate 66 per minute, respiratory rate 20 per minute, blood pressure 150/70 mm of mercury, and oxygen saturation 99%. Head is atraumatic. Neck is supple and without jugular venous distention (JVD) or thyroid enlargement. Heart sounds regular and lungs clear to auscultation. Abdomen soft and nontender, and bowel sounds are normal. Extremities have no cyanosis or clubbing. Neurologically, he is awake, alert, and oriented times three. Today's labs show WBC count 4.2, hemoglobin 10.6, hematocrit 30.9. Sodium 144, potassium 3.7, CO2 of 21, BUN 22, and creatinine 1.8. PROBLEMS: 1. Lactic acidosis, most likely related to dehydration and acute renal failure. His acidosis has already improved and resolved. 2. Acute renal failure superimposed on chronic kidney disease. The patient was felt to be dehydrated. I have discussed with him at length about need for increased fluid intake. His diuretics have been stopped. 3. History of diastolic congestive heart failure. I do not feel that the patient has any risk for congestive heart failure at this point. He has been getting dehydrated, and we will keep him off diuretics until his next visit to our office. At that point, we will re-evaluate him for need for diuretic. DISPOSITION: From a renal standpoint, the patient can be discharged to home today and will followup in our office in 1 week.
--- NOTE | 2019-01-26 21:36 | ECGEPIP ---
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
== END 2019-01-26 11:19 | disposition home or self-care (01) | DRG 683 ==
LOC: M ED 09:59 → M ED INP 13:53 → M MSPAV 15:21 → OBSVTOIN 01-25 16:07
PROVIDERS: ADMIT Internal Medicine; ATTEND Internal Medicine
DX: N17.9 Acute kidney failure, unspecified (principal); E87.2 Acidosis; I13.0 Hypertensive heart and chronic kidney disease with heart failure and stage 1 through stage 4 chronic kidney disease, or unspecified chronic kidney disease; J44.9 Chronic obstructive pulmonary disease, unspecified; E86.0 Dehydration; M10.9 Gout, unspecified; D64.9 Anemia, unspecified; F10.21 Alcohol dependence, in remission; I50.9 Heart failure, unspecified; N18.3 Chronic kidney disease, stage 3 (moderate); R73.9 Hyperglycemia, unspecified; Z85.46 Personal history of malignant neoplasm of prostate; Z85.3 Personal history of malignant neoplasm of breast; Z79.82 Long term (current) use of aspirin; Z79.899 Other long term (current) drug therapy; Z88.8 Allergy status to other drugs, medicaments and biological substances

== ENCOUNTER → 2019-03-23 | Outpatient (CLI) | payer MEDICARE, OTHER ==
[~2019-03-23] MED LIST changes: +FURO20TA2 PO; +KLOR10TA76 PO; +SYMB80INH INH; +SYST1SOL OU; +THIA100T7 PO
--- NOTE | 2019-03-23 15:46 | REP ---
BLADDER ULTRASOUND: Real-time sonographic evaluation of the urinary bladder is performed. Study is limited due to suboptimal distension of the bladder, which measured 3.6 x 5.1 x 3.4 cm. Volume is 41 mL. There is no gross mass or calculus. Trace free fluid is seen in the pelvis. There is no postvoid residual. IMPRESSION: Suboptimal distension of the urinary bladder. Patient states that the bladder feels full and is unable to fill the bladder further. After voiding there is no postvoid residual. Electronically Signed by Dick Avery MD 03/26/2019 04:26 P
== END ==
LOC: M RAD 13:22
PROVIDERS: ATTEND Internal Medicine Nephrology
DX: N17.9 Acute kidney failure, unspecified (principal); I50.32 Chronic diastolic (congestive) heart failure; E11.9 Type 2 diabetes mellitus without complications

== ENCOUNTER → 2019-10-15 | Outpatient (CLI) | payer MEDICARE, OTHER ==
[~2019-10-15] MED LIST changes: +D3-5CAP PO; +FEBU40TA4 PO; +FERR325T3 PO; +GLIM2TAB29 PO
--- NOTE | 2019-10-15 23:07 | REP ---
RIGHT WRIST, FOUR VIEWS: Four views of right wrist performed. No fracture or dislocation is seen. There is mild radiocarpal joint space narrowing. There is mild subchondral sclerosis and cystic change in the proximal scaphoid. There also appears to be subchondral cystic change in the triquetrum. IMPRESSION: Mild arthritic changes. Electronically Signed by Dick Avery MD 10/16/2019 04:52 P
--- NOTE | 2019-10-15 23:11 | REP ---
RIGHT HAND, FOUR VIEWS: Four views of right hand performed. There is no fracture or dislocation. There is mild radiocarpal joint space narrowing with subchondral sclerosis and cystic change in the proximal scaphoid. Scattered subchondral cysts are seen in the triquetrum and the capitate and hamate bones. There is mild joint space narrowing in the 1st metacarpophalangeal joint. There is moderately severe narrowing with spurring at the 2nd distal interphalangeal joint. Along the lateral margin of the 2nd middle phalanx distal aspect, there is a linear old avulsion fracture or ligamentous calcification. There is mild narrowing of the 3rd through the 5th distal interphalangeal joints. IMPRESSION: Arthritic changes as above, most significantly at the 2nd distal interphalangeal joint. Electronically Signed by Dick Avery MD 10/16/2019 04:53 P
== END ==
LOC: M ADAMS 11:14
PROVIDERS: ATTEND Nurse Practitioner Family
DX: M25.531 Pain in right wrist (principal); M25.541 Pain in joints of right hand

== ENCOUNTER → 2019-10-25 | Outpatient (REF) | payer MEDICARE, OTHER | LOC: M LABDRWAD 12:43 | PROVIDERS: ATTEND Internal Medicine Nephrology | DX: R73.9 Hyperglycemia, unspecified (principal) | CPT/HCPCS: 36415; G0480 ==

== ENCOUNTER → 2019-10-29 | Outpatient (REF) | payer MEDICARE, OTHER ==
[2019-10-29 12:56] LABS: BASO # 0.1 10^3/uL (0.0-0.2); BASO % 1.1 % (0.0-1.0); EOS # 0.3 10^3/uL (0.0-0.5); EOS % 3.7 % (0.0-3.0); HEMATOCRIT 37.1 % (42.0-52.0); HEMOGLOBIN 11.8 g/dl (13.5-17.5); LYMPH # 1.8 10^3/uL (1.5-5.0); LYMPH % 26.2 % (24.0-44.0); MEAN CORPUSCULAR HEMOGLOBIN 30.2 pg (27.0-33.0); MEAN CORPUSCULAR HGB CONC 31.8 g/dl (32.0-36.5); MEAN CORPUSCULAR VOLUME 94.9 fl (80.0-96.0); MONO # 0.7 10^3/uL (0.0-0.8); MONO % 9.7 % (0.0-5.0); NEUTROPHILS # 4.1 10^3/uL (1.5-8.5); PLATELET COUNT, AUTOMATED 195 10^3/uL (150-450); RED BLOOD COUNT 3.91 10^6/uL (4.30-6.10)
[2019-10-29 13:02] LABS: ALBUMIN 3.5 GM/DL (3.2-5.2); BILIRUBIN,TOTAL 0.3 MG/DL (0.2-1.0); CALCIUM LEVEL 8.9 MG/DL (8.8-10.2); CREATININE FOR GFR 2.38 MG/DL (0.70-1.30); GLOMERULAR FILTRATION RATE 28.4 (>42); PERCENT SATURATION 34.9 % (19.7-50.0); POTASSIUM SERUM 4.4 MEQ/L (3.5-5.1); TOTAL PROTEIN 6.7 GM/DL (6.4-8.2)
[2019-10-29 13:08] LABS: FOLATE 1.1 NG/ML
== END ==
LOC: M LABDRWAD 12:36
PROVIDERS: ATTEND Internal Medicine Hematology
DX: Z01.89 Encounter for other specified special examinations (principal)

== ENCOUNTER 2020-07-28 12:40 | Emergency (ER) | payer MEDICARE, OTHER ==
[~2020-07-28] VITALS: Ht 177.8 cm; Wt 106.9 kg
[~2020-07-28 12:40] MED LIST changes: +ASPI81CH33 PO; -ASPI81TA85 PO; +ASPI81TA86 PO
--- OUTSIDE RECORDS SUMMARY | 2020-07-28 12:47 | CCD ---
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 385503765 Problem Other malignant neoplasm of skin of trunk, except scrotum 173.5 Active 389831444 Problem Other malignant neoplasm of skin of ear and external auditory canal 173.2 Active 180939882 Problem Basal cell carcinoma of skin of other an d unspecified parts of face 173.31 Active 976777964 Problem 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 328367577 ALLERGIES Allergen (clinical drug ingredient) Drug/Non Drug Allergy do cumented on EMR Reaction Allergy Type Onset Date Status dicloxacillin Dicloxacillin Sodium([facility] Code:[address]-27) Unknown Drug Allergy Active ENCOUNTERS from 1945 to 2020-07-08 Encounter Location Date Provider Diagnosis [facility] D[facility]ology [address] [place] [address] Jun, Zach Borjas 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 Actinic keratosis L57.0 IMMUNIZATIONS No Information SOCIAL HISTORY Sex Assigned At : Social History Observation Description Sex Assigned At Unknown REASON FOR REFERRAL No Information VITAL SIGNS Weight 228 lbs Jun, Height 71 in Jun, BMI 31.80 kg/m2 Jun, Blood pressure systolic 147 mm Hg Jun, Blood pressure diastolic 83 mm Hg Jun, MEDICATIONS Medication SIG (Take, Route, Frequency, Duration) Notes Start Da te End Date Status Torsemide 5 MG 1 tablet Orally Once a day for 30 day(s) Active Allopurinol 300 MG 1 tablet Orally Once a day for 30 day(s) Active Fluorouracil 5 % 1 application Externally Twi ce a day for six weeks to area around chin scar. for 42 days Jun, Ac tive ICaps MV as directed Orally Active Lunesta 2 MG 1 tablet immediately before bedtime Orally prn for 30 da y(s) Active Viagra 50 mg 1 cap(s) Orally prn for 1 dose(s) Active Atenolol 50 MG 1 tablet Orally Once a day for 30 day(s) Active PROCEDURES No Information RESULTS No Results REASON FOR VISIT SCAP, chin MEDICAL (GENERAL) HISTORY Type Description Date Medical History Hypertension Medical History skin cancers Surgical History lower left buttock Surgical History prostatectomy Surgical History skin cancer excision Goals Section No Information Health Concerns No Information MEDICAL EQUIPMENT No Information MENTAL STATUS No Information FUNCTIONAL STATUS No Information ASSESSMENTS Encounter Date Diagnosis Assessment Notes Treatment Notes Treatm ent Clinical Notes Jun, 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 Given the location H high risk area, patient was treated with Mohs Micrographic Surgery. The deep margin was carefull examined and there was no squamous atypia noted. Epidermis was clinically clear upon resection and will treat with Efudex 5% bid for 6 weeks to entire chin for potential SCCIS given previous biopsy read. Donnelly protocol met in compliance with [facility] standards to include patient name and date of . Site confirmed by patient and anesthetized with lidocaine 1% with epinephrine. Area prepped and draped in a clean fashion. Lesion excised with a 45 degree bevel and marked with two hashes at 12'o'clock, and one hash at 3, 6, and 9'o'clock. Hemostasis achieved with hyfrecation. The process was repeated until cancer was cleared. Once tissue was cleared of cancer the area was promptly repaired. Estimated blood loss was 1mL. Please see scanned Mohs Map for lesion size, stages, and assessment. Cleared deep margins after one stage. Efudex to atypia at lateral margins. , Advancement Flap. A lateral based advancement flap was drawn proximal to the tumor site defect with a sterile marking pen. The entire area was infiltrated with 1% Xylocaine with 1:100,000 Epinephrine. The margins were incised as drawn to the level of the subcutaneous fat with a #15 blade, and the excess tissue was removed. Hemostasis was maintained with electrocautery. The lateral margins of the resulting defect and the underside of the advancement flap were undermined at the level of the subcutaneous fat with blunt and sharp scissor dissection. The advancement flap was advanced into position and redundant tissue was removed with the #15 blade and sharp scissor dissection. The secondary wounds were closed with deep buried subcutaneous sutures of 5.0 Monocryl. The wound edges were reapproximated with 5.0 Prolene. A sterile dressing was applied and full wound care instructions were given to the patient including handouts and emergency contact information. The patient left the room in good condition and was instructed to follow up in 1 week. Total size: 3.1 x 1.3 cm = 4.03 cm sq Jun, Actinic keratosis (ICD-10 - L57.0) PLAN OF TREATMENT Medication Medication Name Sig Start Date Stop Date Fluorouracil 5 % 1 application Externally Twi ce a day for six weeks to area around chin scar. for 42 days Jun, Treatment Notes Assessment Notes Clinical Notes Syringocystadenoma papilliferum Syringoc ytoma adenoma papiliiferum with notes squamous atypia at the lateral and deep margins. Given the location H high risk area, patient was treated with Mohs Micrographic Surgery. The deep margin was carefull examined and there was no squamous atypia noted. Epidermis was clinically clear upon resection and will treat with Efudex 5% bid for 6 weeks to entire chin for potential SCCIS given previous biopsy read.Donnelly protocol met in compliance with [facility] standards to include patient name and date of . Site confirmed by patient and anesthetized with lidocaine 1% with epinephrine. Area prepped and draped in a clean fashion. Lesion excised with a 45 degree bevel and marked with two hashes at 12'o'clock, and one hash at 3, 6, and 9'o'clock. Hemostasis achieved with hyfrecation. The process was repeated until cancer was cleared. Once tissue was cleared of cancer the area was promptly repaired. Estimated blood loss was 1mL. Please see scanned Mohs Map for lesion size, stages, and assessment.Cleared deep margins after one stage. Efudex to atypia at lateral margins., Advancement Flap. A lateral based advancement flap was drawn proximal to the tumor site defect with a sterile marking pen. The entire area was infiltrated with 1% Xylocaine with 1:100,000 Epinephrine. The margins were incised as drawn to the level of the subcutaneous fat with a #15 blade, and the excess tissue was removed. Hemostasis was maintained with electrocautery. The lateral margins of the resulting defect and the underside of the advancement flap were undermined at the level of the subcutaneous fat with blunt and sharp scissor dissection. The advancement flap was advanced into position and redundant tissue was removed with the #15 blade and sharp scissor dissection. The secondary wounds were closed with deep buried subcutaneous sutures of 5.0 Monocryl. The wound edges were reapproximated with 5.0 Prolene. A sterile dressing was applied and full wound care instructions were given to the patient including handouts and emergency contact information. The patient left the room in good condition and was instructed to follow up in 1 week.Total size: 3.1 x 1.3 cm = 4.03 cm sq Next Appt Details Provider Name:Zach Borjas, 07-09 11:45:00 AM, [address], [address], [place], [address], Insurance Providers Payer Name Payer Address Payer Phone Insured Name Patient Relati onship to Insured Coverage Start Date Coverage End Date [facility] [address] [address] [facility] [phone] LISETH PABON MEDICARE Part A and B [address] [facility] [phone] LISETH PABON
--- OUTSIDE RECORDS SUMMARY | 2020-07-28 12:47 | CCD ---
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 Code:[address]-11) Unknown Drug Allergy Active ENCOUNTERS from 1945 to 2020-07-09 Encounter Location Date Provider Diagnosis [facility] Dermatology [address] [place] [address] Jun, Zach Seunarlette Healing wound T14.90XD and V isit for suture removal Z48.02 IMMUNIZATIONS No Information SOCIAL HISTORY Sex Assigned At : Social History Observation Description Sex Assigned At Unknown REASON FOR REFERRAL No Information VITAL SIGNS No information MEDICATIONS Medication SIG (Take, Route, Frequency, Duration) Notes Start Da te End Date Status Doxycycline Hyclate 100 MG 1 capsule Orally bid for 10 day(s) Jun, Active PROCEDURES from 1945 to 2020-07-09 Procedure Date Ordered Result Body Site Suture Removal 2020-07-09 N/A RESULTS No Results REASON FOR VISIT s/r MEDICAL (GENERAL) HISTORY Type Description Date Medical History Hypertension Medical History skin cancers Surgical History lower left buttock Surgical History prostatectomy Surgical History skin cancer excision Goals Section No Information Health Concerns No Information MEDICAL EQUIPMENT No Information MENTAL STATUS No Information FUNCTIONAL STATUS No Information ASSESSMENTS Encounter Date Diagnosis Assessment Notes Treatment Notes Treatm ent Clinical Notes Jun, Healing wound (ICD-10 - T14.90XD) Jun, Visit for suture removal (ICD-10 - Z48.02) Well healed incision without evidence of infection to include erythema, purulent discharge or tenderness to palpation around site of healing. Patient currently without any specific complaints. After inspection, sutures were removed by non- physician office personnel. Non-physician office personnel reported that the removal went well and the patient left in stable condition. The patient was instructed to return to clinic anytime between 0700 and 1600 Tuesday-Tuesday for any issues relating to the site. If the dermatology clinic is not open, the patient was instructed to report to an emergency department. PLAN OF TREATMENT Medication Medication Name Sig Start Date Stop Date Doxycycline Hyclate 100 MG 1 capsule Orally bid for 10 day(s) Jun, Treatment Notes Assessment Notes Clinical Notes Visit for suture removal Well healed inc ision without evidence of infection to include erythema, purulent discharge or tenderness to palpation around site of healing. Patient currently without any specific complaints. After inspection, sutures were removed by non-physician office personnel. Non-physician office personnel reported that the removal went well and the patient left in stable condition. The patient was instructed to return to clinic anytime between 0700 and 1600 Tuesday-Tuesday for any issues relating to the site. If the dermatology clinic is not open, the patient was instructed to report to an emergency department. Next Appt Details Provider Name:Zach Borjas, 09-03 09:45:00 AM, [address], [address], [place], [address], Insurance Providers Payer Name Payer Address Payer Phone Insured Name Patient Relati onship to Insured Coverage Start Date Coverage End Date [facility] [address] [address] [facility] [phone] LISETH PABON MEDICARE Part A and B [address] [facility] [phone] LISETH PABON self
--- OUTSIDE RECORDS SUMMARY | 2020-07-28 12:48 | CCD ---
Author Author [facility] Organization [facility] Address Unknown Phone Unavailable Care Team Providers Care Sleeping Room Cleaner Name Role Phone Sergey, L Santa PA Unavailable Unavailable Sergey, L Santa PA Unavailable Unavailable Sergey, L Santa PA Unavailable Unavailable Sergey, L Santa PA Unavailable Unavailable Sergey, L Santa PA Unavailable Unavailable Sergey, L Santa PA Unavailable Unavailable Sergey, L Santa PA Unavailable Unavailable Sergey, L Santa PA Unavailable Unavailable Sergey, L Santa PA Unavailable Unavailable Sergey, L Santa PA Unavailable Unavailable Sergey, L Santa PA Unavailable Unavailable Sergey, L Santa PA Unavailable Unavailable Sergey, L Santa PA Unavailable Unavailable Sergey, L Santa PA Unavailable Unavailable Sergey, L Santa PA Unavailable Unavailable Sergey, L Santa PA Unavailable Unavailable Sergey, L Santa PA Unavailable Unavailable Sergey, L Santa PA Unavailable Unavailable Sergey, L Santa PA Unavailable Unavailable Sergey, L Santa PA Unavailable Unavailable Sergey, L Santa PA Unavailable Unavailable Sergey, L Santa PA Unavailable Unavailable Sergey, L Santa PA Unavailable Unavailable Vivian Fuentes MD Unavailable Unavailable Vivian Fuentes MD Unavailable Unavailable Vivian Fuentes MD Unavailable Unavailable Vivian Fuentes MD Unavailable Unavailable Vivian Fuentes MD Unavailable Unavailable Vivian Fuentes MD Unavailable Unavailable Vivian Fuentes MD Unavailable Unavailable Vivian Fuentes MD Unavailable Unavailable Vivian Fuentes MD Unavailable Unavailable Vivian Fuentes MD Unavailable Unavailable Sainz, Freida WHEEL WORKER Unavailable Unavailable Sainz, Freida WHEEL WORKER Unavailable Unavailable Sainz, Freida WHEEL WORKER Unavailable Unavailable Sainz, Freida WHEEL WORKER Unavailable Unavailable Sainz, Freida WHEEL WORKER Unavailable Unavailable Sainz, Freida WHEEL WORKER Unavailable Unavailable Sainz, Freida WHEEL WORKER Unavailable Unavailable Sainz, Freida WHEEL WORKER Unavailable Unavailable Sainz, Freida WHEEL WORKER Unavailable Unavailable Sainz, Freida WHEEL WORKER Unavailable Unavailable Sainz, Freida WHEEL WORKER Unavailable Unavailable Re-disclosure Warning The records that you are about to access may contain information from federally-assisted alcohol or drug abuse programs. If such information is present, then the following federally mandated warning applies: This information has been disclosed to you from records protected by federal confidentiality rules (42 CFR part 2). The federal rules prohibit you from making any further disclosure of this information unless further disclosure is expressly permitted by the written consent of the person to whom it pertains or as otherwise permitted by 42 CFR part 2. A general authorization for the release of medical or other information is NOT sufficient for this purpose. The Federal rules restrict any use of the information to criminally investigate or prosecute any alcohol or drug abuse patient.The records that you are about to access may contain highly sensitive health information, the redisclosure of which is protected by Article 27-F of the [facility] Public Health law. If you continue you may have access to information: Regarding HIV / AIDS; Provided by facilities licensed or operated by the [facility] Office of Mental Health; or Provided by the [facility] Office for People With Developmental Disabilities. If such information is present, then the following [facility] mandated warning applies: This information has been disclosed to you from confidential records which are protected by state law. State law prohibits you from making any further disclosure of this information without the specific written consent of the person to whom it pertains, or as otherwise permitted by law. Any unauthorized further disclosure in violation of state law may result in a fine or mcc sentence or both. A general authorization for the release of medical or other information is NOT sufficient authorization for further disc losure. Family History Family Member Name Family Member Gender Family Member Status Date o f Status Description Data Source(s) Unknown Unknown Problem MEDENT ([facility]) father side Unknown Unknown Problem MEDENT ([facility]) Unknown Male Problem MEDENT ([facility] () Unknown Male Problem MEDENT ([facility]) Unknown Unknown Problem [facility] ([facility] [place] Encounters Encounter Providers Location Date Indications Data Source(s ) [place] [address] [address] 07/09/2020 12:00:00 AM EST eCW1 ([facility]) ([facility]) [place] [address] [address] 07/02/2020 12:00:00 AM EST eCW1 ([facility]) Outpatient Attender: Santa ROSADO Main Office 02/12/2020 10:45:0 0 AM EDT MEDENT ([facility]) Outpatient Attender: Freida peoples 10/15/2019 10:45:00 AM EDT MEDENT ([facility]) Outpatient Referrer: Stevenson Fuentes MD 08/07/2019 01:18:0 0 PM EST [facility] Outpatient Referrer: Stevenson Fuentes MD 08/06/2019 09:10:0 0 AM EST [facility] Outpatient Referrer: Stevenson Fuentes MD 08/06/2019 09:09:0 0 AM EST [facility] Outpatient Referrer: Stevenson Fuentes MD 07/10/2019 01:47:0 0 PM EST [facility] Outpatient Referrer: Stevenson Fuentes MD 07/10/2019 12:52:0 0 PM EST [facility] Outpatient Attender: Santa ROSADO Main Office 07/04/2019 09:15:0 0 AM EST MEDENT ([facility]) Immunizations Vaccine Date Status Description Data Source(s) INFLUENZA VACCINE QUADRIVALENT (65 YR UP)/MF59 C.1/PF 05/01/2020 12:00:00 AM EST completed [facility] Medications Medication Brand Name Start Date Product Form Dose Route Admi nistrative Instructions Pharmacy Instructions Status Indications Reaction Description Data Source(s) doxycycline hyclate 100 MG Oral Capsule DOXYCYCLINE HYCLATE 07/09/2020 12:00:00 AM EST capsule 20 TAKE ONE CAPSULE BY MOUTH TW ICE A DAY FOR 10 DAYS TAKE ONE CAPSULE BY MOUTH TWICE A DAY FOR 10 DAYS SOLD: 07/10/2020 [facility] doxycycline hyclate 100 MG Oral Capsule Doxycycline Hy clate 100 MG Doxycycline Hyclate 100 MG 07/09/2020 12:00:00 AM EST 1.0 {capsule} active Doxycycline Hyclate 100 MG eCW1 ([facility]) 5 % 07/03/2020 12:00:00 AM EST cream 40 APPLY TWICE A DAY FOR 6 WEEKS TO AREA AROUND CHIN SCAR APPLY TWICE A DAY FOR 6 WEEKS TO AREA AROUND CHIN SCAR SOLD: 07/03/2020 [facility] Fluorouracil 50 MG/ML Topical Cream Fluorouracil 5 % Fluorou racil 5 % 07/02/2020 12:00:00 AM EST 1.0 {application} active Fluorouracil 5 % eCW1 ([facility]) Calcitriol 0.27265 MG Oral Capsule Calcitriol 02/11/2020 12:00:00 AM EDT ORAL active [facility] ([facility]) Furosemide 20 MG Oral Tablet Furosemide 07/03/2019 12:00:00 AM EST ORAL active [facility] ([facility]) febuxostat 40 MG Oral Tablet [Uloric] Uloric 07/03/2019 12:00:00 AM EST ORAL active [facility] ([facility]) Magnesium Chloride 535 MG Delayed Release Oral Tablet [Mag 6 4] Mag64 07/03/2019 12:00:00 AM EST ORAL active M EDENT ([facility]) 24 HR Glipizide 2.5 MG Extended Release Oral Tablet Glipizid e ER 07/03/2019 12:00:00 AM EST ORAL active M EDENT ([facility]) Ergocalciferol 87713 UNT Oral Capsule Vitamin D (Ergocalcife rol) 07/03/2019 12:00:00 AM EST ORAL active M EDENT ([facility]) Furosemide 20 MG Oral Tablet Furosemide 01/03/2019 12:00:00 AM EDT ORAL completed [facility] ([facility]) Insurance Providers Payer name Policy type / Coverage type Policy ID Covered democrat ID Covered democrat's relationship to fischer Policy Fischer Plan Information MEDICARE [id number] SP [id number] [facility] [id number] SP [id number] MEDICARE C [id number] S [id number] [id number] UMR O [id number] S [id number] [employer] [place] Other 0 Self 0 Medicare Part B [facility] Other 0 Se lf 0 Umr Medigap Part B [id number] Self [id number] Medicare (Part B) Medicare Primary [id number] Self [id number] [place] [facility] Ppo Medigap Part B [id number] Self [id number] [employer] [place] Other 0 Self 0 Medicare Part B of [facility] Other 0 Se lf 0 Umr Medigap Part B [id number] Self [id number] Medicare (Part B) Medicare Primary [id number] Self [id number] Umr/Uhc/[place] Medigap Part B [id number] Self [id number] Medicare Natl Gov't Servi Medicare Primary [id number] Self [id number] MEDICARE [id number] SP [id number] A Umr/Uhc/[place] Medigap Part B [id number] Self [id number] Medicare [place] Gov't Servi Medicare Primary [id number] Self [id number] Umr/Uhc/[place] Medigap Part B [id number] Self [id number] Medicare [place] Gov't Servi Medicare Primary [id number] Self [id number] Medicare [facility] Medicare Primary [id number] Self [id number] Umr Commercial [id number] Self [id number] [place] Medigap Part B [id number] Self [id number] [place] Medicare Primary [id number] Self [id number] Umr Medigap Part B [id number] Self [id number] Medicare (Part B) Medicare Primary [id number] Self [id number] Umr Medigap Part B [id number] Self [id number] Medicare (Part B) Medicare Primary [id number] Self [id number] SELF PAY SP [place] Medicare Primary [id number] Self [id number] UMR [facility] [id number] SP [id number] UMR [facility] [id number] SP [id number] [place] Medicare Primary [id number] Self [id number] MEDICARE C [id number] S [id number] A [place] Medicare Primary [id number] Self [id number] Umr Medigap Part B [id number] Self [id number] [place] Primary [id number] Self [id number] UMR U [id number] Self [id number] MEDICARE A [id number] Self [id number] A [place] U [id number] Self [id number] UMR [facility] [id number] SP [id number] [place] [id number] SP [id number] Medicare (Part B) Medicare Primary [id number] Self [id number] [place] PH[facility] Ppo Medigap Part B [id number] Self [id number] [place] PPO O [id number] S [id number] Medicare (Part B) Medicare Primary [id number] Self [id number] [place] Medigap Part B [id number] Self [id number] [place] Medicare Dme Medigap Part B [id number] Self [id number] Medicare Medicare Primary [id number] Self [id number] Medicare (Part B) Medicare Primary [id number] Self [id number] Medicare (Part B) Medicare Primary [id number] Self [id number] [place] [id number] SP [id number] [place] Medigap Part B [id number] Self [id number] Medicare Natl Gov't Servi Medicare Primary [id number] Self [id number] Medicare (Part B) Medicare Primary [id number] Self [id number] Medicare (Part B) Medicare Primary [id number] Self [id number] Medicare (Part B) Medicare Primary [id number] Self [id number] [place] (pr) Medigap Part B [id number] Self [id number] [place] Primary [id number] Self [id number] [place] U [id number] Self [id number] [place] (pr) Medigap Part B Self [place] Primary Self [place] [id number] SP [id number] POMCO POMCO Self LISETH CHAMORRO POMC O MEDICARE MEDICARE Self LISETH CHAMORRO MEDI CARE [place] Medigap Part B Self [place] Medicare Primary Self Medicare (Part B) Medicare Primary Self [place] Medigap Part B Self [place] Medicare Dme Medigap Part B Self [place] Medigap Part B Self Medicare Medicare Primary Self [place] Medicare Dme Medigap Part B Self Medicare Medicare Primary Self MEDICARE [id number] SP [id number] A SELF PAY 2 UNAVAILABLE 1 UNAVAILA BLE [place] PPO 2 [id number] 1 [id number] MEDICARE 4 [id number] 1 [id number] A [id number] A P UNAVAILABLE UNAVAILA BLE Surgeries/Procedures Procedure Description Date Indications Data Source(s) Suture Removal 07/09/2020 12:00:00 AM EST eCW1 ([facility]) ECG ROUTINE ECG W/LEAST 12 LDS W/I&R 02/12/2020 12:00: 00 AM EDT MEDENT ([facility]) ECG ROUTINE ECG W/LEAST 12 LDS W/I&R 07/04/2019 12:00: 00 AM EST MED[facility] ([facility]) Results ID Date Data Source [id number] 04/21/2020 01:22:00 PM EDT [facility] ([facility]) Name Value Range Interpretation Code Description Data Odalis rce(s) Supporting Document(s) Red Blood Count 3.98 4.70-6.20 [facility] ([facility]) White Blood Count 7.0 4.3-10.9 [facility] ([facility]) Hematocrit 38.2 39.0-50.0 MED[facility] ([facility]) Platelets 177 130-400 [facility] ([facility] Hemoglobin 12.6 13.0-17.0 [facility] ([facility]) ID Date Data Source [id number] 04/21/2020 01:22:00 PM EDT [facility] ([facility]) Name Value Range Interpretation Code Description Data Odalis rce(s) Supporting Document(s) Blood Urea Nitrogen 28.6 5-21 [facility] ([facility]) Creatinine 2.0 0.6-1.5 MED[facility] ([facility]) Glucose 265 70-100 [facility] [place] Glomerular filtration rate/1.73 sq M.pre dicted [Volume Rate/Area] in Serum or Plasma by Creatinine-based formula (MDRD) 33 [facility] ([facility]) Potassium 4.73 3.5-5.3 [facility] [place] Sodium 137.9 136-146 [facility] [place] Carbon Dioxide 26.3 20-32 [facility] Chloride 103.8 98-110 [facility] [place] Calcium 8.5 8.4-10.4 [facility] [place] Albumin 3.7 3.5-4.7 [facility] [place] Phosphorus 2.8 [facility] ([facility]) ID Date Data Source [id number] 12/17/2019 07:48:00 AM EDT [facility] ([facility]) Name Value Range Interpretation Code Description Data Odalis rce(s) Supporting Document(s) White Blood Count 6.4 4.3-10.9 [facility] Platelets 172 130-400 [facility] [place] Red Blood Count 3.94 4.70-6.20 [facility] Hemoglobin 12.3 13.0-17.0 [facility] ([facility]) Hematocrit 36.4 39.0-50.0 [facility] ([facility]) ID Date Data Source [id number] 12/17/2019 07:48:00 AM EDT MED[facility] ([facility]) Name Value Range Interpretation Code Description Data Odalis rce(s) Supporting Document(s) Magnesium Level 1.66 [facility] ([facility] [place] ID Date Data Source [id number] 12/17/2019 07:48:00 AM EDT MED[facility] ([facility]) Name Value Range Interpretation Code Description Data Odalis rce(s) Supporting Document(s) Glucose 289 70-100 [facility] [place] Blood Urea Nitrogen 21.9 5-21 [facility] ([facility] Creatinine 2.08 0.6-1.5 [facility] ([facility]) Glomerular filtration rate/1.73 sq M.pre dicted [Volume Rate/Area] in Serum or Plasma by Creatinine-based formula (MDRD) 31 [facility] ([facility]) Sodium 135.9 136-146 [facility] Chloride 103.8 98-110 [facility] Potassium 4.26 3.5-5.3 [facility] ([facility] Carbon Dioxide 24.2 20-32 [facility] ([facility]) Calcium 8.82 8.4-10.4 [facility] ([facility] Phosphorus 3.09 MED[facility] ([facility]) Albumin 3.8 3.5-4.7 [facility] ID Date Data Source [id number] 08/06/2019 12:00:00 AM EST [facility] Stevenson Bucio MD Patient Name: MICHELLE CHAMORRO [facility] Date of : 1945[place] [address] Date of Exam: 08/06/2019#: Fax: [phone] EXAM: MAMMO SCREENING WITH CADCLINICAL INFORMATION: Screening.History of right breast cancer.Comparison mammogram 01/05/18.Bilateral mammogram performed in the MLO and CC projections with 3Dtomosynthesis.There is evidence of prior surgery on the right with resection of most ofthe right breast tissue, with removal of the previously noted largeirregular mass in the upper/outer quadrant of the right breast. There ismild fibroglandular density scattered throughout the remaining rightbreast. The left breast demonstrates moderate diffuse fibroglandulartissue which has not significantly changed compared to the prior study. Nonew mass, architectural distortion or cluster of microcalcifications areseen.IMPRESSION:BI-RADS Category 2 - Benign Finding(s). Status post right breast surgeryfor breast cancer. No evidence of mass or architectural distortionbilaterally.TAWNY Pandey/Demetrius you for referring LISETH CHAMORRO to our office. Electronically Signed - MARLEY SIERRA MD 08/06/19 14:46 Name Value Range Interpretation Code Description Data Odalis rce(s) Supporting Document(s) Procedure Social History Code Duration Value Status Description Data Source(s ) Smoking 02/12/2020 12:00:00 AM EDT Patient has never smoked co mpleted Patient has never smoked MED[facility] ([facility]) Vital Signs ID Date Data Source UNK Name Value Range Interpretation Code Description Data Source(s) Diastolic blood pressure 83 mm[Hg] 83 mm[Hg] eCW1 ([facility]) Systolic blood pressure 147 mm[Hg] 147 mm[Hg] e CW1 ([facility]) Body mass index (BMI) [Ratio] 31.80 kg/m2 31.80 kg/m2 W1 ([facility]) Body height 71 [in_i] 71 [in_i] W1 ([facility]) Body weight 228 [lb_av] 228 [lb_av] W1 ([facility]) Diastolic blood pressure--sitting 76 mm[Hg] 76 mm[Hg] MEDENT ([facility]) Systolic blood pressure--sitting 126 mm[Hg] 126 mm[Hg] MEDENT ([facility]) Body mass index (BMI) [Ratio] 33.1 kg/m2 33.1 k g/m2 MEDENT ([facility]) Body height 70 [in_i] 70 [in_i] [facility] 5'10" Body weight 231.00 [lb_av] 231.00 [lb_av] MEDEN T ([facility]) Body mass index (BMI) [Ratio] 26.5 kg/m2 26.5 k g/m2 MEDENT ([facility]) Body height 71 [in_i] 71 [in_i] MEDENT ([facility]) 5'11" Body weight 190.00 [lb_av] 190.00 [lb_av] MEDEN T ([facility], [facility]) Body temperature 98.5 [degF] 98.5 [degF] [facility] Oxygen saturation in Arterial blood by Pulse oximetry 97 % 97 % [facility]) Respiratory rate 20 /min 20 /min [facility] ( [facility], [facility]) Heart rate 94 /min 94 /min [facility] ([facility], [facility]) Diastolic blood pressure 98 mm[Hg] 98 mm[Hg] [facility] Systolic blood pressure 158 mm[Hg] 158 mm[Hg] M EDENT ([facility]) Diastolic blood pressure--sitting 72 mm[Hg] 72 mm[Hg] MEDENT ([facility]) large cuff, Ra Systolic blood pressure--sitting 130 mm[Hg] 130 mm[Hg] MEDENT ([facility]) large cuff, Ra Heart rate 62 /min 62 /min [facility] ([facility]) Body mass index (BMI) [Ratio] 32.9 kg/m2 32.9 k g/m2 MEDENT ([facility]) Body height 70 [in_i] 70 [in_i] MEDENT ([facility]) 5'10" Body weight 229.00 [lb_av] 229.00 [lb_av] MEDEN T ([facility]) Patient Treatment Plan of Care Planned Activity Planned Date Details Description Data Source (s) doxycycline hyclate 100 MG Oral Capsule 07/09/2020 12:00:00 AM EST eCW1 ([facility]) Fluorouracil 50 MG/ML Topical Cream 07/02/2020 12:00:00 AM EST eCW1 ([facility])
--- NOTE | 2020-07-28 13:24 | REP ---
INDICATION: fall. COMPARISON: None. TECHNIQUE: Two views. FINDINGS: AP and lateral views of the left forearm demonstrate medial and lateral epicondylar spurring. There is moderate swelling about the medial epicondyle. Some olecranon and coronoid process spurring is noted.. There is a slightly impacted intra-articular fracture of the proximal radial head. Positive fat pad sign is seen indicating hemarthrosis.. No opaque foreign body noted. IMPRESSION: Moderate swelling about the medial epicondyle and medial epicondylar and lateral epicondylar spurring. Positive fat pad sign. Proximal radial head fracture with slight depression. Positive fat pad sign consistent with hemarthrosis. Consider elbow radiographs. <Electronically signed by Moreno Guillaume > 07/28/20 [id number]
--- NOTE | 2020-07-28 15:03 | REP ---
INDICATION: further eval fat pad on r/u. COMPARISON: Forearm series obtained earlier.. TECHNIQUE: Five views. FINDINGS: Five views of the left elbow demonstrate moderate soft tissue swelling about the medial epicondyle. There is a intra-articular slightly impacted fracture of the proximal radial head with positive anterior and posterior fat pad sign indicative of hemarthrosis. Medial and lateral epicondylar spurring are noted. 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 No ulnar or distal humeral fracture is seen. An avulsion fracture fragment of the is suspected off the medial epicondyle.. No opaque foreign body noted. IMPRESSION: Intra-articular slightly impacted fracture of the proximal radial head. Suspect acute avulsion fracture from the medial epicondyle. Medial and lateral epicondylar spurring. Some coronoid process spurring.. <Electronically signed by Moreno Guillaume > 07/28/20 1500
--- OUTSIDE RECORDS SUMMARY | 2020-07-28 15:20 | CCD ---
Author Author [facility] Organization [facility] Address Unknown Phone Unavailable Care Team Providers Care Senior Scrum Master Name Role Phone Sergey, L Santa PA [...] Vivian Fuentes MD Unavailable Unavailable Sainz, Freida APARTMENT COORDINATOR Unavailable Unavailable Sainz, Freida APARTMENT COORDINATOR Unavailable Unavailable Sainz, Freida APARTMENT COORDINATOR Unavailable Unavailable Sainz, Freida APARTMENT COORDINATOR Unavailable Unavailable Sainz, Freida APARTMENT COORDINATOR Unavailable Unavailable Sainz, Freida APARTMENT COORDINATOR Unavailable Unavailable Sainz, Freida APARTMENT COORDINATOR Unavailable Unavailable Sainz, Freida APARTMENT COORDINATOR Unavailable Unavailable Sainz, Freida APARTMENT COORDINATOR Unavailable Unavailable Sainz, Freida APARTMENT COORDINATOR Unavailable Unavailable Sainz, Freida APARTMENT COORDINATOR Unavailable Unavailable Re-disclosure Warning The records that [...] is protected by Article 27-F of the [facility] Public Health law. If you continue you may have access to information: Regarding HIV / AIDS; Provided by facilities licensed or operated by the [facility] Office of Mental Health; or Provided by the [facility] Office for People With Developmental Disabilities. If such information is present, then the following [facility] mandated warning applies: This information [...] law may result in a fine or care home sentence or both. A general authorization for the release of medical or other information is NOT sufficient authorization for further disc losure. Family History Family Member Name Family Member Gender Family Member Status Date o f Status Description Data Source(s) Unknown Unknown Problem MEDENT ([facility]) father side Unknown Unknown Problem [facility] ([facility]) Unknown Male Problem MEDENT ([facility]) () Unknown Male Problem MEDENT ([facility]) Unknown Unknown Problem [facility] ([facility] Encounters Encounter Providers Location Date Indications Data Source(s ) [place] [address] [address] [address] 07/09/2020 12:00:00 AM EST eCW1 ([facility]) ([facility]) [place] [address] [address] 07/02/2020 12:00:00 AM EST eCW1 ([facility]) Outpatient Attender: Santa ROSADO Main Office 02/12/2020 10:45:0 0 AM EDT MEDENT ([facility]) Outpatient Attender: Freida peoples 10/15/2019 10:45:00 AM EDT MEDENT ([facility]) Outpatient Referrer: Stevenson [...] 0 AM EST MEDENT ([facility]) Immunizations Vaccine Date Status Description [...] A DAY FOR 10 DAYS SOLD: 07/10/2020 [facility] doxycycline hyclate 100 MG Oral Capsule Doxycycline Hy clate 100 MG Doxycycline Hyclate 100 MG 07/09/2020 12:00:00 AM EST 1.0 {capsule} active Doxycycline Hyclate 100 MG eCW1 ([facility]) 5 % 07/03/2020 12:00:00 AM EST cream 40 APPLY TWICE A DAY FOR 6 WEEKS TO AREA AROUND CHIN SCAR APPLY TWICE A DAY FOR 6 WEEKS TO AREA AROUND CHIN SCAR SOLD: 07/03/2020 [facility] Fluorouracil 50 MG/ML Topical Cream Fluorouracil 5 % Fluorou racil 5 % 07/02/2020 12:00:00 AM EST 1.0 {application} active Fluorouracil 5 % eCW1 ([facility]) Calcitriol 0.23476 MG Oral Capsule Calcitriol 02/11/2020 12:00:00 AM EDT ORAL active MED[facility] ([facility]) Furosemide 20 MG Oral Tablet Furosemide 07/03/2019 12:00:00 AM EST ORAL active MEDENT ([facility]) febuxostat 40 MG Oral Tablet [Uloric] Uloric 07/03/2019 12:00:00 AM EST ORAL active [facility] ([facility]) Magnesium Chloride 535 MG Delayed Release Oral Tablet [Mag 6 4] Mag64 07/03/2019 12:00:00 AM EST ORAL active M EDENT ([facility]) 24 HR Glipizide 2.5 MG Extended Release Oral Tablet Glipizid e ER 07/03/2019 12:00:00 AM EST ORAL active M EDENT ([facility]) Ergocalciferol 39183 UNT Oral Capsule Vitamin D (Ergocalcife rol) 07/03/2019 12:00:00 AM EST ORAL active M EDENT ([facility]) Furosemide 20 MG Oral Tablet Furosemide 01/03/2019 12:00:00 AM EDT ORAL completed MED[facility] ([facility]) Insurance Providers Payer name Policy type / Coverage type Policy ID Covered republican ID Covered republican's relationship to fischer Policy Fischer Plan Information MEDICARE [id number] SP [id number] [facility] [id number] SP [id number] MEDICARE C [id number] S [id number] Y28 UMR O [id number] S [id number] [employer] [place] Other 0 Self 0 Medicare Part B [facility] Other 0 Se lf 0 Umr Medigap Part B [id number] Self [id number] Medicare (Part B) Medicare Primary [id number] Self [id number] [place] [facility] Ppo Medigap Part B [id number] Self [id number] [employer] [place] Other 0 Self 0 Medicare Part B of [facility] Other 0 Se lf 0 Umr Medigap Part B [id number] Self [id number] Medicare (Part B) Medicare Primary [id number] Self [id number] Umr/Uhc/[place] Medigap Part B [id number] Self [id number] Medicare Natl Gov't Servi Medicare Primary [id number] Self [id number] MEDICARE [id number] SP [id number] A Umr/Uhc/[place] Medigap Part B [id number] Self [id number] Medicare [place] Gov't Servi Medicare Primary [id number] Self [id number] Umr/Uhc/[place] Medigap Part B [id number] Self [id number] Medicare [place] Gov't Servi Medicare Primary [id number] Self [id number] Medicare [facility] Medicare Primary [id number] Self [id number] Umr Commercial [id number] Self [id number] [place] Medigap Part B [id number] Self [id number] [place] Medicare Primary [id number] Self [id number] Umr Medigap Part B [id number] Self [id number] Medicare (Part B) Medicare Primary [id number] Self [id number] Umr Medigap Part B [id number] Self [id number] Medicare (Part B) Medicare Primary [id number] Self [id number] SELF PAY SP [place] Medicare Primary [id number] Self [id number] UMR [facility] CARE [id number] SP [id number] [facility] [id number] SP [id number] [place] Medicare Primary [id number] Self [id number] MEDICARE C [id number] S [id number] A [place] Medicare Primary [id number] Self [id number] Umr Medigap Part B [id number] Self [id number] [place] Primary [id number] Self [id number] UMR U [id number] Self [id number] MEDICARE A [id number] Self [id number] A [place] U [id number] Self [id number] UMR [facility] CARE [id number] SP [id number] [place] [id number] SP [id number] Medicare (Part B) Medicare Primary [id number] Self [id number] [place] PH[employer] Ppo Medigap Part B [id number] Self [id number] [employer] PPO O [id number] S [id number] Medicare (Part B) Medicare Primary [id number] Self [id number] [place] Medigap Part B [id number] Self [id number] [place] Medicare Dme Medigap Part B [id number] Self [id number] Medicare Medicare Primary [id number] Self [id number] Medicare (Part B) Medicare Primary [id number] Self [id number] Medicare (Part B) Medicare Primary [id number] Self [id number] [place] [id number] SP [id number] [place] Medigap Part B [id number] Self [id number] Medicare Natl Gov't Servi Medicare Primary [id number] Self [id number] Medicare (Part B) Medicare Primary [id number] Self [id number] Medicare (Part B) Medicare Primary [id number] Self [id number] Medicare (Part B) Medicare Primary [id number] Self [id number] [place] (pr) Medigap Part B [id number] Self [id number] [place] Primary [id number] Self [id number] [place] U [id number] Self [id number] [place] (pr) Medigap Part B Self [place] Primary Self [place] [id number] SP [id number] POMCO POMCO Self LISETH CHAMORRO POMC O MEDICARE MEDICARE Self LISETH CHAMORRO MEDI CARE [place] Medigap Part B Self [place] Medicare Primary Self Medicare (Part B) Medicare Primary Self [place] Medigap Part B Self [place] Medicare Dme Medigap Part B Self [place] Medigap Part B Self Medicare Medicare Primary Self [place] Medicare Dme Medigap Part B Self Medicare Medicare Primary Self MEDICARE [id number] SP [id number] A SELF PAY 2 UNAVAILABLE 1 UNAVAILA BLE [place] PPO 2 [id number] 1 [id number] MEDICARE 4 [id number] 1 [id number] A [id number] A P UNAVAILABLE UNAVAILA BLE Surgeries/Procedures Procedure Description Date Indications Data Source(s) Suture Removal 07/09/2020 12:00:00 AM EST eCW1 ([facility]) ECG ROUTINE ECG W/LEAST 12 LDS W/I&R 02/12/2020 12:00: 00 AM EDT MEDENT ([facility]) ECG ROUTINE ECG W/LEAST 12 LDS W/I&R 07/04/2019 12:00: 00 AM EST MEDENT ([facility]) Results ID Date Data Source [id number] 04/21/2020 01:22:00 PM EDT MED[facility] ([facility]) Name Value Range Interpretation Code Description Data Odalis rce(s) Supporting Document(s) Red Blood Count 3.98 4.70-6.20 [facility] ([facility]) White Blood Count 7.0 4.3-10.9 [facility] ([facility]) Hematocrit 38.2 39.0-50.0 MED[facility] ([facility]) Platelets 177 130-400 [facility] ([facility]) Hemoglobin 12.6 13.0-17.0 MED[facility] ([facility]) ID Date Data Source [id number] 04/21/2020 01:22:00 PM EDT MED[facility] ([facility]) Name Value Range Interpretation Code Description Data Odalis rce(s) Supporting Document(s) Blood Urea Nitrogen 28.6 5-21 [facility] ([facility]) Creatinine 2.0 0.6-1.5 MED[facility] ([facility]) Glucose 265 70-100 [facility] ([facility] ID Date Data Source [id number] 12/17/2019 07:48:00 AM EDT MED[facility] ([facility]) Name Value Range Interpretation Code [...] [facility]) ID Date Data Source [id number] 12/17/2019 07:48:00 AM EDT MED[facility] ([facility]) Name Value Range Interpretation Code Description Data Odalis rce(s) Supporting Document(s) Magnesium Level 1.66 [facility] ([facility] ID Date Data Source [id number] 12/17/2019 07:48:00 AM EDT MED[facility] ([facility]) Name Value Range Interpretation Code Description Data Odalis rce(s) Supporting Document(s) Glucose 289 70-100 [facility] ([facility] Blood Urea Nitrogen 21.9 5-21 [facility] ([facility] Creatinine 2.08 0.6-1.5 MED[facility] ([facility]) Glomerular filtration rate/1.73 sq M.pre dicted [Volume Rate/Area] in Serum or Plasma by Creatinine-based formula (MDRD) 31 MEDENT ([facility]) Sodium 135.9 136-146 [facility] ([facility]) Chloride 103.8 98-110 [facility] ([facility]) Potassium 4.26 3.5-5.3 [facility] ([facility]) Carbon Dioxide 24.2 20-32 MED[facility] ([facility]) Calcium 8.82 8.4-10.4 [facility] ([facility]) Phosphorus 3.09 MED[facility] ([facility]) Albumin 3.8 3.5-4.7 [facility] ID Date Data Source [id number] 08/06/2019 12:00:00 AM EST [facility] Stevenson Bucio MD Patient Name: MICHELLE CHAMORRO [facility] Date of : 1945[place] [address] Date of Exam: 08/06/2019#: Fax: [phone] EXAM: [...] Patient has never smoked MEDENT ([facility]) Vital Signs ID Date Data Source UNK Name Value Range Interpretation Code Description Data Source(s) Diastolic blood pressure 83 mm[Hg] 83 mm[Hg] eCW1 ([facility]) Systolic blood pressure 147 mm[Hg] 147 mm[Hg] e CW1 ([facility]) Body mass index (BMI) [Ratio] 31.80 kg/m2 31.80 kg/m2 W1 ([facility]) Body height 71 [in_i] 71 [in_i] W1 ([facility]) Body weight 228 [lb_av] 228 [lb_av] W1 ([facility]) Diastolic blood pressure--sitting 76 mm[Hg] 76 mm[Hg] MEDENT ([facility]) Systolic blood pressure--sitting 126 mm[Hg] 126 mm[Hg] MEDENT ([facility]) Body mass index (BMI) [Ratio] 33.1 kg/m2 33.1 k g/m2 MEDENT ([facility]) Body height 70 [in_i] 70 [in_i] [facility]) 5'10" Body weight 231.00 [lb_av] 231.00 [lb_av] MEDEN T ([facility]) Body mass index (BMI) [Ratio] 26.5 kg/m2 26.5 k g/m2 MEDENT ([facility]) Body height 71 [in_i] 71 [in_i] MEDENT ([facility]) 5'11" Body weight 190.00 [lb_av] 190.00 [lb_av] MEDEN T ([facility]) Body temperature 98.5 [degF] 98.5 [degF] [facility] Oxygen saturation in Arterial blood by Pulse oximetry 97 % 97 % [facility] ([facility]) Respiratory rate 20 /min 20 /min [facility] ( [facility]) Heart rate 94 /min 94 /min [facility] ([facility]) Diastolic blood pressure 98 mm[Hg] 98 mm[Hg] [facility] ([facility]) Systolic blood pressure 158 mm[Hg] 158 mm[Hg] M EDENT ([facility]) Diastolic blood pressure--sitting 72 mm[Hg] 72 mm[Hg] MEDENT ([facility]) large cuff, Ra Systolic blood pressure--sitting 130 mm[Hg] 130 mm[Hg] MEDENT ([facility]) large cuff, Ra Heart rate 62 /min 62 /min [facility] ([facility]) Body mass index (BMI) [Ratio] 32.9 kg/m2 32.9 k g/m2 MED[facility] ([facility]) Body height 70 [in_i] 70 [in_i] MED[facility] ([facility]) 5'10" Body weight 229.00 [lb_av] 229.00 [lb_av] MEDEN T ([facility]) Patient Treatment Plan of Care Planned Activity Planned Date Details Description Data Source (s) doxycycline hyclate 100 MG Oral Capsule 07/09/2020 12:00:00 AM EST eCW1 ([facility]) Fluorouracil 50 MG/ML Topical Cream 07/02/2020 12:00:00 AM EST eCW1 ([facility])
[2020-07-28 15:26] VITALS: BP 146/80
== END 2020-07-28 15:23 | disposition home or self-care (01) ==
LOC: M ED 12:40
DX: S52.182A Other fracture of upper end of left radius, initial encounter for closed fracture (principal); W00.0XXA Fall on same level due to ice and snow, initial encounter; Y92.481 Parking lot as the place of occurrence of the external cause; I11.0 Hypertensive heart disease with heart failure; I50.9 Heart failure, unspecified; J45.909 Unspecified asthma, uncomplicated; F41.9 Anxiety disorder, unspecified; Z79.899 Other long term (current) drug therapy; Z79.82 Long term (current) use of aspirin; Z88.1 Allergy status to other antibiotic agents

== ENCOUNTER → 2020-08-14 | Outpatient (CLI) | payer MEDICARE, OTHER ==
--- NOTE | 2020-08-14 11:06 | REP ---
INDICATION: F/U FX. COMPARISON: 07/28/2020 TECHNIQUE: AP and lateral views of the left elbow. FINDINGS: Radial head fracture is again appreciated and healing callus formation cannot be excluded. There is continued evidence for surrounding soft tissue swelling, joint effusion, and chronic age-related degenerative changes. IMPRESSION: Radial head fracture and associated posttraumatic findings again noted. <Electronically signed by Everton Ruiz > 08/14/20 1105
== END ==
LOC: M SOG 09:37
PROVIDERS: ATTEND Orthopaedic Surgery Sports Medicine
DX: S52.122D Displaced fracture of head of left radius, subsequent encounter for closed fracture with routine healing (principal); X58.XXXD Exposure to other specified factors, subsequent encounter

== ENCOUNTER → 2020-09-11 | Outpatient (CLI) | payer MEDICARE, OTHER ==
--- NOTE | 2020-09-11 11:07 | REP ---
INDICATION: F/U FX. COMPARISON: 08/14/2020 TECHNIQUE: AP, lateral, oblique views of the left elbow. FINDINGS: Radial head fracture is again identified. Surrounding age-related degenerative changes again noted. IMPRESSION: Healing right radial head fracture. <Electronically signed by Everton Ruiz > 09/11/20 1109
== END ==
LOC: M SOG 10:32
PROVIDERS: ATTEND Orthopaedic Surgery Sports Medicine
DX: S52.122D Displaced fracture of head of left radius, subsequent encounter for closed fracture with routine healing (principal); X58.XXXD Exposure to other specified factors, subsequent encounter; Y92.89 Other specified places as the place of occurrence of the external cause

== ENCOUNTER 2021-03-30 11:38 | Inpatient (IN) | payer MEDICARE, OTHER ==
[~2021-03-30] VITALS: Ht 180.3 cm; Wt 105.9 kg
[~2021-03-30 11:38] MED LIST changes: -KLOR10TA76 PO; +POTA-136 PO
[2021-03-30] MEDS ORDERED: CALC1CAP31 PO (12:12)
[2021-03-30] MEDS ORDERED: GLIP5TAB20 PO (12:12)
[2021-03-30] MEDS ORDERED: ERGO500029 PO (12:12)
--- NOTE | 2021-03-30 13:25 | REP ---
INDICATION: TRAUMA COMPARISON: 01/24/2019 TECHNIQUE: Portable AP view of the chest FINDINGS: The mediastinum and cardiac silhouette are stable and within normal limits for portable technique. The lung coles are clear without acute consolidation, effusion, or pneumothorax. Skeletal structures are intact. IMPRESSION: No acute cardiopulmonary process appreciated. <Electronically signed by Everton Ruiz > 03/30/21 [id number]
--- NOTE | 2021-03-30 13:32 | REP ---
INDICATION: syncope;fall. COMPARISON: None. TECHNIQUE: Helical scanning is acquired and overlapping 2 mm high resolution axial images were generated and reviewed at bone and soft tissue window settings. Coronal and sagittal multiplanar re-formations images are generated. FINDINGS: There is no evidence of cervical spine element fracture. No skull base fracture is seen. Cervical vertebral body heights are preserved. Alignment is normal. Facet joints are normally aligned bilaterally at each cervical level on multiplanar re-formations images. There is no evidence of intraspinal or paraspinal hematoma. No extra vertebral abnormality is seen. There is some straightening of the normal cervical lordosis. There is osteoarthritic facet hypertrophy in the midcervical spine most pronounced on the left at C 3 4 and C4-5. There is degenerative disc narrowing and anterior osteophyte formation in the cervical spine. Bridging large osteophytes are seen at C5-6 and and at C6-7. IMPRESSION: Degenerative spondylosis changes as noted above. No acute bony abnormality. <Electronically signed by Moreno Guillaume > 03/30/21 [id number]
--- NOTE | 2021-03-30 13:33 | REP ---
INDICATION: syncope;fall COMPARISON: 02/26/2018 TECHNIQUE: Axial noncontrast images from the skull base to the thoracic inlet with coronal reformations. This CT examination was performed using the following dose reduction techniques: Automated exposure control, adjustment of mA and/or kv according to the patient's size, and use of iterative reconstruction technique. FINDINGS: Hyperdense mass in the left cerebellar hemisphere is suspected although evaluation is somewhat limited due to technical factors and streak artifact. Atrophy with periventricular leukomalacia and microvascular ischemic changes are appreciated. The ventricles and sulci are symmetric. Avery-white differentiation is maintained. There is no evidence for acute intracranial hemorrhage. No extra-axial fluid collection. Calvarium is intact. Paranasal sinuses and mastoid air cells are clear. IMPRESSION: 1. Suspicious for hyperdense mass in the left cerebellar hemisphere. 2. Chronic atrophy and microvascular ischemic changes are noted. No evidence for intracranial or extra-axial hemorrhage. <Electronically signed by Everton Ruiz > 03/30/21 [id number]
[2021-03-30 13:38] LABS: BASO # 0.1 10^3/uL (0.0-0.2); BASO % 0.9 % (0.0-1.0); EOS # 0.2 10^3/uL (0.0-0.5); EOS % 2.3 % (0.0-3.0); HEMOGLOBIN 12.7 g/dl (13.5-17.5); LYMPH # 1.1 10^3/uL (1.5-5.0); LYMPH % 11.1 % (24.0-44.0); MEAN CORPUSCULAR HEMOGLOBIN 29.9 pg (27.0-33.0); MEAN CORPUSCULAR HGB CONC 32.6 g/dl (32.0-36.5); MEAN CORPUSCULAR VOLUME 91.8 fl (80.0-96.0); MONO # 0.7 10^3/uL (0.0-0.8); MONO % 6.6 % (2.0-8.0); NEUTROPHILS # 7.9 10^3/uL (1.5-8.5); NEUTROPHILS % 78.9 % (36.0-66.0); PLATELET COUNT, AUTOMATED 156 10^3/uL (150-450); RED BLOOD COUNT 4.25 10^6/uL (4.30-6.10)
[2021-03-30 13:42] LABS: GLUCOSE, URINE (UA) MANUAL NEGATIVE (NEGATIVE); KETONE, URINE MANUAL 1+ mg/dL (NEGATIVE)
[2021-03-30 13:43] LABS: BILIRUBIN, URINE MANUAL NEGATIVE (NEGATIVE); UROBILINOGEN, URINE MANUAL NORMAL (NORMAL)
[2021-03-30 13:55] LABS: BACTERIA, URINE SMALL AMOUNT; HYALINE CAST, URINE NONE SEEN /lpf (0-1); RBC, URINE 0-1 /hpf (0-3); SQUAMOUS EPITHELIAL CELL URINE SMALL AMOUNT /hpf (SMALL AMT)
[2021-03-30 14:19] LABS: ALBUMIN 3.4 GM/DL (3.2-5.2); ALT/SGPT 14 U/L (12-78); BILIRUBIN,DIRECT 0.1 MG/DL (0.0-0.2); BILIRUBIN,TOTAL 0.4 MG/DL (0.2-1.0); BLOOD UREA NITROGEN 51 MG/DL (7-18); CALCIUM LEVEL 8.8 MG/DL (8.8-10.2); CARBON DIOXIDE LEVEL 19 MEQ/L (21-32); CHLORIDE LEVEL 115 MEQ/L (98-107); CK-MB VALUE MASS 1.5 NG/ML (<3.6); CPK CREATINE PHOSPHOKINASE 63 U/L (39-308); CREATININE FOR GFR 5.46 MG/DL (0.70-1.30); GLOMERULAR FILTRATION RATE 10.9 (>42); GLUCOSE, FASTING 152 MG/DL (70-100); MB/CK RELATIVE INDEX 2.38 (< OR =4); POTASSIUM SERUM 5.2 MEQ/L (3.5-5.1); SODIUM LEVEL 144 MEQ/L (136-145); TOTAL PROTEIN 6.6 GM/DL (6.4-8.2); TROPONIN I < 0.02 NG/ML (< 0.10)
[2021-03-30] MEDS ORDERED: NS 1,000 ML IV ONE ×2 (14:30→17:45)
[2021-03-30 15:08] LABS: RSV AMPLIFICATION NEGATIVE (NEGATIVE)
[2021-03-30] MEDS ORDERED: TAMO20TA8 PO (16:29)
[2021-03-30] MEDS ORDERED: BYST2.5T2 PO (16:29)
[2021-03-30] MEDS ORDERED: HOME MED LIST COMPLETE! XX SCH (16:30)
[2021-03-30] MEDS ORDERED: dexameTHASONE 20MG/5ML VIAL (J1100 PER 1MG) IV ONE (19:30)
--- NOTE | 2021-03-30 22:25 | REPVR ---
PROCEDURE INFORMATION: Exam: MR Head Without Contrast Exam date and time: 03/30/2021 8:31 PM Age: 75 years old Clinical indication: Altered mental status/memory loss; Confusion or disorientation; Additional info: Cerebellar mass TECHNIQUE: Imaging protocol: MR of the head without contrast. COMPARISON: CT Head without contrast 03/30/2021 1:07 PM FINDINGS: Limitations: According to the anesthesiology technologist notes, the patient was unable to complete the examination and axial GRE and axial FLAIR images of the brain were not obtained. Brain: There is a T1 isointense, T2 slightly hypointense mass in the left cerebellum extending toward the vermis along the midline with surrounding vasogenic edema, which has developed since the MRI brain on 02/27/2018 and measures approximately 3.3 cm in transverse dimension. No other masses are identified. There is no acute infarct, intracranial hemorrhage, midline shift, or herniation. There are non-specific foci of T2 hyperintensity in the periventricular and subcortical white matter, which are likely the sequela of chronic small vessel ischemic injury and are similar in appearance compared to the prior MRI brain on 02/27/2018. Cerebral ventricles: The ventricles are moderately to severely dilated in proportion to the sulci, which is compatible with moderate to severe generalized cerebral volume loss that is similar in appearance compared to the prior MRI brain on 02/27/2018. Bones/joints: Unremarkable. Paranasal sinuses: There is mild opacification of the right ethmoid sinus. No air-fluid levels are seen in the sinuses. The maxillary sinuses were not fully imaged. Mastoid air cells: There is a large amount of fluid in the mastoid air cells bilaterally, left greater than right. Orbital cavity: Incidental note is made of bilateral lens implants. Soft tissues: Unremarkable. 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 Electronically signed by: Alfred Patricia On 03/30/2021 22:24:57 PM
[2021-03-31] VITALS (7 sets, daily range): BP systolic 109–176; BP diastolic 56–90
[2021-03-31] MEDS ORDERED: NS 1,000 ML IV SCH (01:15)
[2021-03-31 01:49] LABS: CALCIUM LEVEL 8.8 MG/DL (8.8-10.2); CREATININE FOR GFR 5.47 MG/DL (0.70-1.30); GLOMERULAR FILTRATION RATE 10.9 (>42); POTASSIUM SERUM 6.2 MEQ/L (3.5-5.1)
[2021-03-31] MEDS ORDERED: LORazepam 2 MG/ML VIAL IV STA ×3 (03:28→08:36)
[2021-03-31] MEDS ORDERED: HALOPERIDOL 5MG/ML VIAL (J1630 PER 1) IM STA (03:29)
[2021-03-31] MEDS ORDERED: MAALOX 30 ML SUSP *UDC PO PRN (03:35)
[2021-03-31] MEDS ORDERED: MOM 30ML SUSPENSION UDC PO PRN (03:35)
[2021-03-31] MEDS ORDERED: ACETAMINOPHEN TAB 650MG DOSE (2X325MG) PO PRN (03:35)
[2021-03-31] MEDS ORDERED: PILL CUTTER 1 EACH XX PRN (04:35)
--- NOTE | 2021-03-31 04:39 | HPEPDOC ---
[facility] Medical History & Physical Date of Admission Mar 31, 2021 Date of Service: Mar 31, 2021 History and Physical CHIEF COMPLAINT: Generalized weakness, confusion, gait imbalance HISTORY OF PRESENT ILLNESS: 75-year-old male with a history of COPD, CKD, breast cancer status post lumpectomy and presently on tamoxifen, history of prostate cancer status post TURP, urinary retention, asthma COPD, congestive heart failure. Presented to the ER after his reported patient was having generalized weakness after walking out of the shower and unable to get out of bed and complaining of unsteady gait. reports that the patient fell on the bed. Patient also noted to be more confused disoriented today during my examin ation patient is unable to tell me reason for admission, and is unaware of his past medical history. His states the patient had normal mentation the last several days leading up to admission. She does endorse that he has had slight issues with short-term memory but otherwise he is alert and oriented x3 at home. 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 ER gave 10 mg IV dexamethasone. Of note, patient was found to be in acute renal failure, with a Cr. of 5.2 (from baseline of 1.5-2.0), along with hyperkalemia. Patient received 2L NS, without improvement in Cr. Upon arrival to PCU, patient developed new onset afib with RVR, with a LA 4.5. PAST MEDICAL HISTORY: CKD HTN COPD Hx of ETOH use disorder in past Prostate Ca s/p TURP Breast cancer s/p R mastectomy, presently on tamoxifen PAST SURGICAL HISTORY: TURP R mastectomy SOCIAL HISTORY: History of ethanol abuse in the past Non-smoker Lives with FAMILY HISTORY: Patient is unable to provide family history at this time ALLERGIES: Please see below. REVIEW OF SYSTEMS: 10 point ROS conducted, limited findings are noted in HPI. HOME MEDICATIONS: Please see below. PHYSICAL EXAMINATION: VITAL SIGNS: please see below General: NAD, comfortable HEENT: PERRLA, EOMI, sclerae clear Neck: supple, normal ROM, no JVD Respiratory: lungs CTAB, no wheeze, no rales, no crackles CVS: RRR, normal S1, S2, no murmurs Abdo: soft, no masses, no hepatosplenomegaly, BS+, no rebound tenderness Extremities: no edema, pulses 2+ MSK: no joint deformities, normal ROM Neuro: no focal neuro deficits, moving all 4 extremities, CN2-12 intact. Strength 5/5 in all 4 extremities. No nystagmus. Psych: calm, cooperative, AAO x 0-1 LABORATORY DATA: See below. IMAGING: MRI head wo contrast (03/30/21): FINDINGS: Limitations: According to the medical imaging technologist notes, the patient was unable to complete the examination and axial GRE and axial FLAIR images of the brain were not obtained. Brain: There is a T1 isointense, T2 slightly hypointense mass in the left cerebellum extending toward the vermis along the midline with surrounding vasogenic edema, which has developed since the MRI brain on 02/27/2018 and measures approximately 3.3 cm in transverse dimension. No other masses are identified. There is no acute infarct, intracranial hemorrhage, midline shift, or herniation. There are non-specific foci of T2 hyperintensity in the periventricular and subcortical white matter, which are likely the sequela of chronic small vessel ischemic injury and are similar in appearance compared to the prior MRI brain on 02/27/2018. Cerebral ventricles: The ventricles are moderately to severely dilated in proportion to the sulci, which is compatible with moderate to severe generalized cerebral volume loss that is similar in appearance compared to the prior MRI brain on 02/27/2018. Bones/joints: Unremarkable. Paranasal sinuses: There is mild opacification of the right ethmoid sinus. No air-fluid levels are seen in the sinuses. The maxillary sinuses were not fully imaged. Mastoid air cells: There is a large amount of fluid in the mastoid air cells bilaterally, left greater than right. Orbital cavity: Incidental note is made of bilateral lens implants. Soft tissues: Unremarkable. 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 CT head without contrast: FINDINGS: Hyperdense mass in the left cerebellar hemisphere is suspected although evaluation is somewhat limited due to technical factors and streak artifact. Atrophy with periventricular leukomalacia and microvascular ischemic changes are appreciated. The ventricles and sulci are symmetric. Avery-white differentiation is maintained. There is no evidence for acute intracranial hemorrhage. No extra- axial fluid collection. Calvarium is intact. Paranasal sinuses and mastoid air cells are clear. IMPRESSION: 1. Suspicious for hyperdense mass in the left cerebellar hemisphere. 2. Chronic atrophy and microvascular ischemic changes are noted. No evidence for intracranial or extra-axial hemorrhage. CT c spine (03/30/21): FINDINGS: There is no evidence of cervical spine element fracture. No skull base fracture is seen. Cervical vertebral body heights are preserved. Alignment is normal. Facet joints are normally aligned bilaterally at each cervical level on multiplanar re-formations images. There is no evidence of intraspinal or paraspinal hematoma. No extra vertebral abnormality is seen. There is some straightening of the normal cervical lordosis. There is osteoarthritic facet hypertrophy in the midcervical spine most pronounced on the left at C 3 4 and C4-5. There is degenerative disc narrowing and anterior osteophyte formation in the cervical spine. Bridging large osteophytes are seen at C5-6 and and at C6-7. IMPRESSION: Degenerative spondylosis changes as noted above. No acute bony abnormality. CXR (03/30/21): IMPRESSION: No acute cardiopulmonary process appreciated. MICROBIOLOGY: Please see below. ASSESSMENT: 75-year-old male with a history of COPD, CKD, breast cancer status post lumpectomy and presently on tamoxifen, history of prostate cancer status post TURP, urinary retention, asthma COPD, congestive heart failure. Presented with confusion, fall, unsteady gait. Found incidental cerebellar mass. In addition, lactic acidosis, with acute renal failure. Accepted for transfer at [facility] eval. . PLAN: L cerebellar mass: found on CT head wo contrast today. MRI showing 3.3 cm cerebellar mass, extending toward vermis along midline with surrounding vasogenic edema, may represent a metastasis or less likely a pimary tumor such hemangioblastoma. Given patient's prior hx of prostate and breast ca, metastasis is a likely differential. given patient acute worsening of mental status, unstead gait, I recommened to ER staff to seek transfer to facility with neurosurgery service. Patient was accepted for transfer to Neurosurgery service (step down bed) under care of Dr. Carey Demarco at [facility] at [address] [place] [address]. ARIA on CKD: Cr 5.2. Baseline 1.5-2.0. Hold furosemide. S/p 2L NS bolus in ER. C/w IVF. UA showing LI+, few WBC. No leukocytosis. Bladder scan. Obtain CT abdomen. Afib with RVR: HR 180. BP 135/80. Ordered metoprolol 5 mg IV x 3 doses. Check 2D echo. Thyroid panel. Monitor electrolytes. Lactic acidosis/sepsis criteria: LA 4.5. Had received 2L NS in ER. Start 0.45NS at 250 cc/hr x 500 cc. Repeat LA. Check ABG. Infectious workup. CXR wnl. Check blood cx. Check UA. Give 1 dose 2g cefepime for sepsis criteria. Hyperkalemia: K 5.2, increase to 6.2. Order 5 units R insulin, amp of D50. Kayaxalate 30 mg. Give calcium gluconate 1g. DM2: ISS, FSBS AC and HS. Hold glipizide. hx of breast ca: s/p R mastectomy. C/w Tamoxifen. Diastolic congestive heart failure: appears to be volume compensated. Hx of HTN: BP elevated. resume home nebivolol. hx of Asthma/COPD: not in acute exacerbation Hx of etoh use disorder: report of abstinence for 1 year. C/w thiamine replacement. Hx of prostate ca: incontinent. S/p TURP Gout: c/w allopurinol. DVT ppx: SCDs. TEDs. Heparin 5000 untis q8h. Vital Signs Vital Signs Date Time Temp Pulse Resp B/P (MAP) Pulse Ox O2 Delivery O2 Flow Rate FiO2 03/31/21 02:47 109 03/31/21 01:47 20 97 Room Air 03/30/21 22:56 153/101 (118) 03/30/21 11:57 97.3 Laboratory Data Labs 24H Laboratory Tests 2 03/30/21 12:22: Immature Granulocyte % (Auto) 0.2, Neutrophils (%) (Auto) 78.9H, Lymphocytes (%) (Auto) 11.1L, Monocytes (%) (Auto) 6.6, Eosinophils (%) (Auto) 2.3, Basophils (%) (Auto) 0.9, Neutrophils # (Auto) 7.9, Lymphocytes # (Auto) 1.1L, Monocytes # (Auto) 0.7, Eosinophils # (Auto) 0.2, Basophils # (Auto) 0.1, Nucleated Red Blood Cells % (auto) 0.0, Anion Gap 10, Glomerular Filtration Rate 10.9L, Calcium Level 8.8, Total Bilirubin 0.4, Direct Bilirubin 0.1, Aspartate Amino Transf (AST/SGOT) 10, Alanine Aminotransferase (ALT/SGPT) 14, Alkaline Phosphatase 43L, Total Creatine Kinase 63, Creatine Kinase MB 1.5, Creatine Kinase MB Relative Index 2.38, Troponin I < 0.02, Total Protein 6.6, Albumin 3.4, Albumin/Globulin Ratio 1.1, Thyroid Stimulating Hormone (TSH) 2.510 03/30/21 12:26: Urine Color (LEIDY) YELLOW, Urine Appearance (LEIDY) CLEAR, Urine pH (LEIDY) 5.5, Urine Specific [place] (LEIDY) 1.020, Bedside Urine Glucose (UA) NEGATIVE, Bedside Urine Ketones (LAB) 1+H, Bedside Urine Blood TRACEH, Bedside Urine Nitrite (LAB) NEGATIVE, Bedside Urine Bilirubin (LAB) NEGATIVE, Bedside Urine Urobilinogen (LAB) NORMAL, Bedside Urine Leukocyte Esterase (L POSITIVEH, Urine Sediment Examination PERFORMED, Urine RBC 0-1, Urine WBC 5-7H, Urine Squamous Epithelial Cells SMALL AMOUNT, Urine Bacteria SMALL AMOUNTH, Urine Hyaline Casts NONE SEEN 03/30/21 12:37: Bedside Glucose (Misc Panel) 153H 03/30/21 14:16: Coronavirus (COVID-19)(PCR) NEGATIVE, Influenza Type A (RT-PCR) NEGATIVE, Influenza Type B (RT-PCR) NEGATIVE, Respiratory Syncytial Virus (PCR) NEGATIVE 03/31/21 01:04: Anion Gap 12, Glomerular Filtration Rate 10.9L, Calcium Level 8.8 CBC/BMP Laboratory Tests 03/30/21 12:22 03/31/21 01:04 Microbiology Microbiology 03/30/21 Urine Culture, Received Pending Home Medications Scheduled Aspirin (Aspirin) 81 Mg Tab.chew, 81 MG PO DAILY Budesonide/Formoterol (Symbicort 80-4.5 Mcg Inhaler) 6.9 Gm Hfa.aer.ad, 2 PUFF INH BID Calcitriol (Calcitriol) 0.25 Mcg Capsule, 0.25 MCG PO 3XW MON, WED, FRI Ergocalciferol (Vitamin D2) (Vitamin D2) 50,000 Units Cap, 50,000 UNITS PO 1XWK SUNDAYS Febuxostat (Uloric) 40 Mg Tablet, 40 MG PO DAILY Furosemide (Furosemide) 20 Mg Tablet, 20 MG PO 3XW MON, WED, FRI Glipizide (Glipizide ER) 5 Mg Tab.er.24, 5 MG PO DAILY Magnesium Chloride (Mag64) 64 Mg Tablet.dr, 64 MG PO DAILY Nebivolol HCl (Bystolic) 2.5 Mg Tablet, 2.5 MG PO DAILY Tamoxifen Citrate (Tamoxifen Citrate) 20 Mg Tablet, 20 MG PO DAILY Thiamine HCl (Thiamine HCl) 100 Mg Tablet, 100 MG PO DAILY Allergies Coded Allergies: doxycycline (Verified Allergy, Unknown, 07/10/19) YAMILE JASSO MD Mar 31, 2021 04:39
[2021-03-31] MEDS ORDERED: HumuLIN R (REGULAR) INSULIN (NovoLIN R) **100U/ML** PER UNIT SC STA (04:48)
[2021-03-31] MEDS ORDERED: DEXTROSE 50% 50 ML SYRINGE IV STA ×2 (04:48→09:48)
[2021-03-31] MEDS ORDERED: SOD POLYSTYRENE SULFONATE SUSP 15 GM/60 ML UD PO ONE (04:50)
[2021-03-31] MEDS ORDERED: HumuLIN R (REGULAR) INSULIN (NovoLIN R) **100U/ML** PER UNIT IV STA ×2 (04:58→09:48)
[2021-03-31] MEDS: CALCIUM GLUCONATE 1,000 MG in D5W MINI-BAG PLUS 100 ML IV ONE ×2 (05:26→05:58)
[2021-03-31 05:39] LABS: BASO % 0.3 % (0.0-1.0); HEMATOCRIT 36.5 % (42.0-52.0); HEMOGLOBIN 11.8 g/dl (13.5-17.5); LYMPH # 0.5 10^3/uL (1.5-5.0); LYMPH % 7.2 % (24.0-44.0); MEAN CORPUSCULAR HGB CONC 32.3 g/dl (32.0-36.5); MEAN CORPUSCULAR VOLUME 92.9 fl (80.0-96.0); MONO % 0.4 % (2.0-8.0); NEUTROPHILS # 6.1 10^3/uL (1.5-8.5); NEUTROPHILS % 91.8 % (36.0-66.0); PLATELET COUNT, AUTOMATED 157 10^3/uL (150-450); RED BLOOD COUNT 3.93 10^6/uL (4.30-6.10); WHITE BLOOD COUNT 6.7 10^3/uL (4.0-10.0)
[2021-03-31] MEDS ORDERED: CEFEPIME HCL 2 GM in D5W MINI-BAG PLUS 50 ML IV ONE (06:20)
[2021-03-31] MEDS ORDERED: NS 0.45% 1,000 ML IV ONE (06:25)
[2021-03-31] MEDS ORDERED: NS 0.45% 1,000 ML IV SCH (06:25)
[2021-03-31] MEDS: METOPROLOL 5 MG/5 ML VIAL IV SCH ×3 (06:27→07:05)
[2021-03-31 06:32] LABS: ALBUMIN 3.3 GM/DL (3.2-5.2); BILIRUBIN,TOTAL 0.4 MG/DL (0.2-1.0); CALCIUM LEVEL 8.9 MG/DL (8.8-10.2); CREATININE FOR GFR 5.64 MG/DL (0.70-1.30); GLOMERULAR FILTRATION RATE 10.5 (>42); MAGNESIUM LEVEL 1.8 MG/DL (1.8-2.4); POTASSIUM SERUM 5.6 MEQ/L (3.5-5.1); TOTAL PROTEIN 6.3 GM/DL (6.4-8.2); TROPONIN I 0.06 NG/ML (< 0.10)
[2021-03-31] MEDS: SYMBICORT 80/4.5MCG INHALER 6GM INH SCH ×2 (07:11→20:00)
[2021-03-31 07:20] LABS: ABG BASE EXCESS -12.4 (-2.0-2.0); ABG HCO3 11.9 MEQ/L (22.0-26.0); ABG O2 SATURATION 99.2 % (95.0-99.0); ABG PARTIAL PRESSURE CO2 23.5 mmHg (35.0-45.0); ABG PARTIAL PRESSURE O2 180.8 mmHg (75.0-100.0); ABG STANDARD HCO3 14.8 MEQ/L (22.0-26.0); ABG TOTAL CO2 12.6 MEQ/L (23.0-31.0); ABG pH (ARTERIAL) 7.321 UNITS (7.350-7.450)
--- NOTE | 2021-03-31 07:53 | REPVR ---
PROCEDURE INFORMATION: Exam: CT Abdomen Without Contrast Exam date and time: 03/31/2021 4:49 AM Age: 75 years old Clinical indication: Abdominal pain; Generalized; Additional info: AMS, balbir TECHNIQUE: Imaging protocol: Computed tomography images of the abdomen without contrast. Radiation optimization: All CT scans at this facility use at least one of these dose optimization techniques: automated exposure control; mA and/or kV adjustment per patient size (includes targeted exams where dose is matched to clinical indication); or iterative reconstruction. COMPARISON: CT ABD PELVIS WITH CONTRAST 03/05/2018 2:30 PM FINDINGS: Heart: The heart is enlarged. Liver: Small calcified granuloma seen in the liver. Gallbladder and bile ducts: There is 4-5 mm calcified gallstone. Pancreas: There are few small calcifications in the region of the pancreatic head. Spleen: Calcified granuloma seen in the spleen. Adrenals: Normal. No mass. Kidneys and ureters: The kidneys are atrophic. There is no hydronephrosis. Stomach and bowel: 1.2 cm fat density structure in the stomach on axial image 28. Intraperitoneal space: Unremarkable. No free air. No significant fluid collection. Lymph nodes: Unremarkable. No enlarged lymph nodes. Vasculature: Unremarkable. No abdominal aortic aneurysm. Bones/joints: There is lower lumbar spine facet arthrosis. There is diffuse bony osteopenia. There is chronic mild wedging of L1 vertebral body seen in 2018. Soft tissues: Unremarkable. IMPRESSION: 1. Mildly atrophic kidneys suggestive of chronic medical renal disease. No hydronephrosis seen. 2. Calcified splenic and hepatic granulomas. 3. 4-5 mm calcified gallstone. 4. Few small calcifications seen in the region of the pancreatic head seen on the prior exam of 2018. 5. Fat density nodule in the region of the stomach measuring 1.2 cm could represent small lipoma or an ingested fat density material. Electronically signed by: Nikolas Mata On 03/31/2021 07:52:42 AM
[2021-03-31] MEDS ORDERED: FEBUXOSTAT 40 MG TABLET (ULORIC) PO SCH (09:00)
[2021-03-31] MEDS: THIAMINE 100 MG TAB PO SCH (09:00)
[2021-03-31] MEDS: TAMOXIFEN CITRATE 10 MG TAB PO SCH (09:00)
[2021-03-31] MEDS: NEBIVOLOL 5 MG TAB (BYSTOLIC) PO SCH (09:00)
[2021-03-31] MEDS: ASPIRIN 81 MG CHEW TABLET PO SCH (09:00)
[2021-03-31] MEDS ORDERED: METOPROLOL 5 MG/5 ML VIAL IV PRN (09:45)
[2021-03-31] MEDS ORDERED: CALCIUM GLUCONATE 1,000 MG in D5W MINI-BAG PLUS 100 ML IV ONE (09:50)
[2021-03-31] MEDS ORDERED: SODIUM CHLORIDE 0.9% 1000ML IV SCH (09:50)
[2021-03-31] MEDS ORDERED: CALCIUM CHLORIDE 10% 1 GM in D5W 100 ML IV ONE (09:50)
[2021-03-31 10:38] LABS: CALCIUM LEVEL 9.2 MG/DL (8.8-10.2); CREATININE FOR GFR 5.66 MG/DL (0.70-1.30); GLOMERULAR FILTRATION RATE 10.4 (>42); MAGNESIUM LEVEL 1.8 MG/DL (1.8-2.4); POTASSIUM SERUM 5.4 MEQ/L (3.5-5.1)
[2021-03-31] MEDS ORDERED: GLUCAGON INJ 1MG VIAL SC PRN (10:45)
[2021-03-31] MEDS ORDERED: GLUCOSE 4GM CHEW TABLET PO PRN (10:45)
[2021-03-31] MEDS ORDERED: DEXTROSE 50% 50 ML SYRINGE IV PRN (10:45)
[2021-03-31] MEDS ORDERED: SODIUM BICARBONATE 75 MEQ in NS 0.45% 1,000 ML IV SCH (11:00)
[2021-03-31] MEDS ORDERED: SODIUM BICARBONATE 150 MEQ in D5W 1,000 ML IV ONE (12:00)
[2021-03-31] MEDS: SODIUM BICARBONATE 75 MEQ in D5W 1,000 ML IV SCH ×2 (12:44→23:52)
[2021-03-31] MEDS: HumaLOG INSULIN (NovoLOG) PER UNIT SC SCH ×2 (12:45→18:22)
--- NOTE | 2021-03-31 13:03 | IPNPDOC ---
Text Note Date of Service The patient was seen on 03/31/21. NOTE Subjective: Patient confused in the morning, not follows commands. He was a gitated and tried to remove peripheral lines. I talked to his in the morning, I explained situation that patient need to be transferred and [facility] agreed to take him. His after family meeting refused to transfer to [facility] because of distance. She asked me to call to nearby hospital in hope of bed availability for transfer. I explained to her that night team already called to 10 different hospitals and there were not beds available. She asked me to try again. Objective: GENERAL APPEARANCE: Agitated male in severe distress HEENT: no scleral icterus, no JVD, EOMI CARDIOVASCULAR: Irregularly irregular with heart rate around 110 LUNGS: Diminished lung sounds bilaterally ABDOMEN: soft & not tender w palpation MUSCULOSKELETAL: no cyanosis, no swelling INTEGUMENT: no generalized pallor NEUROLOGICAL: Moves 4 limbs, does not follow commands Assessment and plan: Pt is 75-year-old male with a history of COPD, CKD, breast cancer status post lumpectomy and presently on tamoxifen, history of prostate cancer status post TURP, urinary retention, asthma COPD, congestive heart failure. Presented with confusion, fall, unsteady gait. Found incidental cerebellar mass. In addition, lactic acidosis, with acute renal failure. Accepted for transfer at [facility] in [facility] for neurosurgery eval. Metabolic encephalopathy Multifactorial. Secondary to left cerebellar mass with surrounding edema superimposed with metabolic acidosis MRI showing 3.3 cm cerebellar mass, extending toward vermis along midline with surrounding vasogenic edema, may represent a metastasis or less likely a pimary tumor such hemangioblastoma Patient will need urgent neurosurgical evaluation however family refused transfer to [facility]. I will try to call to nearby hospitals Cerebellar mass Metastasis versus primary tumor Patient will need neurosurgical evaluation. Await transfer ARIA/uremia/metabolic acidosis/lactic acidosis Bicarb IV Nephrology team on board Continue to monitor started antibiotics empirically Await blood culture, urine culture Procalcitonin negative Atrial fibrillation with RVR Continue metoprolol IV as needed I will hold anticoagulation for now. Family told me that if not beds available they will transfer patient to comfort measures only Hyperkalemia Secondary to metabolic acidosis Patient agitated and n.p.o. Bicarb, insulin, D50, calcium gluconate Continue to monitor BMP every 4 hours Type 2 diabetes Insulin sliding scale Diastolic CHF Patient looks clinically dry Continue to monitor Hypertension Blood pressure under control History of asthma/COPD Not in acute exacerbation Hx of etoh use disorder: report of abstinence for 1 year. C/w thiamine replacement. Hx of prostate ca: incontinent. S/p TURP Gout: Febuxostat on hold DVT ppx: SCDs. TEDs. Heparin 5000 untis q8h. VS,Fishbone, I+O VS, Fishbone, I+O Laboratory Tests 03/31/21 01:04 03/31/21 05:12 03/31/21 10:04 Vital Signs Date Time Temp Pulse Resp B/P (MAP) Pulse Ox O2 Delivery O2 Flow Rate FiO2 03/31/21 08:20 105 20 126/90 (102) 97 Room Air 03/31/21 08:15 97.5 2.0 I&O- Last 24 Hours up to 6 AM 03/31/21 06:00 Intake Total 1750 ml Balance 1750 ml ROSITA COLON DO Mar 31, 2021 13:03
[2021-03-31 13:51] LABS: CALCIUM LEVEL 9.2 MG/DL (8.8-10.2); CREATININE FOR GFR 5.44 MG/DL (0.70-1.30); GLOMERULAR FILTRATION RATE 10.9 (>42); POTASSIUM SERUM 5.6 MEQ/L (3.5-5.1)
--- NOTE | 2021-03-31 16:56 | ECGEPIP ---
[facility] Test Date: 2021-03-31 Pat Name: LISETH PABON Department: Room: [place] [address] Gender: Male Java Scal[employer] Developer: LAUREN : 1945 Requested By: YAMILE JASSO Order Number: [id number] Reading MD: Felix Power Measurements Intervals [place] Rate: 173 P: [place]: QRS: 18 QRSD: 80 T: 239 QT: 244 QTc: 413 Interpretive Statements Critical Test Result: High HR Atrial fibrillation with rapid ventricular response ST & T wave abnormality, consider lateral ischemia Electronically Signed on 03-31-2021 16:56:12 EDT by Felix Power
[2021-03-31 17:44] LABS: CREATININE FOR GFR 5.35 MG/DL (0.70-1.30); GLOMERULAR FILTRATION RATE 11.1 (>42); POTASSIUM SERUM 5.2 MEQ/L (3.5-5.1)
--- NOTE | 2021-03-31 21:39 | CR ---
NEPHROLOGY CONSULTATION DATE: 03/31/2021 REQUESTING PHYSICIAN: Isma Webber D.O. CONSULTING PHYSICIAN: Balwinder Rose M.D. REASON FOR CONSULTATION: Acute renal failure and associated complications. HISTORY OF PRESENT ILLNESS: Mr. Chamorro is a 75-year-old gentleman who was admitted to [facility] last evening due to altered mentation. He is very confused and restless with some agitation. Apparently he has a known history of breast cancer, status post lumpectomy, on Tamoxifen, history of prostate cancer, chest pain a transurethral resection of the prostate. He has urinary retention history and was seen by Urology in the office. He was found to be confused due to which he was sent to the Emergency Room. In the Emergency Room he was found to have acute renal failure with a serum creatinine of 5.2 while his baseline is about 1.5 to 2.0. He was also noticed to have hyperkalemia due to which he was admitted. A nephrology consultation is requested this morning and the patient is seen at his bedside. In the meantime, he also had a CT scan of the head done in the Emergency Room which did show a cerebellar mass. PAST MEDICAL AND SURGICAL HISTORY: The patient's past medical and surgical history is significant for: 1. Hypertension. 2. Chronic obstructive pulmonary disease. 3. History of alcohol use in the past. 4. History of prostate cancer, status post transurethral resection of the prostate. 5. Breast cancer, status post right mastectomy. 6. History of chronic kidney disease. FAMILY HISTORY: The patient's family history is unobtainable at present and non relevant. PERSONAL AND SOCIAL HISTORY: According to his chart, the patient does have a history of alcohol use in the past and he is a nonsmoker who lives with his . The patient himself is not able to provide any information. MEDICATIONS: The list of his home medications includes the followin. Aspirin 81 mg daily. 2. Symbicort inhaler 2 puffs twice daily. 3. Calcitriol 0.25 mcg three times a week. 4. Vitamin D 50,000 once a week. 5. Uloric 40 mg daily. 6. Furosemide 20 mg three times a week. 7. Glipizide E.R. 5 mg daily. 8. Magnesium Chloride 64 mg daily. 9. Bystolic 2.5 mg daily. 10. Tamoxifen 20 mg daily. 11. Thiamine 100 mg daily. ALLERGIES: He has allergy to Doxycycline. REVIEW OF SYSTEMS: The patient is very confused, agitated and restless. He is unable to answer any questions. PHYSICAL EXAMINATION: GENERAL APPEARANCE: Elderly male who is quite restless and agitated in the bed. He has a sitter at the bedside. He is trying to climb out of the bed. VITAL SIGNS: Temperature 97.5 degrees Fahrenheit, heart rate 130 per minute, respiratory rate 22 per minute, blood pressure 126/90 mm of mercury and oxygen saturation 97% on room air. HEENT: His face is flushed due to agitation. Head is atraumatic. NECK: Veins are difficult to be assessed. HEART: Sounds are tachycardic. LUNGS: Bilateral good air entry. ABDOMEN: Soft and bowel sounds are present. EXTREMITIES: Without any cyanosis or clubbing. There is no peripheral edema. NEUROLOGICAL: He is quite agitated and unable to communicate. LABORATORY DATA: WBC count 6.7, hemoglobin 11.8 and hematocrit 36.5. Sodium 146, potassium 5.6, chloride 123, CO2 15, BUN 58 and creatinine 5.44, glucose 150 and calcium 9.2. Blood gas showed a pH of 7.32, pco2 23.5 and pO2 180, bicarbonate 14. Urinalysis showed 5-7 WBCs and positive nitrites. PROBLEMS: 1. Acute renal failure superimposed on chronic kidney disease, most likely related to dehydration and sepsis his lactic acid level was 4.5 and he looks clinically dehydrated. We will hydrate him with IV fluids and also get a [place] catheter placed for accurate urine output monitoring. At this point there is no emergent indication for dialysis. 2. Metabolic acidosis - The patient has significant metabolic acidosis related to acute renal failure. I am switching him to sodium bicarbonate drip and his chemistries should be repeated again later today. 3. Hyperkalemia, most likely related to metabolic acidosis and acute renal failure this will correct with improvement in his metabolic acidosis and IV fluids. I do not feel that any other intervention is needed at present. 4. Hypernatremia - The patient has mild hypernatremia and we are going to use hypotonic sodium bicarbonate drip which will help to correct his hypernatremia. 5. Sepsis most likely the patient has a urinary tract infection. He has chronic catheter issues and urinalysis did show positive nitrites. I would recommend broad spectrum antibiotic coverage pending cultures. Thank you for involving me in the care of Mr. Chamorro. I will follow him along with you.
[2021-03-31 22:39] LABS: CALCIUM LEVEL 8.8 MG/DL (8.8-10.2); CREATININE FOR GFR 5.33 MG/DL (0.70-1.30); GLOMERULAR FILTRATION RATE 11.2 (>42); POTASSIUM SERUM 4.8 MEQ/L (3.5-5.1)
[2021-04-01] VITALS (9 sets, daily range): BP systolic 144–164; BP diastolic 67–99
[2021-04-01 02:31] LABS: CALCIUM LEVEL 8.7 MG/DL (8.8-10.2); CREATININE FOR GFR 5.28 MG/DL (0.70-1.30); GLOMERULAR FILTRATION RATE 11.3 (>42); POTASSIUM SERUM 4.6 MEQ/L (3.5-5.1)
[2021-04-01] MEDS: HumaLOG INSULIN (NovoLOG) PER UNIT SC SCH ×4 (06:00→18:45)
[2021-04-01 06:31] LABS: CALCIUM LEVEL 8.5 MG/DL (8.8-10.2); CREATININE FOR GFR 5.17 MG/DL (0.70-1.30); GLOMERULAR FILTRATION RATE 11.6 (>42); POTASSIUM SERUM 4.4 MEQ/L (3.5-5.1)
[2021-04-01] MEDS: SYMBICORT 80/4.5MCG INHALER 6GM INH SCH ×2 (07:27→19:33)
[2021-04-01 08:14] LABS: BASO % 0.2 % (0.0-1.0); HEMOGLOBIN 10.4 g/dl (13.5-17.5); LYMPH # 1.2 10^3/uL (1.5-5.0); MEAN CORPUSCULAR HEMOGLOBIN 30.8 pg (27.0-33.0); MEAN CORPUSCULAR HGB CONC 33.5 g/dl (32.0-36.5); MEAN CORPUSCULAR VOLUME 91.7 fl (80.0-96.0); MONO # 0.8 10^3/uL (0.0-0.8); MONO % 6.8 % (2.0-8.0); NEUTROPHILS # 9.1 10^3/uL (1.5-8.5); NEUTROPHILS % 81.6 % (36.0-66.0); PLATELET COUNT, AUTOMATED 151 10^3/uL (150-450); RED BLOOD COUNT 3.38 10^6/uL (4.30-6.10); WHITE BLOOD COUNT 11.1 10^3/uL (4.0-10.0)
[2021-04-01] MEDS: THIAMINE 100 MG TAB PO SCH (10:15)
[2021-04-01] MEDS: ASPIRIN 81 MG CHEW TABLET PO SCH (10:15)
[2021-04-01] MEDS: CEFEPIME HCL 1 GM in D5W MINI-BAG PLUS 50 ML IV SCH ×2 (10:16→20:34)
[2021-04-01] MEDS: NEBIVOLOL 5 MG TAB (BYSTOLIC) PO SCH (10:18)
[2021-04-01] MEDS: SODIUM BICARBONATE 75 MEQ in D5W 1,000 ML IV SCH ×2 (10:23→20:15)
[2021-04-01] MEDS: TAMOXIFEN CITRATE 10 MG TAB PO SCH (10:23)
--- NOTE | 2021-04-01 10:47 | IPNPDOC ---
Text Note Date of Service The patient was seen on 04/01/21. NOTE Subjective: Patient is doing better today he was able to communicate but he is pleasantly confused. He is not oriented in place and he thinks he is in [place]. Patient is not agitated Objective: GENERAL APPEARANCE: Agitated male in severe distress HEENT: no scleral icterus, no JVD, EOMI CARDIOVASCULAR: Irregularly irregular with heart rate around 110 LUNGS: Diminished lung sounds bilaterally ABDOMEN: soft & not tender w palpation MUSCULOSKELETAL: no cyanosis, no swelling INTEGUMENT: no generalized pallor NEUROLOGICAL: Moves 4 limbs, does not follow commands Assessment and plan: Pt is 75-year-old male with a history of COPD, CKD, breast cancer status post lumpectomy and presently on tamoxifen, history of prostate cancer status post TURP, urinary retention, asthma COPD, congestive heart failure. Presented with confusion, fall, unsteady gait. Found incidental cerebellar mass. In addition, lactic acidosis, with acute renal failure. Accepted for transfer at [facility] for neurosurgery eval. Metabolic encephalopathy Multifactorial. Secondary to left cerebellar mass with surrounding edema superimposed with metabolic acidosis Improved today I talked to his and she reported that patient was not diagnosed with dementia before MRI showing 3.3 cm cerebellar mass, extending toward vermis along midline with surrounding vasogenic edema, may represent a metastasis or less likely a pimary tumor such hemangioblastoma During the night neurosurgeon from [facility] accepted patient, Await available bed in [facility] Cerebellar mass Metastasis versus primary tumor Patient will need neurosurgical evaluation. Await transfer Initially Dr Bai recommended 1 dose of dexamethasone IV. Today I discussed with him and oncologist Dr. Arellano continuation of dexamethasone . They recommended to continue dexamethasone IV. Appreciate/agree with neurologist consult and oncologist consult ARIA/uremia/metabolic acidosis/lactic acidosis Lactic acidosis resolved, creatinine level slightly improved Nephrology team on board Continue to monitor started cefepime empirically day 2 blood culture negative, urine culture negative Lactic acidosis resolved Procalcitonin negative Atrial fibrillation with RVR Continue metoprolol IV as needed Continue metoprolol p.o. 25 mg every 8 hours I will hold anticoagulation for now. Family told me that if not beds available they will transfer patient to comfort measures only. Hyperkalemia Resolved Type 2 diabetes Insulin sliding scale Diastolic CHF Not in acute exacerbation Continue to monitor Hypertension Blood pressure under control History of asthma/COPD Not in acute exacerbation Hx of etoh use disorder: report of abstinence for 1 year. C/w thiamine replacement. Hx of prostate ca: incontinent. S/p TURP Gout: Febuxostat on hold DVT ppx: SCDs. TEDs. Heparin 5000 untis q8h. VS, Fishbone, I+O VS,Fishbone, I+O VS, Fishbone, I+O Laboratory Tests 03/31/21 13:09 03/31/21 17:02 03/31/21 22:06 04/01/21 01:58 04/01/21 05:43 Vital Signs Date Time Temp Pulse Resp B/P (MAP) Pulse Ox O2 Delivery O2 Flow Rate FiO2 04/01/21 10:18 115 136/76 04/01/21 07:28 16 04/01/21 07:14 98.1 99 Room Air 03/31/21 08:15 2.0 I&O- Last 24 Hours up to 6 AM 04/01/21 06:00 Intake Total 2060 ml Output Total 1220 ml Balance 840 ml ROSITA COLON DO Apr 01, 2021 10:47
[2021-04-01] MEDS: MULTIVITAMINS/MINERALS THERAP 1 TAB PO SCH (13:23)
[2021-04-01] MEDS: FOLIC ACID 1 MG TAB PO SCH (13:24)
[2021-04-01] MEDS: METOPROLOL TART 25 MG TABLET PO SCH ×2 (15:10→20:34)
[2021-04-01] MEDS: LORazepam 2 MG/ML VIAL IV PRN ×3 (15:22→23:55)
[2021-04-01] MEDS ORDERED: HEPARIN SOD (PORCINE) 5000UNITS/ML 1ML VIAL/SYRINGE IV ONE (18:20)
[2021-04-01] MEDS ORDERED: HEPARIN SOD (PORCINE) 5000UNITS/ML 1ML VIAL/SYRINGE IV PRN (18:20)
--- NOTE | 2021-04-01 18:47 | CR.PDOC ---
General Date of Consultation: Apr 01, 2021 Referring Provider: ROSITA COLON DO Attending Physician: WILBER MONTEIRO MD Consultation REASON FOR CONSULTATION/CHIEF COMPLAINT: [History of breast cancer now with new cerebellar mass]. HISTORY OF PRESENT ILLNESS: [I had the pleasure of seeing Ms. Vincent Chamorro in consultation for a new right-sided cerebellar mass. As you know Mr. Chamorro is a 75 years old white gentleman who has history of male breast cancer diagnosed 2018 and underwent surgery on January 26, 2018 with mastectomy and axillary node dissection. Patient was found to have grade 2 infiltrating ductal carcinoma with size of 4 cm in maximum dimensions. Patient 2 lymph nodes were involved and was diagnosed to have T2 N1 aM0 disease. Patient was started at that time on tamoxifen as tumor was positive for ER and TN but HER-2/brad was negative. Patient has been doing well until recently when he developed confusion and admitted through emergency room. CT scan and MRI of the brain revealed a mass in the left cerebellum extending towards vermis along the midline with surrounding vasogenic edema. Size of the mass was 3.3 cm in transverse dimension. No other masses were found. Currently patient is awake but very confused and disoriented. Primary admitting attending has been trying to transfer the patient because neurosurgical intervention is not available. Patient family refused to go to [facility] and there are no bed available in [facility] or [facility]. Patient has been started on dexamethasone 4 mg every 6 hours as well as has been seen by Dr. Gresham, the radiation oncologist. I discussed this case with Dr. Gresham and he also feels that patient should have a surgical intervention which is ideal for the diagnosis as well as for prognosis. Radiation will be a second choice in case patient cannot be transferred anywhere else. Patient does not have any other difficulty in breathing cough phlegm or wheezing. He is not having any chest pain but is found to have atrial fibrillation which is new in onset. Patient has been quite active otherwise since I saw him in my office on 27 February 2021 and at that time he was swimming and golfing. For 2 months patient has been having imbalance gait and has been using walker for balance. He has never smoked and not in acute distress. ALLERGIES: Please see below. HOME MEDICATIONS: Please see below. PAST MEDICAL HISTORY: 1. [Adenocarcinoma prostate status post radical prostatectomy in 2010]. 2. [Cataract surgery]. PAST SURGICAL HISTORY: 1. [Prostatectomy] 2. [Right-sided mastectomy] FAMILY HISTORY: Father: [Unknown malignancy and at the age of 92] Mother: [Mother of cancer] Children: Patient has 2 daughters in good health SOCIAL HISTORY: Marital status and/or living arrangements: [ lives with his ] Children: Employment: Tobacco use:[No history of tobacco abuse] ETOH: [History of heavy alcohol abuse in the past but currently sober] Illicit drug use: [None] IV drug use: [None] PHYSICAL EXAMINATION: VITAL SIGNS: Please see below. GENERAL APPEARANCE: [Pleasant gentleman confused in no acute distress]. HEENT: [WNL EOMI oral cavity clear without mucositis or thrush]. RESPIRATORY: [Lungs clear to auscultation]. CARDIOVASCULAR: [Irregular heart due to atrial fibrillation]. ABDOMEN: [Soft no hepatosplenomegaly]. EXTREMITIES: [No pedal edema moving all extremities]. NEUROLOGICAL: [Grossly intact gait was not checked]. PSYCHIATRIC: [Confused]. LABORATORY DATA: Please see below. ASSESSMENT/PLAN: [A new mass in the left cerebellum 3.3 cm with vasogenic edema. Following is suggested 1. Ideally patient should be transferred to tertiary care center where surgical intervention is available since patient has been very functional until recently and should have surgery and cerebellar mass excision which will give him be nefit of his diagnosis of cerebellar mass and better prognosis. 2. [Patient should be continued on dexamethasone 4 mg IV or p.o. every 6 hours]. 3. If patient cannot be transferred then radiation to the tumor will be second choice but in that case we will not know the diagnosis and further treatment with chemotherapy will not be possible 4. I was told that family is more interested in comfort care rather than active intervention in that case palliative care and hospice care consultation should be called making sure that family is aware of the shorter life expectancy in that situation. Vital Signs/I&O Vital Signs Date Time Temp Pulse Resp B/P (MAP) Pulse Ox O2 Delivery O2 Flow Rate FiO2 04/01/21 16:41 90 149/67 04/01/21 16:00 97.9 20 99 Room Air 03/31/21 08:15 2.0 I&O- Last 24 Hours up to 6 AM 04/01/21 06:00 Intake Total 2060 ml Output Total 1220 ml Balance 840 ml Laboratory Data Labs 24H Laboratory Tests 2 03/31/21 22:06: Anion Gap 5L, Glomerular Filtration Rate 11.2L, Calcium Level 8.8 04/01/21 00:10: Bedside Glucose (Misc Panel) 122H 04/01/21 01:58: Anion Gap 6L, Glomerular Filtration Rate 11.3L, Calcium Level 8.7L 04/01/21 05:43: Anion Gap 8, Glomerular Filtration Rate 11.6L, Calcium Level 8.5L, Immature Granulocyte % (Auto) 0.4, Neutrophils (%) (Auto) 81.6H, Lymphocytes (%) (Auto) 11.0L, Monocytes (%) (Auto) 6.8, Eosinophils (%) (Auto) 0.0, Basophils (%) (Auto) 0.2, Neutrophils # (Auto) 9.1H, Lymphocytes # (Auto) 1.2L, Monocytes # (Auto) 0.8, Eosinophils # (Auto) 0.0, Basophils # (Auto) 0.0, Nucleated Red Blood Cells % (auto) 0.0 04/01/21 07:43: Lactic Acid Level 1.6 04/01/21 13:18: Bedside Glucose (Misc Panel) 173H 04/01/21 17:24: Bedside Glucose (Misc Panel) 171H CBC/BMP Laboratory Tests 03/31/21 22:06 04/01/21 01:58 04/01/21 05:43 Microbiology Microbiology 03/31/21 Blood Culture - Preliminary, Resulted No growth after 24 hours . All specim... 03/31/21 Blood Culture - Preliminary, Resulted No growth after 24 hours . All specim... 03/30/21 Urine Culture - Final, Complete Allergies Coded Allergies: doxycycline (Verified Allergy, Unknown, 07/10/19) Home Medications Scheduled Aspirin (Aspirin) 81 Mg Tab.chew, 81 MG PO DAILY, (Reported) Budesonide/Formoterol (Symbicort 80-4.5 Mcg Inhaler) 6.9 Gm Hfa.aer.ad, 2 PUFF INH BID, (Reported) Calcitriol (Calcitriol) 0.25 Mcg Capsule, 0.25 MCG PO 3XW, (Reported) MON, WED, FRI Ergocalciferol (Vitamin D2) (Vitamin D2) 50,000 Units Cap, 50,000 UNITS PO 1XWK, (Reported) SUNDAYS Febuxostat (Uloric) 40 Mg Tablet, 40 MG PO DAILY, (Reported) Furosemide (Furosemide) 20 Mg Tablet, 20 MG PO 3XW, (Reported) TUE, TUE, TUE Glipizide (Glipizide ER) 5 Mg Tab.er.24, 5 MG PO DAILY, (Reported) Magnesium Chloride (Mag64) 64 Mg Tablet.dr, 64 MG PO DAILY, (Reported) Nebivolol HCl (Bystolic) 2.5 Mg Tablet, 2.5 MG PO DAILY, (Reported) Tamoxifen Citrate (Tamoxifen Citrate) 20 Mg Tablet, 20 MG PO DAILY, (Reported) Thiamine HCl (Thiamine HCl) 100 Mg Tablet, 100 MG PO DAILY, (Reported) WILBER MONTEIRO MD Apr 01, 2021 18:47
--- NOTE | 2021-04-01 18:50 | IPN ---
NEPHROLOGY PROGRESS NOTE DATE: 04/01/2021 SUBJECTIVE: Mr. Chamorro is seen this morning at his bedside. He is much improved compared to yesterday. He is sitting in the bed and talking and able to answer simple questions. He is still not fully oriented. OBJECTIVE: PHYSICAL EXAMINATION: VITAL SIGNS: Temperature is 98.9 degrees Fahrenheit, heart rate 115 per minute, respiratory rate 18 per minute. Blood pressure is 136/76 mm of mercury and oxygen saturation is 97% on room air. INTAKE AND OUTPUT: Intake and output records from yesterday show a total intake of 2,210 and output 720. HEENT: His head is atraumatic. NECK: Supple and JVD is not abnormally elevated. HEART: Sounds are tachycardic and irregular. LUNGS: Mostly clear. ABDOMEN: Soft and nontender and bowel sounds are normal. EXTREMITIES: Without any cyanosis or clubbing. NEUROLOGICAL: He is much improved but not fully oriented. LABORATORY STUDIES: Today's labs show a WBC count of 11.1, hemoglobin 10.4 and hematocrit 31.0. Sodium is 145, potassium 4.4, CO2 18, BUN 61 and creatinine 5.17. PROBLEMS: 1. Acute kidney injury superimposed on chronic kidney disease - kidney function is slightly improved compared to yesterday. We will continue with IV fluids for now and recheck is renal profile tomorrow. 2. Hypernatremia - sodium level has improved to high normal range. He is receiving hypotonic sodium bicarbonate infusion. 3. Metabolic acidosis acidosis has slightly improved and is stable. We will continue with sodium bicarbonate drip. 4. Hyperkalemia his potassium has also improved and corrected. No intervention is needed at present. 5. Altered mentation, most likely toxic and metabolic encephalopathy his mentation has improved significantly compared with yesterday. We will continue to optimize his electrolytes and kidney function. He is receiving steroids and antibiotics for possible infection. 6. Cerebellar mass he was noticed to have a cerebellar mass and is likely to be transferred to [facility] in [place].
[2021-04-01] MEDS: HEPARIN DRIP 25,000 UNITS in IV 1 EA IV SCH (20:39)
[2021-04-02] VITALS (13 sets, daily range): BP systolic 142–166; BP diastolic 79–99
[2021-04-02] MEDS ORDERED: LORazepam 2 MG/ML VIAL IV STA (00:22)
[2021-04-02] MEDS ORDERED: RAMELTEON 8 MG TAB (ROZEREM) PO PRN (00:25)
[2021-04-02] MEDS ORDERED: diphenhydrAMINE 50MG/ML VIAL (J1200) IV ONE (00:25)
[2021-04-02] MEDS: HumaLOG INSULIN (NovoLOG) PER UNIT SC SCH ×4 (00:34→18:44)
[2021-04-02 02:50] LABS: HEMOGLOBIN 10.2 g/dl (13.5-17.5); LYMPH # 0.6 10^3/uL (1.5-5.0); LYMPH % 7.5 % (24.0-44.0); MEAN CORPUSCULAR HEMOGLOBIN 30.4 pg (27.0-33.0); MEAN CORPUSCULAR VOLUME 89.3 fl (80.0-96.0); MONO # 0.3 10^3/uL (0.0-0.8); MONO % 3.3 % (2.0-8.0); NEUTROPHILS # 6.6 10^3/uL (1.5-8.5); NEUTROPHILS % 88.7 % (36.0-66.0); PLATELET COUNT, AUTOMATED 122 10^3/uL (150-450); RED BLOOD COUNT 3.36 10^6/uL (4.30-6.10); WHITE BLOOD COUNT 7.5 10^3/uL (4.0-10.0)
[2021-04-02 03:11] LABS: ERYTHROCYTE SEDIMENTATION RATE 15 mm/hr (0-20)
[2021-04-02 03:17] LABS: ALBUMIN 2.5 GM/DL (3.2-5.2); BILIRUBIN,TOTAL 0.4 MG/DL (0.2-1.0); CREATININE FOR GFR 5.19 MG/DL (0.70-1.30); GLOMERULAR FILTRATION RATE 11.5 (>42); MAGNESIUM LEVEL 1.6 MG/DL (1.8-2.4); POTASSIUM SERUM 4.5 MEQ/L (3.5-5.1); TOTAL PROTEIN 5.3 GM/DL (6.4-8.2)
--- NOTE | 2021-04-02 04:11 | ECGEPIP ---
[facility] - ED Test Date: 2021-03-30 Pat Name: LISETH PABON Department: Room: - Gender: Male Donor Services Technician: jarviskanika : 1945 Requested By: CHANTELL GONZALEZ Order Number: [id number] Reading MD: Fuad Colindres Measurements Intervals [place] Rate: 112 P: AR: QRS: -4 QRSD: 78 T: -19 QT: 334 QTc: 455 Interpretive Statements Atrial fibrillation with rapid ventricular response Nonspecific ST and T wave abnormality BASELINE ARTIFACT AFFECTS INTERPRETATION RATE CHANGE COMPARED TO 01/24/19 Electronically Signed on 04-02-2021 4:11:03 EDT by Fuad Colindres
[2021-04-02] MEDS: METOPROLOL TART 25 MG TABLET PO SCH (05:35)
[2021-04-02] MEDS: SYMBICORT 80/4.5MCG INHALER 6GM INH SCH ×2 (07:31→19:55)
[2021-04-02] MEDS: CEFEPIME HCL 1 GM in D5W MINI-BAG PLUS 50 ML IV SCH ×2 (09:50→20:24)
[2021-04-02] MEDS: ASPIRIN 81 MG CHEW TABLET PO SCH (09:51)
[2021-04-02] MEDS: THIAMINE 100 MG TAB PO SCH (09:51)
[2021-04-02] MEDS: FOLIC ACID 1 MG TAB PO SCH (09:51)
[2021-04-02] MEDS: MULTIVITAMINS/MINERALS THERAP 1 TAB PO SCH ×2 (09:51→10:10)
[2021-04-02] MEDS: TAMOXIFEN CITRATE 10 MG TAB PO SCH (09:53)
--- NOTE | 2021-04-02 12:18 | IPN ---
PROGRESS NOTE DATE: 04/02/2021 Mr. Chamorro is seen this morning on his bedside. He has a sitter in the room. Apparently he was more agitated through the night and was given Ativan, due to which he is obtunded now. Yesterday he was much more alert and talking, but today he barely opens his eyes and tries to say a word but unable to talk. Sitter reports that he was agitated earlier but resting comfortably at present with mittens on his hands. PHYSICAL EXAMINATION: Temperature 97.7 degrees Fahrenheit, heart rate 100 per minute, respiratory rate 20 per minute, blood pressure 166/87 mmHg, and oxygen saturation 100% on room air. Intake and output records from yesterday show total intake 4090 and output 1550 mL. His head is atraumatic. Neck supple and jugular venous distention (JVD) difficult to be assessed. Heart sounds are regular and lungs have diminished breath sounds due to poor inspiratory effort. Abdomen soft and nontender, and bowel sounds are normal. Extremities without any cyanosis or clubbing. Neurologically he is more obtunded and not able to talk today. Today's labs show WBC count 7.5, hemoglobin 10.2, and hematocrit 30. Sodium 140, potassium 4.5, CO2 of 21, BUN 61, and creatinine 5.19. Glucose 218 and calcium 8.0. PROBLEMS: 1. Acute kidney injury superimposed on chronic kidney disease. No change in kidney function over last 24 hours. He continues to receive intravenous (IV) fluid. His oral intake is none at present. We will continue with IV fluid hydration. I will hold off on dialysis at this point. 2. Metabolic acidosis. His acidosis has improved, and he remains on IV sodium bicarbonate drip. 3. Hypernatremia. Sodium level has also corrected, and we can continue with current IV fluid for now. I will consider to change his IV fluid tomorrow if his electrolytes and renal function do not change much. We will also re-evaluate him for potential need for dialysis. 4. Altered mentation. Most likely toxic and metabolic encephalopathy. He was given some sedation through the night. Uremia can also contribute to his altered mentation; however, yesterday he was much brighter, and he received Ativan through the night due to agitation. 5. Cerebellar mass. Patient is waiting for transfer to [place] for neurosurgical evaluation.
--- NOTE | 2021-04-02 12:25 | IPNPDOC ---
Text Note Date of Service The patient was seen on 04/02/21. NOTE Subjective: Patient somnolent in he morning, he was agitated overnight. Objective: GENERAL APPEARANCE: NAD HEENT: no scleral icterus, no JVD, EOMI CARDIOVASCULAR: Irregularly irregular LUNGS: Diminished lung sounds bilaterally ABDOMEN: soft & not tender w palpation MUSCULOSKELETAL: no cyanosis, no swelling INTEGUMENT: no generalized pallor NEUROLOGICAL: Moves 4 limbs, does not follow commands Assessment and plan: Pt is 75-year-old male with a history of COPD, CKD, breast cancer status post lumpectomy and presently on tamoxifen, history of prostate cancer status post TURP, urinary retention, asthma COPD, congestive heart failure. Presented with confusion, fall, unsteady gait. Found incidental cerebellar mass. In addition, lactic acidosis, with acute renal failure. Accepted for transfer at [place] in [facility] for neurosurgery eval. Metabolic encephalopathy Multifactorial. Secondary to left cerebellar mass with surrounding edema superimposed with metabolic acidosis I talked to his and she reported that patient was not diagnosed with dementia before MRI showing 3.3 cm cerebellar mass, extending toward vermis along midline with surrounding vasogenic edema, may represent a metastasis or less likely a pimary tumor such hemangioblastoma The neurosurgeon from [place] accepted patient, Await available bed in [facility]. No beds available today Cerebellar mass Metastasis versus primary tumor Patient will need neurosurgical evaluation. Await transfer Dr. Arellano recommended to continue of dexamethasone and transfer patient to upper- level facility. Radiation oncologist will proceed with brain radiation. Appreciate/agree with neurologist consult ARIA/uremia/metabolic acidosis/lactic acidosis Lactic acidosis resolved, creatinine level stable, not improving Nephrology team on board Continue to monitor started cefepime empirically day 3 blood culture negative, urine culture negative. UA showed positive leukocyte esterase Lactic acidosis resolved Procalcitonin negative Atrial fibrillation with RVR Continue metoprolol IV as needed I increased the dose of metoprolol p.o. 50 mg every 8 hours I discussed anticoagulation with Dr. Arellano, heparin drip started Hyperkalemia Resolved Type 2 diabetes Insulin sliding scale Diastolic CHF Not in acute exacerbation Continue to monitor Hypertension Blood pressure under control History of asthma/COPD Not in acute exacerbation Hx of etoh use disorder: report of abstinence for 1 year. C/w thiamine replacement. Hx of prostate ca: incontinent. S/p TURP Gout: Febuxostat on hold DVT ppx: SCDs. TEDs. Heparin 5000 untis q8h. VS, Fishbone, I+O VS,Fishbone, I+O VS, Fishbone, I+O Laboratory Tests 04/02/21 02:30 Vital Signs Date Time Temp Pulse Resp B/P (MAP) Pulse Ox O2 Delivery O2 Flow Rate FiO2 04/02/21 11:40 98.0 109 20 145/90 (108) 97 Room Air 03/31/21 08:15 2.0 I&O- Last 24 Hours up to 6 AM 04/02/21 06:00 Intake Total 3490 ml Output Total 1050 ml Balance 2440 ml ROSITA COLON DO Apr 02, 2021 12:25
[2021-04-02] MEDS: SODIUM BICARBONATE 75 MEQ in D5W 1,000 ML IV SCH ×2 (13:44→17:39)
[2021-04-02] MEDS: METOPROLOL TART 50 MG TAB PO SCH ×2 (15:35→20:24)
[2021-04-02] MEDS: HEPARIN DRIP 25,000 UNITS in IV 1 EA IV SCH (16:35)
[2021-04-02] MEDS: LORazepam 2 MG/ML VIAL IV PRN (22:34)
[2021-04-03] VITALS (10 sets, daily range): BP systolic 111–160; BP diastolic 58–95
[2021-04-03] MEDS: HumaLOG INSULIN (NovoLOG) PER UNIT SC SCH ×4 (00:41→18:02)
[2021-04-03] MEDS: SODIUM BICARBONATE 75 MEQ in D5W 1,000 ML IV SCH ×2 (01:13→11:46)
[2021-04-03 03:08] LABS: BASO % 0.1 % (0.0-1.0); HEMATOCRIT 32.1 % (42.0-52.0); HEMOGLOBIN 11.1 g/dl (13.5-17.5); LYMPH # 0.7 10^3/uL (1.5-5.0); LYMPH % 8.4 % (24.0-44.0); MEAN CORPUSCULAR HEMOGLOBIN 30.4 pg (27.0-33.0); MEAN CORPUSCULAR HGB CONC 34.6 g/dl (32.0-36.5); MEAN CORPUSCULAR VOLUME 87.9 fl (80.0-96.0); MONO # 0.3 10^3/uL (0.0-0.8); MONO % 3.2 % (2.0-8.0); NEUTROPHILS # 7.2 10^3/uL (1.5-8.5); NEUTROPHILS % 87.9 % (36.0-66.0); PLATELET COUNT, AUTOMATED 115 10^3/uL (150-450); RED BLOOD COUNT 3.65 10^6/uL (4.30-6.10); WHITE BLOOD COUNT 8.2 10^3/uL (4.0-10.0)
[2021-04-03 03:27] LABS: ALBUMIN 2.4 GM/DL (3.2-5.2); BILIRUBIN,TOTAL 0.4 MG/DL (0.2-1.0); CALCIUM LEVEL 7.7 MG/DL (8.8-10.2); CREATININE FOR GFR 4.86 MG/DL (0.70-1.30); GLOMERULAR FILTRATION RATE 12.4 (>42); MAGNESIUM LEVEL 1.5 MG/DL (1.8-2.4); POTASSIUM SERUM 4.2 MEQ/L (3.5-5.1); TOTAL PROTEIN 5.6 GM/DL (6.4-8.2)
[2021-04-03] MEDS: METOPROLOL TART 50 MG TAB PO SCH ×2 (06:56→13:42)
[2021-04-03] MEDS: SYMBICORT 80/4.5MCG INHALER 6GM INH SCH (07:20)
[2021-04-03] MEDS ORDERED: MAGNESIUM OXIDE 400MG TAB (MAG-OX) PO SCH (09:00)
[2021-04-03] MEDS: CEFEPIME HCL 1 GM in D5W MINI-BAG PLUS 50 ML IV SCH (09:17)
[2021-04-03] MEDS: THIAMINE 100 MG TAB PO SCH (09:17)
[2021-04-03] MEDS: FOLIC ACID 1 MG TAB PO SCH (09:17)
[2021-04-03] MEDS: ASPIRIN 81 MG CHEW TABLET PO SCH (09:18)
[2021-04-03] MEDS: TAMOXIFEN CITRATE 10 MG TAB PO SCH (09:18)
[2021-04-03] MEDS: MULTIVITAMINS/MINERALS THERAP 1 TAB PO SCH (09:18)
--- NOTE | 2021-04-03 11:33 | CR ---
NEUROLOLGY CONSULTATION DATE: 04/01/2021 REFERRING PHYSICIAN: ROSITA COLON DO REASON FOR CONSULTATION: Left cerebellar mass. HISTORY OF PRESENT ILLNESS: Vincent Chamorro is a 75-year-old male gentleman who was found to have an incidental finding of a left cerebellar mass with vasogenic edema. The patient was brought to [facility] with confusion and possible syncopal episode. He has a past medical history significant for Grade 2 infiltrating ductal carcinoma and a history of prostate cancer. The patient was thought to have metastatic brain disease and was to be transferred from [facility] Emergency Department to a tertiary center with neurosurgery, however there were no hospital beds located in any particular local hospital. It seems that [place] did accept the patient, however the family decided to not transfer him there. He has been accepted at [facility] under the care of neurosurgery and is awaiting transfer. The patient has been seen by oncology who has recommended probable surgical resection of the mass and continuation of Dexamethasone 4 mg every 6 hours. He received one dose of 10 mg of Dexamethasone in the Emergency Department. His medical condition is complicated with acute renal failure and new onset atrial fibrillation with rapid ventricular response. This may explain his poor cognition and confusion. REVIEW OF SYSTEMS: A 14 point review of systems is negative except as per HPI. PAST MEDICAL HISTORY: Adenocarcinoma of the prostate status post radical prostatectomy in 2009, cataract surgery, breast cancer, Grade 2 infiltrating ductal carcinoma, T2 N1a M0 disease. PAST SURGICAL HISTORY: Prostatectomy, right sided mastectomy. FAMILY HISTORY: Noncontributory. SOCIAL HISTORY: Patient denies the use of alcohol or illicit drugs and tobacco use. He is a former abuser of alcohol. PHYSICAL EXAMINATION: Blood pressure is 164/95, pulse rate is 90, respiratory rate is 19, oxygenation is 98% on room air. Temperature is 97.5 degrees Fahrenheit. Patient is oriented to name, he does not know where he is. He cannot tell me the correct year. 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 He denies any loss of strength. He denies any ataxia. Pupils appear 2.5 mm and mildly reactive. Extraocular muscles are intact. There is no facial weakness. Tongue is midline. Hearing is equal to finger rub. There is no loss of sensation to light touch involving the face, arms and legs. There is no ataxia, dysmetria or tremor. Gait is deferred. Strength is 5/5 including bilateral deltoids, biceps, triceps, hand circular shear operator, iliopsoas, quadriceps, anterior tibialis. Deep tendon reflexes are reduced in the lower extremities, __ in the upper extremities. Sensory is intact to light touch in all four extremities. ASSESSMENT: 1. Incidental finding of left cerebellar mass with vasogenic edema. Patient is at the present time asymptomatic. 2. Encephalopathy, confusion, likely secondary to underlying medical condition including acute renal disease. 3. Patient initially came in with reported syncope while in the bathroom as per ER staff. PLAN: 1. Continue Decadron 4 mg p.o. q. 6 hours. Recommend Neurosurgical evaluation. Continue treatment as per Oncology. There is no immediate need to start the patient on any other neurological medications at this time. Patient does not need seizure prophylaxis for this particular lesion. Patient can follow-up in the outpatient neurology clinic once completing neurosurgical evaluation.
--- NOTE | 2021-04-03 12:01 | IPNPDOC ---
Text Note Date of Service The patient was seen on 04/03/21. NOTE Subjective: Patient somnolent in he morning, confused in place and in time. I called to [facility] no beds available today Objective: GENERAL APPEARANCE: NAD HEENT: no scleral icterus, no JVD, EOMI CARDIOVASCULAR: Irregularly irregular LUNGS: Diminished lung sounds bilaterally ABDOMEN: soft & not tender w palpation MUSCULOSKELETAL: no cyanosis, no swelling INTEGUMENT: no generalized pallor NEUROLOGICAL: Moves 4 limbs, does not follow commands Assessment and plan: Pt is 75-year-old male with a history of COPD, CKD, breast cancer status post lumpectomy and presently on tamoxifen, history of prostate cancer status post TURP, urinary retention, asthma COPD, congestive heart failure. Presented with confusion, fall, unsteady gait. Found incidental cerebellar mass. In addition, lactic acidosis, with acute renal failure. Accepted for transfer at [facility] in [facility] for neurosurgery eval. Metabolic encephalopathy Multifactorial. Secondary to left cerebellar mass with surrounding edema superimposed with metabolic acidosis I talked to his and she reported that patient was not diagnosed with dementia before MRI showing 3.3 cm cerebellar mass, extending toward vermis along midline with surrounding vasogenic edema, may represent a metastasis or less likely a pimary tumor such hemangioblastoma The neurosurgeon from [place] accepted patient, Await available bed in [facility]. No beds available today Cerebellar mass Metastasis versus primary tumor Patient will need neurosurgical evaluation. Await transfer Dr. Arellano recommended to continue of dexamethasone and transfer patient to upper- level facility. Radiation oncologist will proceed with brain radiation. Appreciate/agree with neurologist consult ARIA/uremia/metabolic acidosis/lactic acidosis Lactic acidosis resolved, creatinine level stable, slightly improved today Nephrology team on board Continue to monitor started cefepime empirically day 4 blood culture negative, urine culture negative. UA showed positive leukocyte esterase Lactic acidosis resolved Procalcitonin negative Atrial fibrillation with RVR Continue metoprolol IV as needed I increased the dose of metoprolol p.o. 50 mg every 8 hours. Heart rate under control I discussed anticoagulation with Dr. Arellano, heparin drip started Hyperkalemia Resolved Hypomagnesemia Replaced Type 2 diabetes Insulin sliding scale Diastolic CHF Not in acute exacerbation Continue to monitor Hypertension Blood pressure under control History of asthma/COPD Not in acute exacerbation Hx of etoh use disorder: report of abstinence for 1 year. C/w thiamine replacement. Hx of prostate ca: incontinent. S/p TURP Gout: Febuxostat on hold DVT ppx: SCDs. TEDs. Heparin 5000 untis q8h. VS, Fishbone, I+O VS,Fishbone, I+O VS, Fishbone, I+O Laboratory Tests 04/03/21 02:54 Vital Signs Date Time Temp Pulse Resp B/P (MAP) Pulse Ox O2 Delivery O2 Flow Rate FiO2 04/03/21 09:18 80 138/79 04/03/21 08:05 97.3 18 97 Room Air 03/31/21 08:15 2.0 I&O- Last 24 Hours up to 6 AM 04/03/21 06:00 Intake Total 2095 ml Output Total 2800 ml Balance -705 ml ROSITA COLON DO Apr 03, 2021 12:00
[2021-04-03] MEDS ORDERED: LORazepam 2 MG/ML VIAL As Ordered ONE (14:53)
[2021-04-03] MEDS: LORazepam 2 MG/ML VIAL IV PRN (15:01)
--- NOTE | 2021-04-03 15:58 | DS.PDOC ---
Discharge Summary General Date of Admission Mar 31, 2021 at 03:33 Date of Discharge 04/03/21 Discharge Summary PROCEDURES PERFORMED DURING STAY: [None]. ADMITTING DIAGNOSES: Metabolic encephalopathy Cerebellar mass ARIA/uremia/metabolic acidosis/lactic acidosis Atrial fibrillation with RVR Hyperkalemia Hypomagnesemia Type 2 diabetes Hypertension History of asthma/COPD Hx of etoh use disorder Hx of prostate ca Gout Diastolic CHF DISCHARGE DIAGNOSES: Metabolic encephalopathy Cerebellar mass ARIA/uremia/metabolic acidosis/lactic acidosis Atrial fibrillation with RVR Hyperkalemia Hypomagnesemia Type 2 diabetes Hypertension History of asthma/COPD Hx of etoh use disorder Hx of prostate ca Gout Diastolic CHF COMPLICATIONS/CHIEF COMPLAINT: Cerbellar Mass. HISTORY OF PRESENT ILLNESS:75-year-old male with a history of COPD, CKD, breast cancer status post lumpectomy and presently on tamoxifen, history of prostate cancer status post TURP, urinary retention, asthma COPD, congestive heart failure. Presented to the ER after his reported patient was having generalized weakness after walking out of the shower and unable to get out of bed and complaining of unsteady gait. reports that the patient fell on the bed. Patient also noted to be more confused disoriented today during my examination patient is unable to tell me reason for admission, and is unaware of his past medical history. His states the patient had normal mentation the last several days leading up to admission. She does endorse that he has had slight issues with short-term memory but otherwise he is alert and oriented x3 at home. 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 Of note, patient was found to be in acute renal failure, with a Cr. of 5.2 (from baseline of 1.5-2.0), along with hyperkalemia. Patient received 2L NS, without improvement in Cr. Upon arrival to PCU, patient developed new onset afib with RVR, with a LA 4.5. HOSPITAL COURSE: During the hospital stay patient received Dexamethasone 4 mg every 6 hours. He received one dose of 10 mg of Dexamethasone in the Emergency Department. His medical condition is complicated with acute renal failure and new onset atrial fibrillation with rapid ventricular response. Patient received treatment with IV hydration, his kidney function slightly improved. During hospital stay patient was confused and not oriented in place and time. Patient received anticoagulation therapy with heparin drip for atrial fibrillation and beta- blockers to control his rhythm. Patient was found to have positive leukocyte esterase in UA, we started cefepime empirically. I talked to his and she reported that patient was not diagnosed with dementia before. DISCHARGE MEDICATIONS: Please see below. ALLERGIES: Please see below. PHYSICAL EXAMINATION ON DISCHARGE: VITAL SIGNS: Please see below. Objective: GENERAL APPEARANCE: NAD HEENT: no scleral icterus, no JVD, EOMI CARDIOVASCULAR: Irregularly irregular LUNGS: Diminished lung sounds bilaterally ABDOMEN: soft & not tender w palpation MUSCULOSKELETAL: no cyanosis, no swelling INTEGUMENT: no generalized pallor NEUROLOGICAL: Moves 4 limbs, does not follow commands LABORATORY DATA: Please see below. IMAGING: MRI head wo contrast (03/30/21): FINDINGS: Limitations: According to the mining engineering technologist notes, the patient was unable to complete the examination and axial GRE and axial FLAIR images of the brain were not obtained. Brain: There is a T1 isointense, T2 slightly hypointense mass in the left cerebellum extending toward the vermis along the midline with surrounding vasogenic edema, which has developed since the MRI brain on 02/27/2018 and measures approximately 3.3 cm in transverse dimension. No other masses are identified. There is no acute infarct, intracranial hemorrhage, midline shift, or herniation. There are non-specific foci of T2 hyperintensity in the periventricular and subcortical white matter, which are likely the sequela of chronic small vessel ischemic injury and are similar in appearance compared to the prior MRI brain on 02/27/2018. Cerebral ventricles: The ventricles are moderately to severely dilated in proportion to the sulci, which is compatible with moderate to severe generalized cerebral volume loss that is similar in appearance compared to the prior MRI brain on 02/27/2018. Bones/joints: Unremarkable. Paranasal sinuses: There is mild opacification of the right ethmoid sinus. No air-fluid levels are seen in the sinuses. The maxillary sinuses were not fully imaged. Mastoid air cells: There is a large amount of fluid in the mastoid air cells bilaterally, left greater than right. Orbital cavity: Incidental note is made of bilateral lens implants. Soft tissues: Unremarkable. 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 CT head without contrast: FINDINGS: Hyperdense mass in the left cerebellar hemisphere is suspected although evaluation is somewhat limited due to technical factors and streak artifact. Atrophy with periventricular leukomalacia and microvascular ischemic changes are appreciated. The ventricles and sulci are symmetric. Avery-white differentiation is maintained. There is no evidence for acute intracranial hemorrhage. No extra- axial fluid collection. Calvarium is intact. Paranasal sinuses and mastoid air cells are clear. IMPRESSION: 1. Suspicious for hyperdense mass in the left cerebellar hemisphere. 2. Chronic atrophy and microvascular ischemic changes are noted. No evidence for intracranial or extra-axial hemorrhage. CT c spine (03/30/21): FINDINGS: There is no evidence of cervical spine element fracture. No skull base fracture is seen. Cervical vertebral body heights are preserved. Alignment is normal. Facet joints are normally aligned bilaterally at each cervical level on multiplanar re-formations images. There is no evidence of intraspinal or paraspinal hematoma. No extra vertebral abnormality is seen. There is some straightening of the normal cervical lordosis. There is osteoarthritic facet hypertrophy in the midcervical spine most pronounced on the left at C 3 4 and C4-5. There is degenerative disc narrowing and anterior osteophyte formation in the cervical spine. Bridging large osteophytes are seen at C5-6 and and at C6-7. IMPRESSION: Degenerative spondylosis changes as noted above. No acute bony abnormality. CXR (03/30/21): IMPRESSION: No acute cardiopulmonary process appreciated. PROGNOSIS: Guarded ACTIVITY: [As tolerated]. DIET: Pured diet DISCHARGE PLAN: Transfer to [facility] ITEMS TO FOLLOWUP ON ON OUTPATIENT: Follow-up with PCP and oncologist DISCHARGE CONDITION: [Stable]. TIME SPENT ON DISCHARGE: 40minutes. Vital Signs/I&Os Vital Signs Date Time Temp Pulse Resp B/P (MAP) Pulse Ox O2 Delivery O2 Flow Rate FiO2 04/03/21 13:42 80 160/82 04/03/21 11:47 97.7 20 98 Room Air 03/31/21 08:15 2.0 I&O- Last 24 Hours up to 6 AM 04/03/21 06:00 Intake Total 2095 ml Output Total 2800 ml Balance -705 ml Laboratory Data Labs 24H Laboratory Tests 2 04/02/21 17:12: Bedside Glucose (Misc Panel) 208H 04/02/21 18:27: Activated Partial Thromboplast Time 189.1*H 04/03/21 00:28: Bedside Glucose (Misc Panel) 234H 04/03/21 02:54: Activated Partial Thromboplast Time 174.2*H, Immature Granulocyte % (Auto) 0.4, Neutrophils (%) (Auto) 87.9H, Lymphocytes (%) (Auto) 8.4L, Monocytes (%) (Auto) 3.2, Eosinophils (%) (Auto) 0.0, Basophils (%) (Auto) 0.1, Neutrophils # (Auto) 7.2, Lymphocytes # (Auto) 0.7L, Monocytes # (Auto) 0.3, Eosinophils # (Auto) 0.0, Basophils # (Auto) 0.0, Nucleated Red Blood Cells % (auto) 0.0, Anion Gap 8, Glomerular Filtration Rate 12.4L, Calcium Level 7.7L, Magnesium Level 1.5L, Total Bilirubin 0.4, Aspartate Amino Transf (AST/SGOT) 13, Alanine Aminotransferase (ALT/SGPT) 19, Alkaline Phosphatase 31L, Total Protein 5.6L, Al bumin 2.4L, Albumin/Globulin Ratio 0.8 04/03/21 06:43: Bedside Glucose (Misc Panel) 185H 04/03/21 10:56: Activated Partial Thromboplast Time 106.2H 04/03/21 11:59: Bedside Glucose (Misc Panel) 168H CBC/BMP Laboratory Tests 04/03/21 02:54 FSBS Laboratory Tests Test 04/02/21 17:12 04/03/21 00:28 04/03/21 06:43 04/03/21 11:59 Range/Units Bedside Glucose (Misc Panel) 208 234 185 168 83-110 MG/DL Microbiology Microbiology 03/31/21 Blood Culture - Preliminary, Resulted No Growth after 72 hours. All specime... 03/31/21 Blood Culture - Preliminary, Resulted No Growth after 72 hours. All specime... 03/30/21 Urine Culture - Final, Complete Discharge Medications Scheduled Aspirin (Aspirin) 81 Mg Tab.chew, 81 MG PO DAILY, (Reported) Budesonide/Formoterol (Symbicort 80-4.5 Mcg Inhaler) 6.9 Gm Hfa.aer.ad, 2 PUFF INH BID, (Reported) Calcitriol (Calcitriol) 0.25 Mcg Capsule, 0.25 MCG PO 3XW, (Reported) TUE, TUE, TUE Ergocalciferol (Vitamin D2) (Vitamin D2) 50,000 Units Cap, 50,000 UNITS PO 1XWK, (Reported) SUNDAYS Febuxostat (Uloric) 40 Mg Tablet, 40 MG PO DAILY, (Reported) Furosemide (Furosemide) 20 Mg Tablet, 20 MG PO 3XW, (Reported) TUE, TUE, TUE Glipizide (Glipizide ER) 5 Mg Tab.er.24, 5 MG PO DAILY, (Reported) Magnesium Chloride (Mag64) 64 Mg Tablet.dr, 64 MG PO DAILY, (Reported) Nebivolol HCl (Bystolic) 2.5 Mg Tablet, 2.5 MG PO DAILY, (Reported) Tamoxifen Citrate (Tamoxifen Citrate) 20 Mg Tablet, 20 MG PO DAILY, (Reported) Thiamine HCl (Thiamine HCl) 100 Mg Tablet, 100 MG PO DAILY, (Reported) Allergies Coded Allergies: doxycycline (Verified Allergy, Unknown, 07/10/19) ROSITA COLON DO Apr 03, 2021 15:58
[2021-04-03 18:01] LABS: PARTIAL THROMBOPLASTIN TIME 91.3 SECONDS (25.9-37.0)
[2021-04-04 11:28] LABS: APTT 1:2 SUBSTITUTION 55.8 SECONDS
== END 2021-04-03 19:30 | disposition short-term general hospital (02) | DRG 70 ==
LOC: EDBD 11:38 → M ED 11:38 → CANBEDREQ 16:47 → M ED INP 03-31 03:33 → ENRESERV 03-31 03:48 → M PCU 03-31 04:21
PROVIDERS: ADMIT Family Medicine; ATTEND Family Medicine
DX: G93.41 Metabolic encephalopathy (principal); G93.6 Cerebral edema; C79.31 Secondary malignant neoplasm of brain; N17.9 Acute kidney failure, unspecified; E87.4 Mixed disorder of acid-base balance; I50.32 Chronic diastolic (congestive) heart failure; I13.0 Hypertensive heart and chronic kidney disease with heart failure and stage 1 through stage 4 chronic kidney disease, or unspecified chronic kidney disease; E87.0 Hyperosmolality and hypernatremia; C71.0 Malignant neoplasm of cerebrum, except lobes and ventricles; N18.9 Chronic kidney disease, unspecified; E83.42 Hypomagnesemia; I48.91 Unspecified atrial fibrillation; Z66 Do not resuscitate; F10.11 Alcohol abuse, in remission; J45.909 Unspecified asthma, uncomplicated; E87.5 Hyperkalemia; J44.9 Chronic obstructive pulmonary disease, unspecified; R33.9 Retention of urine, unspecified; E11.22 Type 2 diabetes mellitus with diabetic chronic kidney disease; Z85.46 Personal history of malignant neoplasm of prostate; Z85.3 Personal history of malignant neoplasm of breast; Z90.11 Acquired absence of right breast and nipple; Z20.822 Contact with and (suspected) exposure to COVID-19; Z79.82 Long term (current) use of aspirin; Z79.899 Other long term (current) drug therapy; Z88.1 Allergy status to other antibiotic agents

== ENCOUNTER 2021-04-03 09:53 | Outpatient (RCR) | payer MEDICARE, OTHER ==
[~2021-04-03 09:53] MED LIST changes: +BYST2.5T2 PO; +CALC1CAP31 PO; +ERGO500029 PO; +GLIP5TAB20 PO
== END 2021-04-26 ==
LOC: M ONCR 09:53
PROVIDERS: ATTEND Radiology Radiation Oncology
DX: C79.31 Secondary malignant neoplasm of brain (principal)